=== PATIENT | male | born 1975 | race Caucasian/White ===

== ENCOUNTER 2017-08-21 19:06 | Emergency (ER) | payer MEDICARE, OTHER ==
[~2017-08-21] VITALS: Ht 160 cm; Wt 68.0 kg
[~2017-08-21 19:06] MED LIST: ALBU.083IS IH; ALBU3IS INH; ALBU90I INH; ALBU90OI INH; ALBU90OI6 INH; ALBU90OI61 INH; ALLERGY TAB OTC PO; ALLO100 PO; AMLO5 PO; AMOCLA500 PO; AMOCLA875 PO; ANTIBIOTIC OINT28 GM BOTHEYES; AZIT250 PO; Adalat Cc30 MG PO; BECL80OI INH; BENZ100A PO; BLOOD PRESSURE MED; BLOOD PRESSURE MED PO; CALCA500CH PO; CALCIUM WITH V1 EACH PO; CEFD300 PO; CEPH500 PO; CODGUAEL PO; COLCHICINE0.6 MG PO; CRUTCH3 USE; CRUTCH4 USE; Cleocin HCl150 MG PO; DELTASONE20 MG PO; DIPH50 PO; DOXY100 PO; Duoneb 2.5-0.5 M3 ML INH; EPIN.3I IM; FLUSAL2505 IH; FLUSAL2505 INH; FLUSAL5005 IH; FLUSAL5005 INH; FLUT.05NI; FLUT1DIS8 INH; FLUT44OIA IH; GUAI600T33 PO; HYDACE5 PO; HYDR1TAB94 PO; IBUP600 PO; IBUP800 PO; INDO50 PO; LEVFLO500 PO; LEVO750 PO; LISI5 PO; LORA1 PO; LORA10 PO; METPRE4DP PO; MONT10T PO; Mucinex600 MG PO; NAPR500 PO; NAPR500EC PO; NEBI5 PO; NIFEDIPINE PO; Naprosyn500 MG PO; Norco 5-325 Ta1 EACH PO; PARO10 PO; PARO20 PO; PRED10 PO; PRED20 PO; PRED5 PO; Percocet 5-3251 EACH PO; Prednisone20 MG PO; Prednisone5 MG PO; Prednisone50 MG PO; QVAR7.3 G1 INH; RANI150 PO; ROBAFEN COUGH; ROBITUSSIN DM PO; ROPI.25 PO; Refresh Eye Dr1 EACH BOTHEYES; TAMS.4ER PO; TIOT18; TIOT18 INH; TRAZ50 PO; Ultram50 MG PO; Ventolin/Prove6.7 GM INH; Zestril30 MG PO; Zithromax250 MG PO
[2017-08-21 20:26] LABS: PCO2 Arterial 33.7 mmHg (35-45); PO2 Arterial 57.4 mmHg (80-100); pH Blood Arterial 7.46 (7.35-7.45)
[2017-08-21 20:33] LABS: BASOPHILS ABSOLUTE AUTO 0.06 K/mm3 (0.00-0.23); BASOPHILS PERCENT AUTO 1 % (0-2); EOSINOPHILS ABSOLUTE AUTO 0.37 K/mm3 (0.00-0.68); EOSINOPHILS PERCENT AUTO 4 % (0-6); Hematocrit 40.5 % (37.0-53.0); Hemoglobin 14.1 g/dL (13.5-17.5); IMMATURE GRAN ABSOLUTE AUTO 0.02 K/mm3 (0.00-0.10); IMMATURE GRAN PERCENT AUTO 0 % (0-1); LYMPHOCYTES ABSOLUTE AUTO 2.64 K/mm3 (0.84-5.20); LYMPHOCYTES PERCENT AUTO 30 % (21-46); MONOCYTES PERCENT AUTO 7 % (4-13); Mean Corpuscular HGB Conc 34.8 g/dL (31.5-36.5); Mean Corpuscular Volume 89 fL (80-100); Mean Platelet Volume 8.6 fL (9.1-12.4); NEUTROPHILS ABSOLUTE AUTO 4.98 K/mm3 (1.96-9.15); NEUTROPHILS PERCENT AUTO 58 % (41-73); Platelet Count 253 K/mm3 (150-400); RDW Coefficient Variation 12.2 % (11.7-14.2); Red Blood Cell Count 4.55 M/mm3 (4.30-5.90); White Blood Cell Count 8.67 K/mm3 (4.00-11.30)
[2017-08-21 20:42] LABS: Alanine Aminotransfer (ALT/SGP 17 U/L (12-78); Albumin, Blood 3.9 g/dL (3.4-5.0); Albumin/Globulin Ratio 1.1 (0.8-1.8); Alk Phos 58 U/L (50-136); Anion Gap 8 mmol/L (6-16); Aspartate Aminotrans (AST/SGOT 13 U/L (12-37); Bilirubin, Total 0.4 mg/dL (0.1-1.0); Blood Urea Nitrogen 22 mg/dL (8-24); CO2, Blood 27 mmol/L (21-32); Calcium, Blood 8.7 mg/dL (8.5-10.1); Chloride, Blood 107 mmol/L (98-108); Creatinine, Blood 0.92 mg/dL (0.60-1.20); Globulin, Blood 3.7 g/dL (2.2-4.0); Glomerular Filtration Rate >60 (60-); Glucose, Blood 74 mg/dL (70-99); Potassium, Blood 3.6 mmol/L (3.5-5.5); Sodium, Blood 142 mmol/L (136-145); Total Protein, Blood 7.6 g/dL (6.4-8.2)
[2017-08-21] MEDS ORDERED: Prednisone20 MG PO (23:07)
[2017-12-04] MEDS ORDERED: NAPR550 (15:12)
[2017-12-04] MEDS ORDERED: Phenergan25 M1 PO (16:45)
== END 2017-08-21 23:11 | disposition home or self-care (01) ==
LOC: ER 19:06
PROVIDERS: Physician Assistant
DX: J45.901 Unspecified asthma with (acute) exacerbation (principal); Z88.8 Allergy status to other drugs, medicaments and biological substances; Z79.899 Other long term (current) drug therapy; Z79.52 Long term (current) use of systemic steroids; I10 Essential (primary) hypertension; F41.9 Anxiety disorder, unspecified; F32.9 Major depressive disorder, single episode, unspecified; Z87.891 Personal history of nicotine dependence
CPT/HCPCS: 36415; 36600; 71046; 80053; 82803; 85025; 93005; 93010; 94640; 94644; 96374; 99283; J2930

== ENCOUNTER 2018-03-03 09:19 | Inpatient (IN) | payer MEDICARE, OTHER ==
[~2018-03-03] VITALS: Ht 160 cm; Wt 65.4 kg
[~2018-03-03 09:19] MED LIST changes: +NAPR550; +Phenergan25 M1 PO
[2018-03-03 10:13] LABS: PCO2 Arterial 45.5 mmHg (35-45); PO2 Arterial 67.6 mmHg (80-100); pH Blood Arterial 7.39 (7.35-7.45)
[2018-03-03 10:22] LABS: BASOPHILS ABSOLUTE AUTO 0.11 K/mm3 (0.00-0.23); BASOPHILS PERCENT AUTO 1 % (0-2); EOSINOPHILS ABSOLUTE AUTO 0.57 K/mm3 (0.00-0.68); EOSINOPHILS PERCENT AUTO 5 % (0-6); Hematocrit 46.4 % (37.0-53.0); Hemoglobin 15.9 g/dL (13.5-17.5); IMMATURE GRAN ABSOLUTE AUTO 0.04 K/mm3 (0.00-0.10); IMMATURE GRAN PERCENT AUTO 0 % (0-1); LYMPHOCYTES ABSOLUTE AUTO 2.13 K/mm3 (0.84-5.20); LYMPHOCYTES PERCENT AUTO 17 % (21-46); MONOCYTES ABSOLUTE AUTO 1.09 K/mm3 (0.16-1.47); MONOCYTES PERCENT AUTO 9 % (4-13); Mean Corpuscular HGB Conc 34.3 g/dL (31.5-36.5); Mean Corpuscular Volume 93 fL (80-100); Mean Platelet Volume 8.3 fL (9.1-12.4); NEUTROPHILS ABSOLUTE AUTO 8.84 K/mm3 (1.96-9.15); NEUTROPHILS PERCENT AUTO 69 % (41-73); Platelet Count 323 K/mm3 (150-400); RDW Coefficient Variation 13.2 % (11.7-14.2); Red Blood Cell Count 4.97 M/mm3 (4.30-5.90); White Blood Cell Count 12.78 K/mm3 (4.00-11.30)
[2018-03-03] MEDS ORDERED: ALBU90OI61 INH (10:25)
[2018-03-03] MEDS ORDERED: BUDE6HFA INH (10:26)
[2018-03-03] MEDS ORDERED: ALLO100 PO (10:26)
[2018-03-03] MEDS ORDERED: MONT10T PO (10:26)
[2018-03-03] MEDS ORDERED: LISI20 PO (10:26)
[2018-03-03] MEDS ORDERED: AMLO5 PO (10:27)
[2018-03-03] MEDS ORDERED: COLCHICINE0.6 MG PO (10:27)
[2018-03-03] MEDS ORDERED: ALBU3IS INH (10:28)
[2018-03-03] MEDS ORDERED: BREO ELLIPTA 21 EACH (10:29)
[2018-03-03] MEDS ORDERED: Advair Hfa 230-12 GM (10:29)
[2018-03-03 10:38] LABS: Alanine Aminotransfer (ALT/SGP 23 U/L (12-78); Albumin/Globulin Ratio 0.9 (0.8-1.8); Alk Phos 102 U/L (50-136); Anion Gap 9 mmol/L (6-16); Aspartate Aminotrans (AST/SGOT 23 U/L (12-37); Bilirubin, Total 0.4 mg/dL (0.1-1.0); Blood Urea Nitrogen 19 mg/dL (8-24); Bun/Creatinine Ratio 21.1 (12.0-20.0); CO2, Blood 27 mmol/L (21-32); Calcium, Blood 8.7 mg/dL (8.5-10.1); Chloride, Blood 102 mmol/L (98-108); Globulin, Blood 4.4 g/dL (2.2-4.0); Glomerular Filtration Rate >60 (60-); Glucose, Blood 96 mg/dL (70-99); Potassium, Blood 4.1 mmol/L (3.5-5.5); Sodium, Blood 138 mmol/L (136-145); Total Protein, Blood 8.4 g/dL (6.4-8.2)
[2018-03-04 04:52] LABS: BASOPHILS ABSOLUTE AUTO 0.01 K/mm3 (0.00-0.23); BASOPHILS PERCENT AUTO 0 % (0-2); EOSINOPHILS PERCENT AUTO 0 % (0-6); Hemoglobin 15.1 g/dL (13.5-17.5); IMMATURE GRAN ABSOLUTE AUTO 0.07 K/mm3 (0.00-0.10); IMMATURE GRAN PERCENT AUTO 1 % (0-1); LYMPHOCYTES ABSOLUTE AUTO 0.64 K/mm3 (0.84-5.20); LYMPHOCYTES PERCENT AUTO 5 % (21-46); MONOCYTES ABSOLUTE AUTO 0.23 K/mm3 (0.16-1.47); MONOCYTES PERCENT AUTO 2 % (4-13); Mean Corpuscular HGB 31.8 pg (26.0-34.0); Mean Corpuscular HGB Conc 34.3 g/dL (31.5-36.5); Mean Corpuscular Volume 93 fL (80-100); Mean Platelet Volume 8.4 fL (9.1-12.4); NEUTROPHILS ABSOLUTE AUTO 12.03 K/mm3 (1.96-9.15); NEUTROPHILS PERCENT AUTO 93 % (41-73); Platelet Count 323 K/mm3 (150-400); RDW Coefficient Variation 12.9 % (11.7-14.2); RDW Standard Deviation 43.8 fL (35.1-46.3); Red Blood Cell Count 4.75 M/mm3 (4.30-5.90); White Blood Cell Count 12.98 K/mm3 (4.00-11.30)
[2018-03-04 05:12] LABS: Anion Gap 6 mmol/L (6-16); Blood Urea Nitrogen 19 mg/dL (8-24); Bun/Creatinine Ratio 22.9 (12.0-20.0); CO2, Blood 29 mmol/L (21-32); Calcium, Blood 8.9 mg/dL (8.5-10.1); Chloride, Blood 102 mmol/L (98-108); Creatinine, Blood 0.83 mg/dL (0.60-1.20); Glomerular Filtration Rate >60 (60-); Glucose, Blood 181 mg/dL (70-99); Potassium, Blood 4.8 mmol/L (3.5-5.5); Sodium, Blood 137 mmol/L (136-145)
[2018-03-05 05:09] LABS: BASOPHILS ABSOLUTE AUTO 0.02 K/mm3 (0.00-0.23); BASOPHILS PERCENT AUTO 0 % (0-2); EOSINOPHILS PERCENT AUTO 0 % (0-6); Hematocrit 39.7 % (37.0-53.0); Hemoglobin 13.3 g/dL (13.5-17.5); IMMATURE GRAN ABSOLUTE AUTO 0.19 K/mm3 (0.00-0.10); IMMATURE GRAN PERCENT AUTO 1 % (0-1); LYMPHOCYTES ABSOLUTE AUTO 0.79 K/mm3 (0.84-5.20); LYMPHOCYTES PERCENT AUTO 4 % (21-46); MONOCYTES ABSOLUTE AUTO 0.54 K/mm3 (0.16-1.47); MONOCYTES PERCENT AUTO 3 % (4-13); Mean Corpuscular HGB 31.7 pg (26.0-34.0); Mean Corpuscular HGB Conc 33.5 g/dL (31.5-36.5); Mean Corpuscular Volume 95 fL (80-100); Mean Platelet Volume 8.7 fL (9.1-12.4); NEUTROPHILS ABSOLUTE AUTO 16.32 K/mm3 (1.96-9.15); NEUTROPHILS PERCENT AUTO 91 % (41-73); Platelet Count 357 K/mm3 (150-400); RDW Coefficient Variation 13.2 % (11.7-14.2); RDW Standard Deviation 46.2 fL (35.1-46.3); Red Blood Cell Count 4.19 M/mm3 (4.30-5.90); White Blood Cell Count 17.86 K/mm3 (4.00-11.30)
[2018-03-05 05:47] LABS: Anion Gap 7 mmol/L (6-16); Blood Urea Nitrogen 22 mg/dL (8-24); Bun/Creatinine Ratio 25.9 (12.0-20.0); CO2, Blood 27 mmol/L (21-32); Calcium, Blood 8.4 mg/dL (8.5-10.1); Chloride, Blood 104 mmol/L (98-108); Creatinine, Blood 0.85 mg/dL (0.60-1.20); Glomerular Filtration Rate >60 (60-); Glucose, Blood 188 mg/dL (70-99); Potassium, Blood 4.3 mmol/L (3.5-5.5); Sodium, Blood 138 mmol/L (136-145)
[2018-03-06 08:11] LABS: BASOPHILS ABSOLUTE AUTO 0.01 K/mm3 (0.00-0.23); BASOPHILS PERCENT AUTO 0 % (0-2); EOSINOPHILS PERCENT AUTO 0 % (0-6); Hematocrit 41.3 % (37.0-53.0); Hemoglobin 13.6 g/dL (13.5-17.5); IMMATURE GRAN ABSOLUTE AUTO 0.18 K/mm3 (0.00-0.10); IMMATURE GRAN PERCENT AUTO 1 % (0-1); LYMPHOCYTES ABSOLUTE AUTO 0.61 K/mm3 (0.84-5.20); LYMPHOCYTES PERCENT AUTO 4 % (21-46); MONOCYTES PERCENT AUTO 3 % (4-13); Mean Corpuscular HGB 31.6 pg (26.0-34.0); Mean Corpuscular HGB Conc 32.9 g/dL (31.5-36.5); Mean Corpuscular Volume 96 fL (80-100); Mean Platelet Volume 8.5 fL (9.1-12.4); NEUTROPHILS ABSOLUTE AUTO 14.87 K/mm3 (1.96-9.15); NEUTROPHILS PERCENT AUTO 92 % (41-73); Platelet Count 351 K/mm3 (150-400); Red Blood Cell Count 4.31 M/mm3 (4.30-5.90); White Blood Cell Count 16.17 K/mm3 (4.00-11.30)
[2018-03-12] MEDS ORDERED: AMOX875 PO (10:30)
[2018-03-12] MEDS ORDERED: BENMENLOZ (10:32)
[2018-03-12] MEDS ORDERED: PRED10 PO (10:38)
== END 2018-03-12 12:14 | disposition home or self-care (01) | DRG 189 ==
LOC: ER 09:19 → MEDS 11:36 → ENPENDDIS 03-12 10:02 → MEDS 03-12 12:14
PROVIDERS: Internal Medicine
DX: J96.01 Acute respiratory failure with hypoxia (principal); J45.901 Unspecified asthma with (acute) exacerbation; G47.33 Obstructive sleep apnea (adult) (pediatric); J44.9 Chronic obstructive pulmonary disease, unspecified; I10 Essential (primary) hypertension; M10.9 Gout, unspecified; F41.9 Anxiety disorder, unspecified; K21.9 Gastro-esophageal reflux disease without esophagitis; R73.9 Hyperglycemia, unspecified; T38.0X5A Adverse effect of glucocorticoids and synthetic analogues, initial encounter; E66.9 Obesity, unspecified; B95.1 Streptococcus, group B, as the cause of diseases classified elsewhere; Z22.321 Carrier or suspected carrier of Methicillin susceptible Staphylococcus aureus; Z72.0 Tobacco use; Z79.899 Other long term (current) drug therapy; Z68.26 Body mass index [BMI] 26.0-26.9, adult
CPT/HCPCS: 36415; 36416; 36600; 71045; 71046; 80048; 80053; 82803; 82947; 85025; 87070; 87077; 87106; 87147; 87186; 87205; 94640; 94644; 94667; 94760; 96374; 99285-25; J1650; J2930

== ENCOUNTER 2018-03-18 00:12 | Observation (INO) | payer MEDICARE, OTHER ==
[~2018-03-18] VITALS: Ht 157.5 cm; Wt 65.8 kg
[~2018-03-18 00:12] MED LIST changes: +AMOX875 PO; +Advair Hfa 230-12 GM; +BENMENLOZ; +BREO ELLIPTA 21 EACH; +BUDE6HFA INH; +LISI20 PO
[2018-03-18 01:22] LABS: BASOPHILS ABSOLUTE AUTO 0.03 K/mm3 (0.00-0.23); BASOPHILS PERCENT AUTO 0 % (0-2); EOSINOPHILS ABSOLUTE AUTO 0.02 K/mm3 (0.00-0.68); EOSINOPHILS PERCENT AUTO 0 % (0-6); Hematocrit 38.7 % (37.0-53.0); IMMATURE GRAN ABSOLUTE AUTO 0.14 K/mm3 (0.00-0.10); IMMATURE GRAN PERCENT AUTO 1 % (0-1); LYMPHOCYTES ABSOLUTE AUTO 2.31 K/mm3 (0.84-5.20); LYMPHOCYTES PERCENT AUTO 11 % (21-46); MONOCYTES ABSOLUTE AUTO 1.73 K/mm3 (0.16-1.47); MONOCYTES PERCENT AUTO 8 % (4-13); Mean Corpuscular HGB 31.3 pg (26.0-34.0); Mean Corpuscular HGB Conc 33.6 g/dL (31.5-36.5); Mean Corpuscular Volume 93 fL (80-100); Mean Platelet Volume 9.1 fL (9.1-12.4); NEUTROPHILS ABSOLUTE AUTO 17.43 K/mm3 (1.96-9.15); NEUTROPHILS PERCENT AUTO 81 % (41-73); Platelet Count 240 K/mm3 (150-400); RDW Coefficient Variation 13.1 % (11.7-14.2); RDW Standard Deviation 44.8 fL (35.1-46.3); Red Blood Cell Count 4.15 M/mm3 (4.30-5.90); White Blood Cell Count 21.66 K/mm3 (4.00-11.30)
[2018-03-18 01:38] LABS: Alanine Aminotransfer (ALT/SGP 47 U/L (12-78); Albumin/Globulin Ratio 0.8 (0.8-1.8); Alk Phos 60 U/L (50-136); Anion Gap 6 mmol/L (6-16); Aspartate Aminotrans (AST/SGOT 27 U/L (12-37); Bilirubin, Total 0.4 mg/dL (0.1-1.0); Blood Urea Nitrogen 28 mg/dL (8-24); Bun/Creatinine Ratio 21.9 (12.0-20.0); CO2, Blood 27 mmol/L (21-32); Calcium, Blood 7.8 mg/dL (8.5-10.1); Chloride, Blood 104 mmol/L (98-108); Creatinine, Blood 1.28 mg/dL (0.60-1.20); Ethanol (Alcohol), Blood, Med <3 mg/dL; Globulin, Blood 3.6 g/dL (2.2-4.0); Glomerular Filtration Rate >60 (60-); Glucose, Blood 89 mg/dL (70-99); Potassium, Blood 4.6 mmol/L (3.5-5.5); Salicylate <1.7 mg/dL (2.8-20.0); Sodium, Blood 137 mmol/L (136-145); Total Protein, Blood 6.6 g/dL (6.4-8.2)
[2018-03-18 01:47] LABS: Acetaminophen, Random <2.0 ug/mL (10.0-30.0)
[2018-03-18 04:24] LABS: Source, Urine Clean Catch
[2018-03-18 04:31] LABS: Bilirubin, Urine Neg (Neg); Blood, Urine Neg (Neg); Glucose Qualitative, Urine Neg (Neg); Ketones, Urine Neg (Neg); Leukocyte Esterase, Urine Neg (Neg); Nitrite, Urine Neg (Neg); Protein, Urine Neg (Neg); Urobilinogen, Urine NORM (Normal)
[2018-03-18 04:32] LABS: Appearance, Urine Clear (Clear); Color, Urine Yellow (P-Yellow)
[2018-03-18 04:52] LABS: U Amphetamine Screen DETECTED; U Barbituate Screen Not Detected; U Benzodiazapine Screen Not Detected; U Buprenorphine Screen Not Detected; U Cannabinoids Screen DETECTED; U Cocaine Screen Not Detected; U Methadone Screen Not Detected; U Methamphetamine Screen DETECTED; U Opiates Screen Not Detected; U Oxycodone Screen Not Detected; U Phencyclidine Screen Not Detected; U Propoxyphene Screen Not Detected
== END 2018-03-18 05:24 | disposition home or self-care (01) ==
LOC: ER 00:12 → EOR 00:13
PROVIDERS: Emergency Medicine
DX: F19.929 Other psychoactive substance use, unspecified with intoxication, unspecified (principal); R45.1 Restlessness and agitation; R44.3 Hallucinations, unspecified; J44.9 Chronic obstructive pulmonary disease, unspecified; I10 Essential (primary) hypertension; M19.90 Unspecified osteoarthritis, unspecified site; G47.30 Sleep apnea, unspecified; M10.9 Gout, unspecified; Z87.891 Personal history of nicotine dependence; Z91.018 Allergy to other foods; Z79.899 Other long term (current) drug therapy
CPT/HCPCS: 36415; 80053; 81003; 84443; 85025; 99285; G0378; G0480

== ENCOUNTER 2018-12-10 16:01 | Inpatient (IN) | payer MEDICARE ==
[~2018-12-10] VITALS: Ht 160 cm; Wt 71.3 kg
[~2018-12-10 16:01] MED LIST changes: -BREO ELLIPTA 21 EACH; -LISI20 PO
[2018-12-10 16:32] LABS: BASOPHILS ABSOLUTE AUTO 0.06 K/mm3 (0.00-0.23); BASOPHILS PERCENT AUTO 1 % (0-2); EOSINOPHILS ABSOLUTE AUTO 0.58 K/mm3 (0.00-0.68); EOSINOPHILS PERCENT AUTO 6 % (0-6); Hematocrit 46.9 % (37.0-53.0); Hemoglobin 15.2 g/dL (13.5-17.5); IMMATURE GRAN ABSOLUTE AUTO 0.02 K/mm3 (0.00-0.10); IMMATURE GRAN PERCENT AUTO 0 % (0-1); LYMPHOCYTES ABSOLUTE AUTO 2.61 K/mm3 (0.84-5.20); LYMPHOCYTES PERCENT AUTO 27 % (21-46); MONOCYTES ABSOLUTE AUTO 0.66 K/mm3 (0.16-1.47); MONOCYTES PERCENT AUTO 7 % (4-13); Mean Corpuscular HGB Conc 32.4 g/dL (31.5-36.5); Mean Corpuscular Volume 96 fL (80-100); Mean Platelet Volume 8.1 fL (9.1-12.4); NEUTROPHILS ABSOLUTE AUTO 5.89 K/mm3 (1.96-9.15); NEUTROPHILS PERCENT AUTO 60 % (41-73); Platelet Count 524 K/mm3 (150-400); RDW Coefficient Variation 12.7 % (11.7-14.2); RDW Standard Deviation 45.1 fL (35.1-46.3); Red Blood Cell Count 4.91 M/mm3 (4.30-5.90); White Blood Cell Count 9.82 K/mm3 (4.00-11.30)
[2018-12-10 16:46] LABS: Alanine Aminotransfer (ALT/SGP 29 U/L (12-78); Albumin, Blood 3.3 g/dL (3.4-5.0); Albumin/Globulin Ratio 0.7 (0.8-1.8); Alk Phos 76 U/L (50-136); Anion Gap 8 mmol/L (6-16); Aspartate Aminotrans (AST/SGOT 22 U/L (12-37); Bilirubin, Total <0.1 mg/dL (0.1-1.0); Blood Urea Nitrogen 16 mg/dL (8-24); Bun/Creatinine Ratio 18.5 (12.0-20.0); CO2, Blood 24 mmol/L (21-32); Calcium, Blood 8.6 mg/dL (8.5-10.1); Chloride, Blood 109 mmol/L (98-108); Creatinine, Blood 0.86 mg/dL (0.60-1.20); Globulin, Blood 4.7 g/dL (2.2-4.0); Glomerular Filtration Rate >60 (60-); Glucose, Blood 102 mg/dL (70-99); Potassium, Blood 4.4 mmol/L (3.5-5.5); Sodium, Blood 141 mmol/L (136-145)
--- NOTE | 2018-12-10 18:50 | NUR ---
PATIENT ARRIVED IN ICU 10 FROM ED AFTER RECEIVING REPORT FROM JACOB WALLER, PATIENT CAME VIA STRETCHER, MOVED TO BED VIA SLIDER, PATIENT IS ON BIPAP, SETTINGS /6, FiO2 30 %, PATIENT STATED HE "FEELS A LITTLE BETTER", CURRENTLY MAG SULFATE AND AZITHROMYCIN INFUSING VIA 20 G ON R HAND, PATIENT WAS PLACED ON MONITOR, QUICK ADMIT DONE, MOTHER IN ROOM, HAS HEALTH CARE PROXY, CALL LIGHT EXPLAINED AND IN REACH, WILL CONTINUE TO MONITOR AND GIVE REPORT TO ONCOMING TECHNICAL PLANNER.
--- NOTE | 2018-12-10 19:30 | NUR ---
ASSUMED CARE/ADMIT PT ARRIVED TO ICU 10 JUST PRIOR TO SHIFT CHANGE. REPORT RECIEVED FROM OFFGOING RN. PT IS LAYING IN BED RESTING QUIETLY AT THIS TIME. PT AWAKENS TO VERBAL STIMULI AND IS ALERT, ORIENTED, AND VERY ANXIOUS WITH BIPAP MASK ON. BIPAP 12/6, FIO2 30%. VITAL SIGNS STABLE. IV ABX INFUSING AT THIS TIME. FAMILY AT BEDSIDE. WILL CONTINUE TO MONITOR.
[2018-12-11 01:53] LABS: U Amphetamine Screen Not Detected; U Barbituate Screen Not Detected; U Benzodiazapine Screen DETECTED; U Buprenorphine Screen Not Detected; U Cannabinoids Screen Not Detected; U Cocaine Screen Not Detected; U Methadone Screen Not Detected; U Methamphetamine Screen DETECTED; U Opiates Screen Not Detected; U Oxycodone Screen Not Detected; U Phencyclidine Screen Not Detected; U Propoxyphene Screen Not Detected
[2018-12-11 03:36] LABS: Hematocrit 44.1 % (37.0-53.0); Hemoglobin 14.1 g/dL (13.5-17.5); Mean Corpuscular HGB 30.7 pg (26.0-34.0); Mean Corpuscular Volume 96 fL (80-100); Mean Platelet Volume 8.3 fL (9.1-12.4); Platelet Count 453 K/mm3 (150-400); RDW Coefficient Variation 12.8 % (11.7-14.2); RDW Standard Deviation 45.2 fL (35.1-46.3); White Blood Cell Count 7.84 K/mm3 (4.00-11.30)
[2018-12-11 03:52] LABS: Anion Gap 6 mmol/L (6-16); Blood Urea Nitrogen 16 mg/dL (8-24); Bun/Creatinine Ratio 18.3 (12.0-20.0); CO2, Blood 29 mmol/L (21-32); Calcium, Blood 8.6 mg/dL (8.5-10.1); Chloride, Blood 105 mmol/L (98-108); Creatinine, Blood 0.87 mg/dL (0.60-1.20); Glomerular Filtration Rate >60 (60-); Glucose, Blood 200 mg/dL (70-99); Sodium, Blood 140 mmol/L (136-145)
--- NOTE | 2018-12-11 05:57 | NUR ---
SHIFT SUMMARY NO ACUTE CHANGES THIS SHIFT. PT HAS SLEPT OFF AND ON THROUGHOUT SHIFT. PT STARTLES AWAKE EASILY. PT IS ALERT AND ORIENTED WHEN AWAKE AND VERY FIDGETY/ANXIOUS. PT HAS USED BIPAP OFF AND ON THROUHGOUT THE NIGHT. WHEN OFF BIPAP PT ON 3L O2 NC. VITAL SIGNS HAVE REMAINED STABLE. IV'S SALINE LOCKED. PT TAKING PO FOOD AND FLUID INTAKE WELL. PT USING URINAL TO VOID WELL. WILL CONTINUE TO MONITOR AND REPORT OFF TO ONCOMING RN.
--- NOTE | 2018-12-11 07:22 | NUR ---
ASSUMED CARE: RECEIVED REPORT FROM NOC RN. PT APPEARS TO BE ASLEEP UPON ENTERING THE ROOM, BUT STARTLES AWAKE. PT STATES YES TO PAIN WHEN ASKED WHERE PT STATES "IN MY BRAIN". WILL PROVIDE MEDICATIONS ORDERED FOR PAIN. PRIOR TO LEAVING THE ROOM PT ASKES WHY HE IS HERE IN THE HOSPITAL WHEN TOLD D/T BREATHING ISSUES PT STATES, "BECAUSE IM HAVING DIFFICULTY WITH MY MEMORY" PT EDUCATED ONCE MORE ABOUT HIS HYPOXIA UPON ADMIT AND PT STATES "HMMM THAT'S IT". WILL CONTINUE TO MONITOR AND ASSESS FURTHER.
--- NOTE | 2018-12-11 07:52 | NUR ---
DR AT BEDSIDE: DR JARVIS CHANGED TO PCU STATUS AT THIS TIME.
--- NOTE | 2018-12-11 14:38 | NUR ---
TRANSFER TO PCU 4: REPORT GIVEN TO CASS Leiva RN. PT BEING TRANSPORTED BY WHEEL CHAIR AT THIS TIME.
--- NOTE | 2018-12-11 15:33 | NUR ---
RECEIVED REPORT FROM JACOB JHA AND ASSUMED CARE OF PATIENT. PT ARRIVES TO ROOM, HE HAS A HACKY, DRY COUGH. CALLED DR. JARVIS TO ASK FOR COUGH SYRUP AND THROAT LOZENGER, ADMINISTERED MEDS PER EMAR. WILL CONTIUNUE TO MONITOR AND FOLLOW ORDERS FOR THIS PATIENT. CALL LIGHT WITHIN EASY REACH, BED LOCKED AND LOW.
--- NOTE | 2018-12-11 18:50 | NUR ---
PT HAS DONE WELL SINCE HIS TRANFER TO PCU. PT INDEPENDENT IN THE ROOM AND HIS AFFECT IS PLEASANT, HE IS ABLE TO EXPRESS HIS NEEDS APPROPRIATELY. PT EXPRESSED GREAT RELIEF FROM COUGHING WITH THE MEDS ADMINISTERED BY THIS RN. PT CONTINUES ON 3 LPM NC. WILL CONTINUE TO MONITOR AND GIVE REPORT TO NOC RN. BED LOCKED AND LOW, HOB ELEVATED, CALL LIGHT WITHIN EASY REACH OF PATIENT.
--- NOTE | 2018-12-12 06:51 | NUR ---
PCU NOC SHIFT SUMMARY PATIENT ALERT AND ORIENTED X4. PATIENT ANXIOUS AND REPORTS 5/10 PAIN DUE TO HEADACHE AND RIB PAIN FROM COUGH. PATIENT MEDICATED PER EMAR FOR PAIN. L/S HAVE WHEEZES T/O - PATIENT TITRATED OFF OF OXYGEN NASAL CANNULA BUT DOES REQUIRE O2 2-3 L PM WHEN SLEEPING DUE TO SLEEP APNEA. PATIENT HAS FLUTTER VALVE AT BEDSIDE ENCOURAGED. PATIENT INDEPENDANT IN ROOM. VSS - NO ACUTE CHANGES T/O SHIFT; HEART RATE REMAINS SINUS TO SINUS TACH 90-115. WILL CONTINUE TO MONITOR AND REPORT TO DAYSHIFT RN.
--- NOTE | 2018-12-12 07:20 | NUR ---
RECEIVED REPORT FROM JACOB GOODE, AND ASSUMED CARE OF PT.
--- NOTE | 2018-12-12 17:01 | NUR ---
REPORT RECEIVED FROM TRISTAN JAMES.
--- NOTE | 2018-12-12 18:15 | NUR ---
SHIFT SUMMARY PT ALERT AND ORIENTED. VS STABLE. 02 SATS REMAIN ABOVE 90% ON 3L NC. PT DENIES ANY PAIN. LS EXP WHEEZES THROUGHOUT. PT SITTING UP EATING DINNER AT THIS TIME. WILL CONTINUE TO MONITOR AND REPORT TO ONCOMING RN. CALL LIGHT IN REACH.
--- NOTE | 2018-12-13 04:45 | NUR ---
END OF SHIFT SUMMARY ASSUMED CARE OF PT @1900. PT AXO,. TALKING WITH STAFF APPROPRIATELY. PT STATES OCCASIONAL LIGHT HEADEDNESS WITH AMBULATION BUT THIS HAS RESIDED. NO ACUTE CHANGES EXPERIENCED THIS SHIFT AT THIS TIME. PT HAS APPEARED TO SLEEP FOR MAJORITY OF SHIFT. PT STATES THAT THE PHENERGAN/CODEINE AND CEPACOL LOZENGES GIVEN AT THE BEGINNIG OF SHIFT HAVE BEEN THE MOST IMPACTFUL MEASURES TAKEN TO RELIEVWE HIS CHEST/ABDOMEN PAIN. STATES THAT THE MORPHINE GIVEN EARLIER DURING DAY SHIFT DID NOTHING FOR HIS PAIN AND JUST "KNOCKED HIM OUT". THIS WILL BE PASSED ON TO ONCOMING NURSE FOR PAIN MANAGEMENT. CALL LIGHT HAS BEE WITHIN REACH. BED IN LOWEST POSITION. WILL CONTINUE TO MONITOR PT UNTIL SHIFT CHANGE.
--- NOTE | 2018-12-13 17:54 | NUR ---
SHIFT SUMMARY' PT ALERT AND ORIENTED. VS STABLE. PT HAS BEEN ANXIOUS AT TIMES. PT ABLE TO AMBULATE IN ROOM INDEPENDENTLY. PT COMPLAINED OF PAIN WITH COUGHING THIS SHIFT THAT WAS RELEIVED WITH COUGH SYRUP SEE EMAR. O2 SATS HAVE REMAINED ABOVE 90% ON RA. PT USES O2 NEEDED FOR SHORTNESS OF BREATH. LS WHEEZES THROUGHOUT AND RECEIVING BREATHING TREATMENTS PER RT. WILL CONTINUE TO MONITOR AND REPORT TO ONCOMING RN. CALL LIGHT IN REACH.
--- NOTE | 2018-12-14 06:15 | NUR ---
END OF SHIFT SUMMARY ASSUMED CARE OF PT @1900. VSS T/O SHIFT EXCEPT BRIEF EPISODE OF HTN, MEDICATED WITH IV HYDRALZINE, SBP 130'S. PT HAS REQUIRED VERY LITTLE FROM THIS RN TONIGHT. INDEPENDENT TO BATHROOM. APPROPRIATELY USES CALL LIGHT. PT ANSTSY TO LEAVE HOSPITAL BUT KNOWS IT'S IMPORTANT TO "HEAL UP". NO ACUTE CHANGES THIS SHIFT. WILL CONTINUE TO MONITOR PT UNTIL SHIFT CHANGE.
[2018-12-14] MEDS ORDERED: LISI20 PO (12:42)
[2018-12-14] MEDS ORDERED: MONT10T PO (12:42)
[2018-12-14] MEDS ORDERED: ALLO100 PO (12:42)
[2018-12-14] MEDS ORDERED: ALBU90OI61 INH (12:42)
[2018-12-14] MEDS ORDERED: COLCHICINE0.6 MG PO (12:42)
[2018-12-14] MEDS ORDERED: ALBU3IS INH (12:42)
[2018-12-14] MEDS ORDERED: AMLO5 PO (12:42)
[2018-12-14] MEDS ORDERED: BREO ELLIPTA 21 EACH INH (12:43)
[2018-12-14] MEDS ORDERED: LEVOFLOXACIN750 MG PO (13:53)
[2018-12-14] MEDS ORDERED: PHENERGAN PO (14:00)
[2018-12-14] MEDS ORDERED: CODEINE PO (14:00)
[2018-12-14] MEDS ORDERED: PANT40 PO (14:01)
[2018-12-14] MEDS ORDERED: PRED20 PO (14:15)
--- NOTE | 2018-12-14 14:38 | NUR ---
DISCHARGE: PT REPORTS UNDERSTANDING OF DISCHARGE INSTRUCTIONS. PT REQ TO AMBULATE OUT BY SELF. PT SENT WITH BELONGINGS. FAMILY GIVING PT RIDE HOME.
== END 2018-12-14 14:44 | disposition home or self-care (01) | DRG 193 ==
LOC: ER 16:01 → ICUW 17:31 → PCU 12-11 14:41
PROVIDERS: Internal Medicine; Nurse Practitioner Acute Care; ADMIT Internal Medicine
PROC: 5A09357 Assistance with Respiratory Ventilation, Less than 24 Consecutive Hours, Continuous Positive Airway Pressure (ICD-10-PCS; principal; 2018-12-10)
DX: J18.1 Lobar pneumonia, unspecified organism (principal); J96.01 Acute respiratory failure with hypoxia; J45.901 Unspecified asthma with (acute) exacerbation; I10 Essential (primary) hypertension; M10.9 Gout, unspecified; M19.90 Unspecified osteoarthritis, unspecified site; Z87.891 Personal history of nicotine dependence; G47.33 Obstructive sleep apnea (adult) (pediatric); D69.6 Thrombocytopenia, unspecified; G25.81 Restless legs syndrome; J44.9 Chronic obstructive pulmonary disease, unspecified
CPT/HCPCS: 36415; 71045; 80048; 80053; 83605; 85025; 85027; 87040; 93005; 93010; 94640; 94644; 94645; 94660; 94760; 94762; 96361; 96365; 96367; 96375; 99285-25; C9113; J0360; J0456; J0696; J1650; J1956; J2060; J2270; J2405; J2930; J3475; J7050; J7120

== ENCOUNTER 2019-01-25 16:07 | Inpatient (IN) | payer MEDICARE ==
[~2019-01-25] VITALS: Ht 162.6 cm; Wt 63.6 kg
[~2019-01-25 16:07] MED LIST changes: +BREO ELLIPTA 21 EACH INH; +CODEINE PO; +LEVOFLOXACIN750 MG PO; +LISI20 PO; +PANT40 PO; +PHENERGAN PO
[2019-01-25] MEDS ORDERED: TRAZ50 PO (16:17)
[2019-01-25 17:20] LABS: BASOPHILS ABSOLUTE AUTO 0.05 K/mm3 (0.00-0.23); BASOPHILS PERCENT AUTO 0 % (0-2); EOSINOPHILS ABSOLUTE AUTO 0.39 K/mm3 (0.00-0.68); EOSINOPHILS PERCENT AUTO 3 % (0-6); Hematocrit 45.2 % (37.0-53.0); IMMATURE GRAN ABSOLUTE AUTO 0.05 K/mm3 (0.00-0.10); IMMATURE GRAN PERCENT AUTO 0 % (0-1); LYMPHOCYTES ABSOLUTE AUTO 2.25 K/mm3 (0.84-5.20); LYMPHOCYTES PERCENT AUTO 17 % (21-46); MONOCYTES ABSOLUTE AUTO 0.68 K/mm3 (0.16-1.47); MONOCYTES PERCENT AUTO 5 % (4-13); Mean Corpuscular HGB 30.9 pg (26.0-34.0); Mean Corpuscular HGB Conc 33.2 g/dL (31.5-36.5); Mean Corpuscular Volume 93 fL (80-100); Mean Platelet Volume 8.5 fL (9.1-12.4); NEUTROPHILS ABSOLUTE AUTO 9.89 K/mm3 (1.96-9.15); NEUTROPHILS PERCENT AUTO 74 % (41-73); Platelet Count 320 K/mm3 (150-400); RDW Coefficient Variation 13.1 % (11.7-14.2); RDW Standard Deviation 44.5 fL (35.1-46.3); Red Blood Cell Count 4.86 M/mm3 (4.30-5.90); White Blood Cell Count 13.31 K/mm3 (4.00-11.30)
[2019-01-25 17:26] LABS: PCO2 Arterial 41.9 mmHg (35-45); PO2 Arterial 57.7 mmHg (80-100)
[2019-01-25 17:30] LABS: Alanine Aminotransfer (ALT/SGP 36 U/L (12-78); Albumin, Blood 3.3 g/dL (3.4-5.0); Albumin/Globulin Ratio 0.8 (0.8-1.8); Alk Phos 84 U/L (50-136); Anion Gap 4 mmol/L (6-16); Aspartate Aminotrans (AST/SGOT 20 U/L (12-37); Bilirubin, Total 0.3 mg/dL (0.1-1.0); Blood Urea Nitrogen 20 mg/dL (8-24); Bun/Creatinine Ratio 25.7 (12.0-20.0); CO2, Blood 27 mmol/L (21-32); Calcium, Blood 8.4 mg/dL (8.5-10.1); Chloride, Blood 109 mmol/L (98-108); Creatinine, Blood 0.78 mg/dL (0.60-1.20); Globulin, Blood 4.2 g/dL (2.2-4.0); Glomerular Filtration Rate >60 (60-); Glucose, Blood 130 mg/dL (70-99); Potassium, Blood 3.9 mmol/L (3.5-5.5); Sodium, Blood 140 mmol/L (136-145); Total Protein, Blood 7.5 g/dL (6.4-8.2)
[2019-01-26 04:36] LABS: BASOPHILS ABSOLUTE AUTO 0.01 K/mm3 (0.00-0.23); BASOPHILS PERCENT AUTO 0 % (0-2); EOSINOPHILS PERCENT AUTO 0 % (0-6); Hematocrit 42.9 % (37.0-53.0); IMMATURE GRAN ABSOLUTE AUTO 0.06 K/mm3 (0.00-0.10); IMMATURE GRAN PERCENT AUTO 1 % (0-1); LYMPHOCYTES ABSOLUTE AUTO 0.66 K/mm3 (0.84-5.20); LYMPHOCYTES PERCENT AUTO 6 % (21-46); MONOCYTES ABSOLUTE AUTO 0.09 K/mm3 (0.16-1.47); MONOCYTES PERCENT AUTO 1 % (4-13); Mean Corpuscular HGB 30.2 pg (26.0-34.0); Mean Corpuscular HGB Conc 32.6 g/dL (31.5-36.5); Mean Corpuscular Volume 93 fL (80-100); Mean Platelet Volume 8.5 fL (9.1-12.4); NEUTROPHILS ABSOLUTE AUTO 10.56 K/mm3 (1.96-9.15); NEUTROPHILS PERCENT AUTO 93 % (41-73); Platelet Count 320 K/mm3 (150-400); RDW Coefficient Variation 13.2 % (11.7-14.2); RDW Standard Deviation 44.5 fL (35.1-46.3); Red Blood Cell Count 4.64 M/mm3 (4.30-5.90); White Blood Cell Count 11.38 K/mm3 (4.00-11.30)
[2019-01-26 04:52] LABS: Anion Gap 4 mmol/L (6-16); Blood Urea Nitrogen 19 mg/dL (8-24); Bun/Creatinine Ratio 27.1 (12.0-20.0); CO2, Blood 27 mmol/L (21-32); Calcium, Blood 8.7 mg/dL (8.5-10.1); Chloride, Blood 108 mmol/L (98-108); Glomerular Filtration Rate >60 (60-); Glucose, Blood 175 mg/dL (70-99); Potassium, Blood 4.3 mmol/L (3.5-5.5); Sodium, Blood 139 mmol/L (136-145)
--- NOTE | 2019-01-26 05:18 | NUR ---
SHIFT SUMMARY PT ADMITTED FOR COPD EXACERBATION. PT ALERT AND ORIENTED, ON ROOM AIR. PT SLEPT WELL AFTER SIGNIFICANT OTHER LEFT WITH CHILD. PT UP INDEPENDENTLY IN ROOM. OFFERS NO C/O'S OTHER THAN A COUGH. WILL CONTINUE TO MONITOR.
--- NOTE | 2019-01-26 17:38 | NUR ---
HE HAS WHEEZES BILATERALLY AND IS SOB A LOT OF THE TIME. HE HAS RECEIVED NEBS AND IV STEROID. NO SPUTUM SEEN THOUGH FIRST THIN THIS MORNING HE SAID HE COUGH UP MUCOUS. HE IS FULLY AMBULATORY. HE HAS SUCCESSFULLY NAPPED 2 OR 3 TIMES TODAY. TEDS ON BILAT. HE IS TACHY AND BP SOMETIMES HIGH. SEE VS DOCUMENTATION.
--- NOTE | 2019-01-27 05:05 | NUR ---
SHIFT SUMMARY PT ALERT, ORIENTED, AND INDEPENDENT IN ROOM. OFFERS NO C/O'S DURING THE NIGHT. NO ACUTE EVENTS OR CHANGES NOTED, WILL CONTINUE TO MONITOR.
--- NOTE | 2019-01-27 16:42 | NUR ---
PATIENT REFUSED RESPIRATORY PANEL NASOPHARENGEAL SWAB.
--- NOTE | 2019-01-27 19:22 | NUR ---
PATIENT IS ALERT AND ORIENTED AND COOPERATIVE WITH CARE. NO COMPLAINTS. INDEPENDENT IN ROOM. NO ACUTE CHANGES THIS SHIFT.
--- NOTE | 2019-01-28 04:07 | NUR ---
SHIFT SUMMARY A/O, ABLE TO MAKE NEEDS KNOWN. COOPERATIVE WITH CARE. CALLS AND ANSWERS QUESTIONS APPROPRIATELY. HAD SEVERAL CONCERNS ABOUT HIS TREATMENTS; IN WHICH, THIS RN DIRECTED HIM TO CONSULT WITH HIS ATTENDING PHYSICIAN. NEW IV PLACED. INDEPENDENT IN ROOM. NO C/O PAIN/DISCOMFORT. NO ACUTE CHANGES OVERNIGHT. BED IN LOWEST POSITION. CALL LIGHT AND BELONGINGS WITHIN REACH. WCTM. REPORT TO ONCOMING RN.
[2019-01-28] MEDS ORDERED: Prednisone10 MG (12:01)
--- NOTE | 2019-01-28 16:00 | NUR ---
DISCHARGE NOTE- PT WAS DISCHARGED HOME. MEDS FAXED TO -[facility] PER PT REQUEST. IV DC'D PRIOR TO DISCHARGE. PT WAS GIVEN VERBAL AND WRITTEN DISCHARGE INSTRUCTIONS AND ACKNOWLEDGED UNDERSTANDING OF THEM. NO FURTHER QUESTIONS AT THE TIME OF DISCHARGE. PT REFUSED ESCORT AND W/C AT THE TIME OF DISCHARGE.
[2019-04-05] MEDS ORDERED: BENZ100A PO (10:04)
== END 2019-01-28 13:00 | disposition home or self-care (01) | DRG 192 ==
LOC: ER 16:07 → ERHOLD 19:26 → MEDS 21:22 → ENPENDDIS 01-28 11:27 → MEDS 01-28 13:00
PROVIDERS: Emergency Medicine; ADMIT Hospitalist
DX: J44.1 Chronic obstructive pulmonary disease with (acute) exacerbation (principal); G47.30 Sleep apnea, unspecified; I10 Essential (primary) hypertension; M10.9 Gout, unspecified; G25.81 Restless legs syndrome; Z87.891 Personal history of nicotine dependence
CPT/HCPCS: 36415; 36600; 71045; 80048; 80053; 82803; 85025; 94640; 94644; 94760; 96365; 96366; 96375; 99285-25; J1650; J2920; J2930; J3475

== ENCOUNTER 2019-02-23 23:31 | Observation (INO) | payer MEDICARE ==
[~2019-02-23] VITALS: Ht 165.1 cm; Wt 68.0 kg
[~2019-02-23 23:31] MED LIST changes: +Prednisone10 MG
[2019-02-24 00:12] LABS: BASOPHILS ABSOLUTE AUTO 0.06 K/mm3 (0.00-0.23); BASOPHILS PERCENT AUTO 1 % (0-2); EOSINOPHILS PERCENT AUTO 2 % (0-6); Hematocrit 44.2 % (37.0-53.0); Hemoglobin 14.4 g/dL (13.5-17.5); IMMATURE GRAN ABSOLUTE AUTO 0.14 K/mm3 (0.00-0.10); IMMATURE GRAN PERCENT AUTO 2 % (0-1); LYMPHOCYTES ABSOLUTE AUTO 3.43 K/mm3 (0.84-5.20); LYMPHOCYTES PERCENT AUTO 40 % (21-46); MONOCYTES ABSOLUTE AUTO 0.54 K/mm3 (0.16-1.47); MONOCYTES PERCENT AUTO 6 % (4-13); Mean Corpuscular HGB 30.5 pg (26.0-34.0); Mean Corpuscular HGB Conc 32.6 g/dL (31.5-36.5); Mean Corpuscular Volume 94 fL (80-100); Mean Platelet Volume 7.9 fL (9.1-12.4); NEUTROPHILS ABSOLUTE AUTO 4.15 K/mm3 (1.96-9.15); NEUTROPHILS PERCENT AUTO 49 % (41-73); NRBC ABSOLUTE 0.03 K/mm3 (0.00-0.02); NRBC Auto 0.4 /100 WBC (0.0-0.2); Platelet Count 560 K/mm3 (150-400); RDW Coefficient Variation 13.5 % (11.7-14.2); RDW Standard Deviation 45.7 fL (35.1-46.3); Red Blood Cell Count 4.72 M/mm3 (4.30-5.90); White Blood Cell Count 8.52 K/mm3 (4.00-11.30)
[2019-02-24 00:32] LABS: Salicylate 2.2 mg/dL (2.8-20.0)
[2019-02-24 00:36] LABS: Acetaminophen, Random <2.0 ug/mL (10.0-30.0); Alanine Aminotransfer (ALT/SGP 37 U/L (12-78); Albumin/Globulin Ratio 0.6 (0.8-1.8); Alk Phos 99 U/L (50-136); Anion Gap 8 mmol/L (6-16); Aspartate Aminotrans (AST/SGOT 21 U/L (12-37); Bilirubin, Total <0.1 mg/dL (0.1-1.0); Blood Urea Nitrogen 8 mg/dL (8-24); Bun/Creatinine Ratio 9.9 (12.0-20.0); CO2, Blood 28 mmol/L (21-32); Calcium, Blood 8.1 mg/dL (8.5-10.1); Chloride, Blood 113 mmol/L (98-108); Creatinine, Blood 0.81 mg/dL (0.60-1.20); Ethanol (Alcohol), Blood, Med 382 mg/dL; Globulin, Blood 4.9 g/dL (2.2-4.0); Glomerular Filtration Rate >60 (60-); Glucose, Blood 106 mg/dL (70-99); Sodium, Blood 149 mmol/L (136-145); Total Protein, Blood 7.9 g/dL (6.4-8.2)
[2019-02-24 03:06] LABS: Source, Urine Clean Catch
[2019-02-24 03:08] LABS: Bilirubin, Urine Neg (Neg); Blood, Urine Neg (Neg); Glucose Qualitative, Urine Neg (Neg); Ketones, Urine Neg (Neg); Leukocyte Esterase, Urine Neg (Neg); Nitrite, Urine Neg (Neg); Protein, Urine Neg (Neg); Specific Gravity, Urine 1.015 (1.003-1.022); Urobilinogen, Urine NORM (Normal)
[2019-02-24 03:10] LABS: Appearance, Urine Clear (Clear); Color, Urine Yellow (P-Yellow)
[2019-02-24 03:22] LABS: U Amphetamine Screen Not Detected; U Barbituate Screen Not Detected; U Benzodiazapine Screen Not Detected; U Buprenorphine Screen Not Detected; U Cannabinoids Screen DETECTED; U Cocaine Screen Not Detected; U Methadone Screen Not Detected; U Methamphetamine Screen Not Detected; U Opiates Screen Not Detected; U Oxycodone Screen Not Detected; U Phencyclidine Screen Not Detected; U Propoxyphene Screen Not Detected
[2019-04-05] MEDS ORDERED: BENZ100A PO (10:04)
== END 2019-02-24 03:38 | disposition home or self-care (01) ==
LOC: ER 23:31 → EOR 23:32
PROVIDERS: ADMIT Emergency Medicine
DX: F10.129 Alcohol abuse with intoxication, unspecified (principal); J44.9 Chronic obstructive pulmonary disease, unspecified; I10 Essential (primary) hypertension; M19.90 Unspecified osteoarthritis, unspecified site; M10.9 Gout, unspecified; G47.30 Sleep apnea, unspecified; Z87.891 Personal history of nicotine dependence; Z79.899 Other long term (current) drug therapy; Y90.8 Blood alcohol level of 240 mg/100 ml or more
CPT/HCPCS: 36415; 80053; 81003; 84443; 85025; 99284; 99285; G0378; G0480

== ENCOUNTER 2019-03-19 21:35 | Emergency (ER) | payer MEDICARE ==
[~2019-03-19] VITALS: Ht 160 cm; Wt 70.3 kg
[2019-03-19 22:09] LABS: BASOPHILS ABSOLUTE AUTO 0.07 K/mm3 (0.00-0.23); BASOPHILS PERCENT AUTO 1 % (0-2); EOSINOPHILS ABSOLUTE AUTO 0.39 K/mm3 (0.00-0.68); EOSINOPHILS PERCENT AUTO 5 % (0-6); Hematocrit 38.2 % (37.0-53.0); Hemoglobin 12.1 g/dL (13.5-17.5); IMMATURE GRAN ABSOLUTE AUTO 0.04 K/mm3 (0.00-0.10); IMMATURE GRAN PERCENT AUTO 1 % (0-1); LYMPHOCYTES ABSOLUTE AUTO 2.99 K/mm3 (0.84-5.20); LYMPHOCYTES PERCENT AUTO 36 % (21-46); MONOCYTES ABSOLUTE AUTO 0.43 K/mm3 (0.16-1.47); MONOCYTES PERCENT AUTO 5 % (4-13); Mean Corpuscular HGB 30.7 pg (26.0-34.0); Mean Corpuscular HGB Conc 31.7 g/dL (31.5-36.5); Mean Corpuscular Volume 97 fL (80-100); Mean Platelet Volume 8.3 fL (9.1-12.4); NEUTROPHILS ABSOLUTE AUTO 4.48 K/mm3 (1.96-9.15); NEUTROPHILS PERCENT AUTO 53 % (41-73); Platelet Count 399 K/mm3 (150-400); RDW Standard Deviation 49.9 fL (35.1-46.3); Red Blood Cell Count 3.94 M/mm3 (4.30-5.90)
[2019-03-19] MEDS ORDERED: Prednisone10 MG PO (22:09)
[2019-03-19] MEDS ORDERED: LISI20 PO (22:09)
[2019-03-19] MEDS ORDERED: AMLO10 PO (22:09)
[2019-03-19] MEDS ORDERED: PANT20 PO (22:09)
[2019-03-19] MEDS ORDERED: Ropinirole HCl1 MG (22:11)
[2019-03-19 22:23] LABS: Alanine Aminotransfer (ALT/SGP 34 U/L (12-78); Albumin/Globulin Ratio 0.6 (0.8-1.8); Alk Phos 82 U/L (50-136); Anion Gap 7 mmol/L (6-16); Aspartate Aminotrans (AST/SGOT 30 U/L (12-37); Bilirubin, Total 0.1 mg/dL (0.1-1.0); Blood Urea Nitrogen 9 mg/dL (8-24); Bun/Creatinine Ratio 13.7 (12.0-20.0); CO2, Blood 26 mmol/L (21-32); Calcium, Blood 8.3 mg/dL (8.5-10.1); Chloride, Blood 115 mmol/L (98-108); Creatinine, Blood 0.66 mg/dL (0.60-1.20); Globulin, Blood 4.7 g/dL (2.2-4.0); Glomerular Filtration Rate >60 (60-); Glucose, Blood 94 mg/dL (70-99); Potassium, Blood 4.5 mmol/L (3.5-5.5); Sodium, Blood 148 mmol/L (136-145); Total Protein, Blood 7.7 g/dL (6.4-8.2); Troponin I <0.015 ng/mL (0.000-0.040)
[2019-03-19] MEDS ORDERED: PRED20 PO (23:39)
[2019-04-05] MEDS ORDERED: BENZ100A PO (10:04)
== END 2019-03-20 00:39 | disposition home or self-care (01) ==
LOC: ER 21:35
PROVIDERS: Emergency Medicine
DX: J45.901 Unspecified asthma with (acute) exacerbation (principal); M10.9 Gout, unspecified; I10 Essential (primary) hypertension; G47.30 Sleep apnea, unspecified; Z91.018 Allergy to other foods; Z79.82 Long term (current) use of aspirin; Z79.899 Other long term (current) drug therapy; Z87.891 Personal history of nicotine dependence
CPT/HCPCS: 36415; 71046; 80053; 84484; 85025; 93005; 93010; 94640; 96361; 96374; 96375; 99285-25; J1885; J2930; J7030

== ENCOUNTER 2019-04-07 22:29 | Inpatient (IN) | payer MEDICARE ==
[~2019-04-07] VITALS: Ht 162.6 cm; Wt 70.3 kg
[~2019-04-07 22:29] MED LIST changes: +AMLO10 PO; +PANT20 PO; +Prednisone10 MG PO; +Ropinirole HCl1 MG
[2019-04-08 00:24] LABS: BASOPHILS ABSOLUTE AUTO 0.07 K/mm3 (0.00-0.23); BASOPHILS PERCENT AUTO 1 % (0-2); EOSINOPHILS ABSOLUTE AUTO 0.24 K/mm3 (0.00-0.68); EOSINOPHILS PERCENT AUTO 3 % (0-6); Hematocrit 43.2 % (37.0-53.0); Hemoglobin 14.1 g/dL (13.5-17.5); IMMATURE GRAN ABSOLUTE AUTO 0.04 K/mm3 (0.00-0.10); IMMATURE GRAN PERCENT AUTO 0 % (0-1); LYMPHOCYTES ABSOLUTE AUTO 3.12 K/mm3 (0.84-5.20); LYMPHOCYTES PERCENT AUTO 34 % (21-46); MONOCYTES ABSOLUTE AUTO 0.64 K/mm3 (0.16-1.47); MONOCYTES PERCENT AUTO 7 % (4-13); Mean Corpuscular HGB 30.5 pg (26.0-34.0); Mean Corpuscular HGB Conc 32.6 g/dL (31.5-36.5); Mean Corpuscular Volume 93 fL (80-100); Mean Platelet Volume 8.3 fL (9.1-12.4); NEUTROPHILS ABSOLUTE AUTO 5.05 K/mm3 (1.96-9.15); NEUTROPHILS PERCENT AUTO 55 % (41-73); Platelet Count 370 K/mm3 (150-400); RDW Coefficient Variation 13.2 % (11.7-14.2); RDW Standard Deviation 45.6 fL (35.1-46.3); Red Blood Cell Count 4.63 M/mm3 (4.30-5.90); White Blood Cell Count 9.16 K/mm3 (4.00-11.30)
[2019-04-08 00:45] LABS: Alanine Aminotransfer (ALT/SGP 34 U/L (12-78); Albumin, Blood 3.4 g/dL (3.4-5.0); Albumin/Globulin Ratio 0.8 (0.8-1.8); Alk Phos 76 U/L (50-136); Anion Gap 6 mmol/L (6-16); Aspartate Aminotrans (AST/SGOT 21 U/L (12-37); Bilirubin, Total 0.1 mg/dL (0.1-1.0); Blood Urea Nitrogen 31 mg/dL (8-24); Bun/Creatinine Ratio 36.6 (12.0-20.0); CO2, Blood 27 mmol/L (21-32); Calcium, Blood 8.9 mg/dL (8.5-10.1); Chloride, Blood 108 mmol/L (98-108); Creatinine, Blood 0.85 mg/dL (0.60-1.20); Globulin, Blood 4.4 g/dL (2.2-4.0); Glomerular Filtration Rate >60 (60-); Glucose, Blood 96 mg/dL (70-99); Potassium, Blood 4.5 mmol/L (3.5-5.5); Sodium, Blood 141 mmol/L (136-145); Total Protein, Blood 7.8 g/dL (6.4-8.2); Troponin I <0.015 ng/mL (0.000-0.040)
[2019-04-08 05:46] LABS: Hematocrit 40.1 % (37.0-53.0); Hemoglobin 13.2 g/dL (13.5-17.5); Mean Corpuscular HGB 30.1 pg (26.0-34.0); Mean Corpuscular HGB Conc 32.9 g/dL (31.5-36.5); Mean Corpuscular Volume 92 fL (80-100); Mean Platelet Volume 8.3 fL (9.1-12.4); Platelet Count 296 K/mm3 (150-400); RDW Coefficient Variation 13.3 % (11.7-14.2); RDW Standard Deviation 45.1 fL (35.1-46.3); Red Blood Cell Count 4.38 M/mm3 (4.30-5.90); White Blood Cell Count 9.13 K/mm3 (4.00-11.30)
[2019-04-08 06:12] LABS: Alanine Aminotransfer (ALT/SGP 30 U/L (12-78); Albumin, Blood 3.2 g/dL (3.4-5.0); Albumin/Globulin Ratio 0.8 (0.8-1.8); Alk Phos 69 U/L (50-136); Anion Gap 6 mmol/L (6-16); Aspartate Aminotrans (AST/SGOT 16 U/L (12-37); Bilirubin, Total 0.1 mg/dL (0.1-1.0); Blood Urea Nitrogen 29 mg/dL (8-24); Bun/Creatinine Ratio 39.8 (12.0-20.0); CO2, Blood 24 mmol/L (21-32); Calcium, Blood 8.4 mg/dL (8.5-10.1); Chloride, Blood 110 mmol/L (98-108); Creatinine, Blood 0.73 mg/dL (0.60-1.20); Glomerular Filtration Rate >60 (60-); Glucose, Blood 113 mg/dL (70-99); Potassium, Blood 4.1 mmol/L (3.5-5.5); Sodium, Blood 140 mmol/L (136-145); Total Protein, Blood 7.2 g/dL (6.4-8.2)
--- NOTE | 2019-04-08 06:13 | NUR ---
SHIFT SUMMARY PT ARRIVED TO FLOOR IN NO DISTRESS. PT ONLY ISSUE IS BEING HUNGRY. PT CURRENTLY NPO. PT IS SLEEPING AND BREATHING EASY CALL LIGHT IN REACH.
[2019-04-08 16:51] LABS: Adenovirus Not Detected (NOT DETECT); Bordetella pertussis Not Detected (NOT DETECT); Chlamydophila pneumoniae Not Detected (NOT DETECT); Coronavirus 229E Not Detected (NOT DETECT); Coronavirus HKU1 Not Detected (NOT DETECT); Coronavirus NL63 Not Detected (NOT DETECT); Coronavirus OC43 Not Detected (NOT DETECT); Human Metapneumovirus Not Detected (NOT DETECT); Human Rhinovirus/Enterovirus Not Detected (NOT DETECT); Influenza A Not Detected (NOT DETECT); Influenza A/2009-H1 Not Detected (NOT DETECT); Influenza A/H1 Not Detected (NOT DETECT); Influenza A/H3 Not Detected (NOT DETECT); Influenza B Not Detected (NOT DETECT); Mycoplasma pneumoniae Not Detected (NOT DETECT); Parainfluenza Virus 1 Not Detected (NOT DETECT); Parainfluenza Virus 2 Not Detected (NOT DETECT); Parainfluenza Virus 3 Not Detected (NOT DETECT); Parainfluenza Virus 4 Not Detected (NOT DETECT); Respiratory Syncytial Virus Not Detected (NOT DETECT)
--- NOTE | 2019-04-08 18:30 | NUR ---
SHIFT SUMMARY PATIENT IS ALERT AND ORIENTED. EAGER TO D/C HOME BUT FEELS HE NEEDS TO GET HIS CHRONIC ASTHMA UNDER CONTROL. INDEPENDENT IN THE ROOM. NO ACUTE CHANGES NOTED.
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
--- NOTE | 2019-04-09 18:24 | NUR ---
SHIFT SUMMARY PT SLEEPING IN BED WITH GIRL FRIEND DURING SHIFT REPORT. WOKE BREIFLY DURING REPORT, BUT LATER REPORTED THAT HE "WAS OUT OF IT". ADMITTED FOR ASTHMA EXAC AGAIN WITH FREQUENT ADMISSIONS D/T NONCOMPLIANCE WITH MEDICATIONS. LUNGS T/O WITH INSP/EXP WHEEZES THRU OUT. PT UP INDEPENDENTLY IN RM AND TO THE SHOWER W/O DIFFICULTY. PT LAUGHING AND JUMPING AROUND IN RM WITH S/O THIS EVENING. PT AND S/O APPEARING TO BE UNDER THE INFLUENCE OF SOMETHING BROUGHT IN BY S/O. S/O WENT HOME THIS AM AND PT APPEARED NORMAL ALL DAY. S/O RETURNED THIS EVENING AND BOTH ARE LAUGHING AND JUMPING AROUND. PT DOES NOT APPEAR TO BE IN ANY DISTRESS. NO C/O. CALL LT IN REACH.
--- NOTE | 2019-04-10 04:45 | NUR ---
SHIFT SUMMARY PT ONLY ISSUE WAS A COUGH. PT COUGH TX PER EMAR WITH GOOD RESULT. PT GIRLFRIEND STAYED NIGHT WITH PT. PT WAS UP LATE WATCHING TV. PT LEFT BRIEFLY TO GO OUTSIDE. PT CURRENTLY SLEEPING IN NO DISTRESS. CALL LIGHT IN REACH.
[2019-04-10] MEDS ORDERED: BENZ100A PO (09:16)
[2019-04-10] MEDS ORDERED: Prednisone10 MG (09:24)
[2019-04-10] MEDS ORDERED: BREO ELLIPTA 21 EACH (09:28)
[2019-04-10] MEDS ORDERED: ACET325 PO (09:29)
[2019-04-10] MEDS ORDERED: Q-Tussin100 MG/5 M (09:33)
[2019-04-10] MEDS ORDERED: Aspercreme 1035.4 GM (09:34)
--- NOTE | 2019-04-10 18:40 | NUR ---
04/10/19 1200 sent home with a prescription voucher for his meds pt was very thank full
== END 2019-04-10 13:24 | disposition home or self-care (01) | DRG 203 ==
LOC: ER 22:29 → MEDS 04-08 04:13 → ENPENDDIS 04-10 09:27 → MEDS 04-10 13:24
PROVIDERS: Emergency Medicine; ADMIT Internal Medicine
DX: J45.901 Unspecified asthma with (acute) exacerbation (principal); J44.9 Chronic obstructive pulmonary disease, unspecified; M10.9 Gout, unspecified; I10 Essential (primary) hypertension; M19.90 Unspecified osteoarthritis, unspecified site; Z87.891 Personal history of nicotine dependence; M62.838 Other muscle spasm; G47.30 Sleep apnea, unspecified; R00.0 Tachycardia, unspecified; M54.6 Pain in thoracic spine
CPT/HCPCS: 0099U; 36415; 71045; 71046; 80048; 80053; 83880; 84484; 85025; 85027; 87070; 87205; 93005; 93010; 94640; 94644; 94760; 96361; 96365; 96374; 96375; 99285-25; A9270; J1650; J1885; J2930; J3475; J7030

== ENCOUNTER 2019-05-06 16:30 | Emergency (ER) | payer MEDICARE ==
[~2019-05-06] VITALS: Ht 160 cm; Wt 74.8 kg
[~2019-05-06 16:30] MED LIST changes: +ACET325 PO; +Aspercreme 1035.4 GM; +BREO ELLIPTA 21 EACH; +Q-Tussin100 MG/5 M
[2019-05-06 18:35] LABS: BASOPHILS ABSOLUTE AUTO 0.05 K/mm3 (0.00-0.23); BASOPHILS PERCENT AUTO 1 % (0-2); EOSINOPHILS PERCENT AUTO 2 % (0-6); Hematocrit 38.3 % (37.0-53.0); Hemoglobin 12.4 g/dL (13.5-17.5); IMMATURE GRAN ABSOLUTE AUTO 0.02 K/mm3 (0.00-0.10); IMMATURE GRAN PERCENT AUTO 0 % (0-1); LYMPHOCYTES ABSOLUTE AUTO 2.36 K/mm3 (0.84-5.20); LYMPHOCYTES PERCENT AUTO 26 % (21-46); MONOCYTES ABSOLUTE AUTO 0.67 K/mm3 (0.16-1.47); MONOCYTES PERCENT AUTO 7 % (4-13); Mean Corpuscular HGB 30.5 pg (26.0-34.0); Mean Corpuscular HGB Conc 32.4 g/dL (31.5-36.5); Mean Corpuscular Volume 94 fL (80-100); Mean Platelet Volume 8.6 fL (9.1-12.4); NEUTROPHILS ABSOLUTE AUTO 5.87 K/mm3 (1.96-9.15); NEUTROPHILS PERCENT AUTO 64 % (41-73); Platelet Count 259 K/mm3 (150-400); RDW Standard Deviation 48.8 fL (35.1-46.3); Red Blood Cell Count 4.07 M/mm3 (4.30-5.90); White Blood Cell Count 9.17 K/mm3 (4.00-11.30)
[2019-05-06 18:53] LABS: Alanine Aminotransfer (ALT/SGP 23 U/L (12-78); Albumin, Blood 3.4 g/dL (3.4-5.0); Albumin/Globulin Ratio 0.9 (0.8-1.8); Alk Phos 69 U/L (50-136); Anion Gap 5 mmol/L (6-16); Aspartate Aminotrans (AST/SGOT 12 U/L (12-37); Bilirubin, Total 0.1 mg/dL (0.1-1.0); Blood Urea Nitrogen 23 mg/dL (8-24); Bun/Creatinine Ratio 26.2 (12.0-20.0); CO2, Blood 26 mmol/L (21-32); Calcium, Blood 8.5 mg/dL (8.5-10.1); Chloride, Blood 109 mmol/L (98-108); Creatinine, Blood 0.88 mg/dL (0.60-1.20); Globulin, Blood 3.6 g/dL (2.2-4.0); Glomerular Filtration Rate >60 (60-); Glucose, Blood 94 mg/dL (70-99); Potassium, Blood 3.9 mmol/L (3.5-5.5); Sodium, Blood 140 mmol/L (136-145)
[2019-05-06] MEDS ORDERED: Prednisone20 MG PO (19:50)
[2019-05-06] MEDS ORDERED: OXYM.05NI (19:50)
== END 2019-05-06 20:18 | disposition home or self-care (01) ==
LOC: ER 16:30
PROVIDERS: Physician Assistant
DX: J45.901 Unspecified asthma with (acute) exacerbation (principal); J06.9 Acute upper respiratory infection, unspecified; I10 Essential (primary) hypertension; Z87.891 Personal history of nicotine dependence; Z91.018 Allergy to other foods; Z79.899 Other long term (current) drug therapy
CPT/HCPCS: 71046; 80053; 85025; 94640; 99283-25; J7512

== ENCOUNTER 2019-07-08 11:46 | Inpatient (IN) | payer MEDICARE ==
[~2019-07-08] VITALS: Ht 162.6 cm; Wt 70.4 kg
[~2019-07-08 11:46] MED LIST changes: -BREO ELLIPTA 21 EACH; +OXYM.05NI; -Q-Tussin100 MG/5 M
[2019-07-08 12:06] LABS: BASOPHILS ABSOLUTE AUTO 0.08 K/mm3 (0.00-0.23); BASOPHILS PERCENT AUTO 1 % (0-2); EOSINOPHILS ABSOLUTE AUTO 0.26 K/mm3 (0.00-0.68); EOSINOPHILS PERCENT AUTO 2 % (0-6); Hematocrit 42.9 % (37.0-53.0); IMMATURE GRAN ABSOLUTE AUTO 0.02 K/mm3 (0.00-0.10); IMMATURE GRAN PERCENT AUTO 0 % (0-1); LYMPHOCYTES ABSOLUTE AUTO 2.32 K/mm3 (0.84-5.20); LYMPHOCYTES PERCENT AUTO 19 % (21-46); MONOCYTES ABSOLUTE AUTO 0.77 K/mm3 (0.16-1.47); MONOCYTES PERCENT AUTO 6 % (4-13); Mean Corpuscular HGB 29.7 pg (26.0-34.0); Mean Corpuscular HGB Conc 32.6 g/dL (31.5-36.5); Mean Corpuscular Volume 91 fL (80-100); Mean Platelet Volume 8.4 fL (9.1-12.4); NEUTROPHILS ABSOLUTE AUTO 8.51 K/mm3 (1.96-9.15); NEUTROPHILS PERCENT AUTO 71 % (41-73); Platelet Count 370 K/mm3 (150-400); RDW Coefficient Variation 14.2 % (11.7-14.2); RDW Standard Deviation 48.1 fL (35.1-46.3); Red Blood Cell Count 4.72 M/mm3 (4.30-5.90); White Blood Cell Count 11.96 K/mm3 (4.00-11.30)
[2019-07-08 12:20] LABS: Alanine Aminotransfer (ALT/SGP 20 U/L (12-78); Albumin, Blood 3.8 g/dL (3.4-5.0); Alk Phos 67 U/L (50-136); Anion Gap 6 mmol/L (6-16); Aspartate Aminotrans (AST/SGOT 16 U/L (12-37); Bilirubin, Total 0.4 mg/dL (0.1-1.0); Blood Urea Nitrogen 18 mg/dL (8-24); CO2, Blood 25 mmol/L (21-32); Calcium, Blood 8.5 mg/dL (8.5-10.1); Chloride, Blood 109 mmol/L (98-108); Creatinine, Blood 0.86 mg/dL (0.60-1.20); Globulin, Blood 3.9 g/dL (2.2-4.0); Glomerular Filtration Rate >60 (60-); Glucose, Blood 100 mg/dL (70-99); Potassium, Blood 4.4 mmol/L (3.5-5.5); Sodium, Blood 140 mmol/L (136-145); Total Protein, Blood 7.7 g/dL (6.4-8.2); Troponin I <0.015 ng/mL (0.000-0.040)
[2019-07-08] MEDS ORDERED: LISI20 PO (14:43)
[2019-07-08] MEDS ORDERED: TRAZ50 PO (14:44)
[2019-07-08] MEDS ORDERED: Q-Tussin100 MG/5 M PO (14:44)
[2019-07-08] MEDS ORDERED: NAPR550 PO (14:45)
[2019-07-08 16:45] LABS: U Amphetamine Screen Not Detected; U Barbituate Screen Not Detected; U Benzodiazapine Screen DETECTED; U Buprenorphine Screen Not Detected; U Cannabinoids Screen DETECTED; U Cocaine Screen Not Detected; U Methadone Screen Not Detected; U Methamphetamine Screen Not Detected; U Opiates Screen Not Detected; U Oxycodone Screen Not Detected; U Phencyclidine Screen Not Detected; U Propoxyphene Screen Not Detected
--- NOTE | 2019-07-08 17:50 | NUR ---
ER ADMIT- PT ARRIVED TO ROOM 312 FROM ED. PT INDEP UP IN ROOM. PT A/OX4. PT REPORTS PAIN ONLY WITH COUGH AND DEEP BREATH BUT DENIES ANY TYLENOL AT THIS TIME. LS WITH EXP WHEEZES, ON RA, DRY NPC, TESSALON ROSA M GIVEN. PT UP AMBULATING IN ROOM AND REQUESTING SHOWER UPON ARRIVAL TO ROOM, NO DISTRESS NOTED. PT ORIENTED TO ROOM AND CALL SYSTEM, CALL LIGHT IN REACH.
[2019-07-08 18:19] LABS: Adenovirus Not Detected (NOT DETECT); Bordetella pertussis Not Detected (NOT DETECT); Chlamydophila pneumoniae Not Detected (NOT DETECT); Coronavirus 229E Not Detected (NOT DETECT); Coronavirus HKU1 Not Detected (NOT DETECT); Coronavirus NL63 Not Detected (NOT DETECT); Coronavirus OC43 Not Detected (NOT DETECT); Human Metapneumovirus Not Detected (NOT DETECT); Human Rhinovirus/Enterovirus Not Detected (NOT DETECT); Influenza A Not Detected (NOT DETECT); Influenza A/2009-H1 Not Detected (NOT DETECT); Influenza A/H1 Not Detected (NOT DETECT); Influenza A/H3 Not Detected (NOT DETECT); Influenza B Not Detected (NOT DETECT); Mycoplasma pneumoniae Not Detected (NOT DETECT); Parainfluenza Virus 1 Not Detected (NOT DETECT); Parainfluenza Virus 2 Not Detected (NOT DETECT); Parainfluenza Virus 3 Not Detected (NOT DETECT); Parainfluenza Virus 4 Not Detected (NOT DETECT); Respiratory Syncytial Virus Not Detected (NOT DETECT)
--- NOTE | 2019-07-09 04:37 | NUR ---
SHIFT SUMMARY ADMIT FOR ASTHMA EXACERBATION. FULL CODE. WHEEZES AUSCULTATED IN LUNGS. RESPIRATORY TREATMENTS ORDERED. INDEPENDENT IN ROOM. SOME TACHYCARDIA NOTED, HOWEVER PT WAS AGITATED BY A PHONE CONVERSATION AT THE TIME VITALS WERE TAKEN. PLAN IS FOR POSSIBLE DC TODAY. RA. REGULAR DIET. HX: POLYSUBSTANCE ABUSE, LUCY - NONCOMPLIANT W/CPAP.
[2019-07-09 05:02] LABS: BASOPHILS ABSOLUTE AUTO 0.01 K/mm3 (0.00-0.23); BASOPHILS PERCENT AUTO 0 % (0-2); EOSINOPHILS PERCENT AUTO 0 % (0-6); Hematocrit 43.4 % (37.0-53.0); Hemoglobin 14.3 g/dL (13.5-17.5); IMMATURE GRAN ABSOLUTE AUTO 0.04 K/mm3 (0.00-0.10); IMMATURE GRAN PERCENT AUTO 0 % (0-1); LYMPHOCYTES ABSOLUTE AUTO 1.25 K/mm3 (0.84-5.20); LYMPHOCYTES PERCENT AUTO 10 % (21-46); MONOCYTES ABSOLUTE AUTO 0.63 K/mm3 (0.16-1.47); MONOCYTES PERCENT AUTO 5 % (4-13); Mean Corpuscular HGB 29.5 pg (26.0-34.0); Mean Corpuscular HGB Conc 32.9 g/dL (31.5-36.5); Mean Corpuscular Volume 90 fL (80-100); Mean Platelet Volume 8.4 fL (9.1-12.4); NEUTROPHILS ABSOLUTE AUTO 11.26 K/mm3 (1.96-9.15); NEUTROPHILS PERCENT AUTO 85 % (41-73); Platelet Count 334 K/mm3 (150-400); RDW Coefficient Variation 14.1 % (11.7-14.2); RDW Standard Deviation 46.4 fL (35.1-46.3); Red Blood Cell Count 4.85 M/mm3 (4.30-5.90); White Blood Cell Count 13.19 K/mm3 (4.00-11.30)
[2019-07-09 05:38] LABS: Anion Gap 6 mmol/L (6-16); Blood Urea Nitrogen 24 mg/dL (8-24); Bun/Creatinine Ratio 28.3 (12.0-20.0); CO2, Blood 23 mmol/L (21-32); Chloride, Blood 109 mmol/L (98-108); Creatinine, Blood 0.85 mg/dL (0.60-1.20); Glomerular Filtration Rate >60 (60-); Glucose, Blood 141 mg/dL (70-99); Potassium, Blood 4.6 mmol/L (3.5-5.5); Sodium, Blood 138 mmol/L (136-145)
--- NOTE | 2019-07-09 12:14 | NUR ---
PT CONCERNED ABOUT OXYGEN SATS DROPPING WITH AMBULATION. AMBULATED IN HALLS WITH 02 SATS 95-96% ON RA.
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
--- NOTE | 2019-07-09 15:36 | NUR ---
PT TRANSFFERED TO ROOM [address] YUAN NOTIFIED OF INCIDENT.
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
--- NOTE | 2019-07-09 19:52 | NUR ---
MAUDE IS SITTING IN THE ROOM VERY ANXIOUS AND EMOTIONAL. STARTED TALKING ABOUT HIS LOVE LIFE AND HOW IT IS GOING WRONG. THEN ABOUT HIS OVERALL TROUBLES IN LIFE, JUST NEEDING TO VENT. ALLOWED VENTING WHILE ASSESSMENT WAS COMPLETED. TRIED TALKING HIM DOWN FROM HIS ANXIOUSNESS, AND ENCOURAGED HIM TO THINK OF OTHER THINGS. DISCUSSED BREATHING TECHNIQUES TO HELP. REQUESTED TO HAVE SOME ATIVAN TO HELP CALM HIM DOWN. WILL ADMINISTER PER EMAR. CALL LIGHT IN REACH.
--- NOTE | 2019-07-09 21:50 | NUR ---
MAUDE IS FEELING BETTER, HAS CALMED DOWN SOME AFTER GIVEN ATIVAN. HE STATES HIS DAY HAS BEEN ROUGH, CAUSING HIM SOME HIGH ANXIETY THAT HAS LASTED THROUGHOUT THE DAY. BP NOTED TO BE HIGH EARLIER HE WAS ON THE PHONE TALKING TO SOMEONE ABOUT THE EVENTS THAT OCCURED. HE IS NOW SITTING IN BED, CALM AND WATCHING TV. CALL LIGHT IN REACH.
--- NOTE | 2019-07-09 22:57 | NUR ---
GAVE PATIENT SUPPLIES FOR TAKING A SHOWER, PATIENT INDEPENDANT IN THE ROOM. IV COVERED AND TAPED. INSTRUCTED TO CALL IF HE NEEDS HELP.
--- NOTE | 2019-07-10 02:54 | NUR ---
PATIENT SLEEPING COMFORTABLY WITH NO SIGN OF DISTRESS. CALL LIGHT IN REACH.
[2019-07-10 05:40] LABS: Hematocrit 41.1 % (37.0-53.0); Hemoglobin 13.3 g/dL (13.5-17.5); Mean Corpuscular HGB 29.7 pg (26.0-34.0); Mean Corpuscular HGB Conc 32.4 g/dL (31.5-36.5); Mean Corpuscular Volume 92 fL (80-100); Mean Platelet Volume 8.6 fL (9.1-12.4); Platelet Count 327 K/mm3 (150-400); RDW Coefficient Variation 14.4 % (11.7-14.2); RDW Standard Deviation 48.4 fL (35.1-46.3); Red Blood Cell Count 4.48 M/mm3 (4.30-5.90); White Blood Cell Count 11.43 K/mm3 (4.00-11.30)
--- NOTE | 2019-07-10 06:06 | NUR ---
SHIFT SUMMARY: MAUDE VS HAVE REMAINED STABLE. LUNG SOUNDS HAVE DIMINISHED WITH OCCATIONAL WHEEZES. COUGH IS OFF AND ON, NO PRODUCTION TONIGHT. SATS HAVE REMAINED STABLE IN THE HIGH 90'S ON ROOM AIR. INDEPENDANT IN THE ROOM. TOOK 2 SHOWERS LAST NIGHT. HE DID HAVE ANXIETY OFF AND ON DUE TO PERSONAL ISSUES. ATIVAN 1MG WAS GIVEN ONCE WHICH HELPED TO CALM HIM DOWN AND BRING HIS BLOOD PRESSURE BACK TO NORMAL. NO FURTHER CHANGES TO REPORT. CALL LIGHT REMAINED IN REACH AND USED APPROPRIATELY.
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
--- NOTE | 2019-07-10 21:25 | NUR ---
RESTING COMFORTABLY IN BED; PT OUTSIDE TO ONCE ALREADY WITH THIS NURSE ASKING PATIENT TO LEAVE NOTE ON BOARD IN ROOM WHEN DEPARTING AND RETURNING WITH ACKNOWLEDGEMENT NOTED.
--- NOTE | 2019-07-11 04:43 | NUR ---
SHIFT SUMMARY: 44 Y/O MALE RESTED COMFORTABLY ALL SHIFT, DENIES PAIN OR NAUSEA; UP OUTSIDE X 1 THIS SHIFT; HAPPY AND COOPERATIVE; LUNG SOUNDS DIMINISHED THROUGHOUT; BED LOW POSITION WITH CALL LIGHT AT SIDE.
[2019-07-11 07:57] LABS: Albumin, Blood 3.8 g/dL (3.4-5.0); Anion Gap 7 mmol/L (6-16); Blood Urea Nitrogen 23 mg/dL (8-24); Bun/Creatinine Ratio 26.7 (12.0-20.0); CO2, Blood 24 mmol/L (21-32); Calcium, Blood 8.8 mg/dL (8.5-10.1); Chloride, Blood 109 mmol/L (98-108); Creatinine, Blood 0.86 mg/dL (0.60-1.20); Glomerular Filtration Rate >60 (60-); Glucose, Blood 84 mg/dL (70-99); Phosphorus, Blood 3.7 mg/dL (2.5-4.9); Potassium, Blood 3.7 mmol/L (3.5-5.5); Sodium, Blood 140 mmol/L (136-145)
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
--- NOTE | 2019-07-11 21:49 | NUR ---
1930 RESTING COMFORTABLY; DENIES SOB; COUGHING UP SMALL AMOUNTS WHITE PHELGM AT TIMES; UP OUTSIDE X 1 ALREADY.
--- NOTE | 2019-07-12 03:45 | NUR ---
SHIFT SUMMARY: 44 Y/O MALE RESTED COMFORTABLY ALL SHIFT, DENIES SOB, OCCASIONAL PRODUCTIVE COUGH WHITE PHELGM; EAGER TO RETURN HOME TODAY; UP AD ARSH IN ROOM; CALL LIGHT AT SIDE.
[2019-07-12] MEDS ORDERED: ROBITUSSIN100 MG/5 M PO (11:21)
[2019-07-12] MEDS ORDERED: Zithromax500 MG PO (11:24)
[2019-07-12] MEDS ORDERED: BENZ100A PO (11:25)
[2019-07-12] MEDS ORDERED: DILT180 PO (11:26)
[2019-07-12] MEDS ORDERED: B-1100 M1 PO (11:29)
[2019-07-12] MEDS ORDERED: Prednisone10 MG PO (11:29)
[2019-07-12] MEDS ORDERED: THERA1 EACH PO (11:30)
[2019-07-12] MEDS ORDERED: NAPR550 PO (11:39)
--- NOTE | 2019-07-12 12:08 | NUR ---
pt discharged THE PT VEBALIZED UNDERSTANDING OF THE DC INSTRUCTIONS, THE PTS PRESCROIPTIONS WERE FAXED TO [facility] REQUESTED, A FOLLOW UP APPOINTMENT WAS MADE FOR THE PT PRIOR TO DISCHARGE, THE PT DECLINED WHEELCHAIR, AMBULATED OUT STEADY ON HIS FEET APPEARED TO BE BREATHING EASILY ON RA AT THE TIME OF DC
== END 2019-07-12 12:03 | disposition home or self-care (01) | DRG 192 ==
LOC: ER 11:46 → MEDS 11:47 → ENPENDDIS 07-12 11:14 → MEDS 07-12 12:03
PROVIDERS: Emergency Medicine; Nurse Practitioner Acute Care; ADMIT Internal Medicine
DX: J44.1 Chronic obstructive pulmonary disease with (acute) exacerbation (principal); I10 Essential (primary) hypertension; G47.33 Obstructive sleep apnea (adult) (pediatric); M10.9 Gout, unspecified; Z79.51 Long term (current) use of inhaled steroids; Z79.899 Other long term (current) drug therapy; Z87.891 Personal history of nicotine dependence; Z23 Encounter for immunization
CPT/HCPCS: 0099U; 36415; 71046; 80048; 80053; 80069; 84145; 84484; 85025; 85027; 90686; 93005; 93010; 94640; 94644; 94667; 94760; 96361; 96365; 96372; 96375; 96376; 99285-25; G0008; G0378; G0480; J1100; J1650; J2060; J3475; J7030; J7512

== ENCOUNTER 2019-08-22 02:59 | Inpatient (IN) | payer MEDICARE ==
[~2019-08-22] VITALS: Ht 162.6 cm; Wt 70.7 kg
[~2019-08-22 02:59] MED LIST changes: +B-1100 M1 PO; +DILT180 PO; +NAPR550 PO; +Q-Tussin100 MG/5 M PO; +ROBITUSSIN100 MG/5 M PO; +THERA1 EACH PO; +Zithromax500 MG PO
[2019-08-22 03:15] LABS: BASOPHILS ABSOLUTE AUTO 0.09 K/mm3 (0.00-0.23); BASOPHILS PERCENT AUTO 1 % (0-2); EOSINOPHILS PERCENT AUTO 3 % (0-6); Hematocrit 44.8 % (37.0-53.0); Hemoglobin 15.1 g/dL (13.5-17.5); Mean Corpuscular HGB 30.4 pg (26.0-34.0); Mean Corpuscular HGB Conc 33.7 g/dL (31.5-36.5); Mean Corpuscular Volume 90 fL (80-100); Mean Platelet Volume 8.5 fL (9.1-12.4); Platelet Count 295 K/mm3 (150-400); RDW Coefficient Variation 13.4 % (11.7-14.2); RDW Standard Deviation 43.5 fL (35.1-46.3); Red Blood Cell Count 4.96 M/mm3 (4.30-5.90); White Blood Cell Count 12.26 K/mm3 (4.00-11.30)
[2019-08-22 03:16] LABS: IMMATURE GRAN ABSOLUTE AUTO 0.03 K/mm3 (0.00-0.10); IMMATURE GRAN PERCENT AUTO 0 % (0-1); LYMPHOCYTES ABSOLUTE AUTO 4.61 K/mm3 (0.84-5.20); LYMPHOCYTES PERCENT AUTO 38 % (21-46); MONOCYTES ABSOLUTE AUTO 0.73 K/mm3 (0.16-1.47); MONOCYTES PERCENT AUTO 6 % (4-13); NEUTROPHILS PERCENT AUTO 52 % (41-73)
[2019-08-22 03:34] LABS: Alanine Aminotransfer (ALT/SGP 26 U/L (12-78); Albumin, Blood 3.7 g/dL (3.4-5.0); Albumin/Globulin Ratio 0.9 (0.8-1.8); Alk Phos 80 U/L (50-136); Anion Gap 6 mmol/L (6-16); Aspartate Aminotrans (AST/SGOT 20 U/L (12-37); Bilirubin, Total 0.3 mg/dL (0.1-1.0); Blood Urea Nitrogen 21 mg/dL (8-24); Bun/Creatinine Ratio 21.6 (12.0-20.0); CO2, Blood 27 mmol/L (21-32); Calcium, Blood 8.6 mg/dL (8.5-10.1); Chloride, Blood 108 mmol/L (98-108); Creatinine, Blood 0.97 mg/dL (0.60-1.20); Globulin, Blood 3.9 g/dL (2.2-4.0); Glomerular Filtration Rate >60 (60-); Glucose, Blood 97 mg/dL (70-99); Potassium, Blood 4.5 mmol/L (3.5-5.5); Sodium, Blood 141 mmol/L (136-145); Total Protein, Blood 7.6 g/dL (6.4-8.2)
[2019-08-22 03:38] LABS: Influenza A Negative (NEGATIVE); Influenza B Negative (NEGATIVE)
[2019-08-22 07:13] LABS: Adenovirus Not Detected (NOT DETECT); Bordetella pertussis Not Detected (NOT DETECT); Chlamydophila pneumoniae Not Detected (NOT DETECT); Coronavirus 229E Not Detected (NOT DETECT); Coronavirus HKU1 Not Detected (NOT DETECT); Coronavirus NL63 Not Detected (NOT DETECT); Coronavirus OC43 Not Detected (NOT DETECT); Human Metapneumovirus Not Detected (NOT DETECT); Human Rhinovirus/Enterovirus Not Detected (NOT DETECT); Influenza A Not Detected (NOT DETECT); Influenza A/2009-H1 Not Detected (NOT DETECT); Influenza A/H1 Not Detected (NOT DETECT); Influenza A/H3 Not Detected (NOT DETECT); Influenza B Not Detected (NOT DETECT); Mycoplasma pneumoniae Not Detected (NOT DETECT); Parainfluenza Virus 1 Not Detected (NOT DETECT); Parainfluenza Virus 2 Not Detected (NOT DETECT); Parainfluenza Virus 3 Not Detected (NOT DETECT); Parainfluenza Virus 4 Not Detected (NOT DETECT); Respiratory Syncytial Virus Not Detected (NOT DETECT)
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
--- NOTE | 2019-08-22 22:03 | NUR ---
PHYSICIAN COMMUNICATION NOTIFIED PHYSICIAN OF CIWA >10 ASKED FOR LIBRIUM PRN, DR TIAN ORDERED PRN.
[2019-08-23 03:55] LABS: Hematocrit 41.2 % (37.0-53.0); Hemoglobin 13.6 g/dL (13.5-17.5); Mean Corpuscular HGB 30.4 pg (26.0-34.0); Mean Corpuscular Volume 92 fL (80-100); Mean Platelet Volume 8.9 fL (9.1-12.4); Platelet Count 259 K/mm3 (150-400); RDW Coefficient Variation 13.7 % (11.7-14.2); Red Blood Cell Count 4.47 M/mm3 (4.30-5.90); White Blood Cell Count 20.36 K/mm3 (4.00-11.30)
[2019-08-23 04:15] LABS: Alanine Aminotransfer (ALT/SGP 23 U/L (12-78); Albumin, Blood 3.4 g/dL (3.4-5.0); Albumin/Globulin Ratio 0.9 (0.8-1.8); Alk Phos 69 U/L (50-136); Anion Gap 7 mmol/L (6-16); Aspartate Aminotrans (AST/SGOT 13 U/L (12-37); Bilirubin, Total 0.2 mg/dL (0.1-1.0); Blood Urea Nitrogen 29 mg/dL (8-24); Bun/Creatinine Ratio 33.8 (12.0-20.0); CO2, Blood 27 mmol/L (21-32); Calcium, Blood 9.1 mg/dL (8.5-10.1); Chloride, Blood 109 mmol/L (98-108); Creatinine, Blood 0.86 mg/dL (0.60-1.20); Globulin, Blood 3.7 g/dL (2.2-4.0); Glomerular Filtration Rate >60 (60-); Glucose, Blood 172 mg/dL (70-99); Potassium, Blood 4.7 mmol/L (3.5-5.5); Sodium, Blood 143 mmol/L (136-145); Total Protein, Blood 7.1 g/dL (6.4-8.2)
--- NOTE | 2019-08-23 06:30 | NUR ---
SHIFT SUMMARY AOX4. VSS. DENIES PAIN. REPORTS NAUSEA, MEDICATED 1X W/ZOFRAN, STATES RELIEF. CIWA SCORE 8-18. PT VERY ANXIOUS, AGITATED, PACING ROOM, REARRANGING FURNITURE, REPORTED SEEING PEOPLE, VERY ITCHY, STATES HE FEELS SWEATY, TREMORS IN BUE. TOOK SHOWER THIS AM, WALKED AROUND UNIT FLOOR. GAVE LIBRIUM FOR CIWA OF 18 & 1HR LATER PT WAS UP PACING & MOVING FURNITURE & STATED HE COULD TELL HE WAS GOING THROUGH WITHDRAWLS, GAVE 2MG PO ATIVAN & WHEN REASSESSED CIWA @8. DENIES DYSPNEA @REST, E/U RESPIRATIONS, SPO2 >90% ON RA, BREATH SOUNDS DIMINISHED & WHEEZY T/O, BREATHING TX GIVEN PER ORDERS. HAS OCCASIONAL HARSH NONPRODUCTIVE MOIST COUGH, GAVE EUNICE ROCA & COBY, PT STATES RELIEF. CALL LIGHT IN REACH.
--- NOTE | 2019-08-23 09:30 | NUR ---
PT IS A&OX4 C/O HEADACHE, TREMORS, VISUAL HALLUCINATIONS "I SEE WEIRD SHADOWS", AND INTERMITTANT NAUSEA. PT ON CIWA FOR ETOH WITHDRAWALS AND PT REPORTS MOTIVATION TO BECOME SOBER AGAIN. PT DECLINES SOB, LUNGS HAVE EXP/INS WHEEZES THROUGHOUT AND IS ON ROOM AIR. STUDENT NURSE ASSIGNED TO PT TODAY, WILL REVIEW STUDENTS CHARTING AND ASSESSMENTS.
--- NOTE | 2019-08-23 11:36 | NUR ---
PATIENT GAVE PERMISSION FOR CARE AND TO ACCESS CHART. PATIENT IS AMUBULATORY AD-ARSH. PATIENT IS ON ROOM AIR WITH NO COMPLAINTS OF SHORTHNESS OF BREATH. LUNG SOUNDS WITH WHEZING AND CRACKLES, BILATERAL, WITH INSPIRATION. CIWA SCORE IS DONE AND PATIENT TREATED PER PROTOCOL.
--- NOTE | 2019-08-23 15:10 | NUR ---
REVIEWED STUDENT NURSE CHARTING, AGREE WITH ASSESSMENTS EXCEPT FOR AFTERNOON CIWA SCORE. SEE NEW CIWA SCORE CHARTED AND TREATMENT ON EMAR. PT REPORTED WORSENING HEADACHE AND INCREASE IN NAUSEA/VOMINITING. PRN ZOFRAN AND NAPROXEN GIVEN WITH GOOD RESPONSE.
--- NOTE | 2019-08-23 18:17 | NUR ---
SHIFT SUMMARY PT IS A&OX4, FOLLOWS COMMANDS. PT HAS REMAINED ON ROOM AIR, LUNG AUSCULATION HAS INS/EXP WHEEZES THROUGH OUT. PT REPORTED WORSENING WITHDRAWAL SYMPTOMS. CIWA SCORES HAVE BEEN 11-20 TODAY. HOSPITALIST CHANGED LIBRIUM TO SCHEDULED AND ADJUSTED PRN ATIVAN, TO ASSIST IN BETTER CONTROL. PT REPORTS MOTIVATION TO BECOME SOBER AGAIN. PT WENT TO [facility] MEETING TONIGHT DOWNSTAIRS, ESCORTED BY FAMILY. VITALS HAVE REMAINED STABLE.
--- NOTE | 2019-08-24 03:39 | NUR ---
PT WITHDRAWING FROM HEAVY ETOH USE ETOH WITHDRawl score 11 to 17 despite scheduled librium. PT was sleeping after last dose of 50 mg of librium when lab woke him and he became agitated saying he was feeling like people are snooping and he was going to get an ip technology transactions attorney. Currently declined breathing tx and rx for ciwa score of 17. he may be leaving floor after being told not to go off floor.
[2019-08-24 03:49] LABS: BASOPHILS ABSOLUTE AUTO 0.02 K/mm3 (0.00-0.23); BASOPHILS PERCENT AUTO 0 % (0-2); EOSINOPHILS ABSOLUTE AUTO 0.01 K/mm3 (0.00-0.68); EOSINOPHILS PERCENT AUTO 0 % (0-6); Hematocrit 38.9 % (37.0-53.0); Hemoglobin 12.5 g/dL (13.5-17.5); IMMATURE GRAN PERCENT AUTO 1 % (0-1); LYMPHOCYTES ABSOLUTE AUTO 0.73 K/mm3 (0.84-5.20); LYMPHOCYTES PERCENT AUTO 4 % (21-46); MONOCYTES ABSOLUTE AUTO 0.25 K/mm3 (0.16-1.47); MONOCYTES PERCENT AUTO 1 % (4-13); Mean Corpuscular HGB 30.3 pg (26.0-34.0); Mean Corpuscular HGB Conc 32.1 g/dL (31.5-36.5); Mean Corpuscular Volume 94 fL (80-100); NEUTROPHILS ABSOLUTE AUTO 17.11 K/mm3 (1.96-9.15); NEUTROPHILS PERCENT AUTO 93 % (41-73); Platelet Count 238 K/mm3 (150-400); RDW Coefficient Variation 14.4 % (11.7-14.2); RDW Standard Deviation 49.2 fL (35.1-46.3); Red Blood Cell Count 4.13 M/mm3 (4.30-5.90); White Blood Cell Count 18.32 K/mm3 (4.00-11.30)
[2019-08-24 04:06] LABS: Anion Gap 5 mmol/L (6-16); Blood Urea Nitrogen 31 mg/dL (8-24); Bun/Creatinine Ratio 32.8 (12.0-20.0); CO2, Blood 28 mmol/L (21-32); Calcium, Blood 8.5 mg/dL (8.5-10.1); Chloride, Blood 107 mmol/L (98-108); Creatinine, Blood 0.95 mg/dL (0.60-1.20); Glomerular Filtration Rate >60 (60-); Glucose, Blood 195 mg/dL (70-99); Potassium, Blood 4.4 mmol/L (3.5-5.5); Sodium, Blood 140 mmol/L (136-145)
--- NOTE | 2019-08-24 04:20 | NUR ---
pt denies cigarette use says he smokes cigars occasionally. medicated with 2 mg oral ativan for CIWA score 17 and resting quietly currently.
--- NOTE | 2019-08-24 13:27 | NUR ---
TRANSFER NOTE PATIENT TRANSFERED VIA WHEEL CHAIR TO ROOM 338 - REPORTED OFF TO ROOM 338 MEDICAL RN. PATIENT LEFT UNIT IN NO ACUTE DISTRESS - BELONGS, MEDICATIONS AND CHART SENT WITH PATIENT. PATIENT MEDICAL STATUS NO TELE. RESP E/U AT REST. LUNG SOUNDS TIGHT TO WHEEZE T/O. MD YEN UPDATED THIS RN AND PATIENT THAT HE WOULD CONTINUE ANOTHER NIGHT IN THE HOSPITAL UNTIL IS ASTHMA BECOME LESS TIGHT WITH HIS RESPIRATIONS.
--- NOTE | 2019-08-24 13:41 | NUR ---
PT ARIVED TO ROOM FROM PCU. ORIENTED TO ROOM, NURSING STAFF AND CALL LIGHT. PT IS A/O X 4 AND HAS NO S/S OF DISTRESS. HE IS RESTING IN BED AND HAS HIS CALL LIGHT IN REACH.
--- NOTE | 2019-08-24 14:16 | NUR ---
permission for care. lita sevilla [facility] student success coach, received permission to provide care on 08-24-2019
--- NOTE | 2019-08-24 16:28 | NUR ---
SHIFT SUMMARY PT IS A/O X 4 AND HAS NO C/O PAIN. PT DENIES ANY SOB. RT CONTINUES WITH BREATHING TX ORDERED. IV FLUIDS INFUSED ORDERED WITH NO ISSUE. PT MOM IS AT BEDSIDE. PT IS IND IN HIS ROOM AND AMBULATES TO THE TOILET. PT IS ABLE TO MAKE HIS NEEDS KNOWN AND CALLS FOR HELP WHEN NEEDED. CALL LIGHT IS IN REACH.
--- NOTE | 2019-08-25 05:51 | NUR ---
CIWAS MONITIRED THROUGH SHIFT, BP ELEVATED EARLIER, RECEIVED IV ATIVAN - SEE MAR FOR DETAILS OF MEDICATIONS. BP DECREASED AFTER IV ATIVAN ADMINISTERED. CURRENTLY RESTING WITH CALL LIGHT IN REACH.
--- NOTE | 2019-08-25 19:25 | NUR ---
SHIFT SUMMARY: NO ACUTE CHANGES TO REPORT THIS SHIFT. PT A&O; UP AD ARSH. ETOH WITHDRAWAL; CIWA ASSESSED 8 THOUGHOUT SHIFT; MEDICATED WITH ATIVAN & LIBRIUM PER EMAR. LUNGS CONTINUE COARSE; RT FOLLOWING; STEROIDS CONTINUING. REPORT GIVEN TO ONCOMING RN.
--- NOTE | 2019-08-25 22:49 | NUR ---
2229 PT'S ENTIRE BODY FOUND TO BE TREMBLING AND NOTICIBLE TO THE EYE. PT'S STATES HE FEELS THINGS CRAWLING ON HIS SKIN AND HAS SEVERE ITCHINESS ON ENTIRE BODY. CIWA SCORE OF 29. SEE EMAR FOR MEDICATIONS GIVEN. HOSPITALIST DR. BROUSSARD NOTIFIED. PT ALSO SEEING SHADOWS AND HEARING PEOPLE TALK FROM OUTSIDE THE WINDOW. SHE STATED SHE WILL TAKE A LOOK AT HIS CHART AND UPDATE HIS MEDS. 2255 PT RE ASSESSED. CIWA SCORE OF 22. REFER TO EMAR TO SEE MEDS GIVEN. PT'S TREMOR IS LESS VISIBLE. PT'S HEADACHE IS IMPROVING AND RATE IT MILD. STILL HAVING AUDITORY, VISUAL AND TACTILE HALLUCINATIONS. 2299 HOSPITALIST- BOBO CAME TO SEE PT AT THIS TIME. PLAN IS TO TRANSFER PT TO ICU. ATIVAN IV 2MG GIVEN 2316 CIWA SCORE OF 18. TREMORS VISIBLE WHEN PT EXTENDS ARM. TACTILE, AUDITORY AND VISUAL DISTURBANCES PRESENT. SLIGHTLY NAUSEOUS. DRY CRACKERS PROVIDED. WILL CONTINUE TO MONITOR.
[2019-08-26 05:03] LABS: BASOPHILS ABSOLUTE AUTO 0.02 K/mm3 (0.00-0.23); BASOPHILS PERCENT AUTO 0 % (0-2); EOSINOPHILS PERCENT AUTO 0 % (0-6); Hematocrit 40.8 % (37.0-53.0); Hemoglobin 13.3 g/dL (13.5-17.5); IMMATURE GRAN ABSOLUTE AUTO 0.28 K/mm3 (0.00-0.10); IMMATURE GRAN PERCENT AUTO 2 % (0-1); LYMPHOCYTES ABSOLUTE AUTO 1.61 K/mm3 (0.84-5.20); LYMPHOCYTES PERCENT AUTO 11 % (21-46); MONOCYTES PERCENT AUTO 7 % (4-13); Mean Corpuscular HGB 30.6 pg (26.0-34.0); Mean Corpuscular HGB Conc 32.6 g/dL (31.5-36.5); Mean Corpuscular Volume 94 fL (80-100); Mean Platelet Volume 8.9 fL (9.1-12.4); NEUTROPHILS ABSOLUTE AUTO 11.75 K/mm3 (1.96-9.15); NEUTROPHILS PERCENT AUTO 80 % (41-73); NRBC ABSOLUTE 0.02 K/mm3 (0.00-0.02); NRBC Auto 0.1 /100 WBC (0.0-0.2); Platelet Count 243 K/mm3 (150-400); RDW Coefficient Variation 14.4 % (11.7-14.2); RDW Standard Deviation 49.5 fL (35.1-46.3); Red Blood Cell Count 4.35 M/mm3 (4.30-5.90); White Blood Cell Count 14.66 K/mm3 (4.00-11.30)
--- NOTE | 2019-08-26 05:27 | NUR ---
CEMENT FINISHER APPRENTICE SUMMARY PT A/O X4 WITH OCCASIONAL CONFUSION. I NOTICED PT HAD A PURPLISH BRUISE UNDER HIS R EYE WHEN I CAME ON TO SHIFT. THROUGHOUT THE NIGHT HIS RIGHT UNDER EYE AND RIGHT SIDE OF FOREHEAD HAS SWELLED UP. I ASKED PT WHAT HAPPENED AND HE STATED HE BUMPED HIS HEAD IN THE BATHROOM AGAINST METAL PART OF TOILET WHILE HE WAS GOING TO THE BATHROOM. PT HAD BEEN INDEPENDENT PRIOR TO HIS WITHDRAWL EPISODE STARTING AROUND 2230 LAST NIGHT. PT'S BED ALARM ACTIVATED AT THAT TIME LAST NIGHT AND WE HAVE ASSISTED HIM TO THE BATHROOM FROM THAT POINT ON. PT STATED HE DOES NOT REMEMBER WHEN HE BUMPED HIS HEAD. I ONLY SAW HIM GETTING UP TO THE ONCE PRIOR TO HIS WITHDRAWL EPISODE TO WHICH I WAS IN THE ROOM ALSO AND HE DID NOT FALL THAT TIME. CIWA SCORE OF 8 THIS MORNING. ATIVAN IV 2 MG AND LIBRIUM 50 MG GIVEN. PT IS ON HIS PHONE AND STATES HE FEELS "OKAY".
[2019-08-26] MEDS ORDERED: PRED10 PO (09:49)
--- NOTE | 2019-08-26 10:17 | NUR ---
1010 PT TO DISCHARGE TO HOME. NURSE WENT OVER MEDS WITH PT AND NEW MEDS CALLED INTO PHARMACY OF CHOICE. PT HAD IV REMOVED, NO SS OF INFECTION NOTED.PT UPSET STATING HIS CLOTHES ARE MISSING AND THAT STAFF STOLE THEM. THIS NURSE LOOKED THROUGHOUT THE ROOM AND COULDNT FIND THEM. PCU ALSO CALLED AND THEY DID NOT HAVE THEM. PT WAS GIVEN BACK ALL HIS PAPERS HE CAME IN WITH AND TRIED TO TELL THE NURSE THAT THE CHART (THE HOSPITAL CHART) WAS ALSO HIS TO TAKE HOME. THIS NURSE EXPLAINED THAT THE CHART, ALTHOUGH IT HAD HIS INFORMATION IN IT, WAS ACTUALLY THE PROPERTY OF THE HOSPITAL. PT IS ON PHONE ATTMEPTING TO REPORT HIS CLOTHES STOLEN TO POLICE. PT IN WC AWAITING A RIDE .
== END 2019-08-26 10:42 | disposition home or self-care (01) | DRG 191 ==
LOC: ER 02:59 → PCU 03:00 → ER 05:47 → PCU 05:47 → MEDS 08-24 13:13 → ENPENDDIS 08-26 10:00 → MEDS 08-26 10:42
PROVIDERS: Emergency Medicine; Family Medicine; Internal Medicine; ADMIT Internal Medicine
DX: J44.1 Chronic obstructive pulmonary disease with (acute) exacerbation (principal); J45.901 Unspecified asthma with (acute) exacerbation; F10.239 Alcohol dependence with withdrawal, unspecified; I10 Essential (primary) hypertension; M10.9 Gout, unspecified; G47.33 Obstructive sleep apnea (adult) (pediatric); K21.9 Gastro-esophageal reflux disease without esophagitis
CPT/HCPCS: 0099U; 36415; 71046; 80048; 80053; 82947; 85025; 85027; 87804; 94640; 94644; 94667; 94760; 94762; 96372; 96374; 96375; 96376; 99285-25; A9270; A9270-GY; G0378; J1650; J2060; J2405; J2930; J3411; J3475; J7042; J7512

== ENCOUNTER 2019-09-16 04:31 | Emergency (ER) | payer MEDICARE ==
[~2019-09-16] VITALS: Ht 162.6 cm; Wt 79.4 kg
== END 2019-09-16 05:49 | disposition home or self-care (01) ==
LOC: ER 04:31
DX: Z77.118 Contact with and (suspected) exposure to other environmental pollution (principal); J44.9 Chronic obstructive pulmonary disease, unspecified; I10 Essential (primary) hypertension; F17.210 Nicotine dependence, cigarettes, uncomplicated
CPT/HCPCS: 99283

== ENCOUNTER 2019-09-24 16:06 | Emergency (ER) | payer MEDICARE ==
[~2019-09-24] VITALS: Ht 162.6 cm; Wt 79.4 kg
[2019-09-24] MEDS ORDERED: Norco 10-325 T1 EACH PO (16:37)
[2019-09-24] MEDS ORDERED: Augmentin 875-1 EACH PO (16:37)
== END 2019-09-24 16:46 | disposition home or self-care (01) ==
LOC: ER 16:06
DX: S61.251A Open bite of left index finger without damage to nail, initial encounter (principal); S61.211A Laceration without foreign body of left index finger without damage to nail, initial encounter; J44.9 Chronic obstructive pulmonary disease, unspecified; I10 Essential (primary) hypertension; F17.290 Nicotine dependence, other tobacco product, uncomplicated; Z79.899 Other long term (current) drug therapy; W50.3XXA Accidental bite by another person, initial encounter
CPT/HCPCS: 90471; 90714; 99283

== ENCOUNTER 2020-07-08 07:11 | Emergency (ER) | payer MEDICARE ==
[~2020-07-08] VITALS: Ht 162.6 cm; Wt 74.8 kg
[~2020-07-08 07:11] MED LIST changes: +ALBU2.5V5 NEB; +Augmentin 875-1 EACH PO; +BENMENLOZ PO; +BREO ELLIPTA 21 EAC1 INH; +Banatrol1 EACH PO; +FLUTICASONE-SA1 EAC1 INH; +HYDCHL25 PO; +IPRAT-ALBUT 0.5-3 ML INH; +METF500 PO; +NICO21TP TOP; +Nicoderm Cq1 EAC1 TOP; +Norco 10-325 T1 EACH PO; +TUSSIN MUC100 MG/5 M PO
== END 2020-07-08 07:59 | disposition home or self-care (01) ==
LOC: ER 07:11
DX: J45.901 Unspecified asthma with (acute) exacerbation (principal); J44.9 Chronic obstructive pulmonary disease, unspecified; I10 Essential (primary) hypertension; F17.200 Nicotine dependence, unspecified, uncomplicated; Z79.899 Other long term (current) drug therapy; Z79.84 Long term (current) use of oral hypoglycemic drugs; Z79.52 Long term (current) use of systemic steroids; Z91.018 Allergy to other foods
CPT/HCPCS: 94640; 94664; 99284

== ENCOUNTER 2021-01-26 05:56 | Inpatient (IN) | payer MEDICARE ==
[~2021-01-26] VITALS: Ht 162.6 cm; Wt 77.1 kg
[~2021-01-26 05:56] MED LIST changes: -HYDCHL25 PO; -METF500 PO
[2021-01-26 06:14] LABS: BASOPHILS PERCENT AUTO 1 % (0-2); EOSINOPHILS ABSOLUTE AUTO 0.54 K/mm3 (0.00-0.68); EOSINOPHILS PERCENT AUTO 5 % (0-6); Hematocrit 47.2 % (37.0-53.0); Hemoglobin 15.5 g/dL (13.5-17.5); IMMATURE GRAN ABSOLUTE AUTO 0.03 K/mm3 (0.00-0.10); IMMATURE GRAN PERCENT AUTO 0 % (0-1); LYMPHOCYTES ABSOLUTE AUTO 2.45 K/mm3 (0.84-5.20); LYMPHOCYTES PERCENT AUTO 20 % (21-46); MONOCYTES ABSOLUTE AUTO 0.73 K/mm3 (0.16-1.47); MONOCYTES PERCENT AUTO 6 % (4-13); Mean Corpuscular HGB 31.3 pg (26.0-34.0); Mean Corpuscular HGB Conc 32.8 g/dL (31.5-36.5); Mean Corpuscular Volume 95 fL (80-100); Mean Platelet Volume 8.3 fL (9.1-12.4); NEUTROPHILS ABSOLUTE AUTO 8.19 K/mm3 (1.96-9.15); NEUTROPHILS PERCENT AUTO 68 % (41-73); Platelet Count 417 K/mm3 (150-400); RDW Coefficient Variation 13.4 % (11.7-14.2); RDW Standard Deviation 46.5 fL (35.1-46.3); Red Blood Cell Count 4.96 M/mm3 (4.30-5.90); White Blood Cell Count 12.04 K/mm3 (4.00-11.30)
[2021-01-26 06:32] LABS: Alanine Aminotransfer (ALT/SGP 43 U/L (12-78); Albumin, Blood 3.6 g/dL (3.4-5.0); Albumin/Globulin Ratio 0.8 (0.8-1.8); Alk Phos 103 U/L (50-136); Anion Gap 5 mmol/L (6-16); Aspartate Aminotrans (AST/SGOT 42 U/L (12-37); Bilirubin, Total 0.3 mg/dL (0.1-1.0); Blood Urea Nitrogen 12 mg/dL (8-24); Bun/Creatinine Ratio 12.8 (12.0-20.0); CO2, Blood 29 mmol/L (21-32); Calcium, Blood 8.6 mg/dL (8.5-10.1); Chloride, Blood 105 mmol/L (98-108); Creatinine, Blood 0.94 mg/dL (0.60-1.20); Globulin, Blood 4.3 g/dL (2.2-4.0); Glomerular Filtration Rate >60 (60-); Glucose, Blood 114 mg/dL (70-99); Potassium, Blood 4.5 mmol/L (3.5-5.5); Sodium, Blood 139 mmol/L (136-145); Total Protein, Blood 7.9 g/dL (6.4-8.2)
[2021-01-26 07:38] LABS: PCO2 Arterial 49.7 mmHg (35-45); PO2 Arterial 72.1 mmHg (80-100); pH Blood Arterial 7.36 (7.35-7.45)
[2021-01-26 08:32] LABS: SARS-Cov-2 (COVID-19) PCR, MMC NEGATIVE (NEGATIVE)
--- NOTE | 2021-01-26 09:05 | NUR ---
PATIENT ARRIVED FROM ER TO PCU TODAY 01/26/21 AT 0845. HE IS ALERT AND ORIENTED X4. PATIENT HAS HIGH BP, RESPIRATIONS, AND HR. HE IS ON BIPAP RIGHT NOW. PATIENT WAS GIVEN RT THERAPY PRIOR TO ARRIVAL ONTO UNIT. BIOX IS ON WITH >90% OXYGEN SATS. HE HAS WHEEZING HEARD THROUGHOUT HIS LUNGS WITH INHALING AND EXHALING. SKIN IS INTACT. PATIENT IS RESTING COMFORTABLY IN BED. CALL LIGHT WITHIN REACH. AWAITING URINE SAMPLE. TOLERATING PO INTAKE. DENIES PAIN AT THIS TIME.
[2021-01-26 10:51] LABS: U Amphetamine Screen DETECTED; U Barbituate Screen Not Detected; U Benzodiazapine Screen Not Detected; U Buprenorphine Screen Not Detected; U Cannabinoids Screen Not Detected; U Cocaine Screen Not Detected; U Methadone Screen Not Detected; U Methamphetamine Screen DETECTED; U Opiates Screen Not Detected; U Oxycodone Screen Not Detected; U Phencyclidine Screen Not Detected; U Propoxyphene Screen Not Detected
--- NOTE | 2021-01-26 14:01 | NUR ---
SHIFT SUMMARY: RESP. FAILURE WITH HYPOXIA PATIENT IS ALERT AND ORIENTED X4. HIS BP HAS DECREASED SINCE ARRIVING ONTO UNIT. HE IS ON RA NOW AND HAS HIS SATS >90%. PATIENT DENIES PAIN AT THIS TIME. HE HAS INSPIRATORY WHEEZING WITH MOVEMENT AND STILL HAS A HIGHER RESPIRATORY RATE. PATIENT IS RECIEVING RESPIRATORY TREATMENTS AND HAS BEEN GIVEN STEROIDS. PATIENT STATES "I'M ALREADY STARTING TO FEEL BETTER". HE IS VOIDING AND TOLERATING PO INTAKE. PATIENT IS A SBA WHEN NEEDING TO USE THE BATHROOM. CALLS APPROPRIATELY. CALL LIGHT IS WITHIN REACH. THE PLAN IS TO CONTINUE RESPIRATORY TREATMENT AND IMPROVE BREATHING.
--- NOTE | 2021-01-27 01:48 | NUR ---
PT AWAKE VOIDING PER URINAL.PULLING AT BIPAP. PLACED ON 02 VIA N/C @4.5 L SATS 92%.PT ATE SNACK PER HIS REQUEST.FREQUENT MOIST NPC.C/O SORE THROAT. I CALLED DR JARVIS AND ADVISED OF ABOVE.RECEIVED ORDER FOR COUGH MED.
--- NOTE | 2021-01-27 07:41 | NUR ---
SUMMARY PT REQUIRED BIPAP MOST OF SHIFT AFTER ATIVAN IV AND LIBRIUM FOR WITHDRAWALS. THIS AM AMBULATORY IN ROOM.TOLERATING PO.PT TOOK SELF BED BATH AND SHAMPOO CAP THIS AM.ON O2 VIA N/C REPORTS FEELING BETTER.
[2021-01-27 07:56] LABS: BASOPHILS ABSOLUTE AUTO 0.01 K/mm3 (0.00-0.23); BASOPHILS PERCENT AUTO 0 % (0-2); EOSINOPHILS PERCENT AUTO 0 % (0-6); Hematocrit 38.4 % (37.0-53.0); Hemoglobin 12.9 g/dL (13.5-17.5); IMMATURE GRAN ABSOLUTE AUTO 0.05 K/mm3 (0.00-0.10); IMMATURE GRAN PERCENT AUTO 0 % (0-1); LYMPHOCYTES ABSOLUTE AUTO 0.81 K/mm3 (0.84-5.20); LYMPHOCYTES PERCENT AUTO 6 % (21-46); MONOCYTES ABSOLUTE AUTO 0.41 K/mm3 (0.16-1.47); MONOCYTES PERCENT AUTO 3 % (4-13); Mean Corpuscular HGB 31.6 pg (26.0-34.0); Mean Corpuscular HGB Conc 33.6 g/dL (31.5-36.5); Mean Corpuscular Volume 94 fL (80-100); Mean Platelet Volume 8.6 fL (9.1-12.4); NEUTROPHILS ABSOLUTE AUTO 12.34 K/mm3 (1.96-9.15); NEUTROPHILS PERCENT AUTO 91 % (41-73); Platelet Count 366 K/mm3 (150-400); RDW Coefficient Variation 13.5 % (11.7-14.2); RDW Standard Deviation 45.4 fL (35.1-46.3); Red Blood Cell Count 4.08 M/mm3 (4.30-5.90); White Blood Cell Count 13.62 K/mm3 (4.00-11.30)
[2021-01-27 08:12] LABS: Anion Gap 3 mmol/L (6-16); Blood Urea Nitrogen 25 mg/dL (8-24); Bun/Creatinine Ratio 29.4 (12.0-20.0); CO2, Blood 29 mmol/L (21-32); Calcium, Blood 8.6 mg/dL (8.5-10.1); Chloride, Blood 102 mmol/L (98-108); Creatinine, Blood 0.85 mg/dL (0.60-1.20); Glomerular Filtration Rate >60 (60-); Glucose, Blood 152 mg/dL (70-99); Potassium, Blood 5.3 mmol/L (3.5-5.5); Sodium, Blood 134 mmol/L (136-145)
--- NOTE | 2021-01-27 09:54 | NUR ---
TRANSFER TO [facility]. REPORT GIVEN TO [facility] FLOOR RN. PT TRANSFERRED IN WHEELCHAIR. PT HAS BEEN A/O, IND OR SBA IN ROOM. USNIG 4L O2 NC PRN. PT TRANSFERRED AT 0950.
--- NOTE | 2021-01-27 10:39 | NUR ---
PT TRANSFER FROM PCU 4; PT CAME IN FOR ACUTE RESPIRATORY FAILURE WITH HYPOXEMIA. PT IS AOX4; 45YO MALE, AND STANDBY ASSIST. PT NO 02; NO TELE. DENIES PAIN. PT HAD A HX OF ASTHMA, ETOH, METH USE. PT CIWA IS 2 PER [employer]. PT CALLS APPROPRIATELY. APPARENTLY PT RUN OUT OF INHALER AND CAME IN YESTERDAY FOR SOB AND WHEEZES. PT ORIENTED IN THE ROOM, BED IS IN THE LOWEST POSITION AND CALL LIGHT WITHIN REACGH
[2021-01-27 11:58] LABS: Base Excess Venous 5.5 mmol/L; PO2 Venous 172 mmHg (38-42); pH Blood Venous 7.47 (7.34-7.37)
--- NOTE | 2021-01-27 18:02 | NUR ---
SHIFT SUMMARY PT AOX4; INDEPENDENT IN THE ROOM. PT WANTED TO GO HOME THIS AFTERNOON; AT BEDSIDE AND EXPLAINED THE PT SITUATION FOR HIM TO STAY ONE MORE NIGHT HERE AT THE HOSPITAL; GIRLFRIEND WAS AT BEDSIDE WELL. PT CIWA 0-2. PT RECEIVING BANANA BAG. DENIES PAIN OR SOB. WHEEZES THROUGHOUT LUNGS AND RECEIVING BREATHING TX PER RT. BED IS IN THE LOWEST POSITION AND CALL LIGHT WITHIN REACH
--- NOTE | 2021-01-27 23:20 | NUR ---
2138 PT SITTING UP IN BED, REPORTS A SORE THROAT, GAVE COUGH MEDICINE. PT'S HEART RATE IS 129 AND HE IS A LITTLE JITTERY FROM THE RESPIRATORY MEDS AND THE SOLUMEDROL, GAVE ATIVAN. WILL EVAL FOR EFFECT. NO OTHER APPARENT SIGNS OF DISTRESS. CALL LIGHT IS IN REACH.
--- NOTE | 2021-01-28 03:28 | NUR ---
0000 PT LYING IN BED, AWAKE, WATCHING TV. NO APPARENT SIGNS OF DISTRESS. DENIES NEED FOR ANYTHING AT THIS TIME. CALL LIGHT IS IN REACH.
--- NOTE | 2021-01-28 03:29 | NUR ---
PT IS IN THE BATHROOM, DENIES NEED FOR ANYTHING AT THIS TIME. DOES NOT APPEAR TO BE IN ANY DISTRESS. CALL CORD IS IN REACH.
--- NOTE | 2021-01-28 03:33 | NUR ---
0200 PT SITTING UP IN BED, AWAKE, WATCHING TV .NO APPARENT SIGNS OF DISTRESS. CALL LIGHT IS IN REACH.
--- NOTE | 2021-01-28 05:25 | NUR ---
PT IS AAO X 4, ON RA. REPORTS SORE THROAT AND HAS DRY NONPRODUCTIVE COUGH, GAVE ROBITUSSIN AT HS. PT ALSO WAS A LITTLE JITTERY FROM THE RT TREATMENTS AND THE SOLUMEDROL, GOT ATIVAN PO AT HS. CIWA HAS BEEN 0.
--- NOTE | 2021-01-28 06:16 | NUR ---
PT LYING IN BED, EYES CLOSED, APPEARS TO BE RESTING. BREATHING IS EVEN, UNLABORED. NO APPARENT SIGNS OF DISTRESS. CALL LIGHT IS IN REACH. NO OTHER CHANGES THIS SHIFT.
--- NOTE | 2021-01-28 08:58 | NUR ---
CALLED THE DR FOR HIGH BLOOD PRESSURE OF SBP 180'S; OKAY TO GIVE SOLUMEDROL PER
[2021-01-28] MEDS ORDERED: Prednisone10 MG PO (10:33)
--- NOTE | 2021-01-28 10:55 | NUR ---
PT DISCHARGE TO HOME. PT GIVEN PACKET AND EDUCATION RHIANNA WITH [facility] IN [facility]. PT ALSO GIVEN PACKET FOR [employer]. PT MEDS WAS FAXED TO [facility]. [facility]. PT EDUCATED ABOUT THE NEW MEDS. PT ALSO PROVIDED INSTRUCTION TO BUILDING [employer]ERGY CONSULTANT NEBUL[facility]ER IN [facility] TOMORROW. ORDER WAS FAXED TO [facility] TODAY AND CALLED IN. PT EDUCATED ABOUT ESTABLISHING A NEW PCP. BP WAS ELEVATED THIS AM DUE TO ANXIOUS ABOUT GOING HOME; DR LORENZO AND OKAY TO GIVE SOLUMEDROL LAST DOSE THIS AM THE SWITCH TO PREDNISON PO
== END 2021-01-28 10:54 | disposition home or self-care (01) | DRG 189 ==
LOC: ER 05:56 → PCU 07:32 → MEDS 01-27 10:21
PROVIDERS: Emergency Medicine; Student in an Organized Health Care Education/Training Program; ADMIT Internal Medicine
PROC: HZ2ZZZZ Detoxification Services for Substance Abuse Treatment (ICD-10-PCS; principal; 2021-01-26)
DX: J96.01 Acute respiratory failure with hypoxia (principal); J45.901 Unspecified asthma with (acute) exacerbation; J44.1 Chronic obstructive pulmonary disease with (acute) exacerbation; F10.239 Alcohol dependence with withdrawal, unspecified; Z20.822 Contact with and (suspected) exposure to COVID-19; I10 Essential (primary) hypertension; M10.9 Gout, unspecified; G47.33 Obstructive sleep apnea (adult) (pediatric); E11.9 Type 2 diabetes mellitus without complications; F17.210 Nicotine dependence, cigarettes, uncomplicated; F15.10 Other stimulant abuse, uncomplicated; Z91.19 Patient's noncompliance with other medical treatment and regimen; Z79.52 Long term (current) use of systemic steroids; Z91.018 Allergy to other foods; Z59.0 Homelessness
CPT/HCPCS: 36415; 36600; 71045; 80048; 80053; 82803; 85025; 93005; 93010; 94640; 94644; 94660; 94664; 94667; 94760; 94762; 96374; 96375; 99285-25; A9270; J2060; J2405; J2930; J3411; J3475; J7042; J7512; U0004

== ENCOUNTER 2021-02-20 04:17 | Emergency (ER) | payer MEDICARE ==
[~2021-02-20] VITALS: Ht 162.6 cm; Wt 74.8 kg
[2021-02-20 04:42] LABS: BASOPHILS ABSOLUTE AUTO 0.09 K/mm3 (0.00-0.23); BASOPHILS PERCENT AUTO 1 % (0-2); EOSINOPHILS ABSOLUTE AUTO 0.49 K/mm3 (0.00-0.68); EOSINOPHILS PERCENT AUTO 4 % (0-6); Hematocrit 42.3 % (37.0-53.0); Hemoglobin 13.8 g/dL (13.5-17.5); IMMATURE GRAN ABSOLUTE AUTO 0.04 K/mm3 (0.00-0.10); IMMATURE GRAN PERCENT AUTO 0 % (0-1); LYMPHOCYTES ABSOLUTE AUTO 2.97 K/mm3 (0.84-5.20); LYMPHOCYTES PERCENT AUTO 26 % (21-46); MONOCYTES ABSOLUTE AUTO 0.77 K/mm3 (0.16-1.47); MONOCYTES PERCENT AUTO 7 % (4-13); Mean Corpuscular HGB 31.4 pg (26.0-34.0); Mean Corpuscular HGB Conc 32.6 g/dL (31.5-36.5); Mean Corpuscular Volume 96 fL (80-100); Mean Platelet Volume 8.3 fL (9.1-12.4); NEUTROPHILS ABSOLUTE AUTO 6.89 K/mm3 (1.96-9.15); NEUTROPHILS PERCENT AUTO 61 % (41-73); Platelet Count 369 K/mm3 (150-400); RDW Coefficient Variation 13.9 % (11.7-14.2); RDW Standard Deviation 49.4 fL (35.1-46.3); White Blood Cell Count 11.25 K/mm3 (4.00-11.30)
[2021-02-20 05:00] LABS: Alanine Aminotransfer (ALT/SGP 30 U/L (12-78); Albumin, Blood 3.4 g/dL (3.4-5.0); Albumin/Globulin Ratio 0.9 (0.8-1.8); Alk Phos 84 U/L (50-136); Anion Gap 4 mmol/L (6-16); Aspartate Aminotrans (AST/SGOT 28 U/L (12-37); Bilirubin, Total 0.3 mg/dL (0.1-1.0); Blood Urea Nitrogen 16 mg/dL (8-24); Bun/Creatinine Ratio 19.3 (12.0-20.0); CO2, Blood 27 mmol/L (21-32); Chloride, Blood 112 mmol/L (98-108); Creatinine, Blood 0.83 mg/dL (0.60-1.20); Globulin, Blood 3.7 g/dL (2.2-4.0); Glomerular Filtration Rate >60 (60-); Glucose, Blood 97 mg/dL (70-99); Potassium, Blood 3.8 mmol/L (3.5-5.5); Sodium, Blood 143 mmol/L (136-145); Total Protein, Blood 7.1 g/dL (6.4-8.2); Troponin I <0.015 ng/mL (0.000-0.040)
[2021-02-20] MEDS ORDERED: Prednisone20 MG PO (05:40)
== END 2021-02-20 05:46 | disposition home or self-care (01) ==
LOC: ER 04:17
PROVIDERS: Emergency Medicine
DX: J45.901 Unspecified asthma with (acute) exacerbation (principal); R09.02 Hypoxemia; F15.10 Other stimulant abuse, uncomplicated; J44.9 Chronic obstructive pulmonary disease, unspecified; I10 Essential (primary) hypertension; Z79.899 Other long term (current) drug therapy; Z79.84 Long term (current) use of oral hypoglycemic drugs; Z87.891 Personal history of nicotine dependence
CPT/HCPCS: 36415; 71045; 80053; 83880; 84484; 85025; 93005; 93010; 94644; 99285-25; A9270

== ENCOUNTER 2021-02-25 21:43 | Inpatient (IN) | payer MEDICARE, OTHER ==
[~2021-02-25] VITALS: Ht 170.2 cm; Wt 67.1 kg
[2021-02-25 22:04] LABS: BASOPHILS ABSOLUTE AUTO 0.06 K/mm3 (0.00-0.23); BASOPHILS PERCENT AUTO 1 % (0-2); EOSINOPHILS ABSOLUTE AUTO 0.55 K/mm3 (0.00-0.68); EOSINOPHILS PERCENT AUTO 4 % (0-6); Hematocrit 44.7 % (37.0-53.0); Hemoglobin 14.9 g/dL (13.5-17.5); IMMATURE GRAN ABSOLUTE AUTO 0.03 K/mm3 (0.00-0.10); IMMATURE GRAN PERCENT AUTO 0 % (0-1); LYMPHOCYTES ABSOLUTE AUTO 3.15 K/mm3 (0.84-5.20); LYMPHOCYTES PERCENT AUTO 25 % (21-46); MONOCYTES ABSOLUTE AUTO 1.12 K/mm3 (0.16-1.47); MONOCYTES PERCENT AUTO 9 % (4-13); Mean Corpuscular HGB 31.2 pg (26.0-34.0); Mean Corpuscular HGB Conc 33.3 g/dL (31.5-36.5); Mean Corpuscular Volume 94 fL (80-100); Mean Platelet Volume 8.3 fL (9.1-12.4); NEUTROPHILS ABSOLUTE AUTO 7.87 K/mm3 (1.96-9.15); NEUTROPHILS PERCENT AUTO 62 % (41-73); Platelet Count 354 K/mm3 (150-400); RDW Coefficient Variation 13.1 % (11.7-14.2); RDW Standard Deviation 45.2 fL (35.1-46.3); Red Blood Cell Count 4.77 M/mm3 (4.30-5.90); White Blood Cell Count 12.78 K/mm3 (4.00-11.30)
[2021-02-25 22:22] LABS: Alanine Aminotransfer (ALT/SGP 46 U/L (12-78); Albumin, Blood 3.7 g/dL (3.4-5.0); Albumin/Globulin Ratio 0.8 (0.8-1.8); Alk Phos 106 U/L (50-136); Anion Gap 6 mmol/L (6-16); Aspartate Aminotrans (AST/SGOT 37 U/L (12-37); Bilirubin, Total 0.2 mg/dL (0.1-1.0); Blood Urea Nitrogen 11 mg/dL (8-24); CO2, Blood 33 mmol/L (21-32); Calcium, Blood 9.6 mg/dL (8.5-10.1); Chloride, Blood 107 mmol/L (98-108); Creatinine, Blood 0.91 mg/dL (0.60-1.20); Globulin, Blood 4.6 g/dL (2.2-4.0); Glomerular Filtration Rate >60 (60-); Glucose, Blood 125 mg/dL (70-99); Sodium, Blood 146 mmol/L (136-145); Total Protein, Blood 8.3 g/dL (6.4-8.2)
[2021-02-26] MEDS ORDERED: MONT10T PO (00:49)
[2021-02-26] MEDS ORDERED: ALBU90OI INH (00:49)
[2021-02-26] MEDS ORDERED: BREO ELLIPTA 21 EAC1 INH (00:50)
[2021-02-26] MEDS ORDERED: HYDCHL25 PO (00:50)
[2021-02-26] MEDS ORDERED: METF500 PO (00:51)
--- NOTE | 2021-02-26 06:26 | NUR ---
SHIFT SUMMARY ASSUMED CARE OF PT AT 0020. PT IS A/OX4. HEART SOUNDS TACHY, MONITOR SHOWS PT HR REMAINED BETWEEN 120-130. PT WAS MEDICATED FOR ELEVATED SYSTOLIC BP OF 186 WITH SUCCESS UNTIL THIS AM WHEN HE STARTED TO HAVE A COUGHING FIT AGAIN AND BP JUMPED TO SYSTOLIC OF 180'S AGAIN. LUNG SOUNDS ARE VERY TIGHT WITH INSPIRATORY AND EXPIRATORY WHEEZES. PT WAS ON BIPAP WHEN ARRIVING ON THE FLOOR BUT THEN SWITCHED TO NC BECAUSE "IT FEELS LIKE SOMEONE IS PULLING ON MY FACE". PT SLEPT FOR A WHILE BUT THEN WOKE UP AGAIN AND SAID THAT HE NEEDED TO POOP AND RAN TO THE BATHROOM WITHOUT HIS O2. PT RETURNED TO THE BED AND SAID HE FELT LIKE HE COULD NOT BREATH AGAIN LIKE WHEN HE CAME IN. RT GAVE A BREATHING TREATMENT AND PT WENT BACK ON THE BIPAP AROUND 0300 BUT SWITCHED BACK TO NC AT 0530 WITH THE SAME COMPLAINTS BEFORE. PT IS COUGHING UP THICK TENACIOUS MUCUS. PT REPORTED TO THIS NURSE THAT HE DRINKS A PINT TO A FIFTH OF WHISKEY EVERYDAY. HE ALSO TAKES METH ABOUT ONCE A WEEK. PT SAID THE LAST TIME HE HAD METH WAS A WEEK FROM TODAY AND HE DRANK YESTERDAY 02/25/21 AT A BBQ. PT STATES HE WAS SOBER FOR 9YEARS BUT IS GOING THROUGH SOME HARD TIMES AND USES THEM AN EXCUSE TO START HIS BAD HABITS AGAIN. HOSPITALIST WAS NOTIFIED OF THIS AND CIWAH'S WERE ORDERED. PT WAS MEDICATED ONCE WITH ATIVAN WITH A CIWAH OF 15. SOME SYMTOMS MIGHT ALSO BE REALSTED TO THE STRAIN OF COUGHING AND DEEP BREATHING. CALL LIGHT IN REACH, BED IN LOWEST POSTION, BED ALARM ON.
[2021-02-26 08:48] LABS: Anion Gap 7 mmol/L (6-16); Blood Urea Nitrogen 18 mg/dL (8-24); Bun/Creatinine Ratio 21.4 (12.0-20.0); CO2, Blood 27 mmol/L (21-32); Calcium, Blood 9.1 mg/dL (8.5-10.1); Chloride, Blood 106 mmol/L (98-108); Creatinine, Blood 0.84 mg/dL (0.60-1.20); Glomerular Filtration Rate >60 (60-); Glucose, Blood 179 mg/dL (70-99); Potassium, Blood 4.5 mmol/L (3.5-5.5); Sodium, Blood 140 mmol/L (136-145)
[2021-02-26 13:13] LABS: SARS-Cov-2 (COVID-19) PCR, MMC NEGATIVE (NEGATIVE)
--- NOTE | 2021-02-26 18:28 | NUR ---
PT SUMMARY: PT ALERT AND ORIENTED X3, EPISODES OF CONFUSION. UPON WAKING UP FROM NAP PT SUDDENLY FORGOT WHERE HE'S AT, WAS REORIENTED. CIWA SCORE 9-15 LIBRIUM GIVEN X2. HRR SINUS TACH 100-130'S, BP SYSTOLIC WAS ELEVATED HYDRALAZINE WAS GIVEN X1 PROVIDER IS AWARE COULD BE DUE TO EXACERBATION, ALTERNATING 2-4L OF O2 AND BIPAP WHEN ASLEEP, PT IS COMPLAINT SATS ABOVE 90%. AFEBRILE. PT HAD EPISODE OF ACUTE EXACERBATION DURING SHIFT CHANGE BREATHING TX WAS GIVEN PER RT MG 2000MG WAS ALSO GIVEN, ATIVAN THAT WAS GIVEN FROM NOC RN THEN TOOK EFFECT PT FINALLY RESTED ON BIPAP. COUGH MEDICINE WAS ORDERED ADMINISTERED TWICE AND WAS EFFECTIVE. PT STARTED ON ZITHROMAX, REMAINS ON SOLUMEDROL 60MG Q6. PT WITH GOOD APPETITE. PT NOW RESTING IN BED, CALL LIGHTS IN REACH, WILL REPORT TO ONCOMING SHIFT
--- NOTE | 2021-02-27 05:49 | NUR ---
SHIFT SUMMARY ASSUMED CARE OF PT AT 1900. PT IS A/OX4. HEART SOUNDS REGULAR, TELE SHOWS SINUS TACH. LUNG SOUNDS HAVE WHEEZES T/O. PT HAS A PRODUCTIVE COUGH, MEDICATED PER EMAR. PT WAS ON 5L NC T/O THE NIGHT. PT USED THE BIPAP ON AND OFF FOR A COUPLE OF HOURS. PT USED THE URINAL T/O THE NIGHT. PT CIWAH SCORES WERE 6-8. CALL LIGHT IN REACH, BED IN LOWEST POSTION.
--- NOTE | 2021-02-27 18:48 | NUR ---
SHIFT SUMMARY PT A&Ox4; ANXIOUS AND AGGITATED THIS AFTERNOON, MEDICATED PER EMAR FOR CIWA. DR YUAN IN THIS [place], NEW ORDER FOR A BEER WITH MEALS, CLARIFIED ORDERS TO CONTINUE ATIVAN AND LIBRIUM, ORDERS TO CONTINUES CIWA PROTOCOL. PT DENIES PAIN, CHEST PAIN, NAUSEA AND DIZZINESS. PT SOB WITH EXERTION, STARTED ON 4L O2 VIA NC, TITRATED TO 2L O2 VIA NC. PT RECEIVING IV STEROIDS. ELEVATED HR 110'S FOR MAJORITY OF SHIFT, DR YUAN NOTIIFED, NO NEW ORDERS. OTHER VSS. NO OTHER ACUTE CHANGES NOTED DURING SHIFT. WILL CONTINUE TO MONITOR UNITL REPORT GIVEN TO ONCOMING RN.
[2021-02-28 03:59] LABS: Hematocrit 40.1 % (37.0-53.0); Hemoglobin 13.4 g/dL (13.5-17.5); Mean Corpuscular HGB 31.1 pg (26.0-34.0); Mean Corpuscular HGB Conc 33.4 g/dL (31.5-36.5); Mean Corpuscular Volume 93 fL (80-100); Mean Platelet Volume 8.7 fL (9.1-12.4); Platelet Count 334 K/mm3 (150-400); RDW Coefficient Variation 12.6 % (11.7-14.2); Red Blood Cell Count 4.31 M/mm3 (4.30-5.90); White Blood Cell Count 15.79 K/mm3 (4.00-11.30)
[2021-02-28 04:21] LABS: Albumin, Blood 2.9 g/dL (3.4-5.0); Anion Gap 5 mmol/L (6-16); Blood Urea Nitrogen 28 mg/dL (8-24); Bun/Creatinine Ratio 33.6 (12.0-20.0); CO2, Blood 31 mmol/L (21-32); Calcium, Blood 8.5 mg/dL (8.5-10.1); Chloride, Blood 102 mmol/L (98-108); Creatinine, Blood 0.83 mg/dL (0.60-1.20); Glomerular Filtration Rate >60 (60-); Glucose, Blood 156 mg/dL (70-99); Phosphorus, Blood 3.1 mg/dL (2.5-4.9); Potassium, Blood 4.2 mmol/L (3.5-5.5); Sodium, Blood 138 mmol/L (136-145)
--- NOTE | 2021-02-28 04:26 | NUR ---
SHIFT SUMMARY ASSUMED CARE OF PT AT 1900. PT IS A/OX4. HEART SOUNDS REGULAR, TELE SHOWS SINUS TACH @ 117. LUNG SOUNDS ARE TIGHT WITH INSPIRATORY AND EXPIRATORY WHEEZES, PT WAS ON RA T/O THE SHIFT. SATURATIONS BETWEEN 89% AND 93%. PT CIWAH'S HAVE BEEN BETWEEN 2-6. PT REPORTED TO THIS NURSE THAT HE IS NOT EXCITED TO LEAVE BECAUSE HE FEELS SAFE HERE AND CAN SLEEP SOUNDLY. PT RECEIVED TRANSFER ORDER, REPORT GIVEN TO AMANDA BOWMAN @ 1888.
--- NOTE | 2021-02-28 04:42 | NUR ---
transfer report from Pb JAMES in PCU on 46 year old MAle with polysubstance abuse nicotine addiction & COPD, LUCY, Asthma, HTN alcohol abuse, Diabetes, gout, homelessness. Reportedly on room air, ciwa scores less than 8. Await transfer.
[2021-02-28 05:23] LABS: PCO2 Arterial 45.3 mmHg (35-45); PO2 Arterial 55.7 mmHg (80-100); pH Blood Arterial 7.46 (7.35-7.45)
--- NOTE | 2021-02-28 05:27 | NUR ---
PT transferred from PCU, dry hacking cough tight wheeze all lobes. Room air, medicated with steroid & cough meds. Denies current nicotine addiction.
[2021-02-28] MEDS ORDERED: Tessalon200 MG PO (11:26)
[2021-02-28] MEDS ORDERED: AZIT500 PO (11:26)
[2021-02-28] MEDS ORDERED: GUAI600T33 PO (11:27)
[2021-02-28] MEDS ORDERED: Prednisone10 MG PO (11:34)
--- NOTE | 2021-02-28 17:08 | NUR ---
PT DISCHARGED AOX4 AND COOPERATIVE OF CARE. PT DID REQUEST ONE BREATHING TREATMENT TODAY. BP WAS HIGH 163/[address] YUAN ORDERED MEDICATON TO EMAR AND PT WAS TREATED LAST BP WAS 157/100 AND PT INSTRUCTED TO TAKE HYDRALAZINE TONIGHT PRESCRIBED BY DR YUAN. ALL PAPERWORK WAS REVIEWED AND EDUCATIONAL MATERIAL SENT. PT RECIEVED CELL PHONE AND EXTRA SUPPLIES PRIOR TO DISCHARGE. [facility] CALLED FOR [facility] TO TRANSPORT PT. ALL PERSONAL BELONINGS COLLECTED AND PT ESCORTED TO [facility] BY STUDENT NURSE JHOAN.
== END 2021-02-28 17:16 | disposition home or self-care (01) | DRG 189 ==
LOC: ER 21:43 → PCU 02-26 00:36 → MEDS 02-28 04:51
PROVIDERS: Emergency Medicine; Hospitalist; Internal Medicine; ADMIT Internal Medicine
PROC: 5A09457 Assistance with Respiratory Ventilation, 24-96 Consecutive Hours, Continuous Positive Airway Pressure (ICD-10-PCS; principal; 2021-02-26)
DX: J96.01 Acute respiratory failure with hypoxia (principal); J44.1 Chronic obstructive pulmonary disease with (acute) exacerbation; J45.901 Unspecified asthma with (acute) exacerbation; E87.0 Hyperosmolality and hypernatremia; Z20.822 Contact with and (suspected) exposure to COVID-19; I10 Essential (primary) hypertension; E88.81 Metabolic syndrome and other insulin resistance; M10.9 Gout, unspecified; F10.20 Alcohol dependence, uncomplicated; E66.9 Obesity, unspecified; E87.6 Hypokalemia; D72.829 Elevated white blood cell count, unspecified; M19.90 Unspecified osteoarthritis, unspecified site; T38.0X5A Adverse effect of glucocorticoids and synthetic analogues, initial encounter; G47.33 Obstructive sleep apnea (adult) (pediatric); Z91.018 Allergy to other foods; Z87.891 Personal history of nicotine dependence; Z79.52 Long term (current) use of systemic steroids; Z59.0 Homelessness
CPT/HCPCS: 36415; 36600; 71045; 80048; 80053; 80069; 82803; 83036; 85025; 85027; 93005; 93010; 94640; 94644; 94660; 94760; 94761; 94762; 96365; 99285-25; A9270; J0360; J1650; J2060; J2930; J3475; J3480; U0004

== ENCOUNTER 2021-04-07 04:54 | Inpatient (IN) | payer MEDICARE, OTHER ==
[~2021-04-07] VITALS: Ht 160 cm; Wt 68.2 kg
[~2021-04-07 04:54] MED LIST changes: +AZIT500 PO; +HYDCHL25 PO; +METF500 PO; +Tessalon200 MG PO
[2021-04-07 06:14] LABS: BASOPHILS ABSOLUTE AUTO 0.09 K/mm3 (0.00-0.23); BASOPHILS PERCENT AUTO 1 % (0-2); EOSINOPHILS PERCENT AUTO 4 % (0-6); Hematocrit 40.4 % (37.0-53.0); Hemoglobin 13.5 g/dL (13.5-17.5); IMMATURE GRAN ABSOLUTE AUTO 0.02 K/mm3 (0.00-0.10); IMMATURE GRAN PERCENT AUTO 0 % (0-1); LYMPHOCYTES ABSOLUTE AUTO 1.96 K/mm3 (0.84-5.20); LYMPHOCYTES PERCENT AUTO 18 % (21-46); MONOCYTES ABSOLUTE AUTO 0.72 K/mm3 (0.16-1.47); MONOCYTES PERCENT AUTO 7 % (4-13); Mean Corpuscular HGB 31.4 pg (26.0-34.0); Mean Corpuscular HGB Conc 33.4 g/dL (31.5-36.5); Mean Corpuscular Volume 94 fL (80-100); Mean Platelet Volume 8.7 fL (9.1-12.4); NEUTROPHILS ABSOLUTE AUTO 7.44 K/mm3 (1.96-9.15); NEUTROPHILS PERCENT AUTO 70 % (41-73); Platelet Count 252 K/mm3 (150-400); RDW Coefficient Variation 12.7 % (11.7-14.2); RDW Standard Deviation 43.8 fL (35.1-46.3); White Blood Cell Count 10.63 K/mm3 (4.00-11.30)
[2021-04-07 06:34] LABS: Alanine Aminotransfer (ALT/SGP 35 U/L (12-78); Albumin, Blood 3.2 g/dL (3.4-5.0); Albumin/Globulin Ratio 0.9 (0.8-1.8); Alk Phos 86 U/L (50-136); Anion Gap 5 mmol/L (6-16); Aspartate Aminotrans (AST/SGOT 33 U/L (12-37); Bilirubin, Total 0.2 mg/dL (0.1-1.0); Blood Urea Nitrogen 19 mg/dL (8-24); Bun/Creatinine Ratio 23.5 (12.0-20.0); CO2, Blood 26 mmol/L (21-32); Calcium, Blood 8.2 mg/dL (8.5-10.1); Chloride, Blood 113 mmol/L (98-108); Creatinine, Blood 0.81 mg/dL (0.60-1.20); Globulin, Blood 3.7 g/dL (2.2-4.0); Glomerular Filtration Rate >60 (60-); Glucose, Blood 119 mg/dL (70-99); Potassium, Blood 3.8 mmol/L (3.5-5.5); Sodium, Blood 144 mmol/L (136-145); Total Protein, Blood 6.9 g/dL (6.4-8.2)
[2021-04-07 08:05] LABS: SARS-Cov-2 (COVID-19) PCR, MMC NEGATIVE (NEGATIVE)
[2021-04-07 08:56] LABS: PCO2 Arterial 50.1 mmHg (35-45); PO2 Arterial 105 mmHg (80-100); pH Blood Arterial 7.31 (7.35-7.45)
--- NOTE | 2021-04-07 12:45 | NUR ---
ADMIT NOTE: PATIENT ANSWERS ORIENTATION QUESITONS APPROPRIATELY. HE FALLS ASLEEP EASILY. DIFFICULT TO COMPLETE ADMISSION HISTORY HE FALLS ASLEEP EASILY. CIWA 2. ON BIPAP, SETTINGS 14/8 FIO2 30%. SINUS RHYTHM - SINUS TACH ON TELE. DOES NOT KNOW WHEN HIS LAST BOWEL MOVEMENT WAS. STATES HE DOES NOT FEEL LIKE HE NEEDS TO VOID AT THIS TIME. STATES THAT HE IS HOMELESS. CALL LIGHT IN REACH. BED ALARM ON. REPORT GIVEN TO PRIMARY RN.
--- NOTE | 2021-04-07 13:30 | NUR ---
CALLED SECURITY REGARDING PATIENT'S BELONGINGS. THEY SAID THAT THEY WOULD NOT STORE THE PATIENT'S LIGHTERS, FLINT, OR CANNABIS BUT THAT THEY WOULD STORE THE WALLET. THEY TOOK THE PATIENT'S BLACK WALLET WITH A CHAIN WITH A VISA CARD, VERIZON CARD, AND AN [place] TRAIL CARD. DOCUMENTED THIS WITH THEM AND PLACED TICKET ON CHART. PLACED PATIENT'S 3 LIGHTERS IN HIS ROOM LOCK DRAWER - THERE IS A WHITE FOLDER INSPECTOR, BLACK FOLDER INSPECTOR, AND BLACK TORCH FOLDER INSPECTOR. PLACED THE PATIENT'S HOME INHALER IN THE LOCK DRAWER. CANNABIS WAS IN A GLASSES CASE. GOT ANOTHER NURSE ANNETTE GRIJALVA TO WITNESS WITH ME, DUMPED CANNABIS INTO A CLEAR ZIPLOCK BAG AND SEALED WITH PATIENT STICKER. ANNETTE AND I BOTH INITIALED THE STICKER SO THAT IT WOULD BE SEEN IF THE SEAL WAS BROKEN. THERE IS APPROXIMATELY 3.5 CM X 3.5 CM X 1.5 CM GREEN FLAKEY SUBSTANCE THAT SMELLS LIKE CANNABIS, THIS WAS PLACED IN THE PATIENT'S LOCKED DRAWER.
[2021-04-07 15:03] LABS: U Amphetamine Screen DETECTED; U Benzodiazapine Screen DETECTED
[2021-04-07 15:04] LABS: U Barbituate Screen Not Detected; U Buprenorphine Screen Not Detected; U Cannabinoids Screen DETECTED; U Cocaine Screen Not Detected; U Methadone Screen Not Detected; U Methamphetamine Screen Not Detected; U Opiates Screen Not Detected; U Oxycodone Screen Not Detected; U Phencyclidine Screen Not Detected; U Propoxyphene Screen Not Detected
--- NOTE | 2021-04-07 17:53 | NUR ---
PT HAS BEEN SLEEPING MOST OF THE DAY SINCE ADMISSION. PT VSS. HYPERTENSIVE AT TIMES. TACHY IN LOW 100'S. PT REMAINS ON BIPAP, KATIE WELL. PT ABLE TO HAVE BREAKS TO EAT IF DESIRED. PT USED URINAL INDEP. URINE SENT FOR TOX AND ETOH. PT POSITIVE FOR METH AND MARIJUANA. CIWA 2-3. IV SL. PAS TO BLE. LS DECREASED T/O. PT WALLET TO SECURITY. BED ALARM ON FOR SAFETY.
--- NOTE | 2021-04-07 19:54 | NUR ---
ASSUMED CARE PT ALERT AND ORIENTED. PT TOOK ALL WIRES OFF AND TOOK A BATH WITHOUT CALLING FOR ASSISTANCE. TOLERATED BATH WELL AND IS NOW IN BED. THIS NURSE REMINDED HIM THAT HE IS ON PCU TO BE MONITORED AND THEREFORE NEEDS TO KEEP ALL WIRES ON AND CALL FOR ASSISTANCE FOR HIS SAFETY. VITALS ARE STABLE AND IS ON 5L NC WITH SATS ABOVE 92%. CALL LIGHT IS WITHIN REACH AND WILL CONTINUE TO MONITOR.
[2021-04-08 04:15] LABS: BASOPHILS ABSOLUTE AUTO 0.02 K/mm3 (0.00-0.23); BASOPHILS PERCENT AUTO 0 % (0-2); EOSINOPHILS PERCENT AUTO 0 % (0-6); Hematocrit 40.9 % (37.0-53.0); Hemoglobin 13.3 g/dL (13.5-17.5); IMMATURE GRAN ABSOLUTE AUTO 0.07 K/mm3 (0.00-0.10); IMMATURE GRAN PERCENT AUTO 0 % (0-1); LYMPHOCYTES PERCENT AUTO 6 % (21-46); MONOCYTES ABSOLUTE AUTO 0.31 K/mm3 (0.16-1.47); MONOCYTES PERCENT AUTO 2 % (4-13); Mean Corpuscular HGB 30.6 pg (26.0-34.0); Mean Corpuscular HGB Conc 32.5 g/dL (31.5-36.5); Mean Corpuscular Volume 94 fL (80-100); Mean Platelet Volume 8.7 fL (9.1-12.4); NEUTROPHILS ABSOLUTE AUTO 15.21 K/mm3 (1.96-9.15); NEUTROPHILS PERCENT AUTO 92 % (41-73); Platelet Count 280 K/mm3 (150-400); RDW Coefficient Variation 12.2 % (11.7-14.2); RDW Standard Deviation 42.6 fL (35.1-46.3); Red Blood Cell Count 4.35 M/mm3 (4.30-5.90); White Blood Cell Count 16.51 K/mm3 (4.00-11.30)
[2021-04-08 04:35] LABS: Alanine Aminotransfer (ALT/SGP 33 U/L (12-78); Albumin/Globulin Ratio 0.8 (0.8-1.8); Alk Phos 84 U/L (50-136); Anion Gap 2 mmol/L (6-16); Aspartate Aminotrans (AST/SGOT 11 U/L (12-37); Bilirubin, Total 0.2 mg/dL (0.1-1.0); Blood Urea Nitrogen 20 mg/dL (8-24); Bun/Creatinine Ratio 24.4 (12.0-20.0); CO2, Blood 29 mmol/L (21-32); Calcium, Blood 8.4 mg/dL (8.5-10.1); Chloride, Blood 107 mmol/L (98-108); Creatinine, Blood 0.82 mg/dL (0.60-1.20); Globulin, Blood 3.7 g/dL (2.2-4.0); Glomerular Filtration Rate >60 (60-); Glucose, Blood 144 mg/dL (70-99); Potassium, Blood 4.9 mmol/L (3.5-5.5); Sodium, Blood 138 mmol/L (136-145); Total Protein, Blood 6.7 g/dL (6.4-8.2)
--- NOTE | 2021-04-08 06:26 | NUR ---
SHIFT SUMMARY PT IS ALERT AND ORIENTED WITH SOME ANXIETY. PT'S CIWAS HAVE BEEN AT 6. DENIES CARDIAC CHEST PAIN REPORTS CHEST PAIN FROM COUGH. BP HAS BEEN ELEVATED. PT HAS REFUSED WEARING BIPAP T/O SHIFT AND HAS BEEN ON 5L NC. PT HAS BEEN EXTREMELY HUNGY T/O SHIFT AND HAS HAD SEVERAL AMOUNTS OF SNACKS. PT IS ABLE TO USE BSC WITH SBA BUT USING URINAL. CALL LIGHT IS WITHIN REACH.
--- NOTE | 2021-04-08 09:51 | NUR ---
LINE DRAW DONE AT INSERTION.
--- NOTE | 2021-04-08 16:18 | NUR ---
SHIFT SUMMARY PT A&OX4, VSS/2LNC/TELE ST @ 110 BPM, CIWAS <=5, DENIES SOB/CP/PRESSURE, KATIE PO- VERY HUNGRY AND REQUESTING MANY SNACKS, VOIDING USING URINAL AND BSC INDEPENDENTLY; BM TODAY. PLAN TO TRANSFER TO MEDICAL FLOOR WITHOUT TELE. WILL REPORT TO NEXT RN.
--- NOTE | 2021-04-08 16:52 | NUR ---
REPORT PROVIDED TO SHAYLA JAMES. PT TRANSFERRED TO ROOM 364.
--- NOTE | 2021-04-08 17:27 | NUR ---
PT ARRIVED TO UNIT ALERT AND ORIENTED.HACKING COUGH SATS90% 2L APPLIED. PT REQUESTING COUGH DROPS AND RT CONTACTED FOR BREATHING TREATMENT. ABLE TO MAKE NEEDS KNOWN.
[2021-04-09 05:00] LABS: BASOPHILS ABSOLUTE AUTO 0.02 K/mm3 (0.00-0.23); BASOPHILS PERCENT AUTO 0 % (0-2); EOSINOPHILS PERCENT AUTO 0 % (0-6); Hematocrit 41.4 % (37.0-53.0); Hemoglobin 13.6 g/dL (13.5-17.5); IMMATURE GRAN ABSOLUTE AUTO 0.03 K/mm3 (0.00-0.10); IMMATURE GRAN PERCENT AUTO 0 % (0-1); LYMPHOCYTES ABSOLUTE AUTO 0.87 K/mm3 (0.84-5.20); LYMPHOCYTES PERCENT AUTO 9 % (21-46); MONOCYTES ABSOLUTE AUTO 0.14 K/mm3 (0.16-1.47); MONOCYTES PERCENT AUTO 2 % (4-13); Mean Corpuscular HGB 31.1 pg (26.0-34.0); Mean Corpuscular HGB Conc 32.9 g/dL (31.5-36.5); Mean Corpuscular Volume 95 fL (80-100); Mean Platelet Volume 9.2 fL (9.1-12.4); NEUTROPHILS ABSOLUTE AUTO 8.29 K/mm3 (1.96-9.15); NEUTROPHILS PERCENT AUTO 89 % (41-73); Platelet Count 272 K/mm3 (150-400); RDW Coefficient Variation 12.2 % (11.7-14.2); RDW Standard Deviation 42.8 fL (35.1-46.3); Red Blood Cell Count 4.37 M/mm3 (4.30-5.90); White Blood Cell Count 9.35 K/mm3 (4.00-11.30)
[2021-04-09 05:21] LABS: Anion Gap 5 mmol/L (6-16); Blood Urea Nitrogen 20 mg/dL (8-24); Bun/Creatinine Ratio 23.5 (12.0-20.0); C-REACTIVE PROTEIN, EXT RANGE <0.290 mg/dL (0.000-0.300); CO2, Blood 29 mmol/L (21-32); Chloride, Blood 104 mmol/L (98-108); Creatinine, Blood 0.85 mg/dL (0.60-1.20); Glomerular Filtration Rate >60 (60-); Glucose, Blood 215 mg/dL (70-99); Magnesium, Blood 2.5 mg/dL (1.6-2.4); Potassium, Blood 4.4 mmol/L (3.5-5.5); Sodium, Blood 138 mmol/L (136-145)
--- NOTE | 2021-04-09 06:14 | NUR ---
END OF SHIFT SUMMARY: Pt CIWA at 4-6 overnight. Pt resting well overnight. Satting >90% on RA. Pt is independent to the bathroom. A&Ox4. Call light within reach.
[2021-04-09] MEDS ORDERED: AZIT500 PO (11:20)
[2021-04-09] MEDS ORDERED: [UNRECOGNIZED DRUG - OTHER] MT (11:21)
[2021-04-09] MEDS ORDERED: DIABETIC T100 MG/5 M PO (11:21)
[2021-04-09] MEDS ORDERED: VISBIOME 112.51 EACH PO (11:22)
[2021-04-09] MEDS ORDERED: PRED20 PO (11:22)
--- NOTE | 2021-04-09 11:38 | NUR ---
HOME 02 EVAL- OXYGEN SATS 98% ON ROOM AIR AT REST. SATS 96% ON ROOM AIR WITH EXERTION.
== END 2021-04-09 11:55 | disposition home or self-care (01) | DRG 189 ==
LOC: ER 04:54 → PCU 08:41 → SURS 11:01 → MEDS 04-08 16:58
PROVIDERS: Emergency Medicine; Family Medicine; Student in an Organized Health Care Education/Training Program; ADMIT Hospitalist
PROC: 5A09357 Assistance with Respiratory Ventilation, Less than 24 Consecutive Hours, Continuous Positive Airway Pressure (ICD-10-PCS; principal; 2021-04-07)
DX: J96.21 Acute and chronic respiratory failure with hypoxia (principal); J44.1 Chronic obstructive pulmonary disease with (acute) exacerbation; F15.20 Other stimulant dependence, uncomplicated; I10 Essential (primary) hypertension; Z20.822 Contact with and (suspected) exposure to COVID-19; Z79.899 Other long term (current) drug therapy; M10.9 Gout, unspecified; Z91.14 Patient's other noncompliance with medication regimen; M19.90 Unspecified osteoarthritis, unspecified site; G47.33 Obstructive sleep apnea (adult) (pediatric); J44.9 Chronic obstructive pulmonary disease, unspecified; F12.10 Cannabis abuse, uncomplicated; Z87.891 Personal history of nicotine dependence; Z91.018 Allergy to other foods
CPT/HCPCS: 36415; 36600; 71045; 80048; 80053; 82803; 82947; 83735; 84145; 85025; 86140; 93005; 93010; 94640; 94644; 94660; 94664; 94762; 96365; 96366; 96375; 99285-25; A9270; G0480; J1650; J2060; J2920; J2930; J3475; U0004

== ENCOUNTER 2021-06-24 00:08 | Inpatient (IN) | payer MEDICARE, OTHER ==
[~2021-06-24] VITALS: Ht 162.6 cm; Wt 77.1 kg
[~2021-06-24 00:08] MED LIST changes: +DIABETIC T100 MG/5 M PO; +VISBIOME 112.51 EACH PO; +[UNRECOGNIZED DRUG - OTHER] MT
[2021-06-24 03:52] LABS: BASOPHILS ABSOLUTE AUTO 0.12 K/mm3 (0.00-0.23); BASOPHILS PERCENT AUTO 1 % (0-2); EOSINOPHILS ABSOLUTE AUTO 0.32 K/mm3 (0.00-0.68); EOSINOPHILS PERCENT AUTO 3 % (0-6); Hematocrit 48.8 % (37.0-53.0); Hemoglobin 16.2 g/dL (13.5-17.5); IMMATURE GRAN ABSOLUTE AUTO 0.03 K/mm3 (0.00-0.10); IMMATURE GRAN PERCENT AUTO 0 % (0-1); LYMPHOCYTES ABSOLUTE AUTO 3.02 K/mm3 (0.84-5.20); LYMPHOCYTES PERCENT AUTO 26 % (21-46); MONOCYTES ABSOLUTE AUTO 0.81 K/mm3 (0.16-1.47); MONOCYTES PERCENT AUTO 7 % (4-13); Mean Corpuscular HGB 30.9 pg (26.0-34.0); Mean Corpuscular HGB Conc 33.2 g/dL (31.5-36.5); Mean Corpuscular Volume 93 fL (80-100); NEUTROPHILS ABSOLUTE AUTO 7.21 K/mm3 (1.96-9.15); NEUTROPHILS PERCENT AUTO 63 % (41-73); Platelet Count 314 K/mm3 (150-400); RDW Coefficient Variation 12.9 % (11.7-14.2); RDW Standard Deviation 43.9 fL (35.1-46.3); Red Blood Cell Count 5.25 M/mm3 (4.30-5.90); White Blood Cell Count 11.51 K/mm3 (4.00-11.30)
[2021-06-24 04:04] LABS: Influenza A, PCR NEGATIVE (NEGATIVE); Influenza B, PCR NEGATIVE (NEGATIVE); Resp Syncytial Virus, PCR NEGATIVE (NEGATIVE); SARS-Cov-2 (COVID-19) PCR, MMC NEGATIVE (NEGATIVE)
[2021-06-24 04:06] LABS: Alanine Aminotransfer (ALT/SGP 39 U/L (12-78); Albumin, Blood 3.8 g/dL (3.4-5.0); Albumin/Globulin Ratio 0.9 (0.8-1.8); Alk Phos 119 U/L (50-136); Anion Gap 5 mmol/L (6-16); Aspartate Aminotrans (AST/SGOT 30 U/L (12-37); Bilirubin, Total 0.3 mg/dL (0.1-1.0); Blood Urea Nitrogen 22 mg/dL (8-24); Bun/Creatinine Ratio 24.2 (12.0-20.0); CO2, Blood 31 mmol/L (21-32); Calcium, Blood 8.6 mg/dL (8.5-10.1); Chloride, Blood 104 mmol/L (98-108); Creatinine, Blood 0.91 mg/dL (0.60-1.20); Globulin, Blood 4.1 g/dL (2.2-4.0); Glomerular Filtration Rate >60 (60-); Glucose, Blood 109 mg/dL (70-99); Potassium, Blood 4.7 mmol/L (3.5-5.5); Sodium, Blood 140 mmol/L (136-145); Total Protein, Blood 7.9 g/dL (6.4-8.2)
[2021-06-24 15:42] LABS: U Amphetamine Screen DETECTED; U Barbituate Screen Not Detected; U Benzodiazapine Screen Not Detected; U Buprenorphine Screen Not Detected; U Cannabinoids Screen Not Detected; U Cocaine Screen Not Detected; U Methadone Screen Not Detected; U Methamphetamine Screen DETECTED; U Opiates Screen Not Detected; U Oxycodone Screen Not Detected; U Phencyclidine Screen Not Detected; U Propoxyphene Screen Not Detected
--- NOTE | 2021-06-24 17:17 | NUR ---
PT ADMITTED TO MEDICAL FLOOR THROUGH THE ED- UPON ARRIVAL PT ON NC AT 3L. BIPAP AT THE BEDSIDE. PT WAS CONVERSATIONAL AND A LITTLE SHAKEY (POSSIBLY RELATED TO IV STEROIDS). PT SITTING UP IN BED TALKING WITH STAFF. WITHIN 5-10 MINUTES OF ARRIVAL THHE PT WENT INTO DISTRESS AND WAS PLACED BACK ON BIPAP. RT CALLED FOR A TREATEMENT. VITALS CHECKED, PT DRENCHED IN SWEAT. RESPIRATION RATE ACCELERATED TO 30BPM UNTIL THE PT WAS SUCCESSFULLY PLACED BACK ON BIPAP. RT IN THE ROOM AT THIS TIME SETTING UP CONTINUIOUS OXEMETRY, PT RESP RATE HAS REDUCED TO 19 BPM. PT ALSO STATED HE DRINKS ALCOHOL EVERY DAY AT LEAST A FIFTH OF WHISKEY EVERY DAY, HE STATED HE HAD HIS LAST DRINK LAST NIGHT. HE ALSO STATED HE HAD HIS LAST DOSE OF METH TWO DAYS AGO. PT CHEWS TOBACCO BUT DOES NOT SMOKE PER HIS REPORT. TELE PLACED ON PT SINUS TACH 124 AT THIS TIME.
--- NOTE | 2021-06-24 18:27 | NUR ---
SHIFT SUMMARY- PT ALERT AND ORIENTED CALLS APPROPRIATELY. PT IN BED, CALL LIGHT IN REACH, ON 3L VIA NC AT THIS TIME AND TOLLERATING WELL SATS 95%. NO S&S OF DISTRESS AT THIS TIME WILL CTM. CALLED DR SAINZ RECIEVED ORDERS FOR REGULAR DIET FOR THE PT HE IS DRINKING GEORGETTE MIST NOW. PT ON TELE SINUS TACH AT 124. DR LORENZO OK TO GIVE SOLUMEROL IV DOSE SCHEDULED. PT HAS A BIPAP AT THE BEDSIDE FOR ONCE HE IS DONE EATING.
--- NOTE | 2021-06-24 21:51 | NUR ---
CIWA: 11 AND IV ATIVAN 2 MG GIVEN AND LIBRIUM 25 MG PER EMAR. RT IN TO SETUP BIPAP. STATION USHER REPORTS ST 113. CALL LIGHT IN REACH.
--- NOTE | 2021-06-25 03:08 | NUR ---
SHIFT SUMMARY PATIENT CIWA SCORE: 9-11. IV ATIVAN 2MG GIVEN PER EMAR AND LIBRIUM 25 MG FOR WITHDRAWALS. AXOX 4 AND BEDREST. SOB WITH EXERTION. ON 3L O2 NC AND SAME BLEED IN WITH BIPAP SETUP BY RT. STATS IN THE 90'S ON 3L AND DOWN 85-88 WHEN PULLS OXYGEN OFF. PIV REMAINS INTACT. IV SOLU-MEDROL GIVEN PER EMAR. BUSINESS PROCESS COORDINATOR REPORTED ST 126 AT START OF SHIFT AND NOW 101-112. DENIES PAIN AND N/V. CALL LIGHT IN REACH. BED IN LOWEST POSITION. WILL CONTINUE TO MONITOR UNTIL DAY SHIFT NURSE ASSUMES CARE.
[2021-06-25 05:43] LABS: BASOPHILS ABSOLUTE AUTO 0.03 K/mm3 (0.00-0.23); BASOPHILS PERCENT AUTO 0 % (0-2); EOSINOPHILS PERCENT AUTO 0 % (0-6); Hematocrit 44.9 % (37.0-53.0); Hemoglobin 15.4 g/dL (13.5-17.5); IMMATURE GRAN ABSOLUTE AUTO 0.14 K/mm3 (0.00-0.10); IMMATURE GRAN PERCENT AUTO 1 % (0-1); LYMPHOCYTES ABSOLUTE AUTO 0.86 K/mm3 (0.84-5.20); LYMPHOCYTES PERCENT AUTO 5 % (21-46); MONOCYTES ABSOLUTE AUTO 0.31 K/mm3 (0.16-1.47); MONOCYTES PERCENT AUTO 2 % (4-13); Mean Corpuscular HGB Conc 34.3 g/dL (31.5-36.5); Mean Corpuscular Volume 90 fL (80-100); Mean Platelet Volume 9.2 fL (9.1-12.4); NEUTROPHILS PERCENT AUTO 93 % (41-73); Platelet Count 226 K/mm3 (150-400); RDW Standard Deviation 43.1 fL (35.1-46.3); Red Blood Cell Count 4.97 M/mm3 (4.30-5.90); White Blood Cell Count 17.94 K/mm3 (4.00-11.30)
[2021-06-25 05:49] LABS: Magnesium, Blood 2.5 mg/dL (1.6-2.4)
[2021-06-25 05:50] LABS: Anion Gap 8 mmol/L (6-16); Blood Urea Nitrogen 31 mg/dL (8-24); Bun/Creatinine Ratio 35.3 (12.0-20.0); CO2, Blood 25 mmol/L (21-32); Calcium, Blood 8.8 mg/dL (8.5-10.1); Chloride, Blood 103 mmol/L (98-108); Creatinine, Blood 0.88 mg/dL (0.60-1.20); Glomerular Filtration Rate >60 (60-); Glucose, Blood 175 mg/dL (70-99); Phosphorus, Blood 3.5 mg/dL (2.5-4.9); Potassium, Blood 5.1 mmol/L (3.5-5.5); Sodium, Blood 136 mmol/L (136-145)
--- NOTE | 2021-06-25 17:41 | NUR ---
SHIFT SUMMARY CIWA 8-9 MOST THE SHIFT. TREATED PER EMAR NEEDED. BEER ADDED TO MEAL TRAYS PER DR. CHAPMAN ORDER. PT DID TRY TO LEAVE AMA ONCE EARLIER THIS SHIFT, STATING HE NEEDS TO FIND WHO TOOK THIS BELONGINGS, PT IS HOMELESS. PT WAS TALKED INTO STAYING BY THIS RN DUE TO HIS NEED OF O2 AND THAT THE SUPERVISOR PRODUCTION DEPARTMENT IS TRYING TO GET HIM NEW BELONGINGS. PT AGREEABLE TO STAYING. PT SLEEPING MOST THE SHIFT WITH SMALL PERIODS OF WAKING UP TO VOID AND EAT. TELE STATES PT HAS BEEN SINUS RHYTHM PRIMARILY IN THE 90-110S T/O THE DAY. PT DOES TOUCH UP INTO THE 130-160S WITH ACTIVITY AND OCCATIONALLY DIPS TO THE 50-60S FOR SHORT PERIODS OF TIME. DR. CHAPMAN AWARE OF THIS. PT REQUIRING 3L O2 VIA NC AND WILL DESAT ON RA. HYPERTENSIVE ALL DAY DISPITE ORDERED MEDS. DR. CHAPMAN AWARE OF HTN WELL. OTHERWISE, NO OTHER ACUTE CHANGES IN ASSESSMENT AT THIS TIME. VS REVIEWED. PT RESTING IN BED, SLEEPING. CALL LIGHT IN REACH.
--- NOTE | 2021-06-26 04:39 | NUR ---
CIWA WAS 8 AT 8PM. ATIVAN WAS ADMINISTERED. CIWA REMAINED BELOW 8 FOR THE REST OF THE NIGHT. MAUDE DID NOT WANT TO KEEP HIS NC ON BUT HIS SPOD REMAINED IN THE LOW 90'S. HIS HR FLUCTUATED BETWEEN 90-110
[2021-06-26] MEDS ORDERED: ALBU90OI INH (12:19)
[2021-06-26] MEDS ORDERED: LEVOFLOXACIN750 MG PO (12:21)
[2021-06-26] MEDS ORDERED: FLUTICASONE-SA1 EAC1 INH (12:21)
[2021-06-26] MEDS ORDERED: PRED20 PO (12:21)
--- NOTE | 2021-06-26 13:58 | NUR ---
DISCHARGE PT DISCHARGED AT 1358. PT SATING IN THE THE 90S WITH ACITIVTY ON RA PRIOR TO DISCHARGE. MEDS FAXED TO [facility] PER PT REQUEST. NEW SLEEPING BAG & TENT PROVIDED PRIOR TO PT DC. IV REMOVED & INTACT. PT ENCOURAGED TO FIND A PCP GINNY. PT DENIED NEED FOR FURTHER DC INSTRUCTION. [facility] CALLED FOR PT AND PT SENT TO WAIT IN ER WAITING ROOM FOR THE [facility]. PT REPORTED A PREPAID CREDIT CARD MISSING. TAMIR BALDERRAMA, PT ADVOCATE NOTIFIED, AND HER NUMBER WAS GIVEN TO THE PT TO FOLLOW UP. PT ESCORTED TO [facility].
== END 2021-06-26 13:58 | disposition home or self-care (01) | DRG 193 ==
LOC: ER 00:08 → ERHOLD 00:09 → MEDS 17:03
PROVIDERS: Emergency Medicine; Internal Medicine; ADMIT Internal Medicine
PROC: HZ2ZZZZ Detoxification Services for Substance Abuse Treatment (ICD-10-PCS; principal; 2021-06-25)
PROC: 3E0234Z Introduction of Serum, Toxoid and Vaccine into Muscle, Percutaneous Approach (ICD-10-PCS; 2021-06-25)
DX: J18.9 Pneumonia, unspecified organism (principal); J96.01 Acute respiratory failure with hypoxia; J44.1 Chronic obstructive pulmonary disease with (acute) exacerbation; J45.901 Unspecified asthma with (acute) exacerbation; F10.239 Alcohol dependence with withdrawal, unspecified; J44.0 Chronic obstructive pulmonary disease with (acute) lower respiratory infection; Z20.822 Contact with and (suspected) exposure to COVID-19; Z23 Encounter for immunization; I10 Essential (primary) hypertension; Z59.00 Homelessness unspecified; F15.10 Other stimulant abuse, uncomplicated; R73.9 Hyperglycemia, unspecified; M10.9 Gout, unspecified; G47.30 Sleep apnea, unspecified; Z87.891 Personal history of nicotine dependence; Z91.018 Allergy to other foods
CPT/HCPCS: 0241U; 36415; 71045; 80053; 80069; 82947; 83735; 84145; 85025; 90686; 94640; 94644; 94645; 94660; 94762; 96365; 96366; 96367; 96372; 96375; 96376; 99285-25; A9270; G0008; G0378; J0360; J0696; J1100; J1650; J1815; J2060; J2930; J3475

== ENCOUNTER 2022-02-01 21:34 | Inpatient (IN) | payer MEDICARE, OTHER ==
[~2022-02-01] VITALS: Ht 167.6 cm; Wt 67.0 kg
[2022-02-01 22:08] LABS: Base Excess Venous -2.7 mmol/L; Bicarbonate Venous 20.8 mmol/L (24.0-30.0); PCO2 Venous 67.8 mmHg (38-42)
[2022-02-01 22:09] LABS: pH Blood Venous 7.18 (7.34-7.37)
[2022-02-01 22:15] LABS: Bun/Creatinine Ratio 19.7 (12.0-20.0); Calcium, Blood 9.1 mg/dL (8.5-10.1); Creatinine, Blood 1.27 mg/dL (0.60-1.20); Potassium, Blood 4.1 mmol/L (3.5-5.5)
[2022-02-01 22:19] LABS: BASOPHILS ABSOLUTE AUTO 0.03 K/mm3 (0.00-0.23); BASOPHILS PERCENT AUTO 0 % (0-2); EOSINOPHILS ABSOLUTE AUTO 0.12 K/mm3 (0.00-0.68); EOSINOPHILS PERCENT AUTO 2 % (0-6); Hematocrit 42.6 % (37.0-53.0); Hemoglobin 13.5 g/dL (13.5-17.5); IMMATURE GRAN ABSOLUTE AUTO 0.02 K/mm3 (0.00-0.10); IMMATURE GRAN PERCENT AUTO 0 % (0-1); LYMPHOCYTES ABSOLUTE AUTO 2.68 K/mm3 (0.84-5.20); LYMPHOCYTES PERCENT AUTO 40 % (21-46); MONOCYTES ABSOLUTE AUTO 0.44 K/mm3 (0.16-1.47); MONOCYTES PERCENT AUTO 7 % (4-13); Mean Corpuscular HGB 30.9 pg (26.0-34.0); Mean Corpuscular HGB Conc 31.7 g/dL (31.5-36.5); Mean Corpuscular Volume 98 fL (80-100); Mean Platelet Volume 8.5 fL (9.1-12.4); NEUTROPHILS ABSOLUTE AUTO 3.44 K/mm3 (1.96-9.15); NEUTROPHILS PERCENT AUTO 51 % (41-73); Platelet Count 343 K/mm3 (150-400); RDW Coefficient Variation 14.6 % (11.7-14.2); RDW Standard Deviation 52.5 fL (35.1-46.3); Red Blood Cell Count 4.37 M/mm3 (4.30-5.90); White Blood Cell Count 6.73 K/mm3 (4.00-11.30)
[2022-02-01 23:29] LABS: Influenza A, PCR NEGATIVE (NEGATIVE); Influenza B, PCR NEGATIVE (NEGATIVE); Resp Syncytial Virus, PCR NEGATIVE (NEGATIVE); SARS-Cov-2 (COVID-19) PCR, MMC NEGATIVE (NEGATIVE)
[2022-02-02 02:05] LABS: Base Excess Venous 1.6 mmol/L; pH Blood Venous 7.35 (7.34-7.37)
[2022-02-02 02:09] LABS: BASOPHILS ABSOLUTE AUTO 0.01 K/mm3 (0.00-0.23); BASOPHILS PERCENT AUTO 0 % (0-2); EOSINOPHILS ABSOLUTE AUTO 0.01 K/mm3 (0.00-0.68); EOSINOPHILS PERCENT AUTO 0 % (0-6); Hematocrit 40.6 % (37.0-53.0); Hemoglobin 13.2 g/dL (13.5-17.5); IMMATURE GRAN ABSOLUTE AUTO 0.02 K/mm3 (0.00-0.10); IMMATURE GRAN PERCENT AUTO 0 % (0-1); LYMPHOCYTES ABSOLUTE AUTO 0.44 K/mm3 (0.84-5.20); LYMPHOCYTES PERCENT AUTO 4 % (21-46); MONOCYTES ABSOLUTE AUTO 0.11 K/mm3 (0.16-1.47); MONOCYTES PERCENT AUTO 1 % (4-13); Mean Corpuscular HGB 31.2 pg (26.0-34.0); Mean Corpuscular HGB Conc 32.5 g/dL (31.5-36.5); Mean Corpuscular Volume 96 fL (80-100); Mean Platelet Volume 8.2 fL (9.1-12.4); NEUTROPHILS ABSOLUTE AUTO 9.59 K/mm3 (1.96-9.15); NEUTROPHILS PERCENT AUTO 94 % (41-73); Platelet Count 306 K/mm3 (150-400); RDW Coefficient Variation 14.8 % (11.7-14.2); RDW Standard Deviation 50.6 fL (35.1-46.3); Red Blood Cell Count 4.23 M/mm3 (4.30-5.90); White Blood Cell Count 10.18 K/mm3 (4.00-11.30)
[2022-02-02 02:25] LABS: Bun/Creatinine Ratio 30.1 (12.0-20.0); Calcium, Blood 8.1 mg/dL (8.5-10.1); Creatinine, Blood 0.83 mg/dL (0.60-1.20); Potassium, Blood 3.9 mmol/L (3.5-5.5)
--- NOTE | 2022-02-02 05:42 | NUR ---
SHIFT SUMMARY ASSUMED CARE OF PT AT 0020. PT IS A/OX4 BUT VERY DROWSY. PT WAS VERY AGITATED ABOUT TAKING OFF HIS SHORTS, LATER STATING THAT HE HAS A HERNIA THAT HE DOESNT WANT ANYONE TO KNOW ABOUT. PT REFUSED TO BE CLEANED UP UNDER HIS SHORTS AND CHANGE CLOTHS. PT WAS VERY DIRTY UPON ARRIVAL TO UNIT, BED BATH GIVEN. LUNG SOUNDS HAVE EXPIRATORY WHEEZE PT WAS PUT ON BIPAP UPON ARRIVAL TO UNIT. 26/02 AT 4L. PT WAS TITRATED TO 6L DUE TO APNEA. PT REQUESTED OFF BIPAP AROUND 0300 TO TALK TO FRIEND JEROMY. AND HAS BEEN ON 4LNC WHILE SLEEPING. SATURATIONS REMAINING ABOVE 92%. HEART SOUNDS REGULAR, TELE SHOWS SINUS. PT WILL AWAKE TO ANSWER QUESTIONS BUT FALL BACK ASLEEP ALMOST IMMEDIATELY.
[2022-02-02 11:07] LABS: U Amphetamine Screen DETECTED; U Barbituate Screen Not Detected; U Benzodiazapine Screen Not Detected; U Buprenorphine Screen Not Detected; U Cannabinoids Screen DETECTED; U Cocaine Screen Not Detected; U Methadone Screen Not Detected; U Methamphetamine Screen DETECTED; U Opiates Screen Not Detected; U Oxycodone Screen Not Detected; U Phencyclidine Screen Not Detected; U Propoxyphene Screen Not Detected
--- NOTE | 2022-02-02 17:11 | NUR ---
SHIFT SUMMARY PT HAS BEEN ASLEEP FOR A MAJORITY OF THE DAY. PT IS EASILY ROUSABLE BY VOICE OR GENTLE TOUCH AND IS STARTLED EVERY TIME THEY ARE AWOKEN. PT WILL FALL BACK TO SLEEP DURING CONVERSATION OR ASSESSMENT. PT WILL HAVE APNEIC EPISODES DURING DEEP SLEEP, LASTING 2-3 SECONDS THAT ARE FOLLOWED BY DESATURATION TO 88% WHILE ON ROOM AIR. PT HAS BEEN LEFT ON 4L/MIN OF OXYGEN BY NASAL CANNULA TO COMPENSATE. PT HAS NOT USED CALL LIGHT. PT IS COOPERATIVE WITH CARES. SBP HAS FALLEN SLIGHTLY FROM 116 THIS AM TO 95 THIS PM. THIS RN HAS ATTEMPTED TO GET PT UP TO BEDSIDE MULTIPLE TIMES, EACH TIME PT C/O DIZZINESS AND WILL IMMEDIATELY LAY BACK DOWN.
[2022-02-03 04:50] LABS: Bun/Creatinine Ratio 29.3 (12.0-20.0); Calcium, Blood 8.2 mg/dL (8.5-10.1); Creatinine, Blood 0.82 mg/dL (0.60-1.20); Potassium, Blood 4.4 mmol/L (3.5-5.5)
--- NOTE | 2022-02-03 06:02 | NUR ---
SHIFT SUMMARY ASSUMED CARE OF PT AT 1900. PT IS A/OX4. HEART SOUNDS REGULAR. LUNG SOUNDS COARSE AT BASES. PT WAS RA T/O THE NIGHT. PT C/O STUFFY NOSE AND COUGH. MEDICATED PER EMAR. PT USED URINAL T/O THE NIGHT. PT WONDERING WHE HE WILL BE ABLE TO LEAVE.
[2022-02-03] MEDS ORDERED: FLONASE SENSIM5.9 M1 (14:19)
[2022-02-03] MEDS ORDERED: Q-Tussin100 MG/5 M PO (14:21)
--- NOTE | 2022-02-03 14:45 | NUR ---
DISCHARGE SUMMARY PT WALKED OUT OF BUILDING, ALL PERSONAL BELONGINGS AND DISCHARGE INSTRUCTIONS WERE IN THE PT'S POSSESSION AT TIME OF DISCHARGE. PT HAD NO QUESTIONS OR CONCERNS AT TIME OF DISCHARGE EDUCATION.
== END 2022-02-03 14:30 | disposition home or self-care (01) | DRG 917 ==
LOC: ER 21:34 → PCU 02-02
PROVIDERS: Student in an Organized Health Care Education/Training Program; ADMIT Family Medicine
PROC: 5A09357 Assistance with Respiratory Ventilation, Less than 24 Consecutive Hours, Continuous Positive Airway Pressure (ICD-10-PCS; principal; 2022-02-02)
DX: T40.411A Poisoning by fentanyl or fentanyl analogs, accidental (unintentional), initial encounter (principal); G92.8 Other toxic encephalopathy; J96.02 Acute respiratory failure with hypercapnia; J44.1 Chronic obstructive pulmonary disease with (acute) exacerbation; N17.9 Acute kidney failure, unspecified; E87.2 Acidosis; I10 Essential (primary) hypertension; Z20.822 Contact with and (suspected) exposure to COVID-19; M10.9 Gout, unspecified; F15.10 Other stimulant abuse, uncomplicated; G47.30 Sleep apnea, unspecified; R94.31 Abnormal electrocardiogram [ECG] [EKG]; Z71.51 Drug abuse counseling and surveillance of drug abuser; Z59.00 Homelessness unspecified; F12.10 Cannabis abuse, uncomplicated; Z87.891 Personal history of nicotine dependence; X58.XXXA Exposure to other specified factors, initial encounter
CPT/HCPCS: 0241U; 36415; 70450; 71045; 80048; 82803; 82947; 83735; 85025; 93005; 93010; 94640; 94644; 94660; 94664; 94762; 96365; 96375; 99285-25; A9270; J2405; J2930; J3475; J7030

== ENCOUNTER 2022-04-16 23:20 | Inpatient (IN) | payer MEDICARE, OTHER ==
[~2022-04-16] VITALS: Ht 160 cm; Wt 65.5 kg
[~2022-04-16 23:20] MED LIST changes: +FLONASE SENSIM5.9 M1
[2022-04-16 23:48] LABS: BASOPHILS ABSOLUTE AUTO 0.05 K/mm3 (0.00-0.23); BASOPHILS PERCENT AUTO 1 % (0-2); EOSINOPHILS ABSOLUTE AUTO 0.35 K/mm3 (0.00-0.68); EOSINOPHILS PERCENT AUTO 5 % (0-6); Hemoglobin 13.5 g/dL (13.5-17.5); IMMATURE GRAN ABSOLUTE AUTO 0.01 K/mm3 (0.00-0.10); IMMATURE GRAN PERCENT AUTO 0 % (0-1); LYMPHOCYTES ABSOLUTE AUTO 1.59 K/mm3 (0.84-5.20); LYMPHOCYTES PERCENT AUTO 24 % (21-46); MONOCYTES ABSOLUTE AUTO 0.59 K/mm3 (0.16-1.47); MONOCYTES PERCENT AUTO 9 % (4-13); Mean Corpuscular HGB 31.9 pg (26.0-34.0); Mean Corpuscular HGB Conc 33.8 g/dL (31.5-36.5); Mean Corpuscular Volume 95 fL (80-100); Mean Platelet Volume 8.4 fL (9.1-12.4); NEUTROPHILS ABSOLUTE AUTO 4.03 K/mm3 (1.96-9.15); NEUTROPHILS PERCENT AUTO 61 % (41-73); Platelet Count 295 K/mm3 (150-400); RDW Coefficient Variation 13.3 % (11.7-14.2); Red Blood Cell Count 4.23 M/mm3 (4.30-5.90); White Blood Cell Count 6.62 K/mm3 (4.00-11.30)
[2022-04-17] LABS: Albumin, Blood 3.3 g/dL (3.4-5.0); Albumin/Globulin Ratio 0.8 (0.8-1.8); Bilirubin, Total 0.2 mg/dL (0.1-1.0); Calcium, Blood 8.5 mg/dL (8.5-10.1); Creatinine, Blood 0.92 mg/dL (0.60-1.20); Potassium, Blood 3.9 mmol/L (3.5-5.5); Total Protein, Blood 7.3 g/dL (6.4-8.2)
[2022-04-17 00:06] LABS: PCO2 Arterial 65.3 mmHg (35-45); PO2 Arterial 152 mmHg (80-100)
[2022-04-17 00:08] LABS: pH Blood Arterial 7.28 (7.35-7.45)
[2022-04-17 01:06] LABS: Influenza A, PCR NEGATIVE (NEGATIVE); Influenza B, PCR NEGATIVE (NEGATIVE); Resp Syncytial Virus, PCR NEGATIVE (NEGATIVE); SARS-Cov-2 (COVID-19) PCR, MMC NEGATIVE (NEGATIVE)
[2022-04-17 03:57] LABS: BASOPHILS ABSOLUTE AUTO 0.03 K/mm3 (0.00-0.23); BASOPHILS PERCENT AUTO 0 % (0-2); EOSINOPHILS PERCENT AUTO 2 % (0-6); Hematocrit 41.4 % (37.0-53.0); Hemoglobin 13.8 g/dL (13.5-17.5); IMMATURE GRAN ABSOLUTE AUTO 0.03 K/mm3 (0.00-0.10); IMMATURE GRAN PERCENT AUTO 0 % (0-1); LYMPHOCYTES ABSOLUTE AUTO 0.49 K/mm3 (0.84-5.20); LYMPHOCYTES PERCENT AUTO 7 % (21-46); MONOCYTES PERCENT AUTO 2 % (4-13); Mean Corpuscular HGB 31.7 pg (26.0-34.0); Mean Corpuscular HGB Conc 33.3 g/dL (31.5-36.5); Mean Corpuscular Volume 95 fL (80-100); Mean Platelet Volume 8.4 fL (9.1-12.4); NEUTROPHILS PERCENT AUTO 89 % (41-73); Platelet Count 285 K/mm3 (150-400); RDW Coefficient Variation 13.2 % (11.7-14.2); RDW Standard Deviation 45.2 fL (35.1-46.3); Red Blood Cell Count 4.36 M/mm3 (4.30-5.90); White Blood Cell Count 6.75 K/mm3 (4.00-11.30)
[2022-04-17 04:21] LABS: Albumin, Blood 3.3 g/dL (3.4-5.0); Albumin/Globulin Ratio 0.8 (0.8-1.8); Bilirubin, Total 0.3 mg/dL (0.1-1.0); Calcium, Blood 8.2 mg/dL (8.5-10.1); Creatinine, Blood 0.81 mg/dL (0.60-1.20); Potassium, Blood 4.1 mmol/L (3.5-5.5); Total Protein, Blood 7.3 g/dL (6.4-8.2)
[2022-04-17 04:23] LABS: PO2 Arterial 65.9 mmHg (80-100); pH Blood Arterial 7.34 (7.35-7.45)
--- NOTE | 2022-04-17 06:31 | NUR ---
SHIFT SUMMARY PATIENT TO ROOM FROM ER AT 0255. PATIENT UNRESPONSIVE, STERNAL RUB DONE AND PATIENT SLIGHTLY REACTED. NARCAN WAS ADMINISTERED WITH NO CHANGES, PATIENT REMAINS LETHARGIC. 02 SATS 93% ON BIPAP 4/6, FI02 25%, LS WHEEZES THROUGHOUT. PATIENT ABLE TO MAINTAIN AIRWAY ON BIPAP. HR SR-ST 90-110, BP STABLE. ATTEMPTED GROSS, UNSUCCESSFUL, APPEARS TO HAVE POSSIBLE INGUINAL HERNIA. CONDOM CATH IN PLACE, UNABLE TO COLLECT UA AT THIS TIME. ABG IMPROVING.
--- NOTE | 2022-04-17 10:32 | NUR ---
0730 PT ON BIPAP, 25/12, FIO2 25%. O2 SATS 96%. PT RESPONDING TO QUESTIONS AND MOVING AROUND IN BED. PT OPENING EYES OCCASSIONALLY TO VERBAL STIMULI. PT A&0 TO SELF BUT UNABLE TO RECALL WHERE HE IS OR WHY HE IS IN THE HOSPITAL. VS; BP 125/86 AND SR WITH HR OF 95. PT AFEBRILE.
--- NOTE | 2022-04-17 10:37 | NUR ---
PT A&O X 2-3. DIFFICULT TO FULLY ASSESS BECAUSE PT IS NOT CONSISTENLY ANSWERING ALL QUESTIONS, ANSWERS ARE VERY SHORT, AND PT IS VERY SOFT SPOKEN. PT ORIENTED TO SELF AND PLACE. PT SITTING UP IN BED, APPEARS TIRED, PT ALSO STATES SHE IS FEELING TIRED. PT ALSO APPEARS WITHDRAWN; NOT MAKING MUCH EYE CONTACT OR INTERACTING BEYOND ANSWERING SOME QUESTIONS. PT STRUGGLED WITH TAKING MEDICATIONS IN APPLESAUCE. STATES "I JUST CANT AND IT TASTES BAD". PT WAS ABLE TO FINSIH TAKING ALL MEDS. VSS. PICC LINE INFUSING, SITE WNL AND DRESSING C/D/I. PG FLUSHES AND DRAWS WELL. DRESSING C/D/I.
--- NOTE | 2022-04-17 11:26 | NUR ---
PT WAKING UP AND INTERACTING. PT ABLE TO RESPOND TO QUESTIONS. SPEECH IS JUMBLED AND HARD TO UNDERSTAND, BUT MOST RESPONSES ARE APPROPRIATE. BIPAP REMOVED, PT TOLERATING WELL. O2 SATS >94% ON RA. PT COUGHING QUITE A BIT AND LUNG SOUNDS ARE TIGHT AND WHEEZY. RT NOTIFIED AND IN TO GIVE BREATING TX. PT REPORTS DURG AND ALCOHOL USE. CIWA OF 7. ORDERS PER CIWA PROTOCOL PUT IN BY PROVIDER. PT MILDLY ANXIOUS AND RESTLESS, REPORTS NAUSEA AND "FEELING SICK". PT WAS ABLE TO VOID WITH URINAL, 360 CC. PT CURRENTLY SITTING UP IN BED AND CLEANING SELF UP HE STATES "HE IS DIRTY AND WANTS TO CLEAN SELF UP". PT IS ABLE TO IDENTIFY HE IS AT THE HOSPITAL AND WHERE HE IS CURRENTLY STAYING. PT REPORTS LIVING IN A TREE NEAR [facility]. PT DOES NOT KNOW WHY HE IS AT HOSPITAL AND UNABLE TO RECALL EVENTS LEADING UP TO COMING TO HOSPITAL. PT REORIENTED AND EVENT EXPLAINED
[2022-04-17 11:28] LABS: Source, Urine Foley catheter
--- NOTE | 2022-04-17 12:03 | NUR ---
Pt was awake and talking, slurring his words somewhat, states that he is having some trouble talking. Oriented and able to communicate needs, make appropriate conversation. Assisted with complete bed bath. Readily able to sit up, do some of the washing himself, and cooperative and cheerful with care. Able to void using the urinal. Stated that he wanted to brush his teeth. Able to stand and sit in the chair at bedside, but he immediately said that he felt like he was going to pass out, and then was sitting in chair, closing his eyes, looked like he was falling asleep. Was able to awaken easily, and he said he felt like he was going to have a seizure. He was assisted back to bed and was sleepy. STates that he sometimes is able to "fight through it" when he feels like he is going to have a seizure. Vital signs are stable. Seizure pads in place on side rails. Side rails up x 3, bed alarm on. Noted spo2 dropped to 89% while sleeping; oxygen applied at 1 l/min via n.c. delivery.
[2022-04-17 12:22] LABS: U Amphetamine Screen DETECTED; U Methamphetamine Screen DETECTED
[2022-04-17 12:23] LABS: U Barbituate Screen Not Detected; U Benzodiazapine Screen DETECTED; U Buprenorphine Screen Not Detected; U Cannabinoids Screen Not Detected; U Cocaine Screen Not Detected; U Methadone Screen Not Detected; U Opiates Screen Not Detected; U Oxycodone Screen Not Detected; U Phencyclidine Screen Not Detected; U Propoxyphene Screen Not Detected
[2022-04-17 12:37] LABS: Appearance, Urine Hazy (Clear); Bilirubin, Urine Neg (Neg); Blood, Urine 5+ (Neg); Color, Urine Yellow (P-Yellow); Glucose Qualitative, Urine Neg (Neg); Ketones, Urine Neg (Neg); Leukocyte Esterase, Urine 2+ (Neg); Nitrite, Urine Neg (Neg); Protein, Urine 1+ (Neg); Urobilinogen, Urine NORM (Normal)
[2022-04-17 12:46] LABS: Bacteria Few /hpf; Squamous Epithelial Cells Few /hpf (Few); White Blood Cells, Urine 25-50 /hpf (0-5)
--- NOTE | 2022-04-17 16:49 | NUR ---
PT CURRENTLY RESTING IN BED. VSS, BP 114/99, HR 95, O2 96% ON 1 L. PT DESATS TO 87-88 DURING SLEEP, HX OF OSB. PT AROUSABLE WITH VERBAL STIMULI. UPON WAKENING, AT TIMES, PT IS CONFUSED ABOUT WHERE HE IS AND NEEDS REORIENTING. PT ABLE TO ANSWER QUESTIONS APPROPRIATELY.
--- NOTE | 2022-04-17 18:34 | NUR ---
PT UP IN BED. PT COUGHING OFTEN, THICK BROWN SPUTUM. PT ALERT AND ORIENTED, INTERACTING WITH STAFF. NO OTHER CHANGES AT THIS TIME
[2022-04-18 04:01] LABS: Hematocrit 40.3 % (37.0-53.0); Hemoglobin 13.3 g/dL (13.5-17.5); Mean Corpuscular HGB 31.4 pg (26.0-34.0); Mean Corpuscular Volume 95 fL (80-100); Mean Platelet Volume 8.4 fL (9.1-12.4); Platelet Count 298 K/mm3 (150-400); RDW Coefficient Variation 13.2 % (11.7-14.2); RDW Standard Deviation 45.1 fL (35.1-46.3); Red Blood Cell Count 4.23 M/mm3 (4.30-5.90); White Blood Cell Count 12.48 K/mm3 (4.00-11.30)
[2022-04-18 04:20] LABS: Albumin, Blood 2.9 g/dL (3.4-5.0); Albumin/Globulin Ratio 0.7 (0.8-1.8); Bilirubin, Total 0.3 mg/dL (0.1-1.0); Bun/Creatinine Ratio 28.2 (12.0-20.0); Calcium, Blood 8.3 mg/dL (8.5-10.1); Creatinine, Blood 0.92 mg/dL (0.60-1.20); Magnesium, Blood 2.5 mg/dL (1.6-2.4); Potassium, Blood 4.9 mmol/L (3.5-5.5); Total Protein, Blood 6.9 g/dL (6.4-8.2)
--- NOTE | 2022-04-18 05:32 | NUR ---
SHIFT SUMMARY ASSUMED CARE OF PT AT 1900. PT IS ALERT BUT LETHARGIC UNTIL ABOUT 0400 WHEN HE WOKE UP AND ASKED FOR A SNACK. PT CIWAH WAS 5 UNTIL 0400 WHEN IT WAS 12, MEDICATED PER EMAR. HEART SOUNDS REGULAR. LUNG SOUNDS COURSE, PT WAS ON 2LNC T/O THE NIGHT DUE TO HX OF LUCY. PT C/O COUGH, HOSPITALIST NOTIFIED AND ORDERED LAZENGES. PT HAS HERNIA, WHICH HE STATES HE DUE TO COUGHING FITS OUTSIDE OF HOSPITAL. WHEN ASKING PT ABOUT BLOOD CONSENT, PT STATES THE HE DOES NOT WANT ANY LIFE SAVING MEASUERS. PT STATES THE HE HAS NO FAMILY, NO HOME, AND NO GIRLFRIENDS AND DOESNT WANT TO BE REVIVED. WHEN ASKED IF THIS IS WHY PT DOES THE DRUGS PT STATES "YES".
--- NOTE | 2022-04-18 07:46 | NUR ---
Pt is sleeping. Arousable, but falls back to sleep right away. Per RN report, he was given 50 mg Librium at 0400 for CIWA score of 12. Noted WBC count elevated this morning. He had a productive cough yesterday, and noc RN reported a hacking cough last night as well. Pt had also c/o pain and hernia which was more uncomfortable with coughing. Significant hernia noted in groin area, left side.
--- NOTE | 2022-04-18 09:36 | NUR ---
PT APPEARS SLEEPY BUT IS AROUSABLE WITH VERBAL STIMULI. VSS, CURRENTLY ON 1 L O2 VIA NC, 02 SATS 93%. DENIES SOB, CHEST PAIN OR CHEST PRESSURE. PT DOES REPORT FEELING CONGESTED, PT COUGHING FREQUENT. STATES HX OF COPD AND ASTHMA. LUNG SOUNDS WHEEZING AND A LITTLE TIGHT. RT NOTIFIED FOR PRN BREATHING TX. PT REPORTS MILD HEADACHE AND NAUSEA. MILD TREMORS SEEN. MEDICATED PER EMAR. PT INTERACTING AND RESPONDING APPROPRIATELY. PT UP IN BED FOR BREAKFAST.
--- NOTE | 2022-04-18 11:32 | NUR ---
Eating and drinking with good appetite. States muscles sore from coughing. Couging up thick phlegm, he states.
--- NOTE | 2022-04-18 12:36 | NUR ---
PT SLEEPING ON AND OFF THROUGHOUT SHIFT. PT TIRED BUT EASILY AROUSABLE. PT REPORTS MILD NAUSEA AND MILD HEADACHE. PT SAYS HE "FEELS LIKE CRAP". MEDICATED PER EMAR AND CIWA PROTOCOL. CALL LIGHT IN REACH
--- NOTE | 2022-04-18 15:43 | NUR ---
Rolando c/o achy muscles "all over" at the time of toradol administration. He has had stable alcohol withdrawls, managed well with 25 mg of Librium every 3-4 hours. Very good appetite, and drinking clear liquids as well. Continues to cough productively; sputum collection cup at the bedside and pt asked to spit a sample inside when he is able. States that his sputum has been yellow. since receiving the toradol he has been sleeping, wearing oxygen at 2 l /min to maintain his spo2 greater than 90%. Sinus tachycardia, rate 90-106 while sleeping, up to 110s when awake. Clear light yellow urine output, using urinal while lying in bed.
[2022-04-19 03:49] LABS: Hematocrit 42.7 % (37.0-53.0); Hemoglobin 14.1 g/dL (13.5-17.5); Mean Corpuscular HGB 31.4 pg (26.0-34.0); Mean Corpuscular Volume 95 fL (80-100); Mean Platelet Volume 8.4 fL (9.1-12.4); Platelet Count 303 K/mm3 (150-400); RDW Coefficient Variation 13.4 % (11.7-14.2); RDW Standard Deviation 44.8 fL (35.1-46.3); Red Blood Cell Count 4.49 M/mm3 (4.30-5.90); White Blood Cell Count 10.52 K/mm3 (4.00-11.30)
[2022-04-19 04:09] LABS: Albumin, Blood 2.9 g/dL (3.4-5.0); Albumin/Globulin Ratio 0.8 (0.8-1.8); Bilirubin, Total 0.2 mg/dL (0.1-1.0); Bun/Creatinine Ratio 32.6 (12.0-20.0); Calcium, Blood 8.8 mg/dL (8.5-10.1); Creatinine, Blood 0.86 mg/dL (0.60-1.20); Globulin, Blood 3.8 g/dL (2.2-4.0); Potassium, Blood 4.9 mmol/L (3.5-5.5); Total Protein, Blood 6.7 g/dL (6.4-8.2)
--- NOTE | 2022-04-19 05:24 | NUR ---
SHIFT SUMMARY PT IS A&0X4, SBA TO THE BATHROOM, IND WHEN MOVING AROUND IN BED, AND HIS CIWA'S HAVE BEEN 0-4 T/O THE NIGHT. THE PT'S VS HAVE BEEN STABLE T/O THE SHIFT, NO REPORTS OF ANGINA, HAS BEEN SATURATING >90% ON 2L NC W/O C/O SOB. HE HAS A C/O A MILD HEADACHE AND NAUSEA, WHICH HE WAS MEDICATED FOR PER EMAR. PT HAS BEEN IN BED ALL NIGHT AND HAS BEEN USING THE URINAL. A SPUTUM SAMPLE WAS SENT TO THE LAB AND RESULTS ARE PENDING TO RULE OUT BRONCHITIS. WILL CONTINUE TO MONITOR UNTIL REPORT IS GIVEN TO THE ONCOMING SHIFT RN, SEE NOTES FOR ANY UPDATES.
[2022-04-19 11:27] LABS: Hematocrit 45.2 % (37.0-53.0); Hemoglobin 14.8 g/dL (13.5-17.5); Mean Corpuscular HGB 31.5 pg (26.0-34.0); Mean Corpuscular HGB Conc 32.7 g/dL (31.5-36.5); Mean Corpuscular Volume 96 fL (80-100); Mean Platelet Volume 8.4 fL (9.1-12.4); Platelet Count 314 K/mm3 (150-400); RDW Coefficient Variation 13.4 % (11.7-14.2); RDW Standard Deviation 45.4 fL (35.1-46.3); White Blood Cell Count 9.31 K/mm3 (4.00-11.30)
--- NOTE | 2022-04-19 13:00 | NUR ---
AMA DISCHARGE AT ROUGHLY 1230, STAFF MEMBER INFORMED THIS RN THAT PT WAS RIPPING OFF TELEMTRY AND SAYING THAT HE WAS GOING HOME. UPON ENTERING PT ROOM, PT HAD ALL THE TELEMTRY STICKERS REMOVED AND WAS SAYING "GIVE ME MY CLOTHES, I AM GETTING OUT OF HERE." WHEN ASKED WHY PT WAS WANTING TO LEAVE, PT RESPONDED "WHATEVER YOU PEOPLE ARE GIVING ME IS MAKING ME FUCKING SICK. I HAVE NEVER BEEN SICK LIKE THIS. IT IS WHATEVER MEDS YOU HAVE BEEN GIVING ME." AT THIS POINT THE ALLOPATHIC DOCTOR ENTERED THE ROOM AND ATTEMPTED TO TALK THE PT DOWN. PT BEGAN REPEATING "GIVE ME MY FUCKING CLOTHES." PT STARTED PULLING AT THE COBAN AROUND HIS IV'S STATING "I WILL PULL THIS SHIT PUT." PT INFORMED NOT TO PULL IV'S OUT AND THAT THE IV'S ARE THERE FOR HIS IV MEDICATIONS. PT RESPONDED "I DON'T CARE. I DON'T NEED THEM. I HAVE AN UPPER RESPIRATORY THING AND ALL I NEED IS A STEROID. I HAVE DONE THIS SO MANY TIMES." PT AGAIN DEMANDED HIS CLOTHES, THIS RN RETRIEVED HIS CLOTHES FOR HIM. PT WAS GETTING DRESSED ALLOPATHIC DOCTOR CONTACTED ABOUT PT WANTING TO LEAVE AMA. INFORMED ALLOPATHIC DOCTOR THAT PT SHOULD STAY AND THAT IF HE LEAVES IT WOULD BE AGAINST MEDICAL ADVICE. DR ENTERED PT ROOM ATTEMPTING TO DISCUSS WHY HE SHOULD STAY, PT BEGAN EXPLAINING THAT "LAB PEOPLE HAVE DRAWN MY BLOOD LIKE EVERY 2 HOURS, I TIMED IT. THE RESPIRATORY PERSON TRIED GIVING A BREATHING TREATMENT, SHE JUST GAVE ME ONE! SHE JUST HOOKED IT UP AND SHVED IT IN MY FACE. THAT IS FUCKED UP MAN." EXITED ROOM AFTER NOT BEING ABLE TO TALK WITH PT AFTER MANY ATTEMPTS. ALLOPATHIC DOCTOR INFORMED PT THAT IF HE WANTED TO LEAVE IT WOULD BE AGAINST MEDICAL ADVICE AND THAT HE WOULD NEED TO SIGN THE AMA PAPER, PT AGREED AND SIGNED AFTER BEING INFORMED THE RISKS AND BENIFITS. THIS RN SIGNED WITNESS ALONG WITH ALLOPATHIC DOCTOR 2ND WITNESS. PT IV'S REMOVED BY THIS RN, SEE CHARTS FOR TIME. PT LEFT ON HIS OWN WITH HIS BELONGINGS AT 1245.
== END 2022-04-19 12:54 | disposition left against medical advice (07) | DRG 917 ==
LOC: ER 23:20 → PCU 04-17 02:37
PROVIDERS: Family Medicine; Internal Medicine; Student in an Organized Health Care Education/Training Program; ADMIT Family Medicine
PROC: 5A09357 Assistance with Respiratory Ventilation, Less than 24 Consecutive Hours, Continuous Positive Airway Pressure (ICD-10-PCS; principal; 2022-04-17)
DX: T43.621A Poisoning by amphetamines, accidental (unintentional), initial encounter (principal); G92.8 Other toxic encephalopathy; J96.21 Acute and chronic respiratory failure with hypoxia; J45.901 Unspecified asthma with (acute) exacerbation; J44.0 Chronic obstructive pulmonary disease with (acute) lower respiratory infection; J20.9 Acute bronchitis, unspecified; Z59.00 Homelessness unspecified; Z91.018 Allergy to other foods; M19.90 Unspecified osteoarthritis, unspecified site; Z87.891 Personal history of nicotine dependence; J45.909 Unspecified asthma, uncomplicated; G47.30 Sleep apnea, unspecified; Z20.822 Contact with and (suspected) exposure to COVID-19
CPT/HCPCS: 0241U; 36415; 36600; 70450; 71045; 80053; 81001; 82803; 83735; 85025; 85027; 87070; 87106; 87205; 93005; 93010; 94640; 94644; 94660; 94664; 94760; 94762; 96365; 96366; 96375; 99285-25; A9270; J0171; J0696; J1650; J1885; J2310; J2405; J2920; J2930; J3475; J7030

== ENCOUNTER 2022-05-23 19:25 | Emergency (ER) | payer MEDICARE, OTHER ==
[~2022-05-23] VITALS: Ht 160 cm; Wt 65.8 kg
== END 2022-05-23 20:13 | disposition home or self-care (01) ==
LOC: ER 19:25
DX: S01.532A Puncture wound without foreign body of oral cavity, initial encounter (principal); J44.9 Chronic obstructive pulmonary disease, unspecified; I10 Essential (primary) hypertension; Z87.891 Personal history of nicotine dependence; W22.8XXA Striking against or struck by other objects, initial encounter; Z91.018 Allergy to other foods; Z79.51 Long term (current) use of inhaled steroids
CPT/HCPCS: 99282

== ENCOUNTER 2022-05-25 04:30 | Inpatient (IN) | payer MEDICARE, OTHER ==
[~2022-05-25] VITALS: Ht 162.6 cm; Wt 70.3 kg
[2022-05-25 06:21] LABS: Influenza A, PCR NEGATIVE (NEGATIVE); Influenza B, PCR NEGATIVE (NEGATIVE); Resp Syncytial Virus, PCR NEGATIVE (NEGATIVE); SARS-Cov-2 (COVID-19) PCR, MMC NEGATIVE (NEGATIVE)
[2022-05-25 06:48] LABS: BASOPHILS ABSOLUTE AUTO 0.05 K/mm3 (0.00-0.23); BASOPHILS PERCENT AUTO 1 % (0-2); EOSINOPHILS PERCENT AUTO 5 % (0-6); Hematocrit 42.1 % (37.0-53.0); Hemoglobin 13.7 g/dL (13.5-17.5); IMMATURE GRAN ABSOLUTE AUTO 0.03 K/mm3 (0.00-0.10); IMMATURE GRAN PERCENT AUTO 0 % (0-1); LYMPHOCYTES PERCENT AUTO 15 % (21-46); MONOCYTES ABSOLUTE AUTO 0.59 K/mm3 (0.16-1.47); MONOCYTES PERCENT AUTO 7 % (4-13); Mean Corpuscular HGB 31.2 pg (26.0-34.0); Mean Corpuscular HGB Conc 32.5 g/dL (31.5-36.5); Mean Corpuscular Volume 96 fL (80-100); NEUTROPHILS ABSOLUTE AUTO 6.17 K/mm3 (1.96-9.15); NEUTROPHILS PERCENT AUTO 72 % (41-73); RDW Coefficient Variation 14.3 % (11.7-14.2); RDW Standard Deviation 49.9 fL (35.1-46.3); Red Blood Cell Count 4.39 M/mm3 (4.30-5.90); White Blood Cell Count 8.54 K/mm3 (4.00-11.30)
[2022-05-25 06:56] LABS: Mean Platelet Volume 9.7 fL (9.1-12.4); Platelet Count 213 K/mm3 (150-400)
[2022-05-25 07:49] LABS: PCO2 Arterial 52.4 mmHg (35-45); PO2 Arterial 72.7 mmHg (80-100); pH Blood Arterial 7.33 (7.35-7.45)
[2022-05-25 08:21] LABS: Bun/Creatinine Ratio 26.5 (12.0-20.0); Calcium, Blood 8.1 mg/dL (8.5-10.1); Creatinine, Blood 0.72 mg/dL (0.60-1.20); Potassium, Blood 4.2 mmol/L (3.5-5.5)
--- NOTE | 2022-05-25 18:03 | NUR ---
PT ARRIVED THIS AFTERNOON FROM ER WITH ASTHMA EXACERBATION, HE ARRIVED TO UNIT ON 3L OF O2 VIA NASAL CANNULA, WITH SPO2 OF LOW 90s. PT HAS BEEN SLEEPY T/O THE DAY, HE STARTLES EASILY. PT REPORTS SMOKING METH X2 DAYS AGO. HTN NOTED, OTHERWISE VSS. O2 IS TITRATED DOWN TO 2L VIA NASAL CANNULA. ORDERS PLACED FOR COUGH SRYUP. PT SLEEPING AT THIS TIME
[2022-05-26 04:38] LABS: PCO2 Arterial 51.7 mmHg (35-45); PO2 Arterial 64.1 mmHg (80-100); pH Blood Arterial 7.37 (7.35-7.45)
[2022-05-26 05:00] LABS: Bun/Creatinine Ratio 25.7 (12.0-20.0); Creatinine, Blood 0.7 mg/dL (0.60-1.20); Potassium, Blood 4.4 mmol/L (3.5-5.5)
--- NOTE | 2022-05-26 05:30 | NUR ---
SHIFT SUMMARY PT IS A/Ox4 AND IS COOPERATIVE WITH CARE PROVIDED BY STAFF. PT HAS BEEN PRETTY SLEEPY T/O THE SHIFT, FOR HE ONLY STAYS AWAKE FOR AN HOUR AT A TIME BEFORE FALLING BACK ASLEEP. PT IS EASILY AROUSABLE HOWEVER. HAS MAINTAINED SPO2 >94% ON 2L VIA NC WITH MINIMAL EPISODES OF SOB REPORTED. RESPONDED WELL TO BREATHING TREATMENTS AND PT STATED HE "FELT A LOT BETTER" AFTER EACH SESSION. HR/RHYTHM CONTINUES TO BE ST/100'S WITH NO CP OR PRESSURE REPORTED AT THIS TIME. VSS, NADN T/O THE SHIFT
--- NOTE | 2022-05-26 18:31 | NUR ---
Shift Summary Pt alert, oriented; anxious at times. Pt coughing t/o shift, nonproductive, medicated per emar. Pt sob with exertion, spo2 >90% on 2l o2 via nc this am, titrated to ra this am. Pt denies pain, chest pain/pressure, nausea, dizziness and numb/tingling. Tele this am sinus, sinus tach with activity, bp stable this am, trending up notified Dr Babb, new orders for prn medication. Abd soft, tender to RLQ, bm this shift. Other vss. No other acute changes noted. Will continue to monitor.
--- NOTE | 2022-05-27 05:38 | NUR ---
SHIFT SUMMARY PT IS A/Ox4 AND IS COOPERATIVE WITH CARE PROVIDED BY STAFF. PT STILL PRESENTS WITH EXPIRATORY WHEEZES IN ALL LUNG MARIE, BUT MAINTAINS SPO2 >93% ON RA. OCCASIONAL EPISODES OF SOB THAT HAS BEEN TREATED WITH ROUTINE BREATHING TREATMENTS. HR REMAINS IN ST WITH ELEVATED BP'S. PRN HYDRALAZINE HAS BEEN ORDERED, BUT ONLY FOR SBP >180. NO CP OR PRESSURE REPORTED T/O THE SHIFT. PT IS A SBA IN THE ROOM, USES URINAL WITHOUT ASSISTANCE. VSS, NADN T/O THE SHIFT
--- NOTE | 2022-05-27 10:12 | NUR ---
CARE ASSUMPTION/TRANSFER OF CARE: PATIENT A&O X4, SYSTOLIC BP ELEVATED 160S, AFEBRILE. ENDORSES MILD SORE THROAT, NO OTHER DISCOMFORTS. MD WANTS TO MONITOR A COUPLE MORE DAYS. WALKED FROM BED TO W/C TO TRANSFER TO SURGICAL UNIT. REPORT GIVEN TO [employer]. PATIENT TRANSFERRED AT THIS TIME.
--- NOTE | 2022-05-27 10:15 | NUR ---
PATIENT ARRIVED TO UNIT VIA W/C. SBA TO TRANSFER FROM W/C TO BED. LUNGS COARSE/WHEEZY ON EXPIRATION. PATIENT DENIES SOB/DIFFICULTY BREATHING. DENIES PAIN. ORIENTED TO ROOM & CALL LIGHT, IN REACH.
--- NOTE | 2022-05-27 17:51 | NUR ---
SHIFT SUMMARY NO ACUTE CHANGES THIS SHIFT. PATIENT USES URINAL INDEPENDENTLY IN ROOM. EATING, DRINKING, & VOIDING WELL. DENIES PAIN. DENIES SOB/DIFFICULTY BREATHING, DENIES CP/PRESSURE. BLOOD PRESSURE REMAINS ELEVATED, MEDICATED PER EMAR WITH HYDRALAZINE X1 THIS SHIFT. CALL LIGHT IN REACH, WILL REPORT TO ONCOMING RN AT 1900.
--- NOTE | 2022-05-28 04:39 | NUR ---
BLOOD PRESSURE CALL PLACED TO DR VIRK ABOUT THE PATIENTS BP OF 156/127 AND A PULSE OF 107, OBTAINED AN ORDER FOR 5MG NORVASC NOW. THE PATIENT HAS REMAINED ASYMPTOMATIC. PLAN TO RECHECK BP AND CALL WITH ANY FURTHER CONCERNS
--- NOTE | 2022-05-28 04:42 | NUR ---
VSS. SEE PREVIOUS NOTE FOR BLOOD PRESSURE MANAGEMENT. PT REMAINS ASYMPTOMATIC OF CP, TIGHTNESS, OR SOB. THE PT SLEPT WELL T/O THE NIGHT. MEDICATED FOR PAIN ONCE WITH TYLENOL. PT HAS C/O ABD PAIN, DESCRIBING "GAS PAIN" T/O THE SHIFT, STATES HE FEELS IF HE WILL BE HAVING A BM SOON. DECAFF COFFEE GIVEN PER REQUEST. MEDICATED PER EMAR FOR ASTHMA MANAGEMENT. LUNG SOUNDS REMAIN CORSE AND AN EXPIRATORY WHEEZE IS NOTED. PT HAS REMAINED ON RA T/O THE NIGHT, MAINTAINING SATS >94%. PT TOLLERATING AMBULATING WITHIN HIS ROOM INDEPENDENTLY. PLAN FOR PT TO REMAIN INHOUSE FOR TAPERING OF STEROIDS AND CONTINUATION OF NEBULIZER TX. THE PATIENT IS CURRENTLY RESTING IN BED, IN NO DISTRESS, CALL LIGHT IN REACH
--- NOTE | 2022-05-29 04:27 | NUR ---
VSS. HTN AND TACHYCARDIA NOTED, HOSPITALIST AWARE. PT IS ASYMPTOMATIC. PRN'S AND SCHEDULED MEDICATIONS ARE ORDERED FOR THIS. LUNG SOUNDS HAVE IMPROVED SIGNIFIGANTLY SINCE LAST NIGHT. COARSE IN RIGHT MIDDLE AND BILAT LOWER LOBES. PT HAS NOT C/O SOB, CP, OR TIGHTNESS, ON RA T/O THE NIGHT. VOIDING W/O DIFFICULTY, PASSING FLATTUS AND STOOL, TOLLERATING PO INTAKE. THE PATIENT SLEPT WELL T/O THE NIGHT, NO ACUTE EVENTS NOTED. PLAN FOR PT TO FINISH COURSE OF STEROIDS, BE TAPERED OFF, AND THEN D/C. THE PATIENT IS CURRENTLY SLEEPING, IN NO DISTRESS. CALL LIGHT IN REACH.
--- NOTE | 2022-05-29 12:46 | NUR ---
CARE TURNED OVER TO JAIMEE Marie RN. PT AMBULATING IN HALLS INDEPENDENTLY.
[2022-05-29] MEDS ORDERED: Prinivil10 MG PO (13:22)
[2022-05-29] MEDS ORDERED: AIRDUO RESPICL1 EAC4 INH (13:22)
[2022-05-29] MEDS ORDERED: PRED20 PO (13:24)
--- NOTE | 2022-05-29 13:37 | NUR ---
DISCHARGE TOOK OVER CARE AT 1245; DISCHARGE INSTRUCTIONS RECEIVED & DISCUSSED w/ PT. TALKING IN FULL SENTENCES, AMBULATING IN HALLWAYS, AMBULATES OUT HIMSELF TO WAIT FOR RIDE OUTSIDE.
== END 2022-05-29 13:35 | disposition home or self-care (01) | DRG 189 ==
LOC: ER 04:30 → SURS 08:51 → PCU 08:51 → SURS 05-27 10:38
PROVIDERS: Student in an Organized Health Care Education/Training Program; ADMIT Internal Medicine
DX: J96.01 Acute respiratory failure with hypoxia (principal); G92.8 Other toxic encephalopathy; J44.1 Chronic obstructive pulmonary disease with (acute) exacerbation; J45.901 Unspecified asthma with (acute) exacerbation; J96.02 Acute respiratory failure with hypercapnia; I10 Essential (primary) hypertension; G47.33 Obstructive sleep apnea (adult) (pediatric); M10.9 Gout, unspecified; M19.90 Unspecified osteoarthritis, unspecified site; F15.10 Other stimulant abuse, uncomplicated; F12.10 Cannabis abuse, uncomplicated; Z20.822 Contact with and (suspected) exposure to COVID-19; Z59.00 Homelessness unspecified; Z91.018 Allergy to other foods; Z79.899 Other long term (current) drug therapy; Z87.01 Personal history of pneumonia (recurrent); Z87.891 Personal history of nicotine dependence; Z79.52 Long term (current) use of systemic steroids; Z79.51 Long term (current) use of inhaled steroids
CPT/HCPCS: 0241U; 36415; 36600; 71046; 80048; 82803; 82947; 85025; 86003; 93005; 93010; 94640; 94644; 94645; 94664; 94760; 94762; 96374; 98960; 99285-25; 99406; A9270; J0360; J1650; J2930; J7030; J7512

== ENCOUNTER 2022-09-06 11:11 | Inpatient (IN) | payer MEDICARE, OTHER ==
[~2022-09-06] VITALS: Ht 162.6 cm; Wt 65.8 kg
[~2022-09-06 11:11] MED LIST changes: +AIRDUO RESPICL1 EAC4 INH; +Prinivil10 MG PO
[2022-09-06 11:38] LABS: BASOPHILS ABSOLUTE AUTO 0.07 K/mm3 (0.00-0.23); BASOPHILS PERCENT AUTO 1 % (0-2); EOSINOPHILS ABSOLUTE AUTO 0.63 K/mm3 (0.00-0.68); EOSINOPHILS PERCENT AUTO 7 % (0-6); Hematocrit 50.6 % (37.0-53.0); Hemoglobin 16.3 g/dL (13.5-17.5); IMMATURE GRAN ABSOLUTE AUTO 0.02 K/mm3 (0.00-0.10); IMMATURE GRAN PERCENT AUTO 0 % (0-1); LYMPHOCYTES ABSOLUTE AUTO 1.94 K/mm3 (0.84-5.20); LYMPHOCYTES PERCENT AUTO 21 % (21-46); MONOCYTES ABSOLUTE AUTO 0.58 K/mm3 (0.16-1.47); MONOCYTES PERCENT AUTO 6 % (4-13); Mean Corpuscular HGB 31.8 pg (26.0-34.0); Mean Corpuscular HGB Conc 32.2 g/dL (31.5-36.5); Mean Corpuscular Volume 99 fL (80-100); Mean Platelet Volume 8.8 fL (9.1-12.4); NEUTROPHILS ABSOLUTE AUTO 5.83 K/mm3 (1.96-9.15); NEUTROPHILS PERCENT AUTO 64 % (41-73); Platelet Count 253 K/mm3 (150-400); RDW Coefficient Variation 14.1 % (11.7-14.2); RDW Standard Deviation 51.3 fL (35.1-46.3); Red Blood Cell Count 5.12 M/mm3 (4.30-5.90); White Blood Cell Count 9.07 K/mm3 (4.00-11.30)
[2022-09-06 12:05] LABS: Base Excess Venous 5.5 mmol/L; Bicarbonate Venous 26.8 mmol/L (24.0-30.0); PCO2 Venous 67.8 mmHg (38-42)
[2022-09-06 12:07] LABS: pH Blood Venous 7.28 (7.34-7.37)
[2022-09-06 13:09] LABS: Influenza A, PCR NEGATIVE (NEGATIVE); Influenza B, PCR NEGATIVE (NEGATIVE); Resp Syncytial Virus, PCR NEGATIVE (NEGATIVE); SARS-Cov-2 (COVID-19) PCR, MMC NEGATIVE (NEGATIVE)
[2022-09-06 14:39] LABS: Albumin, Blood 3.4 g/dL (3.4-5.0); Albumin/Globulin Ratio 0.8 (0.8-1.8); Bilirubin, Total 0.5 mg/dL (0.1-1.0); Bun/Creatinine Ratio 17.9 (12.0-20.0); Calcium, Blood 8.8 mg/dL (8.5-10.1); Creatinine, Blood 0.78 mg/dL (0.60-1.20); Potassium, Blood 5.1 mmol/L (3.5-5.5); Total Protein, Blood 7.4 g/dL (6.4-8.2)
[2022-09-06 16:24] LABS: U Amphetamine Screen Not Detected; U Barbituate Screen Not Detected; U Benzodiazapine Screen Not Detected; U Buprenorphine Screen Not Detected; U Cannabinoids Screen Not Detected; U Cocaine Screen Not Detected; U Methadone Screen Not Detected; U Methamphetamine Screen DETECTED; U Opiates Screen Not Detected; U Oxycodone Screen Not Detected; U Phencyclidine Screen Not Detected; U Propoxyphene Screen Not Detected
[2022-09-06 17:07] LABS: Base Excess Venous 4.7 mmol/L; Bicarbonate Venous 27.4 mmol/L (24.0-30.0); PCO2 Venous 50.8 mmHg (38-42); pH Blood Venous 7.38 (7.34-7.37)
--- NOTE | 2022-09-06 18:45 | NUR ---
SHIFT SUMMARY THIS NURSE ASSUMED CARE AT APPROX. 1705. PT IS ALERT AND ORIENTED X 4, UPON ARRIVAL TO PCU, PT WAS SOMNOLENT, HE WOKE EASILY TO VERBAL STIMULI BUT WOULD SLEEP IN BETWEEN PT CARE. NOW PT IS MORE WAKEFUL/ALERT, HE IS ABLE TO MAKE HIS NEEDS KNOWN. SPO2 MAINTAINED VIA 4L NC AND IS 93-96%, HE REPORTED FEELING SOB AT TIMES. PER TELE MONITORING, HR IS SINUS TACHYCARDIA 110-120, HE DENIES FEELINGS OF CHEST PAIN/PRESSURE BUT REPORTS NUMBNESS AND TINGLING IN LEFT FOOT, BP STABLE. NO COUGH NOTED, HE REPORTED FEELING NAUSEOUS BUT NOW HAS AN APPETITE AND IS EATING DINNER. HE HAS BEEN ORIENTED TO ROOM/UNIT. IV'S IN BILAT HANDS ARE SALINE LOCKED. WILL CONTINUE TO MONITOR UNTIL REPORT GIVEN.
--- NOTE | 2022-09-06 20:13 | NUR ---
CONTACTED DR HYLTON REGARDING PT CIWA OF 15 TO REQUEST MEDICATION FOR CIWA PROTOCOL. PT ANXIOUS AND AGITATED. ADMITS THAT HE NORMALLY DRINKS 18 CANS OF BEER AND A BOTTLE OF WHISKEY AT HOME DAILY.
[2022-09-07 04:26] LABS: BASOPHILS ABSOLUTE AUTO 0.01 K/mm3 (0.00-0.23); BASOPHILS PERCENT AUTO 0 % (0-2); EOSINOPHILS PERCENT AUTO 0 % (0-6); Hematocrit 49.3 % (37.0-53.0); Hemoglobin 16.4 g/dL (13.5-17.5); IMMATURE GRAN ABSOLUTE AUTO 0.04 K/mm3 (0.00-0.10); IMMATURE GRAN PERCENT AUTO 0 % (0-1); LYMPHOCYTES ABSOLUTE AUTO 0.64 K/mm3 (0.84-5.20); LYMPHOCYTES PERCENT AUTO 5 % (21-46); MONOCYTES ABSOLUTE AUTO 0.11 K/mm3 (0.16-1.47); MONOCYTES PERCENT AUTO 1 % (4-13); Mean Corpuscular HGB 31.5 pg (26.0-34.0); Mean Corpuscular HGB Conc 33.3 g/dL (31.5-36.5); Mean Corpuscular Volume 95 fL (80-100); Mean Platelet Volume 8.9 fL (9.1-12.4); NEUTROPHILS ABSOLUTE AUTO 11.02 K/mm3 (1.96-9.15); NEUTROPHILS PERCENT AUTO 93 % (41-73); Platelet Count 271 K/mm3 (150-400); RDW Coefficient Variation 13.4 % (11.7-14.2); RDW Standard Deviation 47.6 fL (35.1-46.3); Red Blood Cell Count 5.21 M/mm3 (4.30-5.90); White Blood Cell Count 11.82 K/mm3 (4.00-11.30)
[2022-09-07 04:40] LABS: Bun/Creatinine Ratio 26.1 (12.0-20.0); Creatinine, Blood 1.11 mg/dL (0.60-1.20); Potassium, Blood 4.9 mmol/L (3.5-5.5)
--- NOTE | 2022-09-07 06:04 | NUR ---
DRY CANS OPERATOR SUMMARY ASSUMED CARE OF THE PT AT 1900. HE IS ALERT AND ORIENTED X4 THOUGH APPEARED AGITATED AND ANXIOUS AT TIME OF ASSESSMENT. CIWA WAS PERFORMED AND WAS A 15 SO PT WAS MEDICATED WITH 50 OF PO LIBRIUM AND 2 MG OF IV ATIVAN. HYPERTENSION IMPROVED. PT FELL ASLEEP SHORTLY AFTER MEDICATION AND SHOWED IMPROVEMENT IN TACHYCARDIA WELL. OXYGEN SATURATION DECREASED SO PT NC INCREASED TO 6 AND 7 L TO MAINTAIN SATURATION >90%. HE WOKE UP CONFUSED AND DISORIENTED ABOUT WHERE HE WAS BUT WAS EASILY REORIENTED. PT CIWA AGAIN 12 THIS MORNING SO MEDICATED WITH 50 OF PO LIBRIUM. HE HAS BEEN SINUS TACH ON TELE. CURRENTLY SATTING 95% ON 4L BY NC. PT REPORTED FREQUENT HACKING COUGH CAUSING SOME CHEST WALL PAIN BUT THE COUGH IMPROVED WITH CIWA MEDICATIONS. HE IS A SBA WITH THE URINAL DUE TO INCREASING SOB WITH EXERTION. PT RECEIVING PRN BREATHING TREATMENTS WITH IMPROVEMENT IN WOB.
[2022-09-07] MEDS ORDERED: ALLO100 PO (12:17)
[2022-09-07] MEDS ORDERED: COLCHICINE0.6 MG PO (12:18)
[2022-09-07] MEDS ORDERED: LISI20 PO (12:18)
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
--- NOTE | 2022-09-07 16:45 | NUR ---
RN NOTE MR JACKSON TRANSFERED FROM PCU TO MEDICAL FLOOR AT 1600HRS. CALM ON ARRIVAL TYPING INTO MOBILE PHONE. HAND TREMORS NOTED. HE SAID HE FEELS MILDLY NAUSEAUS, TAKING PO FLUIDS. CIWA 5 AT THAT TIME. NO C/O PAIN. ORIENTATED X4. BED LOW, BED ALARM ON, SZ PADS IN PLACE. CALL LIGHT IN REACH.
--- NOTE | 2022-09-07 23:03 | NUR ---
NURS NOTE--HS CBG 282 HS CBG TAKEN AND DID NOT TRANSFER @2015; CBG 282. NO COVERAGE OREDERED.
--- NOTE | 2022-09-07 23:04 | NUR ---
PT PERSISTANT COUGHING. LUNG SOUND WITH INSP/EXP WHEEZE. PT REQ COUGH MEDS. CALL TO COMMUNITY LIFE DIRECTOR/DR MARTINEZ. NEW ORDER FOR ROBITUSSIN AND TESSLAN; ADMIN AT 2100 WITH GOOD EFFICACY.
--- NOTE | 2022-09-07 23:06 | NUR ---
XFER CARE TO ANOTHER NURSE--GAVE REPORT 2029 CIWA 11; MED P/EMAR. PT COUGHING; NEW ORDER FOR COUGH MEDS; SEE NOTE. PT ON 4L NC--FOUND PT TO BE OFF O2 NC UNAWARE MULTIPLE TIMES. PT W/SOME EPISODES OF AGITATIONS. RESPONDED WELL T/ATIVAN AND LIBRIUM. PT BED ALARM ON AND SEIZURE PADS IN PLACE. ABLE TO MAKE NEEDS KNOWN AND XFER W/SBA.
--- NOTE | 2022-09-08 06:04 | NUR ---
PATIENT AOX4 WHEN AWAKE VERY DROWSY OTHERWISE. CIWA ELEVATED AT START OF SHIFT BUT IMPROVED AFTER PRN MEDS GIVEN. PRN COUGH MEDS GIVEN. ASSUMED CARE OF PATIENT AROUND 2300. PATIENT RESTING COMFORTABLY IN BED. IV STEROIDS GIVEN. PATIENT ON 4L NC. BED ALARM ON SINCE PATIENT IS DROWSY. CALL LIGHT IN REACH.
--- NOTE | 2022-09-08 17:52 | NUR ---
SHIFT SUMMARY PT A&OX3 AND COOPERATIVE OF CARE. NO ACUTE CHANGES. PT ON 4L OF O2 AND SATING >90%. DENIES DIZZINESS WHEN STANDING OR AMBULATING. NO C/O PAIN. PT VERBALIZED FEELING ANXIOUS AND FEELING THE WITHDRAWL SYMPTOMS. COMPLETED CIWA WITH A SCORE OF 13. MEDICATED PER EMAR. VSS HOWEVER HR IS TACHY. CALLS APPROPRIATELY. BED IN LOWEST POSITION AND CALL LIGHT IN REACH.
--- NOTE | 2022-09-08 20:13 | NUR ---
NURSE NOTE--CIWA ASSESSMENT VISIBLE SWEAT ON LATTER DAY AND HANDS. TREMORS FELT/SLIGHTLY VISIBLE. PT PERKINS/AGITATED AND C/O HEADACHE W/MILD NAUSEA. PT HAS LIGHTS OFF AND REPORTS BEING SENSITIVE TO LIGHT. NOTED PT WAS ITCHING LEGS AND ARMS. MED P/EMAR CIWA PROTOCOL.
--- NOTE | 2022-09-09 05:23 | NUR ---
HSE MANAGER SUMMARY CIWA ASSESSMENTS BETWEEN 10-12; SEE NOTE. PERCEPTIBLE MOISTURE ON SKIN, AGITATION, ANXIETY, HEADACHE, MILD TREMORS, MILD TACTILE/VISUAL SENSITIVITY. ELEVATED BP AND HR. PT STATED, "I FEEL LIKE I AM GOING TO " BUT UNABLE TO BE SPECIFIC ABOUT STATEMENT. MED P/EMAR. PT A/OX4. ON 4L O2 NC; UNPRODUCTIVE COUGH W/TIGHT EXP WHEEZES. SEIZURE PADS IN PLACE. PT WILL PULL OFF NC O2 AND FREQUENTLY FORGET TO PUT BACK ON. USES CALL LIGHT APPROPRIATELY. CALL LIGHT ACCESSIBLE.
[2022-09-09 09:14] LABS: Base Excess Venous 7.4 mmol/L; Bicarbonate Venous 29.2 mmol/L (24.0-30.0); PCO2 Venous 61.5 mmHg (38-42); pH Blood Venous 7.34 (7.34-7.37)
--- NOTE | 2022-09-09 16:08 | NUR ---
SHIFT SUMMARY PATIENT IS ALERT AND ORIENTED 2-3. PATIENT IS ADMITTED FOR ETOH WITHDRAWAL AND ACUTE RESP FAILURE. PATIENT HAS BEEN ON 4.5L NC ALL SHIFT. PATIENT HAS HAD TWO CIWAS DONE, BOTH AT 8 PLUS. MEDICATED TWICE WITH LIBRIUM FOR CIWAS. PATIENT HAS HAD NO OTHER ACUTE EVENTS THIS SHIFT. PATIENT HAS NOT COMPLAINED OF PAIN, NAUSEA, SOB OR VOMITTING. PATIENT IMPULSIVELY GOT UP ON OWN TO TAKE A SHOWER WITHOUT OXYGEN AND WAS FOUND IN LOW 80S ON ROOM AIR. WAS EDUCATED EXTENSIVELY TO NOT TAKE OFF OXYGEN AND TO ALERT STAFF TO NEEDS. BED IN LOCKED AND LOWEST POSITION. CALL LIGHT IN PLACE. WILL MONITOR UNTIL SHIFT CHANGE.
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
--- NOTE | 2022-09-10 19:15 | NUR ---
SHIFT SUMMARY PT A&OX4 AND PLEASANT. PT ON 4L OXYGEN AND SATING >90%. PT'S LUNGS WEEZY AND PT STATED NOT FEELING WELL IN AM. PT INDEPENDENT IN ROOM. PT VERBALIZED WISHING HE HADN'T STARTED DRINKING ETOH. IN AFTERNOON PT ATTEMPTED TO LEAVE AMA. PT BROUGHT BACK TO ROOM AND DR JARVIS SPOKE WITH PT. PT AGREED TO STAY AND CONTINUE TREATMENT LONG HE CAN HAVE BEER WITH MEALS. PT COOPERATIVE OF CARE FOR REMANDER OF SHIFT. BED IN LOWEST POSITION AND CALL LIGHT IN REACH.
--- NOTE | 2022-09-11 04:13 | NUR ---
CDL DRIVER SUMMARY NO ACUTE EVENTS THROUGHOUT THE NIGHT. A&OX4. PATIENT EFFECTIVELY COMMUNICATES NEEDS. VSS. RR EVEN AND UNLABORED ON 3L O2. PATIENT DID HAVE EPISODE OF ANXIETY WITH SIGNS OF DIAPHORESIS; MEDICATIONS ADMINISTERED PER EMAR. NO ATTEMPTS TO LEAVE THIS SHIFT, HOWEVER, PATIENT DOES EXPRESS DESIRE FOR DISCHARGE. BED LOW AND LOCKED. CALL LIGHT WITHIN REACH. THIS RN WILL CONTINUE TO MONITOR.
--- NOTE | 2022-09-11 14:24 | NUR ---
PT CHOSE TO LEAVE FLOOR AT 1420. TALKED TO PT THIS MORNING ABOUT THE NEED TO STAY IN HOSPITAL. WAS TOLD IN REPORT THAT NURSE MORGAN HAD TO BRING HIM UP FROM FIRST FLOOR ON PREVIOUS DAY SHIFT. NICHOLAS, TECHNOLOGY OFFICER ALSO TALKED TO PT. STATED IF HE WAS GONE MORE THAN AN HR WE WOULD DISCHARGE HIM AMA. PT STATED HE AGREED AND THAT HE WOULD BE BACK. ALSO STATED HE ONLY WANTS TO GO TO [place].
--- NOTE | 2022-09-11 14:31 | NUR ---
PT RETURNED TO ROOM
--- NOTE | 2022-09-11 18:02 | NUR ---
SHIFT SUMMARY: PT A&O X4. NO ACUTE CHANGES WITH PT THIS SHIFT. PT WALKED TO [place] AND AGREED THAT IF HE WAS NOT BACK WITHIN AN HR HE WOULD BE D/C AMA. PT CAME BACK WITHIN TEN MINUTES. PT LATER WANTED TO GO FOR A WALK AND WAS GIVEN THE SAME DEAL. PT STATED HE WOULD NOT LEAVE BUILDING. THIS TIME PT CAME BACK IN FORTY FIVE MINUTES. JACOB BURTON STATED SHE SAW HIM OUTSIDE ON BENCH AND ASKED HIM TO COME INSIDE. VITALS AND BLOOD SUGAR TAKEN AND ALL WNL. PT TOLERATING SOLU-MEDROL WELL. PG PATENT. PT CURRENTLY ON 3L 02 WITH SATS >95%. CALL LIGHT IN REACH. WILL CONTINUE TO MONITOR.
--- NOTE | 2022-09-12 05:53 | NUR ---
SHIFT SUMMARY PT A&OX4- PT SITTING UP IN BED - CALL TO DR. KSENIA TORRES PT CIWA INCREASED TO 13- ORDER HAD BEEN CANCELED PRIOR DAY- PT SHOWED S/S WITHDRAWLS- NOTIFIED DR. TORRES: PT LEFT FACILITY DURING DAY SHIFT AND UNKNOWN IF PT PARTAKED IN ANY DRUG OR ALCOHOL ACTIVITIES- GAVE ATIVAN 2MG PER ORDER- PT TOLERATED WELL- PT UP MOST OF NIGHT- PT CIWA DECREASED FOR THE REST OF THE SHIFT- BED LOW POSITION, CALL LIGHT WITHIN REACH
--- NOTE | 2022-09-12 15:44 | NUR ---
AMA DISCHARGE SUMMARY PATIENT IS LEAVING AMA. PATIENT LEFT THE FLOOR AND HOSPITAL FOR OVER 75 MIN. PATIENT WAS WARNED ABOUT LEAVING THE FLOOR AGAIN. PATIENT DECIDED HE WANTED TO LEAVE. IS AWARE OF PATIENT LEAVING AMA. PATIENT HAS HAD NO ACUTE EVENTS THIS SHIFT. VITAL SIGNS REVIEWED.
== END 2022-09-12 16:15 | disposition left against medical advice (07) | DRG 189 ==
LOC: ER 11:11 → PCU 14:37 → MEDS 14:37 → PCU 09-07 09:11 → MEDS 09-07 16:00
PROVIDERS: Internal Medicine; Student in an Organized Health Care Education/Training Program; ADMIT Family Medicine
PROC: HZ2ZZZZ Detoxification Services for Substance Abuse Treatment (ICD-10-PCS; principal; 2022-09-06)
DX: J96.01 Acute respiratory failure with hypoxia (principal); J44.1 Chronic obstructive pulmonary disease with (acute) exacerbation; F10.239 Alcohol dependence with withdrawal, unspecified; Z20.822 Contact with and (suspected) exposure to COVID-19; J96.02 Acute respiratory failure with hypercapnia; M10.9 Gout, unspecified; M19.90 Unspecified osteoarthritis, unspecified site; G47.33 Obstructive sleep apnea (adult) (pediatric); E11.9 Type 2 diabetes mellitus without complications; I11.0 Hypertensive heart disease with heart failure; I50.9 Heart failure, unspecified; F17.210 Nicotine dependence, cigarettes, uncomplicated; F15.10 Other stimulant abuse, uncomplicated; F12.90 Cannabis use, unspecified, uncomplicated; Z87.01 Personal history of pneumonia (recurrent); Z71.6 Tobacco abuse counseling; Z28.21 Immunization not carried out because of patient refusal; Z79.51 Long term (current) use of inhaled steroids; Z79.52 Long term (current) use of systemic steroids; Z79.899 Other long term (current) drug therapy
CPT/HCPCS: 0241U; 36415; 71045; 80048; 80053; 82330; 82435; 82803; 82947; 83880; 84132; 84295; 84484; 85025; 93005; 93010; 93306; 94640; 94644; 94645; 94660; 94664; 94760; 94762; 96365; 96367; 96368; 96375; 99285-25; A9270; C1751; C9113; G0480; J0610; J1650; J1940; J2060; J2930; J3411; J7050; J7512

== ENCOUNTER 2023-07-08 19:50 | Emergency (ER) | payer MEDICARE, OTHER ==
[~2023-07-08] VITALS: Ht 162.6 cm; Wt 70.3 kg
[~2023-07-08 19:50] MED LIST changes: +BREO ELLIPTA 11 EAC1 IH; +BUSP5 PO; +DILT120 PO
[2023-07-08 19:58] VITALS: BP 154/101
== END 2023-07-08 22:22 | disposition left against medical advice (07) ==
LOC: ER 19:50
DX: K40.90 Unilateral inguinal hernia, without obstruction or gangrene, not specified as recurrent (principal); Z53.29 Procedure and treatment not carried out because of patient's decision for other reasons
CPT/HCPCS: 76870; 99282-25

== ENCOUNTER 2023-08-05 13:33 | Inpatient (IN) | payer MEDICARE, OTHER ==
[~2023-08-05] VITALS: Ht 177.8 cm; Wt 63.5 kg
[2023-08-05 13:54] LABS: BASOPHILS PERCENT AUTO 1 % (0-2); EOSINOPHILS ABSOLUTE AUTO 0.36 K/mm3 (0.00-0.68); EOSINOPHILS PERCENT AUTO 4 % (0-6); Hematocrit 46.2 % (37.0-53.0); Hemoglobin 15.6 g/dL (13.5-17.5); IMMATURE GRAN ABSOLUTE AUTO 0.02 K/mm3 (0.00-0.10); IMMATURE GRAN PERCENT AUTO 0 % (0-1); LYMPHOCYTES PERCENT AUTO 34 % (21-46); MONOCYTES ABSOLUTE AUTO 0.57 K/mm3 (0.16-1.47); MONOCYTES PERCENT AUTO 7 % (4-13); Mean Corpuscular HGB 31.6 pg (26.0-34.0); Mean Corpuscular HGB Conc 33.8 g/dL (31.5-36.5); Mean Corpuscular Volume 94 fL (80-100); Mean Platelet Volume 9.3 fL (9.1-12.4); NEUTROPHILS ABSOLUTE AUTO 4.59 K/mm3 (1.96-9.15); NEUTROPHILS PERCENT AUTO 54 % (41-73); Platelet Count 276 K/mm3 (150-400); RDW Coefficient Variation 13.4 % (11.7-14.2); RDW Standard Deviation 46.3 fL (35.1-46.3); Red Blood Cell Count 4.94 M/mm3 (4.30-5.90); White Blood Cell Count 8.54 K/mm3 (4.00-11.30)
[2023-08-05 13:55] LABS: PCO2 Venous 61.6 mmHg (38-42)
[2023-08-05 13:56] LABS: Base Excess Venous 4.2 mmol/L; Bicarbonate Venous 25.8 mmol/L (24.0-30.0)
[2023-08-05 14:27] LABS: Albumin, Blood 3.6 g/dL (3.4-5.0); Albumin/Globulin Ratio 0.8 (0.8-1.8); Bilirubin, Total 0.5 mg/dL (0.1-1.0); Bun/Creatinine Ratio 15.8 (12.0-20.0); Calcium, Blood 8.5 mg/dL (8.5-10.1); Creatinine, Blood 0.95 mg/dL (0.60-1.20); Globulin, Blood 4.4 g/dL (2.2-4.0); Potassium, Blood 5.1 mmol/L (3.5-5.5)
[2023-08-05 15:17] LABS: Influenza A, PCR NEGATIVE (NEGATIVE); Influenza B, PCR NEGATIVE (NEGATIVE); Resp Syncytial Virus, PCR NEGATIVE (NEGATIVE); SARS-Cov-2 (COVID-19) PCR, MMC NEGATIVE (NEGATIVE)
[2023-08-05 17:28] VITALS: BP 154/103
--- NOTE | 2023-08-05 19:20 | NUR ---
PT ARRIVED TO PCU 05 FROM ER VIA GURNEY AT APROX 1720. PT ON BIPAP 26/04 FI02 30%, RT AT BEDSIDE TO ADJUST SETTINGS. PT IS LETHARGIC AND DOES NOT STAY ALERT FOR LONG BEFORE BECOMING LETHARGIC AGAIN. SEE DOCUMENTED VS AND ASSESSMENT. APROX 1800 PT IS AWAKE AND ALERT, REQUESTING BIPAP BE REMOVED AND FOR FOOD AND WATER. BIPAP REMOVED, PT IS ON RA 95%. WATER AND FOOD PROVIDED. PT IS ABLE TO ANSWER QUESTIONS APPROPRIATELY. PT STATES HE DRINKS UP TO A GALLON OF WHISKEY PER DAY, STATES "IT'S WHAT KEEPS ME OFF THE DRUGS." PT REPORTS HE IS HOMELESS, BUT DOES HAVE ACCESS TO HIS MEDICATIONS. PT STATES HIS LAST DRINK WAS THIS AM. CIWA SCORE AT THIS TIME IS 9, PT MEDICATED PER ORDERS WITH PO LIBRIUM AND WAS EDUCATED BY THIS RN ON ETOH WITHDRAWL MEDICATIONS. PT HAS NO FURTHER REQUESTS. PT ORIENTED TO ROOM/CALL LIGHT/UNIT ROUTINES. URINAL AND PERSONAL BELONGINGS WITHIN REACH. PT VERBALIZES UNDERSTANDING TO CALL STAFF BEFORE GETTING OOB. PT VERBALIZES UNDERSTANDING. REPORT GIVEN TO NOC SHIFT RN.
[2023-08-05 19:37] VITALS: BP 134/107
[2023-08-06] VITALS (7 sets, daily range): BP systolic 124–162; BP diastolic 90–123
--- NOTE | 2023-08-06 00:43 | NUR ---
ASSUMPTION OF CARE: THIS RN ASSUMED CARE OF PT AT APPROX 1900. PT ALERT, ORIENTED X4. PT VISIBLY RESTLESS, FIDGETING W/ HANDS & CONTINUALLY MOVING IN BED. PLEASANT & COOPERATIVE W/ CARE. CIWA'S ASSESSED, 5-12; MEDICATED W/ LIBRIUM PER EMAR, PT REPORTS SIGNIFICANT IMPROVEMENT IN SYMPTOMS. STATES HE NORMALLY DRINKS "ABOUT A FIFTH OF WHISKEY EVERY DAY." STATES HE LAST USED METHAMPHETAMINE "ABOUT 3 DAYS AGO." AGREEABLE TO ETOH MEDICATIONS. ON ROOM AIR W/ SPO2 >90% AT START OF SHIFT. PLACED BACK ON BIPAP FOR SUPPORT WHILE SLEEPING. ABLE TO VOID INDEPENDENTLY IN URINAL. SHOWER PROVIDED THIS EVENING. NO OTHER NEEDS, CALL LIGHT IN REACH.
[2023-08-06 03:58] LABS: Hematocrit 46.2 % (37.0-53.0); Hemoglobin 15.8 g/dL (13.5-17.5); Mean Corpuscular HGB 31.7 pg (26.0-34.0); Mean Corpuscular HGB Conc 34.2 g/dL (31.5-36.5); Mean Corpuscular Volume 93 fL (80-100); Mean Platelet Volume 8.7 fL (9.1-12.4); Platelet Count 225 K/mm3 (150-400); RDW Standard Deviation 43.9 fL (35.1-46.3); Red Blood Cell Count 4.99 M/mm3 (4.30-5.90); White Blood Cell Count 6.35 K/mm3 (4.00-11.30)
[2023-08-06 04:19] LABS: Bun/Creatinine Ratio 29.9 (12.0-20.0); Calcium, Blood 8.3 mg/dL (8.5-10.1); Creatinine, Blood 0.8 mg/dL (0.60-1.20); Potassium, Blood 4.6 mmol/L (3.5-5.5)
--- NOTE | 2023-08-06 04:54 | NUR ---
END OF SHIFT NOTE: NO ACUTE EVENTS OVERNIGHT. PT REMAINS ALERT, ORIENTED X4. CALLS APPROPRIATELY, ABLE TO COMMUNICATE NEEDS W/ STAFF. HR 60-80'S WHILE SLEEPING, UP TO 110'S WHILE AWAKE; SINUS RHYTHM ON TELE. SBP 130-160'S, PT DENIES CHEST PAIN/PRESSURE. SPO2 >93% ON RA, BIPAP FOR SEVERAL HOURS OVERNIGHT. AFEBRILE. CIWA 4-12, MEDICATED W/ PO LIBRIUM PER EMAR. PT ABLE TO SLEEP FOR THE MAJORITY OF THE NOC. ADEQUATE PO INTAKE, ABLE TO VOID CLEAR YELLOW URINE INDEPENDENTLY USING URINAL. NO BM'S. REPOSITIONING SELF INDEPENDENTLY IN BED. NO OTHER NEEDS AT THIS TIME. CALL LIGHT IN REACH, BED IN LOWEST POSITION. WILL REPORT TO ONCOMING RN.
[2023-08-06 05:01] LABS: PCO2 Arterial 44.9 mmHg (35-45); PO2 Arterial 56.4 mmHg (80-100)
--- NOTE | 2023-08-06 09:16 | NUR ---
ASSUMED CARE REPORT FROM ANNIE JAMES AT 0700. PT RESTING IN BED. WAKES c VERBAL STIMULI. A&O X 3. FOLLOWS COMMANDS. ANSWERS QUESTIONS APPROPRIATELY. STATES HE IS FEELING BETTER. LUNGS CLEAR OTHER THAN COARSE IN LLL. OCCASIONAL NON PRODUCTIVE COUGH. ON RA, O2 SATS >95%. SPEAKING IN FULL SENTENCES. ST ON MONITOR, RATE 100'S. BP STABLE. INDEPENDENT IN ROOM. ABLE TO MAKE NEEDS KNOWN. CALL LIGHT IN REACH. WILL CONTINUE PLAN OF CARE.
--- NOTE | 2023-08-06 15:30 | NUR ---
ASSUMPTION OF CARE: Report recieved from Gunjan JAMES. Patient is resting with eyes closed, resp E/U. Call light in reach. Patient is medicated with librium 25 mg PO for CIWA. VSS. He is 91% on RA prior to breathing tx and 96% after. He C/O some mild chest pain with deep inspriation, medicated with Tylenol for pain. He denies other needs at this time. Call light in reach.
--- NOTE | 2023-08-06 18:18 | NUR ---
Summary: Patient has been alert and oriented T/O the shift. HRR, she was SR this morning in the 70s, DC'd telemetry in the AM. Blood pressure has been 115-120s systolic. LS DIM in the bases, biox has been stable T/O the shift. She was titrated down from 11L-5L her saturations are mid to high 90s while at rest and dip into the high 80s with activity. She has a PC with thick brown sputum, she states she was having brown sputum before she came to the hospital. BT hypoactive, we tried bowel care this shift and she was not able to have a bowel movement. She has been using the BSC IND. She was able to ambulate to the bathroom and shower this shift. She has been downgraded to medical status. She will likely discharge to SNF tomorrow after she has a bowel movement. No acute changes this shift. Will report to oncoming RN.
--- NOTE | 2023-08-06 18:27 | NUR ---
Summary: Patient has been alert and oriented X4. He C/O pleuritic chest pain, he was medicated with Tylenol this shift, this provided good relief. HRR, he has been SR in the 90s. SBP 120s-130s. LS DIM with INSP/EXP wheezing T/O. His saturations have been 91% on RA. BT+, he has been snacking all day. He is using the urinal independently. He was medicated 3 times with Librium for ETOH. He denies other needs at this time. Call light in reach, will report to oncoming RN.
[2023-08-07 03:56] VITALS: BP 139/82
--- NOTE | 2023-08-07 04:47 | NUR ---
SHIFT SUMMARY PT A&O X4. ABLE TO MAKE NEEDS KNOWN. CIWA OF 8-11. MEDICATED PER EMAR. PT ENDORSED SEEING "SHADOWS" X1 DURING THIS SHIFT, AFTER IV ATIVAN PT REPORTED THAT HALLUCINATIONS HAD SUBSIDED. OTHERWISE PT REPORTING HEADACHE, TREMORS, NAUSEA, AND ANXIETY. PT USING URINAL INDEPENDENTLY. PT RECEIVED SHOWER EARLIER TONIGHT. SR/ST ON MONITOR WITH HR 90-100'S. BP STABLE. ON RA WITH SPO2 >92%. AFEBRILE. BED IN LOWEST POSITION AND CALL LIGHT WITHIN REACH. THIS RN WILL REPORT TO ONCOMING DAYSHIFT RN.
[2023-08-07 07:17] VITALS: BP 136/82
--- NOTE | 2023-08-07 08:53 | NUR ---
MORNING NOTE AFTER RECEIVING REPORT FROM EREN JAMES, THIS RN ASSUMED CARE AT APPROX 0715. PATIENT ALERT, REQUESTING BREATHING TREATMENT FROM RT FOR INCREASED SHORTNESS OF BREATH, FREQUENT HACKING COUGH. RT AWARE, PATIENT RECEIVED TREATMENT THIS MORNING. IS ALERT AND ORIENTED X4. CIWA OBTAINED, MEASURING AT 8. VISIBLE MILD TREMORS NOTED IN HANDS, MILD ANXIETY NOTED. NO REPORT OF VISUAL, AUDITORY HALLUCINATIONS, NONE NOTED. MEDICATED PER EMAR WITH LIBRIUM. AT TIMES, PATIENT REPORTS FEELING UNSURE IF HE WANTS TO STAY. REPORTING "I HAVE A LOT OF STUFF TO TAKE CARE OF OUTSIDE OF HERE." MD PRADO MADE AWARE OF THIS WHILE ROUNDING THIS MORNING. THIS RN NOTIFIED BY MD THAT IF THE PATIENT CHOOSES TO LEAVE IT WILL BE AMA. MD TO DISCUSS THIS WITH PATIENT TODAY. TELEMETRY SHOWING SINUS TACH 100's. RATE INCREASE TO 110's WITH MOBILITY. BP STABLE. REPORTS PLEURITIC CHEST PAIN THAT INCREASES WITH INSPIRATION. IS ON ROOM AIR, SATS >90%. CONTINUED FREQUENT HACKING COUGH NOTED. TACHYPNEA AT REST NOTED. PATIENT IS A STAND BY ASSIST IN ROOM, ABLE TO PERFORM ADL's INDEPENDENTLY. CALL LIGHT IN REACH.
[2023-08-07 11:33] VITALS: BP 129/82
[2023-08-07] MEDS ORDERED: B-1100 M1 PO (12:39)
[2023-08-07] MEDS ORDERED: GUAI600T33 PO (12:39)
[2023-08-07] MEDS ORDERED: AZIT250 PO (12:40)
[2023-08-07] MEDS ORDERED: FOLI1 PO (12:40)
[2023-08-07] MEDS ORDERED: PRED20 PO (12:41)
[2023-08-07 15:44] VITALS: BP 128/86
--- NOTE | 2023-08-07 17:26 | NUR ---
DISCHARGE NOTE MD PRADO AT BEDSIDE THIS MORNING FOR ROUNDING, DISCUSSED CURRENT STATUS AND ALCOHOL WITHDRAWAL. WHEN ASKED IF PATIENT WOULD LIKE TO CONTINUE WITH DETOX, PATIENT STATES "I'M PROBABLY GOING TO KEEP DRINKING." AFTER DISCUSSING RISKS ASSOCIATED WITH WITHDRAWAL AT HOME, MD ORDERED DISCHARGE HOME TODAY RESPIRATORY STATUS IMPROVED. PATIENT STATES UNDERSTANDING OF EDUCATION. CARE MANAGEMENT PROVIDED ADDITIONAL RESOURCES AND ARRANGED FOR TRANSPORT TO CHOSEN PHARMACY TO AUTOMATION DRIVER DISCHARGE MEDICATIONS, TRANSPORT TO ARRIVE AT APPROX 1730. CIWA LESS THAN OR EQUAL TO 8 THROUGHOUT, MEDICATED PER EMAR WITH PO LIBRIUM. REPORTED TREMORS, A HEADACHE, AND INCREASED ANXIETY/RESTLESSNESS. NO REPORT OF VISUAL OR AUDITORY HALLUCINATIONS, NONE NOTED BY ASSESSMENT. PRIOR TO REMOVAL, TELEMETRY SHOWING SINUS TACH 100's. BP STABLE, SBP 120's. REMAINS ON ROOM AIR, SATS >90%. FREQUENT HACKING COUGH NOTED. INDEPENDENT IN ROOM AND WITH ADL's, SHOWER PERFORMED TODAY. VOIDING. NO REPORTED BM. THIS RN PROVIDED DISCHARGE EDUCATION REGARDING MEDICATIONS, FOLLOW-UP WITH PRIMARY CARE PROVIDER, AND ALCOHOL WITHDRAWAL. PATIENT STATES UNDERSTANDING. IV REMOVED. TELEMETRY REMOVED. ARRANGED TRANSPORT ARRIVED AT APPROX 0515. PATIENT TRANSFERRED OFF UNIT VIA WHEELCHAIR AT 0530. PERSONAL BELONGINGS WITH PATIENT.
== END 2023-08-07 17:40 | disposition home or self-care (01) | DRG 189 ==
LOC: ER 13:33 → PCU 16:43
PROVIDERS: Student in an Organized Health Care Education/Training Program; ADMIT Internal Medicine
PROC: 5A09357 Assistance with Respiratory Ventilation, Less than 24 Consecutive Hours, Continuous Positive Airway Pressure (ICD-10-PCS; principal; 2023-08-05)
DX: J96.21 Acute and chronic respiratory failure with hypoxia (principal); J44.1 Chronic obstructive pulmonary disease with (acute) exacerbation; I50.22 Chronic systolic (congestive) heart failure; I42.7 Cardiomyopathy due to drug and external agent; F10.239 Alcohol dependence with withdrawal, unspecified; Z59.00 Homelessness unspecified; E87.29 Other acidosis; J96.22 Acute and chronic respiratory failure with hypercapnia; J96.02 Acute respiratory failure with hypercapnia; F41.9 Anxiety disorder, unspecified; F32.A Depression, unspecified; M10.9 Gout, unspecified; M19.90 Unspecified osteoarthritis, unspecified site; G47.30 Sleep apnea, unspecified; E11.9 Type 2 diabetes mellitus without complications; I48.91 Unspecified atrial fibrillation; F15.10 Other stimulant abuse, uncomplicated; F12.10 Cannabis abuse, uncomplicated; I11.0 Hypertensive heart disease with heart failure; T43.655A Adverse effect of methamphetamines, initial encounter; Z91.018 Allergy to other foods; F17.210 Nicotine dependence, cigarettes, uncomplicated; Z79.899 Other long term (current) drug therapy; Z79.51 Long term (current) use of inhaled steroids
CPT/HCPCS: 0241U; 36415; 36600; 71045; 80048; 80053; 82803; 82947; 83880; 85025; 85027; 93005; 93010; 94640; 94644; 94645; 94660; 94664; 94762; 99285-25; A9270; J0456; J1650; J2060; J2930; J7050

== ENCOUNTER 2024-02-29 13:06 | Inpatient (IN) | payer MEDICARE, OTHER ==
[~2024-02-29] VITALS: Ht 160 cm; Wt 64.9 kg
[~2024-02-29 13:06] MED LIST changes: +CARV6.25 PO; +FLUT1DIS2 INH; +FOLI1 PO
[2024-02-29 13:38] LABS: BASOPHILS ABSOLUTE AUTO 0.04 K/mm3 (0.00-0.23); BASOPHILS PERCENT AUTO 0 % (0-2); EOSINOPHILS PERCENT AUTO 3 % (0-6); Hematocrit 41.4 % (37.0-53.0); Hemoglobin 13.3 g/dL (13.5-17.5); IMMATURE GRAN ABSOLUTE AUTO 0.03 K/mm3 (0.00-0.10); IMMATURE GRAN PERCENT AUTO 0 % (0-1); LYMPHOCYTES PERCENT AUTO 14 % (21-46); MONOCYTES ABSOLUTE AUTO 0.74 K/mm3 (0.16-1.47); MONOCYTES PERCENT AUTO 8 % (4-13); Mean Corpuscular HGB 31.2 pg (26.0-34.0); Mean Corpuscular HGB Conc 32.1 g/dL (31.5-36.5); Mean Corpuscular Volume 97 fL (80-100); Mean Platelet Volume 8.5 fL (9.1-12.4); NEUTROPHILS ABSOLUTE AUTO 7.23 K/mm3 (1.96-9.15); NEUTROPHILS PERCENT AUTO 75 % (41-73); Platelet Count 325 K/mm3 (150-400); RDW Coefficient Variation 14.7 % (11.7-14.2); RDW Standard Deviation 52.7 fL (35.1-46.3); Red Blood Cell Count 4.26 M/mm3 (4.30-5.90); White Blood Cell Count 9.64 K/mm3 (4.00-11.30)
[2024-02-29 13:51] LABS: Bun/Creatinine Ratio 15.2 (12.0-20.0); Calcium, Blood 8.4 mg/dL (8.5-10.1); Creatinine, Blood 0.59 mg/dL (0.60-1.20); Magnesium, Blood 2.1 mg/dL (1.6-2.4); Potassium, Blood 4.2 mmol/L (3.5-5.5)
[2024-02-29] MEDS ORDERED: Ipratropium/Albuterol SulF 2.5-0.5MG/3 ML Amp INH ONE (13:55)
[2024-02-29] MEDS ORDERED: Benzonatate 100 MG Cap PO PRN (16:25)
[2024-02-29] MEDS ORDERED: Ipratropium/Albuterol SulF 2.5-0.5MG/3 ML Amp INH SCH (16:25)
[2024-02-29] MEDS ORDERED: Acetaminophen 325 MG TABLET PO PRN (16:25)
[2024-02-29] MEDS ORDERED: Albuterol 2.5 MG/3 ML VIAL INH PRN (16:25)
[2024-02-29] MEDS ORDERED: LORazepam 2 MG/ML 1ML Injection IV PRN (16:55)
[2024-02-29] MEDS ORDERED: ChlordiazePOXIDE 25 MG Cap PO PRN (16:55)
[2024-02-29] MEDS ORDERED: Azithromycin 500 MG in NS 250 ML IV SCH (17:00)
[2024-02-29] MEDS ORDERED: Folic Acid 1 MG in NS 50 ML IV SCH (17:00)
[2024-02-29] MEDS ORDERED: Thiamine HCl 100 MG in NS 50 ML IV SCH (17:00)
[2024-02-29] MEDS ORDERED: ChlordiazePOXIDE 25 MG Cap PO STA (17:14)
[2024-02-29] MEDS ORDERED: HydrALAZINE HCl 20 MG / ML 1ML Vial IV PRN (17:30)
[2024-02-29] MEDS ORDERED: MethylPREDNISolone Sod Succ 125 MG Vial IV SCH (18:00)
[2024-02-29] MEDS ORDERED: Insulin Human Lispro 100 Units/ML 3ML Syringe SC SCH (21:00)
[2024-02-29] MEDS ORDERED: GuaiFENesin 600 MG TabCR PO SCH (21:00)
[2024-02-29 21:14] VITALS: BP 119/101
[2024-02-29 23:40] VITALS: BP 118/82
[2024-03-01 02:11] VITALS: BP 138/109
[2024-03-01 02:50] LABS: PCO2 Arterial 57.9 mmHg (35-45); PO2 Arterial 70.4 mmHg (80-100); pH Blood Arterial 7.32 (7.35-7.45)
[2024-03-01] MEDS ORDERED: Ondansetron 4 MG SoluTab SL PRN (03:00)
[2024-03-01 03:40] LABS: U Amphetamine Screen Not Detected; U Barbituate Screen Not Detected; U Benzodiazapine Screen DETECTED; U Buprenorphine Screen Not Detected; U Cannabinoids Screen DETECTED; U Cocaine Screen Not Detected; U Methadone Screen Not Detected; U Methamphetamine Screen DETECTED; U Opiates Screen Not Detected; U Oxycodone Screen Not Detected; U Phencyclidine Screen Not Detected
[2024-03-01 03:54] LABS: SARS-Cov-2 (COVID-19) PCR, MMC NEGATIVE (NEGATIVE)
[2024-03-01 05:15] LABS: Hematocrit 42.2 % (37.0-53.0); Hemoglobin 13.9 g/dL (13.5-17.5); Mean Corpuscular HGB 31.4 pg (26.0-34.0); Mean Corpuscular HGB Conc 32.9 g/dL (31.5-36.5); Mean Corpuscular Volume 95 fL (80-100); Mean Platelet Volume 8.6 fL (9.1-12.4); Platelet Count 324 K/mm3 (150-400); RDW Coefficient Variation 14.3 % (11.7-14.2); RDW Standard Deviation 49.9 fL (35.1-46.3); Red Blood Cell Count 4.43 M/mm3 (4.30-5.90); White Blood Cell Count 8.05 K/mm3 (4.00-11.30)
[2024-03-01 05:48] LABS: Bun/Creatinine Ratio 28.4 (12.0-20.0); Calcium, Blood 8.4 mg/dL (8.5-10.1); Creatinine, Blood 0.6 mg/dL (0.60-1.20); Magnesium, Blood 2.5 mg/dL (1.6-2.4); Phosphorus, Blood 2.7 mg/dL (2.5-4.9); Potassium, Blood 4.8 mmol/L (3.5-5.5)
--- NOTE | 2024-03-01 06:49 | NUR ---
SHIFT SUMMARY: Pt is admitted for COPD exacerbation with hypoxic respiratory failure and is a full code. Is alert and able to make needs known. ADLs have been a mix of SBA to 2p depending on state of PT. has stated that he has had a headache with alert but has spent most of the shift very lethargic. Joselo was placed about half way during shift due to wide swings of heart rate from low 40s to 100s in short amount of time. Joselo reports that he has been sinus but not with a steady rate due to the wide swings.
[2024-03-01 07:27] VITALS: BP 131/104
[2024-03-01] MEDS ORDERED: Enoxaparin 40 MG/0.4 ML SYR SC SCH (09:00)
[2024-03-01 14:38] VITALS: BP 127/84
--- NOTE | 2024-03-01 18:21 | NUR ---
PT A&O X4. ABLE TO LET NEEDS BE KNOWN. WAS ON 1500ML FLUID RESTRICTION, 1300 FOR DAYSHIFT. HIGHEST CIWA WAS 11, MEDICATED WITH ATIVAN. ON 2 LITERS O2 NASAL CANNULA. O2 BASELINE LOW 90'S, HEART RATE RANGED FROM 50'S TO LOW 100'S WITH TELE MONITOR. USED URINAL APPROPRIATELY. DID NOT AMBULATE TODAY. CALL LIGHT WITHIN REACH.
--- NOTE | 2024-03-01 18:30 | NUR ---
SUMMARY- PT AAOX4 THIS SHIFT. SBA. PT SCORED A 6, 11, AND A 7 FOR CIWAS THIS SHIFT. PT MEDICATED X1 W/1MG OF ATIVAN IV FOR ENTIRE SHIFT. PT ON 2 L CONTINUOUS NC. NO ACUTE EVENTS THIS SHIFT.
[2024-03-01 20:42] VITALS: BP 136/88
[2024-03-02 03:34] VITALS: BP 155/103
--- NOTE | 2024-03-02 05:15 | NUR ---
SHIFT SUMMARY 49 YR M ADMITTED ON 03/01/24. FULL CODE. PT HAD A CIWA SCORE OF 9 THIS SHIFT AND WAS GIVEN ATIVAN TWICE. HE GOT UPSET WITH HIMSELF AFTER HAVING AN ACCIDENTAL BM IN HIS BED. HE STATED HE WAS EMBARASSED AND TOOK OFF HIS TELE AND PULSE OX AND GOT HIMSELF IN THE SHOWER. HE HAS BEEN VERY PLEASANT AND COOPERATIVE THIS SHIFT. O2 SATS HAVE DROPPED TO THE MID 80'S A FEW TIMES BUT CAME RIGHT BACK UP. PT HAS BEEN USING THE SPIROMETER THROUGHOUT SHIFT. NO ACUTE CHANGES. WILL CONTINUE TO MONITOR. BED IN LOW POSITION AND CALL LIGHT IN REACH.
[2024-03-02 05:58] LABS: Albumin, Blood 2.6 g/dL (3.4-5.0); Albumin/Globulin Ratio 0.7 (0.8-1.8); Bilirubin, Total 0.2 mg/dL (0.1-1.0); Bun/Creatinine Ratio 33.8 (12.0-20.0); Calcium, Blood 8.7 mg/dL (8.5-10.1); Creatinine, Blood 0.8 mg/dL (0.60-1.20); Globulin, Blood 3.9 g/dL (2.2-4.0); Potassium, Blood 4.7 mmol/L (3.5-5.5); Total Protein, Blood 6.5 g/dL (6.4-8.2)
[2024-03-02 07:22] VITALS: BP 150/104
[2024-03-02 07:23] VITALS: BP 168/94
[2024-03-02] MEDS ORDERED: ChlordiazePOXIDE 25 MG Cap PO SCH (09:30)
[2024-03-02] MEDS ORDERED: DEXTROMETHORPHAN/BENZOCAINE 1 EACH LOZENGE MT PRN (14:00)
[2024-03-02 14:48] VITALS: BP 128/74
--- NOTE | 2024-03-02 16:02 | NUR ---
TELEPHONE VERBAL 1600- THIS RN NOTIFIED TLAANG THAT PT WAS WANTING TO LEAVE THE HOSPITAL AND DRINK. PT'S CURRENT CIWA=14. SAID TO ORDER 1MG ATIVAN IV NOW. THIS RN ALSO ASKED IF IV ATIVAN SHOULD STILL BE ON THE EMAR WITH CIWA SCORING. IV ATIVAN WAS DC TODAY. STATED SHE WILL LOOK AT PT'S EMAR.
[2024-03-02] MEDS ORDERED: LORazepam 2 MG/ML 1ML Injection IV ONE (16:05)
[2024-03-02] MEDS ORDERED: MethylPREDNISolone Sod Succ 125 MG Vial IV SCH (17:00)
[2024-03-02] MEDS ORDERED: LORazepam 2 MG/ML 1ML Injection IV PRN (17:20)
--- NOTE | 2024-03-02 18:19 | NUR ---
SHIFT SUMMARY PATIENT A&O X4 TODAY, ABLE TO MAKE NEEDS KNOWN. WORKED W/ PT AND RT TODAY. HIGHEST CIWA WAS 14 FOR THE DAY, ADMINISTERED ATIVAN IV 1MG PER MD. PATIENT EXPRESSED LEAVING HOSPITAL AMA. DID NOT MENTION LEAVING AFTER RECIEVING ATIVAN. TREMORS IMPROVING TODAY, SEEMS MORE COHERENT THAN YESTERDAY. CALL LIGHT WITHIN REACH.
[2024-03-02 21:32] VITALS: BP 160/99
[2024-03-03 03:31] VITALS: BP 155/101
[2024-03-03 06:08] LABS: Albumin, Blood 2.7 g/dL (3.4-5.0); Anion Gap 8 mmol/L (3-11); Blood Urea Nitrogen 23 mg/dL (8-24); Bun/Creatinine Ratio 32.4 (12.0-20.0); CO2, Blood 31 mmol/L (21-32); Calcium, Blood 8.8 mg/dL (8.5-10.1); Chloride, Blood 107 mmol/L (98-108); Creatinine, Blood 0.71 mg/dL (0.60-1.20); Glomerular Filtration Rate 112 (60-); Glucose, Blood 106 mg/dL (70-99); Magnesium, Blood 2.4 mg/dL (1.6-2.4); Phosphorus, Blood 4.2 mg/dL (2.5-4.9); Potassium, Blood 4.3 mmol/L (3.5-5.5); Sodium, Blood 142 mmol/L (136-145)
--- NOTE | 2024-03-03 07:45 | NUR ---
SHIFT SUMMARY PT A/OX4. AT START OF SHIFT CIWA-2. ATIVAN GIVEN X1 CIWA-8. PT HAD A DRY/WHEEZY COUGH THIS AM. LOZENGE GIVEN AND RT CALLED TO ADMINISTER PRN NEB TREATMENT WITH REPORTED RELIEF. STAND-BY ASSIST BUT IMPULSIVE, BED ALARM ON. CALL LIGHT IN REACH. ABLE TO MAKE NEEDS KNOWN.
[2024-03-03 08:00] VITALS: BP 151/102
[2024-03-03 14:23] VITALS: BP 145/103
[2024-03-03] MEDS ORDERED: ChlordiazePOXIDE 25 MG Cap PO PRN (16:30)
[2024-03-03] MEDS ORDERED: NS 250 ML IV ONE (19:18)
[2024-03-03] MEDS ORDERED: Azithromycin 500 MG VIAL ONE (19:18)
[2024-03-03 19:41] VITALS: BP 162/105
--- NOTE | 2024-03-03 20:22 | NUR ---
SHIFT SUMMARY PATIENT ALERT AND INTERACTIVE. PATIENT HAVING EPISODES OF AGITATION, IRRITABLILITY, TREMORS AND ITCHING. PATIENT MEDICATED WITH LIBRIUM PER ORDERS. PATIENT REPEATEDLY ASKING WHY HE IS ON A FLUID RESTRICTION AND WHY HE IS GETTING INSULIN. ATTEMPTED TO EDUCATE PATIENT. PATIENT CONTINUED TO ASK SAME QUESTIONS THROUGHOUT THE SHIFT. PATIENT MAKING STATEMENTS OF "EITHER KNOCK ME OUT OR LET ME DRINK" PATIENT STATES THAT HE WILL PROBABLY GO BACK TO DRINKING WHEN HE GETS OUT OF THE HOSPITAL.
[2024-03-03] MEDS ORDERED: MethylPREDNISolone Sod Succ 40 MG VIAL IV SCH (21:00)
[2024-03-04 02:16] VITALS: BP 153/108
--- NOTE | 2024-03-04 06:35 | NUR ---
SHIFT SUMMARY PT NONCOMPLIANT WITH FLUID RESTRICTION AND ADA DIET. STEROIDS POSSIBLY INCREASING APPETITE. GIVING SUGAR FREE SNACKS T/O NIGHT. HR FLUCTUATES FROM SUNG IN THE MID 40'S TO 90'S WHILE ASLEEP. PT DESATTING TO MID 80'S. 2L NC, DECREASED TO 1L NC THIS AM. PRN LIBRIUM GIVEN X2 FOR ANXIETY AND HEADACHES. PT REPORTED TO ME THIS MORNING HAVING VISUAL HALLUCINATIONS. BUT OTHERWISE STABLE WITHDRAWL. 25 MG PRN LIBRIUM GIVEN EACH TIME IF HE WERE TO NEED 50 MG AT ONE TIME TWICE IN A SHIFT HE WOULD EXCEEPT THE 300 MG/DAY NOT TO EXCEED PARAMETER WITH HIS ALREADY SCHEDULED DOSES. IMPULSIVE. BED ALARM ON. STAND-BY ASSIST.
[2024-03-04 07:24] VITALS: BP 124/87
[2024-03-04] MEDS ORDERED: NS 250 ML IV PRN (07:40)
[2024-03-04] MEDS ORDERED: NS 250 ML IV ONE (10:45)
[2024-03-04] MEDS ORDERED: Azithromycin 500 MG VIAL ONE (10:45)
[2024-03-04] MEDS ORDERED: GUAI600T33 PO (11:46)
[2024-03-04] MEDS ORDERED: CEPACOL THROAT1 EAC1 MT (11:46)
[2024-03-04] MEDS ORDERED: ALBU90OI INH (11:47)
[2024-03-04] MEDS ORDERED: AZIT500 PO (11:47)
[2024-03-04] MEDS ORDERED: JARDIANCE10 MG PO (11:48)
[2024-03-04] MEDS ORDERED: CARV3.125 PO (11:48)
[2024-03-04] MEDS ORDERED: TRELEGY ELLIPT1 EACH INH (11:49)
[2024-03-04] MEDS ORDERED: LISI5 PO (11:49)
[2024-03-04] MEDS ORDERED: MULVITA PO (11:50)
--- NOTE | 2024-03-04 13:22 | NUR ---
SHIFT SUMMARY AND DISCHARGE PATIENT ALERT AND INTERACTIVE. EASILY IRRITABLE AT TIMES. PATIENT STATES THAT WHEN HE GETS OUT OF HERE HE WILL GO BACK TO DRINKING. PATIENT INDEPENDENT IN THE ROOM. PATIENT EAGER TO DISCHARGE AND IMPATIENT. PATIENT ASKING TO WAIT FOR RIDE AT ENTRANCE. DISCHARGE INSTRUCTIONS REVIEWED WITH PATIENT. [employer]. REVIEWED PLAN FOR PATIENT TO BE TRANSPORTED TO PHARMACY TO [facility], THEN TO TENT BY [facility] WHERE HE LIVES. PATIENT TRANSPORTED DOWN VIA WHEELCHAIR TO ER WAITING AREA.
== END 2024-03-04 13:28 | disposition home or self-care (01) | DRG 189 ==
LOC: ER 13:06 → MEDS 13:07 → ERHOLD 13:07 → MEDS 20:54
PROVIDERS: Emergency Medicine; Family Medicine; ADMIT Internal Medicine
PROC: 4A033R1 Measurement of Arterial Saturation, Peripheral, Percutaneous Approach (ICD-10-PCS; principal; 2024-03-01)
DX: J96.01 Acute respiratory failure with hypoxia (principal); I50.21 Acute systolic (congestive) heart failure; J44.1 Chronic obstructive pulmonary disease with (acute) exacerbation; F10.239 Alcohol dependence with withdrawal, unspecified; Z59.00 Homelessness unspecified; I11.0 Hypertensive heart disease with heart failure; F12.90 Cannabis use, unspecified, uncomplicated; M10.9 Gout, unspecified; M19.90 Unspecified osteoarthritis, unspecified site; G47.30 Sleep apnea, unspecified; Z87.891 Personal history of nicotine dependence; X02.1XXA Exposure to smoke in controlled fire in building or structure, initial encounter; F15.90 Other stimulant use, unspecified, uncomplicated
CPT/HCPCS: 36415; 36600; 71045; 80048; 80053; 80069; 82803; 82947; 83036; 83735; 83880; 84100; 84145; 85025; 85027; 85379; 93005; 93010; 94640; 94664; 94760; 94762; 96365; 96366; 96367; 96372; 96375; 96376; 97110; 97163; 97165; 97530; 99285-25; A9270; G0378; J0456; J1650; J2060; J2919; J3411; J7050; U0002

== ENCOUNTER 2024-04-27 11:18 | Inpatient (IN) | payer MEDICARE, OTHER ==
[~2024-04-27] VITALS: Ht 162.6 cm; Wt 62.8 kg
[~2024-04-27 11:18] MED LIST changes: +CARV3.125 PO; +CEPACOL THROAT1 EAC1 MT; +JARDIANCE10 MG PO; +MULVITA PO; +TRELEGY ELLIPT1 EACH INH
[2024-04-27 12:21] LABS: BASOPHILS ABSOLUTE AUTO 0.06 K/mm3 (0.00-0.23); BASOPHILS PERCENT AUTO 1 % (0-2); EOSINOPHILS ABSOLUTE AUTO 0.33 K/mm3 (0.00-0.68); EOSINOPHILS PERCENT AUTO 4 % (0-6); Hematocrit 43.3 % (37.0-53.0); Hemoglobin 14.4 g/dL (13.5-17.5); IMMATURE GRAN ABSOLUTE AUTO 0.01 K/mm3 (0.00-0.10); IMMATURE GRAN PERCENT AUTO 0 % (0-1); LYMPHOCYTES ABSOLUTE AUTO 1.64 K/mm3 (0.84-5.20); LYMPHOCYTES PERCENT AUTO 20 % (21-46); MONOCYTES ABSOLUTE AUTO 0.51 K/mm3 (0.16-1.47); MONOCYTES PERCENT AUTO 6 % (4-13); Mean Corpuscular HGB 31.1 pg (26.0-34.0); Mean Corpuscular HGB Conc 33.3 g/dL (31.5-36.5); Mean Corpuscular Volume 94 fL (80-100); Mean Platelet Volume 8.7 fL (9.1-12.4); NEUTROPHILS ABSOLUTE AUTO 5.64 K/mm3 (1.96-9.15); NEUTROPHILS PERCENT AUTO 69 % (41-73); Platelet Count 234 K/mm3 (150-400); RDW Coefficient Variation 14.6 % (11.7-14.2); RDW Standard Deviation 50.4 fL (35.1-46.3); Red Blood Cell Count 4.63 M/mm3 (4.30-5.90); White Blood Cell Count 8.19 K/mm3 (4.00-11.30)
[2024-04-27 13:01] LABS: Albumin, Blood 3.5 g/dL (3.4-5.0); Bilirubin, Total 0.5 mg/dL (0.1-1.0); Bun/Creatinine Ratio 14.7 (12.0-20.0); Calcium, Blood 9.2 mg/dL (8.5-10.1); Creatinine, Blood 0.68 mg/dL (0.60-1.20); Globulin, Blood 3.5 g/dL (2.2-4.0); Potassium, Blood 3.7 mmol/L (3.5-5.5)
[2024-04-27 13:26] LABS: Influenza A, PCR NEGATIVE (NEGATIVE); Influenza B, PCR NEGATIVE (NEGATIVE); Resp Syncytial Virus, PCR NEGATIVE (NEGATIVE); SARS-Cov-2 (COVID-19) PCR, MMC NEGATIVE (NEGATIVE)
[2024-04-27] MEDS ORDERED: Albuterol 2.5 MG/3 ML VIAL INH SCH ×2 (14:45→17:25)
[2024-04-27] MEDS ORDERED: Ipratropium Bromide INH 0.02% 0.5 mg/2.5ML Vial INH SCH (14:45)
[2024-04-27 16:00] LABS: Base Excess Venous 2.7 mmol/L; Bicarbonate Venous 25.4 mmol/L (24.0-30.0); PCO2 Venous 55.3 mmHg (38-42); pH Blood Venous 7.32 (7.34-7.37)
[2024-04-27] MEDS ORDERED: MethylPREDNISolone Sod Succ 125 MG Vial IV ONE (17:35)
[2024-04-27] MEDS ORDERED: Magnesium Sulf 2 GM/Water 50ML 50 ML IV ONE (18:05)
[2024-04-27] MEDS ORDERED: Ondansetron HCl 2 MG / ML 2ML Vial IV PRN (19:35)
[2024-04-27] MEDS ORDERED: LORazepam 2 MG/ML 1ML Injection IV PRN (19:35)
[2024-04-27] MEDS ORDERED: NS 1,000 ML IV SCH (19:35)
[2024-04-27] MEDS ORDERED: FLU VACC TS2024-25(6MOS UP)/PF 45 MCG/0.5 ML SYRINGE IM SCH (19:40)
[2024-04-27] MEDS ORDERED: Albuterol 2.5 MG/3 ML VIAL INH PRN (19:40)
[2024-04-27] MEDS ORDERED: Ipratropium/Albuterol SulF 2.5-0.5MG/3 ML Amp INH SCH (19:40)
[2024-04-27 20:18] LABS: U Amphetamine Screen DETECTED; U Barbituate Screen Not Detected; U Benzodiazapine Screen Not Detected; U Buprenorphine Screen Not Detected; U Cannabinoids Screen DETECTED; U Cocaine Screen Not Detected; U Methadone Screen Not Detected; U Methamphetamine Screen DETECTED; U Opiates Screen Not Detected; U Oxycodone Screen Not Detected; U Phencyclidine Screen Not Detected
--- NOTE | 2024-04-27 20:30 | NUR ---
TRANSFER TO PCU PT ARRIVED TO PCU AT APPROXIMATELY 2028 VIA ER MACK, PT SLID TO HOSPITAL BED. PT CAME UP ON 2L NC, SPO2 MAINTAINING ABOVE 93%. BIPAP AT BEDSIDE. LS WITH EXPIRATORY WHEEZES T/O, HE REPORTS MILD SOB, ESPECIALLY ON EXERTION. NS INFUSING PER EMAR. PT REPORTS THAT HE DRINKS APPROXIMATELY 1/5TH OF WHISKEY DAILY, LAST DRINK WAS LESS THAN 24 HOURS AGO. MD NOTIFIED, SEE ORDERS FOR CIWA PROTOCOL. PT IS QUITE SLEEPY AT THIS TIME, ALTHOUGH HE WAKES EASILY AND ANSWERS QUESTIONS APPROPRIATELY. PT IS RESTING IN BED, BREATHING IS EVEN AND UNLABORED, CALL LIGHT IN REACH.
[2024-04-27 20:32] VITALS: BP 148/114
[2024-04-27 21:50] LABS: Base Excess Venous 4.4 mmol/L; Bicarbonate Venous 26.9 mmol/L (24.0-30.0); PCO2 Venous 53.3 mmHg (38-42); pH Blood Venous 7.36 (7.34-7.37)
[2024-04-27] MEDS ORDERED: ChlordiazePOXIDE 25 MG Cap PO PRN ×2 (22:05)
[2024-04-27 23:42] VITALS: BP 145/97
[2024-04-28 03:09] VITALS: BP 146/100
[2024-04-28 03:53] LABS: Hematocrit 44.3 % (37.0-53.0); Hemoglobin 14.4 g/dL (13.5-17.5); Mean Corpuscular HGB 30.5 pg (26.0-34.0); Mean Corpuscular HGB Conc 32.5 g/dL (31.5-36.5); Mean Corpuscular Volume 94 fL (80-100); Mean Platelet Volume 8.5 fL (9.1-12.4); Platelet Count 225 K/mm3 (150-400); RDW Coefficient Variation 14.3 % (11.7-14.2); RDW Standard Deviation 49.1 fL (35.1-46.3); Red Blood Cell Count 4.72 M/mm3 (4.30-5.90); White Blood Cell Count 4.97 K/mm3 (4.00-11.30)
[2024-04-28 04:10] LABS: Bun/Creatinine Ratio 15.3 (12.0-20.0); Calcium, Blood 8.6 mg/dL (8.5-10.1); Creatinine, Blood 0.72 mg/dL (0.60-1.20); Magnesium, Blood 2.4 mg/dL (1.6-2.4); Potassium, Blood 4.3 mmol/L (3.5-5.5)
--- NOTE | 2024-04-28 05:04 | NUR ---
PHYSICIAN CONTACT SPOKE WITH RESIDENT REGARDING PT'S HISTORY OF DM TYPE 2 AND LACK OF ORDERS FOR CBG CHECKS AND INSULIN. RESIDENT WOULD LIKE [facility] CBG CHECKS AND IS DEFERRING INSULIN ORDERS TO THE DAY TEAM.
--- NOTE | 2024-04-28 05:45 | NUR ---
SHIFT SUMMARY NO ACUTE CHANGES SINCE ASSUMPTION OF CARE. PT A&O X4, ABLE TO MAKE NEEDS KNOWN. VSS, AFEBRILE, SPO2 >92% ON 2L NC OR BIPAP FIO2 35%. PT REPORTS KIM, LS WITH WHEEZES T/O. CIWA SCORE OF 2-3 THIS SHIFT. NS INFUSING PER EMAR. PT TOLERATES BIPAP WELL. HE IS RESTING QUIETLY IN BED, BREATHING IS EVEN AND UNLABORED, CALL LIGHT IN REACH.
[2024-04-28 07:51] VITALS: BP 143/117
--- NOTE | 2024-04-28 08:08 | NUR ---
AM NOTE this rn assumed care at 0700. vital signs stable. tele sinus tach at 105. patient is alert and oriented x4. ciwa is at 7. patient is able to make needs known and uses call light. reports pain in lungs from coughing and receivied breathing treatment this morning and meds per emar. denies chest pain/pressure or shortness of breath. patient lung sounds are tight with expriatory wheeze bilaterally and throughout. see shift assessment for further detials. plan of care is up to date at this time.
[2024-04-28] MEDS ORDERED: Enoxaparin 40 MG/0.4 ML SYR SC SCH (09:00)
[2024-04-28] MEDS ORDERED: Lisinopril 5 MG Tab PO SCH (09:00)
[2024-04-28] MEDS ORDERED: Insulin Human Lispro 100 Units/ML 3ML Syringe SC SCH (11:30)
[2024-04-28 12:01] VITALS: BP 141/116
[2024-04-28] MEDS ORDERED: Prednisone20 MG PO (14:06)
--- NOTE | 2024-04-28 14:34 | NUR ---
DISCHARGE this rn went over discharge education, follow up appointments and medications. patient verbalized understanding. patient left with all belongings and in no distress. patient is going to get a taxi from [employer] and is sitting by the [employer] entrance awaiting for ride.
[2024-04-28] MEDS ORDERED: MethylPREDNISolone Sod Succ 125 MG Vial IV SCH ×2 (19:00)
== END 2024-04-28 14:30 | disposition home or self-care (01) | DRG 189 ==
LOC: ER 11:18 → EDBEDREQ 18:17 → PCU 19:33 → EDBEDREQ 19:50 → EDBEDREQSVC 19:50 → EDBEDREQTM 19:50 → EDBEDREQ 19:52 → EDBEDREQTM 19:52 → PCU 20:21
PROVIDERS: Nurse Practitioner Acute Care; Physician Assistant; ADMIT Internal Medicine
PROC: 5A09357 Assistance with Respiratory Ventilation, Less than 24 Consecutive Hours, Continuous Positive Airway Pressure (ICD-10-PCS; principal; 2024-04-27)
DX: J96.01 Acute respiratory failure with hypoxia (principal); J44.1 Chronic obstructive pulmonary disease with (acute) exacerbation; I50.22 Chronic systolic (congestive) heart failure; E87.29 Other acidosis; Z59.00 Homelessness unspecified; J96.02 Acute respiratory failure with hypercapnia; M10.9 Gout, unspecified; G47.33 Obstructive sleep apnea (adult) (pediatric); M19.90 Unspecified osteoarthritis, unspecified site; F15.10 Other stimulant abuse, uncomplicated; I11.0 Hypertensive heart disease with heart failure; Z71.51 Drug abuse counseling and surveillance of drug abuser; Z87.891 Personal history of nicotine dependence; Z91.018 Allergy to other foods
CPT/HCPCS: 0241U; 36415; 71046; 80048; 80053; 82803; 82947; 83735; 85025; 85027; 93005; 93010; 94640; 94644; 94645; 94660; 94664; 94761; 94762; 96365; 96375; 99285-25; A9270; J1650; J2919; J3475; J7030

== ENCOUNTER 2024-05-18 04:08 | Inpatient (IN) | payer MEDICARE, OTHER ==
[~2024-05-18] VITALS: Ht 172.7 cm; Wt 66.2 kg
[2024-05-18] VITALS (35 sets, daily range): BP systolic 95–157; BP diastolic 72–114
[2024-05-18] MEDS ORDERED: LORazepam 2 MG/ML 1ML Injection IV ONE (04:10)
[2024-05-18] MEDS ORDERED: Albuterol 2.5 MG/3 ML VIAL INH SCH ×2 (04:10→05:15)
[2024-05-18 04:24] LABS: BASOPHILS ABSOLUTE AUTO 0.13 K/mm3 (0.00-0.23); BASOPHILS PERCENT AUTO 1 % (0-2); EOSINOPHILS PERCENT AUTO 6 % (0-6); Hematocrit 49.4 % (37.0-53.0); IMMATURE GRAN ABSOLUTE AUTO 0.03 K/mm3 (0.00-0.10); IMMATURE GRAN PERCENT AUTO 0 % (0-1); LYMPHOCYTES PERCENT AUTO 23 % (21-46); MONOCYTES ABSOLUTE AUTO 0.86 K/mm3 (0.16-1.47); MONOCYTES PERCENT AUTO 7 % (4-13); Mean Corpuscular HGB 31.8 pg (26.0-34.0); Mean Corpuscular HGB Conc 32.4 g/dL (31.5-36.5); Mean Corpuscular Volume 98 fL (80-100); Mean Platelet Volume 8.3 fL (9.1-12.4); NEUTROPHILS ABSOLUTE AUTO 7.75 K/mm3 (1.96-9.15); NEUTROPHILS PERCENT AUTO 63 % (41-73); Platelet Count 239 K/mm3 (150-400); RDW Coefficient Variation 14.1 % (11.7-14.2); RDW Standard Deviation 51.1 fL (35.1-46.3); Red Blood Cell Count 5.03 M/mm3 (4.30-5.90); White Blood Cell Count 12.27 K/mm3 (4.00-11.30)
[2024-05-18 04:27] LABS: Base Excess Venous 1.1 mmol/L; Bicarbonate Venous 23.5 mmol/L (24.0-30.0); PCO2 Venous 67.4 mmHg (38-42); pH Blood Venous 7.24 (7.34-7.37)
[2024-05-18] MEDS ORDERED: dexmedeTOMIDine 100 ML IV SCH ×2 (04:35→05:05)
[2024-05-18 04:42] LABS: Albumin, Blood 3.6 g/dL (3.4-5.0); Albumin/Globulin Ratio 0.9 (0.8-1.8); Bilirubin, Total 0.4 mg/dL (0.1-1.0); Bun/Creatinine Ratio 18.5 (12.0-20.0); Calcium, Blood 8.8 mg/dL (8.5-10.1); Creatinine, Blood 0.81 mg/dL (0.60-1.20); Globulin, Blood 3.9 g/dL (2.2-4.0); Total Protein, Blood 7.5 g/dL (6.4-8.2)
[2024-05-18] MEDS ORDERED: FLU VACC TS2024-25(6MOS UP)/PF 45 MCG/0.5 ML SYRINGE IM SCH (04:50)
[2024-05-18] MEDS ORDERED: Acetaminophen 325 MG TABLET PO PRN ×2 (04:50→06:00)
[2024-05-18] MEDS ORDERED: Ipratropium/Albuterol SulF 2.5-0.5MG/3 ML Amp INH SCH (04:50)
[2024-05-18] MEDS ORDERED: Azithromycin 500 MG in NS 250 ML IV SCH (04:59)
[2024-05-18] MEDS ORDERED: ChlordiazePOXIDE 25 MG Cap PO PRN (05:55)
[2024-05-18] MEDS ORDERED: LORazepam 2 MG/ML 1ML Injection IV PRN ×2 (06:00→06:05)
[2024-05-18] MEDS ORDERED: Labetalol HCL 5 MG/ML 20MLVIAL IV ONE (06:00)
[2024-05-18] MEDS ORDERED: MethylPREDNISolone Sod Succ 125 MG Vial IV SCH (06:00)
[2024-05-18] MEDS ORDERED: Labetalol HCL 5 MG/ML 20MLVIAL IV PRN (06:00)
[2024-05-18] MEDS ORDERED: Thiamine HCl 100 MG in NS 50 ML IV SCH (06:11)
[2024-05-18] MEDS ORDERED: Folic Acid 1 MG in NS 50 ML IV SCH (06:12)
[2024-05-18 06:14] LABS: BASOPHILS ABSOLUTE AUTO 0.12 K/mm3 (0.00-0.23); BASOPHILS PERCENT AUTO 1 % (0-2); EOSINOPHILS ABSOLUTE AUTO 0.33 K/mm3 (0.00-0.68); EOSINOPHILS PERCENT AUTO 2 % (0-6); Hematocrit 46.1 % (37.0-53.0); IMMATURE GRAN ABSOLUTE AUTO 0.04 K/mm3 (0.00-0.10); IMMATURE GRAN PERCENT AUTO 0 % (0-1); LYMPHOCYTES ABSOLUTE AUTO 0.45 K/mm3 (0.84-5.20); LYMPHOCYTES PERCENT AUTO 3 % (21-46); MONOCYTES ABSOLUTE AUTO 0.25 K/mm3 (0.16-1.47); MONOCYTES PERCENT AUTO 2 % (4-13); Mean Corpuscular HGB 31.6 pg (26.0-34.0); Mean Corpuscular HGB Conc 32.5 g/dL (31.5-36.5); Mean Corpuscular Volume 97 fL (80-100); Mean Platelet Volume 8.4 fL (9.1-12.4); NEUTROPHILS ABSOLUTE AUTO 12.43 K/mm3 (1.96-9.15); NEUTROPHILS PERCENT AUTO 91 % (41-73); Platelet Count 229 K/mm3 (150-400); RDW Coefficient Variation 13.7 % (11.7-14.2); RDW Standard Deviation 49.9 fL (35.1-46.3); Red Blood Cell Count 4.75 M/mm3 (4.30-5.90); White Blood Cell Count 13.62 K/mm3 (4.00-11.30)
--- NOTE | 2024-05-18 06:16 | NUR ---
ARRIVAL TO ICU: RECEIVED REPORT FROM FRANCISCO AT 0530. PT ARRIVED TO ICU BED 07 AT 0536 VIA GURNEY. SLID ACROSS TO ICU BED WITH ASSIST. PT VERY ANXIOUS, PULLING AT BIPAP MASK AND STATING HE WANTS TO LEAVE. PT THEN FALLS ASLEEP WHEN NOT STIMULATED. ATTEMPTED TO HELP PT GET INTO HOSPITAL GOWN, STARTING HITTING AT STAFF AND STATING HE COULD DO IT ON HIS OWN. PUPILS EQUAL AND REACTIVE, ALTHOUGH SLUGGISH. PULSES FAINT AND THREADY. PRECEDEX INITIATED AT 1.4 MCG/KG/HR. PT RESTING COMFORTABLY AT THIS TIME. NEWSPAPER CORRESPONDENT IN PLACE, ST WITH HR 130'S-150'S. DENIES CHEST PAIN. PT ABLE TO STATE HE IS IN THE ICU AND THE YEAR IS 2023. NO OTHER ORIENTATION QUESTIONS. SBP RANGING FROM 130-220. PT ON BIPAP, SETTINGS 18/10, RATE OF 14 AND FIO2 40%. SPO2 MID TO HIGH 90'S. PIV TO LAC/RAC BOTH INTACT. UNABLE TO VOID YET. NO BM YET. BED LOW AND LOCKED.
[2024-05-18 06:34] LABS: Ethanol (Alcohol), Blood, Med <3 mg/dL; Magnesium, Blood 2.1 mg/dL (1.6-2.4); Phosphorus, Blood 6.9 mg/dL (2.5-4.9)
[2024-05-18 06:39] LABS: Albumin, Blood 3.5 g/dL (3.4-5.0); Albumin/Globulin Ratio 0.9 (0.8-1.8); Bilirubin, Total 0.3 mg/dL (0.1-1.0); Bun/Creatinine Ratio 17.5 (12.0-20.0); Creatinine, Blood 0.97 mg/dL (0.60-1.20); Globulin, Blood 3.7 g/dL (2.2-4.0); Potassium, Blood 4.6 mmol/L (3.5-5.5); Total Protein, Blood 7.2 g/dL (6.4-8.2)
[2024-05-18] MEDS ORDERED: NS 250 ML IV PRN (06:55)
[2024-05-18 07:18] LABS: Base Excess Venous 1.3 mmol/L; Bicarbonate Venous 24.3 mmol/L (24.0-30.0); PCO2 Venous 59.1 mmHg (38-42)
[2024-05-18 07:19] LABS: pH Blood Venous 7.28 (7.34-7.37)
[2024-05-18 07:24] LABS: U Amphetamine Screen DETECTED; U Barbituate Screen Not Detected; U Methamphetamine Screen DETECTED
[2024-05-18 07:25] LABS: U Benzodiazapine Screen DETECTED; U Buprenorphine Screen Not Detected; U Cannabinoids Screen DETECTED; U Cocaine Screen Not Detected; U Methadone Screen Not Detected; U Opiates Screen Not Detected; U Oxycodone Screen Not Detected; U Phencyclidine Screen Not Detected
[2024-05-18] MEDS ORDERED: Furosemide 10 MG/ML 4ML Vial IV STA (07:25)
--- NOTE | 2024-05-18 07:30 | NUR ---
ASSUMED CARE BEDSIDE REPORT FROM ANNA JAMES AT 0700. PT RESTING IN BED. PRECEDEX GTT INFUSING, RASS -5, TITRATING PRECEDEX DOWN. PT NOT RESPONSIVE TO PAINFUL STIMULI. AIRWAY PATENT, BIPAP 18/10/35%, TV 600-650ML. LUNGS COARSE THROUGHOUT. ST, RATE 100-110'S. BP STABLE. LASIX GIVEN, 40 MG D/T SBP 103. ABD ROUND, SOFT, NON TENDER, BT X 4. PIV X 2. WILL CONTINUE PLAN OF CARE.
[2024-05-18] MEDS ORDERED: LORazepam 2 MG/ML 1ML Injection IV SCH (08:00)
[2024-05-18] MEDS ORDERED: Carvedilol 3.125 MG Tab PO SCH (08:00)
[2024-05-18] MEDS ORDERED: Albuterol 2.5 MG/3 ML VIAL INH PRN (08:05)
[2024-05-18] MEDS ORDERED: Lactobacil 2-S.Thermo-Bifido 1 1 Cap PO SCH (09:00)
[2024-05-18] MEDS ORDERED: GuaiFENesin 600 MG TabCR PO SCH (09:00)
[2024-05-18] MEDS ORDERED: CefTRIAXone Sodium 2,000 MG in NS 100 ML IV SCH (09:00)
[2024-05-18] MEDS ORDERED: Lisinopril 5 MG Tab PO SCH (09:00)
[2024-05-18 09:54] LABS: Base Excess Venous 4.2 mmol/L; Bicarbonate Venous 26.1 mmol/L (24.0-30.0); PCO2 Venous 62.8 mmHg (38-42)
[2024-05-18 10:27] LABS: Bun/Creatinine Ratio 18.5 (12.0-20.0); Calcium, Blood 8.1 mg/dL (8.5-10.1); Creatinine, Blood 0.97 mg/dL (0.60-1.20); Potassium, Blood 4.5 mmol/L (3.5-5.5)
--- NOTE | 2024-05-18 17:28 | NUR ---
SHIFT SUMMARY PT WORE BIAP FOR MOST OF SHIFT (UNTIL APPROX 1530). ON 3.5L VIA NC. LUNGS COARSE THROUGHOUT. PRECEDEX TITRATED OFF. PT CALM AND COOPERATIVE c CARE. A&OX 2-3. FOLLOWS SIMPLE COMMANDS. TOLERATED DINNER AND PO FLUIDS WELL. INFORMED PT OF NEED TO WEAR BIPAP AT NOC. SR, RATE 90-100'S. BP STABLE. ABD ROUND, SOFT, NON TENDER. DIURESED THIS SHIFT. NEEDS REMINDERS TO USE URINAL. 1375 ML CLEAR YELLOW URINE OUT. WILL CONTINUE PLAN OF CARE UNTIL REPORT TO ONCOMING NURSE.
--- NOTE | 2024-05-18 19:00 | NUR ---
ASSUMED CARE ASSUMED CARE OF PATIENT. RESTING QUIETLY WHEN UNDISTURBED. ROUSES EASILY TO VERBAL STIMULI. ORIENTED AND COOPERATIVE WITH CARE. REPOSITIONS SELF IN BED. REMAINS ON BIPAP /10, BUR 14, FIO2 35%. VSS- DBP 90s. SEE SHIFT ASSESSMENT FOR FULL ASSESSMENT.
[2024-05-19] VITALS (46 sets, daily range): BP systolic 99–150; BP diastolic 75–113
[2024-05-19 03:41] LABS: BASOPHILS ABSOLUTE AUTO 0.02 K/mm3 (0.00-0.23); BASOPHILS PERCENT AUTO 0 % (0-2); EOSINOPHILS ABSOLUTE AUTO 0.01 K/mm3 (0.00-0.68); EOSINOPHILS PERCENT AUTO 0 % (0-6); Hematocrit 45.1 % (37.0-53.0); Hemoglobin 15.1 g/dL (13.5-17.5); IMMATURE GRAN ABSOLUTE AUTO 0.05 K/mm3 (0.00-0.10); IMMATURE GRAN PERCENT AUTO 0 % (0-1); LYMPHOCYTES ABSOLUTE AUTO 0.47 K/mm3 (0.84-5.20); LYMPHOCYTES PERCENT AUTO 3 % (21-46); MONOCYTES ABSOLUTE AUTO 0.33 K/mm3 (0.16-1.47); MONOCYTES PERCENT AUTO 2 % (4-13); Mean Corpuscular HGB 31.5 pg (26.0-34.0); Mean Corpuscular HGB Conc 33.5 g/dL (31.5-36.5); Mean Corpuscular Volume 94 fL (80-100); Mean Platelet Volume 8.7 fL (9.1-12.4); NEUTROPHILS PERCENT AUTO 94 % (41-73); Platelet Count 224 K/mm3 (150-400); RDW Coefficient Variation 13.6 % (11.7-14.2); White Blood Cell Count 13.88 K/mm3 (4.00-11.30)
[2024-05-19 04:00] LABS: Albumin, Blood 3.1 g/dL (3.4-5.0); Albumin/Globulin Ratio 0.9 (0.8-1.8); Bilirubin, Total 0.3 mg/dL (0.1-1.0); Bun/Creatinine Ratio 31.2 (12.0-20.0); Calcium, Blood 8.5 mg/dL (8.5-10.1); Creatinine, Blood 0.87 mg/dL (0.60-1.20); Globulin, Blood 3.6 g/dL (2.2-4.0); Potassium, Blood 4.6 mmol/L (3.5-5.5); Total Protein, Blood 6.7 g/dL (6.4-8.2)
--- NOTE | 2024-05-19 04:54 | NUR ---
RHYTHM CHANGE/EKG RHYTHM NOTED TO HAVE CHANGE IN ST DEPRESSION. PT DENIES C/O CHEST PAIN. EKG DONE AT THIS TIME.
[2024-05-19 05:16] LABS: Magnesium, Blood 1.7 mg/dL (1.6-2.4)
--- NOTE | 2024-05-19 06:14 | NUR ---
SHIFT SUMMARY REMAINED ON BIPAP T/O NOC WITH INFREQUENT SHORT 3-5 MINUTES BREAKS ON 3LNC. DYSPNEA NOTED WITH EXERTION/AGITATION. PT IS INCREASINGLY AGITATED AND RESTLESS WHEN AWAKE. CIWA 8-21. MEDICATED WITH ATIVAN 2MG IV X 1 DOSE AND LIBRIUM 50MG PO X 1 DOSE. PRECEDEX RESTARTED AT 0.2MCG/KG/HR. PT IS CONFUSED AND DISORIENTED AT TIMES. OCCASIONALLY ABLE TO REORIENT. COOPERATIVE WITH CARE AT THIS TIME. DBP CONTINUES TO BE ELEVATED- 90s-110s. HR 90s-100s. AFEBRILE. DENIED C/O CHEST PAIN OR OTHER DISCOMFORT DURING SHIFT. VOIDS USING URINAL WITH ASSISTANCE. PLAN OF CARE ONGOING. WILL REPORT TO ONCOMING RN WHEN AVAILABLE.
--- NOTE | 2024-05-19 07:30 | NUR ---
ASSUMED CARE OF PATIENT AT APPROXIMATELY 0700. REPORT RECEIVED FROM JACOB HALL. PT ASLEEP IN BED, BRIEFLY AWAKENS TO VERBAL STIMULI. PRECEDEX INFUSING AT 0.2 MCG/KG/HR. BIPAP IN PLACE WITH SETTINGS OF 18/10 AND 35%. O2 SATURATION OF 97%. HYPERTENSIVE AT 121/101, MAP 108. NO ACUTE NEEDS IDENTIFED AT THIS TIME. SEE SHIFT ASSESSMENT FOR FULL DETAILS.
[2024-05-19] MEDS ORDERED: Mag Sulfate 1 GM/D5% 100ML 100 ML IV ONE (07:50)
[2024-05-19] MEDS ORDERED: Furosemide 10 MG / ML 2ML Vial IV SCH (09:00)
[2024-05-19] MEDS ORDERED: Enoxaparin 40 MG/0.4 ML SYR SC SCH (09:00)
--- NOTE | 2024-05-19 18:04 | NUR ---
SHIFT SUMMARY PT REMAINED ALERT, ORIENTED TO PLACE AND PERSON ONLY. PT WAS NO LONGER AWARE THAT HE WAS IN THE HOSPITAL OR WHAT BROUGHT HIM HERE, BUT WHEN PALLIATIVE CARE WAS DISUCSSING RESOURCES WITH HIM HE STATES HE THINKS HE WAS BEAT UP BEFORE HE WAS ADMITTED, BUT CAN'T FULLY REMEMBER. ABLE TO FOLLOW COMMANDS, MAKE PURPOSEFUL MOVEMENTS, AND MAKE NEEDS KNOWN. AFEBRILE AND DENIES PAIN. CIWA SCORES 15-18. MEDICATED PER EMAR WITH GOOD BENEFIT. CONTINOUS CARDIAC MONITORING SHOWS STACH WITH HR IN 90'S-100'S. BP STABLE WITH MAP > 65. ALTERNATED BIPAP WITH SETTINGS OF 16/8 AND 30% AND 3.5 LPM O2 VIA NC. UTILIZES BEDSIDE URINAL. 2 BM'S THIS SHIFT. ENDORSES NAUSEA, MEDICATED PER EMAR. SEVERE SCROTAL EDEMA NOTED. MAG REPLACED THIS SHIFT. WILL CONTINUE TO MONITOR AND REPORT TO ONCOMING RN.
[2024-05-20 04:19] VITALS: BP 117/82
[2024-05-20 04:27] LABS: BASOPHILS PERCENT AUTO 0 % (0-2); EOSINOPHILS ABSOLUTE AUTO 0.06 K/mm3 (0.00-0.68); EOSINOPHILS PERCENT AUTO 0 % (0-6); Hematocrit 40.7 % (37.0-53.0); Hemoglobin 13.8 g/dL (13.5-17.5); IMMATURE GRAN ABSOLUTE AUTO 0.08 K/mm3 (0.00-0.10); IMMATURE GRAN PERCENT AUTO 1 % (0-1); LYMPHOCYTES ABSOLUTE AUTO 0.49 K/mm3 (0.84-5.20); LYMPHOCYTES PERCENT AUTO 4 % (21-46); MONOCYTES ABSOLUTE AUTO 0.24 K/mm3 (0.16-1.47); MONOCYTES PERCENT AUTO 2 % (4-13); Mean Corpuscular HGB 31.8 pg (26.0-34.0); Mean Corpuscular HGB Conc 33.9 g/dL (31.5-36.5); Mean Corpuscular Volume 94 fL (80-100); Mean Platelet Volume 9.1 fL (9.1-12.4); NEUTROPHILS ABSOLUTE AUTO 12.91 K/mm3 (1.96-9.15); NEUTROPHILS PERCENT AUTO 94 % (41-73); Platelet Count 246 K/mm3 (150-400); RDW Coefficient Variation 13.7 % (11.7-14.2); RDW Standard Deviation 47.2 fL (35.1-46.3); Red Blood Cell Count 4.34 M/mm3 (4.30-5.90); White Blood Cell Count 13.78 K/mm3 (4.00-11.30)
[2024-05-20 06:07] LABS: Magnesium, Blood 2.4 mg/dL (1.6-2.4)
[2024-05-20 06:14] LABS: Albumin, Blood 2.7 g/dL (3.4-5.0); Albumin/Globulin Ratio 0.9 (0.8-1.8); Bilirubin, Total 0.3 mg/dL (0.1-1.0); Bun/Creatinine Ratio 45.6 (12.0-20.0); Calcium, Blood 8.3 mg/dL (8.5-10.1); Creatinine, Blood 1.03 mg/dL (0.60-1.20); Globulin, Blood 2.9 g/dL (2.2-4.0); Potassium, Blood 4.2 mmol/L (3.5-5.5); Total Protein, Blood 5.6 g/dL (6.4-8.2)
--- NOTE | 2024-05-20 06:53 | NUR ---
NOC SHIFT SUMMARY PT ARRIVED TO PCU 08 AROUND 2300 FROM ICU07. ON 4L VIA NC, TOLERATING WELL. ORIENTED X3-4, MILDY ANXIOUS BUT COOPEARTIVE. ON TELE SR/ST, DENIES PAIN OR DISCOMFORT. HEART SOUNDS WNL, LUNGS COARSE/DIM. ON BIPAP ON AND OFF OVERNIGHT TOLERATED TO ASSIST WITH WOB. CIWAS 11-18.
[2024-05-20 07:57] VITALS: BP 122/94
[2024-05-20] MEDS ORDERED: Ondansetron HCl 2 MG / ML 2ML Vial ONE (08:23)
[2024-05-20] MEDS ORDERED: Ondansetron HCl 2 MG / ML 2ML Vial IV PRN (08:25)
--- NOTE | 2024-05-20 08:25 | NUR ---
Pt is vomiting. He was lethargic earlier at time of IV dressing change and after using the urinal in bed. Call to Dr. Martin for zofran orders, which were received.
[2024-05-20] MEDS ORDERED: Prochlorperazine Edisylate 10 mg Vial IV PRN (08:30)
--- NOTE | 2024-05-20 09:51 | NUR ---
Pt awake, attempting to OOB independently and pulling IV from opposite side of bed. Needing to use the urinal. Assisted for safety and protection of pt and his lines/tubes. He is confused, sleepy and following directions, cooperative with care. Used the urinal and CIWA was assessed at a 9. Given ordered PRN medications for active ETOH withdrawl. Bed alarm is on, pt is lying in bed HOB elevated 40 degrees. Wearing oxygen at 4 l/min, spo2 93% continuous monitor and ST 102 bpm noted by telemetry.
--- NOTE | 2024-05-20 10:38 | NUR ---
Pt had pulled off his telemetry and spo2 monitors as well as his oxygen. Said that he was leaving to go home. He is drowsy from the medications for his withdrawl. Also coughing quite a bit and lung sounds were wheezy. RT called and pt is getting a breathing tx at this time. Telemetry, SpO2 and oxygen were re-placed. ST 103 bpm noted, spo2 93% on 4 l/min. He is nodding off to sleep while sitting slightly reclined in the bed. BEd alarm is on.
[2024-05-20 10:42] VITALS: BP 133/75
[2024-05-20] MEDS ORDERED: Insulin Human Lispro 100 Units/ML 3ML Syringe SC SCH (11:30)
--- NOTE | 2024-05-20 11:40 | NUR ---
Pt awoke, tore off all of his monitoring devices and O2; OOB independently setting off bed alarm, and stated that he was leaving the hospital. Discussed benefits/risks of leaving AMA. Pt said that he just wants to . Discussed medications which will help him to feel better. spo2 monitor replaced, 78% on rooma air. He was willing to get back in bed, and wear oxygen, but he is very drowsy now after medications. Now sleeping in bed, awakens occasionally to use the urinal.
--- NOTE | 2024-05-20 13:08 | NUR ---
Able to re-place the potline monitor as the pt is asleep. NSR 96 bpm. Spo2 86% on room air after spo2 monitor replaced. Oxygen 2 l/min applied, and spo2 is reading 93% while asleep, RR 20/min. Bed alarm is on.
[2024-05-20 15:16] VITALS: BP 122/74
--- NOTE | 2024-05-20 15:44 | NUR ---
pt is awake but cooperative at this time.
--- NOTE | 2024-05-20 17:34 | NUR ---
Pt is sleeping but arousable.
--- NOTE | 2024-05-20 18:18 | NUR ---
Pt is sleeping.
--- NOTE | 2024-05-20 18:45 | NUR ---
summary; Drowsy, arousable when sleeping, but confused. ORiented to person, place and following directions and general conversation. Mid day he began to say that he wanted to go home but he did not follow through on that after he was given medications for his withdrawl symtoms. Sinus tachycardia gradually improved to sinus rhythm this afternoon. Weaned from 4 l/min of O2 this morning to 2-3 l/min this afternoon. Lung sounds wheezy at second assessment this morning, barking dry cough also noted periodically throughout the day. Respiratory treatments, steroids, O2 supplement ongoing. Pt did not use the bipap today. CIWA score 8-9 today, treated once with 50 mg Librium at 0945 and twice with 1 mg ativan,0945 and 1145 am. He ate with good appetite, voided using the urinal at bedside and once walked into the bathroom with assistance to have a BM. Vital signs remained stable.
[2024-05-20 19:36] VITALS: BP 122/75
[2024-05-20 23:15] VITALS: BP 126/73
[2024-05-21] VITALS (7 sets, daily range): BP systolic 135–144; BP diastolic 84–99
[2024-05-21] MEDS ORDERED: Benzonatate 100 MG Cap PO PRN (01:05)
[2024-05-21] MEDS ORDERED: MethylPREDNISolone Sod Succ 125 MG Vial IV ONE (01:14)
[2024-05-21 04:24] LABS: BASOPHILS ABSOLUTE AUTO 0.01 K/mm3 (0.00-0.23); BASOPHILS PERCENT AUTO 0 % (0-2); EOSINOPHILS ABSOLUTE AUTO 0.02 K/mm3 (0.00-0.68); EOSINOPHILS PERCENT AUTO 0 % (0-6); Hematocrit 40.7 % (37.0-53.0); Hemoglobin 13.6 g/dL (13.5-17.5); IMMATURE GRAN ABSOLUTE AUTO 0.09 K/mm3 (0.00-0.10); IMMATURE GRAN PERCENT AUTO 1 % (0-1); LYMPHOCYTES ABSOLUTE AUTO 0.63 K/mm3 (0.84-5.20); LYMPHOCYTES PERCENT AUTO 5 % (21-46); MONOCYTES ABSOLUTE AUTO 0.37 K/mm3 (0.16-1.47); MONOCYTES PERCENT AUTO 3 % (4-13); Mean Corpuscular HGB 31.8 pg (26.0-34.0); Mean Corpuscular HGB Conc 33.4 g/dL (31.5-36.5); Mean Corpuscular Volume 95 fL (80-100); Mean Platelet Volume 8.8 fL (9.1-12.4); NEUTROPHILS ABSOLUTE AUTO 11.72 K/mm3 (1.96-9.15); NEUTROPHILS PERCENT AUTO 91 % (41-73); Platelet Count 249 K/mm3 (150-400); RDW Standard Deviation 48.7 fL (35.1-46.3); Red Blood Cell Count 4.28 M/mm3 (4.30-5.90); White Blood Cell Count 12.84 K/mm3 (4.00-11.30)
[2024-05-21 04:47] LABS: Albumin, Blood 2.7 g/dL (3.4-5.0); Albumin/Globulin Ratio 0.9 (0.8-1.8); Bilirubin, Total 0.2 mg/dL (0.1-1.0); Calcium, Blood 8.2 mg/dL (8.5-10.1); Creatinine, Blood 0.98 mg/dL (0.60-1.20); Globulin, Blood 3.1 g/dL (2.2-4.0); Total Protein, Blood 5.8 g/dL (6.4-8.2)
--- NOTE | 2024-05-21 06:43 | NUR ---
SHIFT SUMMARY NOTE PT HAD A DECENT NIGHT. MOANED AND GROANED INTERMITTENTLY THROUGH THE NIGHT BUT DENIES PAIN. FREQUENT REQUESTS FOR CANDY, SODA, AND ICE CREAM. PATIENTS BLOOD GLUCOSE LEVEL 280 THIS EVENING.
[2024-05-21] MEDS ORDERED: Furosemide 10 MG / ML 2ML Vial IV ONE (08:15)
[2024-05-21] MEDS ORDERED: Lisinopril 10 MG Tab PO SCH (09:00)
[2024-05-21] MEDS ORDERED: GuaiFENesin 600 MG TabCR PO SCH (09:00)
[2024-05-21] MEDS ORDERED: PredniSONE 20 MG Tab PO SCH (09:00)
--- NOTE | 2024-05-21 09:16 | NUR ---
CIWA score at 0730 was 7. He is oriented to person and following some directions. Agitated with the nasal congestion and O2 delivery by n.c. Unable to keep spo2 greater than 88 consistently on 6 l/min with n.c. Called RT and switched pt to AirVo for the humidity and hope that it would ease the congestion making it easier for pt to breathe. AT this time he is on AirVo, settings 60 L and 32% FiO2 and he is sleeping. Dr Martin here to see the patient.
--- NOTE | 2024-05-21 10:18 | NUR ---
PT OOB without assistance, set alarm off and pulled O2 off, spo2 dropped to 70s per Mary Ellen Chance RN who responded to the alarms. Pt needed to void. Urinal was in reach at side of bed, pt too confused to use it on his own.
[2024-05-21 11:08] LABS: Adenovirus Not Detected (NOT DETECT); Bordetella pertussis Not Detected (NOT DETECT); Chlamydophila pneumoniae Not Detected (NOT DETECT); Coronavirus 229E Not Detected (NOT DETECT); Coronavirus HKU1 Not Detected (NOT DETECT); Coronavirus NL63 Not Detected (NOT DETECT); Coronavirus OC43 Not Detected (NOT DETECT); Human Metapneumovirus Not Detected (NOT DETECT); Human Rhinovirus/Enterovirus Detected (NOT DETECT); Influenza A/2009-H1 Not Detected (NOT DETECT); Influenza A/H1 Not Detected (NOT DETECT); Influenza A/H3 Not Detected (NOT DETECT); Influenza B Not Detected (NOT DETECT); Mycoplasma pneumoniae Not Detected (NOT DETECT); Parainfluenza Virus 1 Not Detected (NOT DETECT); Parainfluenza Virus 2 Not Detected (NOT DETECT); Parainfluenza Virus 3 Not Detected (NOT DETECT); Parainfluenza Virus 4 Not Detected (NOT DETECT); Respiratory Syncytial Virus Not Detected (NOT DETECT); SARS-Cov-2 (COVID-19), BioFire Not Detected (NOT DETECT)
--- NOTE | 2024-05-21 14:09 | NUR ---
Pt pulling his AirVo cannula off frequently throughout the day. Sitting up, states sleepily that he feels awful. Asking for food; given a banana and cheese turkey sandwich and water. Tesslon andrewes given for his cough. He resists the AirVo cannula so the smaller regular nasal cannula put on at 4 l/min and that seems to be more tolerable for him. OOB independently setting off the bed alarm. Walked to bathroom with staff assist to void. He is wobbly, sleepy, and confused, but following directions.
--- NOTE | 2024-05-21 15:46 | NUR ---
Pt is oriented to person, and able to state the month and day of his , but not the year. He says he does not know where he is. Asked where he lives and it he says "[place] Asked what city and he repeats [place]". Asked which [place] in [place] He is asking for food, which was again provided for him. He is supervised while eating due to aspiration risk with his confusion and sleepiness at times. He is staying fully awake at this time while he is eating. His mentation has been consistent throughout this shift.
--- NOTE | 2024-05-21 15:51 | NUR ---
CIWA SCORE 5 at this time.
[2024-05-21] MEDS ORDERED: MethylPREDNISolone Sod Succ 125 MG Vial IV SCH (16:00)
--- NOTE | 2024-05-21 18:42 | NUR ---
Pt is agitated, saying he is going home. At this time, he is oriented to person, place but not to date. He is willing to keep his oxygen on. Says that he wants to use the phone, but is not able to demonstrate use of it. Says he does not need any help. He is asking for his clothes. Told him that if he has a ride he is free to go, but he so far has not been able to call anyone. The pt is still weak and wobbly on his feet. Requiring 3-4 l/min of O2 by n.c. to keep his spo2 greater than 84%. 89-91% on the oxygen, but without it spo2 is 84% or lower.
--- NOTE | 2024-05-21 20:07 | NUR ---
ASSUMPTION OF CARE PT VITALLY STABLE. SOME AGITATION NOTED. FREQUENTLY YELLING OUT CURSE WORDS, NOT NOT COMBATIVE OR THREATENING. PRN LIBRIUM GIVEN PER ORDERS.
[2024-05-22] VITALS (8 sets, daily range): BP systolic 137–167; BP diastolic 86–112
--- NOTE | 2024-05-22 06:03 | NUR ---
Shift Summary Pt agitated and needy t/o the night. Medicated with Librium per EMAR for ETOH withdrawal, CIWA score of 9 when he is up agitated between doses. Pt is AOx2-3, he has some difficulty finding words and forming sentinces. He slept off/on t/o the night. He c/o of sore throat this AM, medicated for pain w/ Tylenol as ordered. 1 assist to BR as pt is somewhat unsteady on his feet.
[2024-05-22] MEDS ORDERED: Furosemide 10 MG/ML 4ML Vial IV ONE (08:00)
[2024-05-22 08:05] LABS: Hematocrit 41.2 % (37.0-53.0); Hemoglobin 13.9 g/dL (13.5-17.5)
[2024-05-22 08:05] LABS: Bun/Creatinine Ratio 43.4 (12.0-20.0); Calcium, Blood 8.6 mg/dL (8.5-10.1); Creatinine, Blood 0.88 mg/dL (0.60-1.20); Magnesium, Blood 2.4 mg/dL (1.6-2.4)
[2024-05-22] MEDS ORDERED: Folic Acid 1 MG TAB PO SCH (09:00)
[2024-05-22] MEDS ORDERED: Thiamine HCl 100 MG Tab PO SCH (09:00)
[2024-05-22] MEDS ORDERED: GuaiFENesin 100 MG/5 ML 5ML UDC PO PRN (10:30)
--- NOTE | 2024-05-22 16:57 | NUR ---
SHIFT SUMMARY: PATIENT A/O TO SELF AND PLACED, CONFUSED, LABILE MOOD, BUT COOPERATIVE c CARE THIS SHIFT. PATIENT HAS CONTINUES PULSE OX AT BEDSIDE, ON 3L O2 AT BEGINNING OF SHIFT SATTING 96%, O2 TITRATED AND PLACED ON RA AT NOON SATTING 89-96%. PATIENT DENIES CP/PRESSURE SOB, BUT REPORTS NAUSEA AND SORE THROAT, MEDICATED X2 FOR SORE THROAT AND X1 FOR NAUSEA PER EMAR c GOOD EFFECT. PATIENT CIWA ASSESSMENT SCORE OF 8, MEDICATED PER EMAR FOR WITHDRAWAL SYMPTOMS. HYPERTENSIVE, RECEIVED SCHEDULED MEDS PER EMAR. PATIENT HAS HAD NO EVENTS ON TELE, SR HR IN THE 90'S BPM. PATIENT HAS GREAT APPETITE AND REQUESTING SNACKS MULTIPLE TIMES AND SNACKS WERE PROVIDED T/O SHIFT. PATIENT CONTINENT OF BOWEL/BLADDER, USES URINAL IN BED INDEPENDENTLY AND AMBULATES TO BATHROOM c SBA. BED ALARM ON FOR SAFETY. CALL LIGHT IN REACH.
--- NOTE | 2024-05-22 22:00 | NUR ---
PT REPORTS HE WANTS TO LEAVE - REMOVED IV, PT SIGNED AMA FORM. ENCOURAGED PT TO STAY HE IS HOMELESS, IT'S RAINING OUTSIDE. PT ALSO UNSTEADY ON HIS FEET. PT NOT EASILY REDIRECTABLE, PT THEN REPORTS HE "DOESN'T KNOW WHAT HE IS DOING." PT THEN REPORTED HE WAS HAVING DIFFICULTY BREATHING. PLACED OXYGEN BACK ON PT AND PLACED BACK ON CONTINUOUS BIOX - SATS 94%. CALLED GEOSPATIAL IMAGE ANALYST - PT IN NSR. NOTIFIED CN OF EVENTS ABOVE. RESPIRATORY CALLED - ABG DONE - SEE RESULTS. PT THEN BECAME AGREEABLE TO STAY, AND A NEW IV WAS PLACED. DURING THIS TIME ABOVE PT STARTED TO FADE IN/OUT - HOWEVER ONCE THE TAPE WAS REMOVED FROM THE PREVIOUS IV REMOVAL SITE - PT BECAME WIDE AWAKE AND WAS FOLLOWING INSTRUCTIONS. PT CONTINUED AGREEABLE TO STAY. PAT NURSING SUPV ALSO SPOKE TO THE PT ENCOURAGED TO STAY.
[2024-05-22 22:25] LABS: PCO2 Arterial 58.1 mmHg (35-45); PO2 Arterial 119 mmHg (80-100); pH Blood Arterial 7.41 (7.35-7.45)
[2024-05-23 04:26] VITALS: BP 156/116
--- NOTE | 2024-05-23 05:24 | NUR ---
GAVE PT 1MG OF ATIVAN; CIWA IN LAST HOUR 9. PT PRESENTING WITH SENSORY ISSUE, ITCHING, TREMORS, AND PERSPIRATION. LIBRIUM GIVNEN WITH LITTLE EFFECT. MED WIHT ATIVAN PER CIWA PROTOCOL.
--- NOTE | 2024-05-23 05:27 | NUR ---
SHIFT SUMMARY - SEE PREVIOUS NOTE TONIGHT. AFTER THIS EPISODE, PT HAS BEEN COMPLIANT WITH CARE - PT DOES YELL OUT FOR HIS NEEDS. PT CONTINUES ON CONTINUOUS BIOX - SATS WNL. PT ON 1L O2 VIA NC. FLUIDS AT BEDSIDE. CALL LIGHT WITHIN REACH. BED IN LOW POSITION. BED ALARM ON FOR SAFETY. WILL CONTINUE TO MONITOR UNTIL AM SHIFT CHANGE.
[2024-05-23 06:58] LABS: BASOPHILS ABSOLUTE AUTO 0.01 K/mm3 (0.00-0.23); BASOPHILS PERCENT AUTO 0 % (0-2); EOSINOPHILS ABSOLUTE AUTO 0.01 K/mm3 (0.00-0.68); EOSINOPHILS PERCENT AUTO 0 % (0-6); Hematocrit 42.3 % (37.0-53.0); Hemoglobin 14.1 g/dL (13.5-17.5); IMMATURE GRAN ABSOLUTE AUTO 0.07 K/mm3 (0.00-0.10); IMMATURE GRAN PERCENT AUTO 1 % (0-1); LYMPHOCYTES ABSOLUTE AUTO 0.44 K/mm3 (0.84-5.20); LYMPHOCYTES PERCENT AUTO 4 % (21-46); MONOCYTES ABSOLUTE AUTO 0.24 K/mm3 (0.16-1.47); MONOCYTES PERCENT AUTO 2 % (4-13); Mean Corpuscular HGB 31.8 pg (26.0-34.0); Mean Corpuscular HGB Conc 33.3 g/dL (31.5-36.5); Mean Corpuscular Volume 95 fL (80-100); Mean Platelet Volume 8.8 fL (9.1-12.4); NEUTROPHILS ABSOLUTE AUTO 11.06 K/mm3 (1.96-9.15); NEUTROPHILS PERCENT AUTO 94 % (41-73); Platelet Count 237 K/mm3 (150-400); RDW Coefficient Variation 13.8 % (11.7-14.2); RDW Standard Deviation 47.9 fL (35.1-46.3); Red Blood Cell Count 4.44 M/mm3 (4.30-5.90); White Blood Cell Count 11.83 K/mm3 (4.00-11.30)
[2024-05-23 07:23] LABS: Albumin, Blood 2.5 g/dL (3.4-5.0); Albumin/Globulin Ratio 0.9 (0.8-1.8); Bilirubin, Total 0.1 mg/dL (0.1-1.0); Bun/Creatinine Ratio 44.1 (12.0-20.0); Calcium, Blood 8.4 mg/dL (8.5-10.1); Creatinine, Blood 0.93 mg/dL (0.60-1.20); Globulin, Blood 2.9 g/dL (2.2-4.0); Magnesium, Blood 2.2 mg/dL (1.6-2.4); Potassium, Blood 4.2 mmol/L (3.5-5.5); Total Protein, Blood 5.4 g/dL (6.4-8.2)
[2024-05-23 07:36] VITALS: BP 145/95
[2024-05-23] MEDS ORDERED: Furosemide 10 MG / ML 2ML Vial IV ONE (08:00)
[2024-05-23] MEDS ORDERED: PredniSONE 20 MG Tab PO SCH (09:00)
[2024-05-23] MEDS ORDERED: Lisinopril 20 MG Tab PO SCH (09:00)
--- NOTE | 2024-05-23 11:17 | NUR ---
PT LEFT AGAINST MEDICAL ADVICE PT ABLE TO MAKE NEEDS KNOWN, AND KNOWS WHY HE IS ADMITTED. PT STATED HE WANT "THE FUCK OUT OF HERE". RN INFORMED PATIENT HE COULD LEAVE IF HE WANTS TO. PT CONFIRMED WANTING TO LEAVE. THIS RN WENT OVER RISKS AND BENEFITS OF LEAVING AGAINST MEDICAL ADVICE, PT SIGNED FORM WITH GARRETT JAMES WITNESS. LEFT FOREARM IV DC'D AND CHARTED. PT DRESSED HIMSELF WITHOUT WORRY, NOTIFIED OF AMA AT 1115. PT LEFT WITHOUT SHOES SAYING "I DIDNT HAVE ANY TO BEGIN WITH". PT WALKED OUT OF MEDICAL FLOOR WITHOUT ASSISTANCE.
== END 2024-05-23 11:15 | disposition left against medical advice (07) | DRG 189 ==
LOC: ER 04:08 → PCU 04:47 → ICUE 04:47 → PCU 05-19 23:15 → MEDS 05-21 22:54
PROVIDERS: Emergency Medicine; Hospitalist; Internal Medicine; ADMIT Student in an Organized Health Care Education/Training Program
PROC: 5A09357 Assistance with Respiratory Ventilation, Less than 24 Consecutive Hours, Continuous Positive Airway Pressure (ICD-10-PCS; principal; 2024-05-18)
PROC: 5A12012 Performance of Cardiac Output, Single, Manual (ICD-10-PCS; 2024-05-18)
DX: J96.21 Acute and chronic respiratory failure with hypoxia (principal); I50.23 Acute on chronic systolic (congestive) heart failure; J44.1 Chronic obstructive pulmonary disease with (acute) exacerbation; Z59.00 Homelessness unspecified; I42.7 Cardiomyopathy due to drug and external agent; L03.114 Cellulitis of left upper limb; L03.113 Cellulitis of right upper limb; I24.89 Other forms of acute ischemic heart disease; J96.22 Acute and chronic respiratory failure with hypercapnia; G47.33 Obstructive sleep apnea (adult) (pediatric); E11.9 Type 2 diabetes mellitus without complications; F15.10 Other stimulant abuse, uncomplicated; M10.9 Gout, unspecified; M19.90 Unspecified osteoarthritis, unspecified site; F10.90 Alcohol use, unspecified, uncomplicated; I11.0 Hypertensive heart disease with heart failure; T43.655A Adverse effect of methamphetamines, initial encounter; Z53.29 Procedure and treatment not carried out because of patient's decision for other reasons; Z87.891 Personal history of nicotine dependence; Z91.018 Allergy to other foods; Z79.899 Other long term (current) drug therapy; Z79.51 Long term (current) use of inhaled steroids; Z79.811 Long term (current) use of aromatase inhibitors
CPT/HCPCS: 0202U; 36415; 36600; 71045; 80048; 80053; 80320; 82803; 82947; 83735; 83880; 84100; 84484; 85014; 85018; 85025; 93005; 93010; 94640; 94644; 94645; 94660; 94664; 94762; 96374; 99285-25; A9270; J0456; J0696; J1650; J1940; J2060; J2405; J2919; J3411; J3475; J7050; J7512

== ENCOUNTER 2024-07-17 13:12 | Inpatient (IN) | payer MEDICARE ==
[~2024-07-17] VITALS: Ht 160 cm; Wt 65.0 kg
[2024-07-17] MEDS ORDERED: Albuterol 2.5 MG/3 ML VIAL INH SCH (13:45)
[2024-07-17] MEDS ORDERED: MethylPREDNISolone Sod Succ 125 MG Vial IV ONE (13:45)
[2024-07-17] MEDS ORDERED: PHENobarbital Sodium 65MG / ML 1ML Vial IV ONE (14:05)
[2024-07-17 14:09] LABS: BASOPHILS ABSOLUTE AUTO 0.02 K/mm3 (0.00-0.23); BASOPHILS PERCENT AUTO 0 % (0-2); EOSINOPHILS PERCENT AUTO 0 % (0-6); Hematocrit 39.1 % (37.0-53.0); Hemoglobin 13.4 g/dL (13.5-17.5); IMMATURE GRAN ABSOLUTE AUTO 0.02 K/mm3 (0.00-0.10); IMMATURE GRAN PERCENT AUTO 0 % (0-1); LYMPHOCYTES PERCENT AUTO 12 % (21-46); MONOCYTES ABSOLUTE AUTO 0.48 K/mm3 (0.16-1.47); MONOCYTES PERCENT AUTO 8 % (4-13); Mean Corpuscular HGB 31.6 pg (26.0-34.0); Mean Corpuscular HGB Conc 34.3 g/dL (31.5-36.5); Mean Corpuscular Volume 92 fL (80-100); Mean Platelet Volume 8.8 fL (9.1-12.4); NEUTROPHILS PERCENT AUTO 79 % (41-73); Platelet Count 220 K/mm3 (150-400); RDW Coefficient Variation 12.9 % (11.7-14.2); RDW Standard Deviation 43.8 fL (35.1-46.3); Red Blood Cell Count 4.24 M/mm3 (4.30-5.90); White Blood Cell Count 5.72 K/mm3 (4.00-11.30)
[2024-07-17 14:23] LABS: Albumin, Blood 2.8 g/dL (3.4-5.0); Albumin/Globulin Ratio 0.8 (0.8-1.8); Bilirubin, Total 0.2 mg/dL (0.1-1.0); Bun/Creatinine Ratio 27.4 (12.0-20.0); Calcium, Blood 7.8 mg/dL (8.5-10.1); Creatinine, Blood 1.06 mg/dL (0.60-1.20); Globulin, Blood 3.6 g/dL (2.2-4.0); Potassium, Blood 4.2 mmol/L (3.5-5.5); Total Protein, Blood 6.4 g/dL (6.4-8.2)
[2024-07-17] MEDS ORDERED: PHENOBARBITAL SODIUM IV ONE (14:25)
[2024-07-17] MEDS ORDERED: NS IV ONE (14:25)
[2024-07-17 14:46] LABS: Influenza B, PCR NEGATIVE (NEGATIVE); Resp Syncytial Virus, PCR NEGATIVE (NEGATIVE); SARS-Cov-2 (COVID-19) PCR, MMC NEGATIVE (NEGATIVE)
[2024-07-17 15:01] LABS: Influenza A, PCR POSITIVE (NEGATIVE)
[2024-07-17] MEDS ORDERED: Furosemide 10 MG / ML 2ML Vial IV ONE (15:15)
[2024-07-17] MEDS ORDERED: FLU VACC TS2024-25(6MOS UP)/PF 45 MCG/0.5 ML SYRINGE IM SCH (15:55)
[2024-07-17] MEDS ORDERED: LORazepam 2 MG/ML 1ML Injection IV PRN (15:55)
[2024-07-17] MEDS ORDERED: Aspirin 300 MG Supp PR SCH (16:00)
[2024-07-17] MEDS ORDERED: Ipratropium/Albuterol SulF 2.5-0.5MG/3 ML Amp INH SCH (16:35)
[2024-07-17] MEDS ORDERED: Albuterol 2.5 MG/3 ML VIAL INH PRN (16:35)
[2024-07-17 16:36] LABS: Bicarbonate Venous 27.1 mmol/L (24.0-30.0); PCO2 Venous 48.9 mmHg (38-42); pH Blood Venous 7.38 (7.34-7.37)
[2024-07-17] MEDS ORDERED: CefTRIAXone Sodium 1,000 MG in NS 100 ML IV SCH (17:00)
[2024-07-17 17:07] VITALS: BP 157/106
--- NOTE | 2024-07-17 17:40 | NUR ---
TRANSFER UPDATE REPORT RECIEVED FROM ED NURSE AT 1640. PT TRANSFERED TO PCU AT 1655 VIA GURNEY AND ON 4L NC. PT ROUSES BRIEFLY BUT GOES BACK TO SLEEP VERY QUICKLY. WHEN AWAKE, PT ABLE TO ANSWER NO WHEN ASKED IF HE HAD ANY PAIN. PT LS WHEEZY T/O. PT SWITCHED TO CPAP WITH 3L BLEED IN. PT JEANS REMOVED WITH ASSISTANCE OF SECOND RN AND GOWN APPLIED. PT STERNAL RUBBED TO AROUSE PT. PT QUICKLY BACK TO SLEEP WHILE BEING ORIENTED TO ROOM AND CALL LIGHT. CALL LIGHT IN REACH, BED IN LOWEST POSITION.
[2024-07-17] MEDS ORDERED: Thiamine HCl 100 MG in NS 50 ML IV SCH (18:00)
[2024-07-17] MEDS ORDERED: Folic Acid 1 MG in NS 50 ML IV SCH (18:00)
[2024-07-17 18:15] LABS: BASOPHILS ABSOLUTE AUTO 0.02 K/mm3 (0.00-0.23); BASOPHILS PERCENT AUTO 0 % (0-2); EOSINOPHILS PERCENT AUTO 0 % (0-6); Hematocrit 42.2 % (37.0-53.0); Hemoglobin 14.6 g/dL (13.5-17.5); IMMATURE GRAN ABSOLUTE AUTO 0.02 K/mm3 (0.00-0.10); IMMATURE GRAN PERCENT AUTO 0 % (0-1); LYMPHOCYTES ABSOLUTE AUTO 0.33 K/mm3 (0.84-5.20); LYMPHOCYTES PERCENT AUTO 7 % (21-46); MONOCYTES ABSOLUTE AUTO 0.09 K/mm3 (0.16-1.47); MONOCYTES PERCENT AUTO 2 % (4-13); Mean Corpuscular HGB 31.9 pg (26.0-34.0); Mean Corpuscular HGB Conc 34.6 g/dL (31.5-36.5); Mean Corpuscular Volume 92 fL (80-100); Mean Platelet Volume 8.9 fL (9.1-12.4); NEUTROPHILS ABSOLUTE AUTO 4.32 K/mm3 (1.96-9.15); NEUTROPHILS PERCENT AUTO 90 % (41-73); Platelet Count 199 K/mm3 (150-400); RDW Coefficient Variation 12.8 % (11.7-14.2); RDW Standard Deviation 43.4 fL (35.1-46.3); Red Blood Cell Count 4.57 M/mm3 (4.30-5.90); White Blood Cell Count 4.78 K/mm3 (4.00-11.30)
[2024-07-17] MEDS ORDERED: Dose Adjust by Pharmacy XX STA (18:33)
[2024-07-17] MEDS ORDERED: Heparin Sodium 5000 Units/ML 1ML MDV IV ONE (18:35)
[2024-07-17] MEDS ORDERED: Heparin Sodium,Porcine/0.5 NS 500 ML IV SCH (18:35)
[2024-07-17 18:41] LABS: Anti-Xa UFH, PHA Monitoring <0.10 IU/mL; International Normalized Ratio 1.05; Prothrombin Time Results 11.2 Sec (9.7-11.5)
[2024-07-17] MEDS ORDERED: Etomidate 2MG / ML 10ML Vial XX ONE (20:07)
[2024-07-17] MEDS ORDERED: Rocuronium Bromide 10 MG/ML 5ML Injection IV ONE (20:07)
[2024-07-17] MEDS ORDERED: Midazolam HCl 1MG / ML 2ML Vial XX ONE (20:07)
[2024-07-17 20:33] VITALS: BP 167/115
--- NOTE | 2024-07-17 21:18 | NUR ---
MD NOTIFICATION PT HYPERTENSIVE THIS EVENING. CURRENT BP 167/115. THIS RN PHONED DR. PRADO. NO NEW ORDERS AT THIS TIME. DR. PRADO STATES HE WILL ASSESS PATIENT'S CHART.
[2024-07-17 23:46] VITALS: BP 132/103
[2024-07-18] VITALS (7 sets, daily range): BP systolic 132–180; BP diastolic 12–128
[2024-07-18] MEDS ORDERED: MethylPREDNISolone Sod Succ 125 MG Vial IV SCH
[2024-07-18 02:21] LABS: Hematocrit 44.1 % (37.0-53.0); Hemoglobin 15.2 g/dL (13.5-17.5); Mean Corpuscular HGB 31.9 pg (26.0-34.0); Mean Corpuscular HGB Conc 34.5 g/dL (31.5-36.5); Mean Corpuscular Volume 93 fL (80-100); Platelet Count 218 K/mm3 (150-400); RDW Coefficient Variation 12.9 % (11.7-14.2); Red Blood Cell Count 4.77 M/mm3 (4.30-5.90); White Blood Cell Count 4.85 K/mm3 (4.00-11.30)
[2024-07-18 02:37] LABS: Bun/Creatinine Ratio 30.4 (12.0-20.0); Creatinine, Blood 0.96 mg/dL (0.60-1.20); Magnesium, Blood 2.2 mg/dL (1.6-2.4); Phosphorus, Blood 5.6 mg/dL (2.5-4.9)
[2024-07-18 02:41] LABS: BAND PERCENT MAN 11 % (0-8); BASOPHILS PERCENT MAN 0 % (0-2); EOSINOPHILS PERCENT MAN 0 % (0-6); LYMPHOCYTES ABSOLUTE MAN 0.48 K/mm3 (0.84-5.20); LYMPHOCYTES PERCENT MAN 10 % (21-46); MONOCYTES ABSOLUTE MAN 0.04 K/mm3 (0.16-1.47); MONOCYTES PERCENT MAN 1 % (4-13); NEUTROPHILS ABSOLUTE MAN 4.26 K/mm3 (1.96-9.15); PLASMA CELL ABSOLUTE MAN 0.04 K/mm3 (0.00-0.00); PLASMA CELLS PERCENT MAN 1 % (0-0); SEG NEUTROPHILS PERCENT MAN 77 % (41-73); TOTAL CELLS COUNTED 100
[2024-07-18] MEDS ORDERED: Dose Adjust by Pharmacy XX STA (03:17)
--- NOTE | 2024-07-18 06:55 | NUR ---
SHIFT SUMMARY ASSUMED CARE AT 2225. PT IS LETHARGIC, BUT ORIENTED TO HIMSELF AND PLACE. WHEN AWAKE HE IS IRRITABLE AND AGITATED. HTN 132/103, SR-ST 90'S-100'S, O2 SATS >90% ON CPAP WITH 8L BLEED-IN. DENIES PAIN. PT REMAINS NPO. PT USING URINAL IN BED, BRIEF IN PLACE. NO BM THIS SHIFT. BED IN LOWEST POSITION, CALL LIGHT WITHIN REACH.
[2024-07-18] MEDS ORDERED: Enoxaparin 40 MG/0.4 ML SYR SC SCH (09:00)
[2024-07-18] MEDS ORDERED: AmLODIPine Besylate 5 MG Tab PO SCH (09:00)
[2024-07-18] MEDS ORDERED: Multivitamins 1 Tab PO SCH (09:00)
[2024-07-18] MEDS ORDERED: Aspirin 81 MG Chew PO SCH (09:00)
[2024-07-18] MEDS ORDERED: Metoprolol Succinate 25 MG TABCR PO SCH (09:00)
[2024-07-18] MEDS ORDERED: Insulin Human Lispro 100 Units/ML 3ML Syringe SC SCH (11:30)
[2024-07-18] MEDS ORDERED: HydrALAZINE HCl 20 MG / ML 1ML Vial IV PRN (12:10)
[2024-07-18] MEDS ORDERED: ChlordiazePOXIDE 10 MG Cap PO PRN (16:40)
[2024-07-18] MEDS ORDERED: NS 250 ML IV PRN (16:45)
--- NOTE | 2024-07-18 17:45 | NUR ---
End of shift note. Pt was on CPAP with 8L bleed in when assumed care of the Pt. He was very vocal about wanting to eat and drink. Pt was switched to nasal cannula at 4L. Pt has been weaned to 2-3L NC and has been able to keep sats >92%. CIWA scores Q4hr 3,12,2. Pt was medicated per protocol. Mostly scoring for headache, tremor and anxiety. 1mg IV Ativan was given and seemed to make Pt overly lethargic, MD notified and orders were adjusted. MD stated that nursing can call if increased dose was needed, trying to be cautious since Pt seems to be sensitive to sedative meds. Diet was changed to ADA with CBG checks. Good urine output, BM this shift. Pt has been walking to the bathroom with 1p SBA to help manage lines/cords. Pt is able to make needs known, call light is within reach.
[2024-07-19 00:09] VITALS: BP 139/94
[2024-07-19 04:04] LABS: Hematocrit 41.2 % (37.0-53.0); Mean Corpuscular HGB 32.2 pg (26.0-34.0); Mean Corpuscular Volume 95 fL (80-100); Mean Platelet Volume 8.9 fL (9.1-12.4); NRBC ABSOLUTE 0.03 K/mm3 (0.00-0.02); NRBC Auto 0.5 /100 WBC (0.0-0.2); Platelet Count 226 K/mm3 (150-400); RDW Coefficient Variation 12.7 % (11.7-14.2); RDW Standard Deviation 43.8 fL (35.1-46.3); Red Blood Cell Count 4.35 M/mm3 (4.30-5.90); White Blood Cell Count 6.17 K/mm3 (4.00-11.30)
[2024-07-19 04:27] LABS: Bun/Creatinine Ratio 35.1 (12.0-20.0); Calcium, Blood 8.6 mg/dL (8.5-10.1); Creatinine, Blood 0.8 mg/dL (0.60-1.20); Potassium, Blood 4.9 mmol/L (3.5-5.5)
[2024-07-19 05:03] LABS: BAND PERCENT MAN 20 % (0-8); BASOPHILS PERCENT MAN 0 % (0-2); EOSINOPHILS PERCENT MAN 0 % (0-6); LYMPHOCYTES ABSOLUTE MAN 0.43 K/mm3 (0.84-5.20); LYMPHOCYTES PERCENT MAN 7 % (21-46); MONOCYTES ABSOLUTE MAN 0.12 K/mm3 (0.16-1.47); MONOCYTES PERCENT MAN 2 % (4-13); NEUTROPHILS ABSOLUTE MAN 5.55 K/mm3 (1.96-9.15); PLASMA CELL ABSOLUTE MAN 0.06 K/mm3 (0.00-0.00); PLASMA CELLS PERCENT MAN 1 % (0-0); SEG NEUTROPHILS PERCENT MAN 70 % (41-73); TOTAL CELLS COUNTED 100
[2024-07-19] MEDS ORDERED: LORazepam 2 MG/ML 1ML Injection IV PRN ×2 (05:45)
[2024-07-19] MEDS ORDERED: ChlordiazePOXIDE 25 MG Cap PO PRN ×2 (05:45)
--- NOTE | 2024-07-19 06:32 | NUR ---
NOC SHIFT SUMMARY MAUDE IS ORIENTED X3-4, VSS ON 3-5L VIA NC AND TOLERATED CPAP BRIEFLY OVERNIGHT. PLEASANT AND COOPEARTIVE, ANXIOUS AT TIMES. CIWAS ELEVATING OVERNIGHT AND INCREASED AGITATION THIS AM. RANGED 8-20S CIWA SCORES. SPOKE WITH DR. ORTEGA OVERNIGHT REGARDING CONCERNS WITH INCREASING AGITATION/ANXIETY. ORDERS RECEIVED TO INCREASE CIWA ORDERS BUT STILL MINIMUM DOSAGE DUE TO SENSITIVITY PRIOR. RECEIVED 0.5MG IV ATIVAN THIS AM AND TOLERATED WELL. BED ALARM IN PLACE DUE TO UNSTEADINESS AND IMPULSIVITY. EDUCATED ON FALL RISK AND CALL LIGHT WITHIN REACH.
[2024-07-19 08:17] VITALS: BP 148/97
[2024-07-19] MEDS ORDERED: Lisinopril 5 MG Tab PO SCH ×2 (09:00)
[2024-07-19] MEDS ORDERED: Empagliflozin 10 MG TAB PO SCH (09:00)
[2024-07-19] MEDS ORDERED: Spironolactone 12.5 MG TAB PO SCH (09:00)
[2024-07-19 09:52] VITALS: BP 134/108
[2024-07-19 11:00] VITALS: BP 125/98
[2024-07-19] MEDS ORDERED: NS 1,000 ML IV SCH (13:10)
[2024-07-19 15:10] VITALS: BP 117/82
--- NOTE | 2024-07-19 17:30 | NUR ---
SHIFT SUMMARY PT A&OX4, SP02>90% ON 3L NC. DESATS TO 70'S WHEN TAKES NC OFF. TELEMETRY SHOWS NSR, HR 70'S-90'S. VSS. PT ENDORSES HEADACHE, CIWA RANGE 6-10. MEDICATED W/ LIBRIUM X2. UP TO BATHROOM TO VOID MULTIPLE TIMES SB TO MANAGE LINES. NS INFUSING PER EMAR X1 BAG. PT DRESSED IN OWN CLOTHES. PT STATES HE IS READY TO GO HOME. EDUCATED PT ON IMPORTANCE OF STAYING ANOTHER NIGHT, RECEIVING PRECRIBED MEDICATION, 02 DEMANDS. PT AGREED TO STAY 'FOR NOW'. PT EATING DINNER CURRENTLY. CALL LIGHT IN REACH.
[2024-07-19 19:59] VITALS: BP 130/79
[2024-07-19] MEDS ORDERED: Oseltamivir Phosphate 75 MG Cap PO SCH (21:00)
--- NOTE | 2024-07-19 23:07 | NUR ---
ASSUMPTION OF CARE: PATIENT ON ASSUMPTION OF CARE APPEARED TO BE IN NO DISTRESS, HOWEVER, THORUGHT HE SHIFT AROUND 194 HE BEGAN TO START TO HAVE AUDITORY AND VISUAL HALLUCINATIONS, INCREASED TREMOR, PAROXYSMAL SWEAT, HEADACHE, ANXIETY AND ENDORSED NAUSEA DESPITE EATING AT THAT TIME. PATIENT DENIED CHEST PAIN PRESSURE OR SOB. STILL USING 2L OF O2 ESPECIALLY WHILE SLEEPING, PATIENT RESPONDED WELL TO THE 50 OF LIBRIUM HIS CLOUDED DISORIUM WAS NOTED TO SIGNIFICANTLY IMPROVED. VSS AFEBRILE. STILL INFUSING NS X 1 BAG. NO FURTHER ACUTE CONCERNS.
[2024-07-20] VITALS (79 sets, daily range): BP systolic 68–196; BP diastolic 49–122
[2024-07-20] MEDS ORDERED: DiphenhydrAMINE HCl 50 MG/ML 1ML Vial IV PRN (01:05)
[2024-07-20] MEDS ORDERED: Famotidine 10 MG/ML 2ML Vial IV ONE (01:05)
--- NOTE | 2024-07-20 01:10 | NUR ---
POSSIBLE ANGIO-EDEMA PATIENT WITH SOME RAPID INCREASED L NECK AND CHEEK SWELLING. HOSPITALIST AND RT AT BEDSIDE, NEW ORDERS PLACED. PATIENT INCREASED MONITORING, NO SIGNS OF RESPIRATORY DISTRESS. RT AWARE, PATIENT EDUCATED NO ACUTE DISTRESS. AT THIS TIME, HOLDING LIBRIUM PATIETN TO RECIEVE IV BENADRYHL.
[2024-07-20] MEDS ORDERED: EPINEPHrine HCL 11.25 MG/0.5 ML VIAL ONE (02:26)
[2024-07-20] MEDS ORDERED: MethylPREDNISolone Sod Succ 125 MG Vial ONE (02:35)
[2024-07-20] MEDS ORDERED: EPINEPHrine HCL 11.25 MG/0.5 ML VIAL INH ONE (02:40)
[2024-07-20] MEDS ORDERED: propofoL 100 ML IV ONE (02:51)
--- NOTE | 2024-07-20 02:51 | NUR ---
CRITICAL CHANGE: PATIENT HAD INCREASINGLY MORE ANXIETY GAVE .5 ATIVAN, DUE TO ANXIETY, RESTLESS, CIWA INCREASED STILL DESPITE, LIBRIUM GIVEN BY INGOT SUPERVISOR. ASSESSING PATIENT'S SWELLING HAS NOW TRAVELED TO THE BACK OF THE THROAT, HOSPITALIST INFORMED, RESEARCH COMPUTING SPECIALIST CAME TO ASSESS. BOTH HOSPITALIST AND RESIDENT AT BEDSIDE, FROM TIME OF REASSESSMENT TO WHEN THE DOCTOR'S CAME TO ASSESS WHICH WAS SHORT. PATIENT'S TONGUE STARTED TO DEVELOP ENLARGED PAPILLAE ON THE BACK OF THE TONGUE, WITH THIS NOTED FEATURE AND RATE OF SWELLING DR. JARVIS EDUCATED AND RECOMMENDED FOR INTUBATION, PATIENT STILL ALERT AND ORIENTED WAS ABLE TO AGREE WITH COMPLETE KNOWLEDGE THIS RN WAS WITH SPOKE WITH PHARMACY AT DETERIORATING CONDITION. PATIENT REQUESTED HIS MOTHER GABRIELLA ACEVEDO BE CALLED NUMBER [phone], CALLED TWICE AND NO ANSWER UNAVAILABLE TO LEAVE MESSAGE. REPORT WAS GIVEN TO Tamera COOK RN. PATIENT TRANSPORTED TO ICU 10.
[2024-07-20] MEDS ORDERED: MethylPREDNISolone Sod Succ 40 MG VIAL IV ONE (03:00)
[2024-07-20] MEDS ORDERED: propofoL 100 ML IV PRN (03:10)
[2024-07-20 03:52] LABS: Albumin, Blood 2.6 g/dL (3.4-5.0); Albumin/Globulin Ratio 0.8 (0.8-1.8); Bilirubin, Total 0.2 mg/dL (0.1-1.0); Bun/Creatinine Ratio 34.7 (12.0-20.0); Calcium, Blood 8.1 mg/dL (8.5-10.1); Creatinine, Blood 0.86 mg/dL (0.60-1.20); Globulin, Blood 3.1 g/dL (2.2-4.0); Magnesium, Blood 2.3 mg/dL (1.6-2.4); Phosphorus, Blood 3.4 mg/dL (2.5-4.9); Potassium, Blood 4.7 mmol/L (3.5-5.5); Total Protein, Blood 5.7 g/dL (6.4-8.2)
[2024-07-20] MEDS ORDERED: FentaNYL Citrate 50 MCG/ML 2 ML Injection IV PRN (04:00)
[2024-07-20] MEDS ORDERED: FentaNYL Citrate 50 MCG/ML 2 ML Injection IV ONE (04:00)
[2024-07-20] MEDS ORDERED: Midazolam HCL 50 MG in NS 40 ML IV PRN (04:30)
--- NOTE | 2024-07-20 04:40 | NUR ---
TRANSFER TO ICU PT TRANSFERED TO ICU 10 AT 0245 FROM PCU D/T ANGIO EDEMA AND NEEDING INTUBATION FOR AIRWAY PROTECTION. HE WAS A/O X4 BEFORE INTUBATION AND ABLE TO GIVE CONSENT FOR PROCEDURE. 0255 20MG ETOMADATE GIVEN 0256 60MG MADDI GIVEN 0256 INTUBATED WITH COLOR CHANGE AND BILATERAL BREATH SOUNDS 7.5 ETT AND 20CM DEPTH. 0258 2MG VERSED GIVEN FOR SEDATION PT RASS CHALLENGING TO ACHIEVE -2-0; CURRENTLY PROPOFOL INFUSING AT 60MCG/KG/MIN ALONG WITH ATIVAN AND FENTANYL PUSHES; CALL MADE TO DR JARVIS REGARDING PT PULLING AT RESTRAINTS AND FOLDING HIMSELF IN HALF; NEW ORDERS TO START VERSED GTT. VENT SETTINGS AC/VC 16/400/5/40%. HR 90-110'S. SBP 90-120. OG PLACED AND CLAMPED. GROSS INSERTED, PATENT AND DRAINING TO GRAVITY. SWELLING NOTED MOSTLY TO LT NECK AND MIGRADING UP; SOME SWELLING NOTED TO RT NECK. SEE SHIFT ASSESSMENT FOR FULL ASSESSMENT.
--- NOTE | 2024-07-20 07:01 | NUR ---
END OF SHIFT SUMMARY NO NEGATIVE ACUTE EVENTS SINCE LAST NOTE. HE CONT TO BE SEDATED WITH PROPOFOL INFUSING AT 60MCG/KG/MIN AND VERSED INFUSING AT 2MG/HR TO ACHIEVE RASS -2; EASILY INCREASES TO RASS OF +2, PRN ATIVAN AND FENTANYL AVAILABLE AND GIVEN. VENT SETTINGS AC/VC 16/400/5/40%; MODERATE AMOUNT OF THICK CLEAR SECREATIONS FROM ETT. HR 90'S. SBP 90'S WITH MAP 70'S. OG CLAMPED. GROSS IN PLACE AND DRAINING TO GRAVITY. FACIAL SWELLING THE SAME SINCE ARRIVAL TO ICU. WILL REPORT TO AM RN WHEN AVAILALBE.
[2024-07-20] MEDS ORDERED: Cetylpyridinium Chloride 1 EA MISC MT SCH (08:00)
[2024-07-20 08:46] LABS: Base Excess Venous 14.4 mmol/L; Bicarbonate Venous 36.2 mmol/L (24.0-30.0); PCO2 Venous 52.4 mmHg (38-42); pH Blood Venous 7.47 (7.34-7.37)
[2024-07-20] MEDS ORDERED: Hydrogen Peroxide 1.5 % Solution MT SCH (12:00)
[2024-07-20] MEDS ORDERED: NS 1,000 ML IV ONE (20:22)
--- NOTE | 2024-07-20 21:54 | NUR ---
ASSUMPTION OF CARE: ASSUMED CARE OF PT AT 1915. PT INTUBATED AND SEDATED ON 30 MCG/KG/MIN OF PROPOFOL AND 2 MG/HR OF VERSED. PT OPENS EYES TO VERBAL STIMULI AND FOLLOWS SOME DIRECTION. PT BECOMES INCREASINGLY AGGITATED WITH STIMULI, PROPOFOL INCREASED TO 40 MCG/KG/MIN FOR VENT COMPLIANCE AND COMFORT. VENT SETTINGS AC/VC 16/400/5/35%. LUNGS CLEAR. RR 16-20. ETCO2 30'S. CARDIAC MONTIOR IN PLACE, SR WITH HR 80'S. SBP 100'S. GROSS PATENT AND DRAINING TO GRAVITY. NO BM YET. OGT CLAMPED. BED LOW AND LOCKED. PIVS INTACT.
[2024-07-21] VITALS (40 sets, daily range): BP systolic 89–157; BP diastolic 62–114
[2024-07-21 03:28] LABS: Base Excess Venous 13.6 mmol/L; Bicarbonate Venous 35.9 mmol/L (24.0-30.0); PCO2 Venous 45.1 mmHg (38-42); pH Blood Venous 7.52 (7.34-7.37)
[2024-07-21 03:34] LABS: Hematocrit 38.5 % (37.0-53.0); Hemoglobin 12.8 g/dL (13.5-17.5); Mean Corpuscular HGB 31.8 pg (26.0-34.0); Mean Corpuscular HGB Conc 33.2 g/dL (31.5-36.5); Mean Corpuscular Volume 96 fL (80-100); Platelet Count 224 K/mm3 (150-400); RDW Coefficient Variation 13.3 % (11.7-14.2); RDW Standard Deviation 46.2 fL (35.1-46.3); Red Blood Cell Count 4.03 M/mm3 (4.30-5.90); White Blood Cell Count 7.45 K/mm3 (4.00-11.30)
[2024-07-21 03:52] LABS: Magnesium, Blood 2.6 mg/dL (1.6-2.4)
[2024-07-21 03:53] LABS: Albumin, Blood 2.7 g/dL (3.4-5.0); Albumin/Globulin Ratio 0.9 (0.8-1.8); Bilirubin, Total 0.3 mg/dL (0.1-1.0); Bun/Creatinine Ratio 32.4 (12.0-20.0); Calcium, Blood 8.2 mg/dL (8.5-10.1); Creatinine, Blood 0.83 mg/dL (0.60-1.20); Phosphorus, Blood 4.3 mg/dL (2.5-4.9); Potassium, Blood 4.2 mmol/L (3.5-5.5); Total Protein, Blood 5.7 g/dL (6.4-8.2)
[2024-07-21 04:03] LABS: BAND PERCENT MAN 9 % (0-8); BASOPHILS PERCENT MAN 0 % (0-2); EOSINOPHILS PERCENT MAN 0 % (0-6); LYMPHOCYTES ABSOLUTE MAN 0.67 K/mm3 (0.84-5.20); LYMPHOCYTES PERCENT MAN 9 % (21-46); MONOCYTES ABSOLUTE MAN 0.44 K/mm3 (0.16-1.47); MONOCYTES PERCENT MAN 6 % (4-13); NEUTROPHILS ABSOLUTE MAN 6.33 K/mm3 (1.96-9.15); SEG NEUTROPHILS PERCENT MAN 76 % (41-73); TOTAL CELLS COUNTED 100
--- NOTE | 2024-07-21 06:08 | NUR ---
SHIFT SUMMARY: PT REMAINS INTUBATED AND SEDATED. NO ACUTE CHANGES OVERNIGHT. PT VERY AGGITATED AT TIMES, ATTEMPTING TO SIT UP AND PULL HIS ET TUBE OUT. REDIRECTABLE AT TIMES, NON-REDIRECTABLE AT TIMES. NEURO REMAINS UNCHANGED. VERSED INCREASED TO 4 MG/HR WITH PROPOFOL AT 40 MCG/KG/MIN FOR VENT COMPLIANCE AND COMFORT. SEVERAL PRN MEDICATIONS GIVEN FOR VENT COMPLIANCE, AGGITATION AND COMFORT. CONTINUES TO HAVE SWELLING ON LEFT SIDE OF NECK. VENT SETTINGS UNCHANGED, SEE RT FLOWSHEET. SPO2 >92%. LUNGS CLEAR, RR 16-22. REMAINS IN SR WITH HR 70'S-80'S. PT DID HAVE AN EPISODE OF BRADYCARDIA IN THE 40'S, DID NOT SUSTAIN. SBP 90-100'S. GROSS PATENT AND DRAINING TO GRAVITY. NO BM THIS SHIFT. OGT REMAINS CLAMPED. PIVS INTACT. BED LOW AND LOCKED, RESTRAINTS IN PLACE.
[2024-07-21] MEDS ORDERED: ChlordiazePOXIDE 25 MG Cap PO PRN (11:20)
[2024-07-21] MEDS ORDERED: EPINEPHrine HCL 11.25 MG/0.5 ML VIAL INH ONE (11:35)
--- NOTE | 2024-07-21 11:40 | NUR ---
PATIENT EXTUBATED TO ME WITH RT AND DR BARRERA AT BEDSIDE
[2024-07-21] MEDS ORDERED: Piperacillin/Tazobactam Sod 4.5 GM in NS 100 ML IV SCH (14:30)
--- NOTE | 2024-07-21 17:58 | NUR ---
PATIENT EXTUBATED THIS AM @1140 PATIENT PASSED SWALOW, GOT A DINNER TRAY AND TAKED PO MEDS APPROPRIATLY PATIENT WAS A&OX4 MADE URINE THROUGH GROSS CATHETER, NO BM, NO COMPLAINTS OF PAIN, LIBRIUM GIVEN FOR ETOH WITHDRAWL
[2024-07-21] MEDS ORDERED: Metoprolol Tartrate 5 ML IV ONE (19:35)
[2024-07-21] MEDS ORDERED: Lactobacil 2-S.Thermo-Bifido 1 1 Cap PO SCH (21:00)
--- NOTE | 2024-07-21 21:33 | NUR ---
ASSUMPTION OF CARE: ASSUMED CARE OF PT AT 1915 FROM SARAH JAMES. PT ALERT AND ORIENTED ALTHOUGH YELLS OUT FREQUENTLY. APPEARS TO BE REDIRECTABLE. ON 2L NC WITH SPO2 MID 90'S. LUNGS CLEAR. FOUNDER & CEO IN PLACE, SR WITH HR 80'S. SBP 120'S. DENIES CP. ENDORSES SOB WITH ACTIVITY. RR 18-20. GROSS PATENT AND DRAINING TO GRAVITY. CIWA 12, MEDICATED PER EMAR. PIVS INTACT. TOLERATING PO INTAKE. BED LOW AND LOCKED, CALL LIGHT IN REACH.
[2024-07-22] VITALS (10 sets, daily range): BP systolic 109–137; BP diastolic 78–96
[2024-07-22 05:17] LABS: BASOPHILS ABSOLUTE AUTO 0.01 K/mm3 (0.00-0.23); BASOPHILS PERCENT AUTO 0 % (0-2); EOSINOPHILS PERCENT AUTO 0 % (0-6); Hematocrit 41.9 % (37.0-53.0); Hemoglobin 13.7 g/dL (13.5-17.5); IMMATURE GRAN ABSOLUTE AUTO 0.04 K/mm3 (0.00-0.10); IMMATURE GRAN PERCENT AUTO 1 % (0-1); LYMPHOCYTES ABSOLUTE AUTO 0.52 K/mm3 (0.84-5.20); LYMPHOCYTES PERCENT AUTO 6 % (21-46); MONOCYTES ABSOLUTE AUTO 0.28 K/mm3 (0.16-1.47); MONOCYTES PERCENT AUTO 3 % (4-13); Mean Corpuscular HGB 31.8 pg (26.0-34.0); Mean Corpuscular HGB Conc 32.7 g/dL (31.5-36.5); Mean Corpuscular Volume 97 fL (80-100); Mean Platelet Volume 8.8 fL (9.1-12.4); NEUTROPHILS ABSOLUTE AUTO 7.33 K/mm3 (1.96-9.15); NEUTROPHILS PERCENT AUTO 90 % (41-73); Platelet Count 235 K/mm3 (150-400); RDW Coefficient Variation 13.5 % (11.7-14.2); RDW Standard Deviation 47.9 fL (35.1-46.3); Red Blood Cell Count 4.31 M/mm3 (4.30-5.90); White Blood Cell Count 8.18 K/mm3 (4.00-11.30)
--- NOTE | 2024-07-22 05:29 | NUR ---
SHIFT SUMMARY: NO ACUTE EVENTS OVERNIGHT. PT ALERT AND ORIENTED. HAVING TREMORS, AUDITORY AND VISUAL HALLUCINATIONS AND YELLS OUT. PT ALSO PULLING AT HIS LINES AND CORDS. CIWA 10-15. MEDICATED WITH ATIVAN AND LIBRIUM T/O THE NIGHT. ON 2L NC WITH SPO2 MID TO HIGH 90'S. DENIES SOB. LUNGS CLEAR. CONSTRUCTION RECRUITER IN PLACE, SR WITH HR 80-90'S. SBP 120'S. DENIES CP/PRESSURE. GROSS PATENT AND DRAINING TO GRAVITY. ABLE TO AMBULATE TO COMMODE FOR A BM. POWERGLIDE PLACED THIS SHIFT TO DAPHNEY, PATENT AND SALINE LOCKED. TOLERATING PO INTAKE. BED LOW AND LOCKED.
[2024-07-22 06:29] LABS: Bun/Creatinine Ratio 43.9 (12.0-20.0); Calcium, Blood 8.1 mg/dL (8.5-10.1); Creatinine, Blood 0.82 mg/dL (0.60-1.20); Potassium, Blood 5.5 mmol/L (3.5-5.5)
--- NOTE | 2024-07-22 15:00 | NUR ---
TRANSFER TO MEDICAL REPORT CALLED, ALL QUESTIONS ANSWERED. PT TAKEN TO ROOM 341 VIA WHEELCHAIR WITH DOCKING PILOT. ALL PT BELONGINGS AND MEDS TAKEN WITH PT.
--- NOTE | 2024-07-22 16:56 | NUR ---
PT TRANSFERRED TO ROOM 341 FROM ICU 10 AT 1500. PT AMBULATED FROM WHEELCHAIR TO BED SBA, GOOD STRENGTH, MILDLY UNSTEADY. PT ORIENTED TO ROOM SET UP AND CALL LIGHT. SET BED ALARM. PT IS ALERT AND VERBAL, MOD ANXIETY. WILL ELEIL THE REMAINDER OF THE SHIFT
--- NOTE | 2024-07-22 18:26 | NUR ---
SUMMARY- PT A/O X3, MILD CONFUSION/FORGETFULNESS. PT ARRIVED TO ROOM 341 AT 1500, ABLE TO AMBULATE SHORT DISTANCE, 1 SBA. PT CIWA 8, WITH ANXIETY, HEADACHE AND TREMORS WITH ARMS EXTENDED, MEDICATED WITH LIBRIUM 25MG HELFFUL TO AID IN ANXIETY AND W/D SS. PT TOLERATING FOOD AND FLUIDS. VOIDING WITHOUT DIFFICULTY. LIGHT CLEAR YELLOW URINE, GROSS DC'D 1400. LUNGS DIM IN BASES, NO DYSPNEA. ARRIVED ON ROOM AIR FROM ICU, HAS MAINTAINED SATS 93-95% ROOM AIR. WILL SET UP CONT PULSE OX. WILL REPOET TO NOC RN
[2024-07-22] MEDS ORDERED: MethylPREDNISolone Sod Succ 40 MG VIAL IV SCH (21:00)
[2024-07-22] MEDS ORDERED: Ipratropium/Albuterol SulF 2.5-0.5MG/3 ML Amp INH SCH (21:44)
[2024-07-23 03:50] VITALS: BP 125/93
--- NOTE | 2024-07-23 05:14 | NUR ---
SHIFT SUMMARY PT ALERT ORIENTED ABLE TO VERBALIZE NEEDS USES THE URINAL AT BEDSIDE. HE REMAINS ON A CONTINUOUS PULSE OX. HE DESATTED LAST NIGHT AND REQUIRED TO BE PUT BACK ON 2L OF O2 VIA NC. REMAINS ON ZOSYN ORDERED FOR COPD EXAC. HE HAS A POWER GLIDE TO HIS RT UPPER ARM THAT IS SL. HIS CIWA LAST NIGHT WAS 8 AND HE REQUIRED 1 DOSE OF LIBRIUM WITH GOOD RESULTS. FS DONE AC AND HS WAS 98. REMAINS WITH SCROTAL EDEMA. REMAINS ON TELEMETRY AT [facility] AT A RATE OF 89. HES RESTING IN BED AT THIS TIME WITH CALL LIGHT IN REACH
[2024-07-23 06:44] LABS: BASOPHILS ABSOLUTE AUTO 0.02 K/mm3 (0.00-0.23); BASOPHILS PERCENT AUTO 0 % (0-2); EOSINOPHILS ABSOLUTE AUTO 0.01 K/mm3 (0.00-0.68); EOSINOPHILS PERCENT AUTO 0 % (0-6); Hematocrit 41.6 % (37.0-53.0); Hemoglobin 13.7 g/dL (13.5-17.5); IMMATURE GRAN ABSOLUTE AUTO 0.05 K/mm3 (0.00-0.10); IMMATURE GRAN PERCENT AUTO 1 % (0-1); LYMPHOCYTES ABSOLUTE AUTO 1.34 K/mm3 (0.84-5.20); LYMPHOCYTES PERCENT AUTO 12 % (21-46); MONOCYTES ABSOLUTE AUTO 0.37 K/mm3 (0.16-1.47); MONOCYTES PERCENT AUTO 3 % (4-13); Mean Corpuscular HGB 31.9 pg (26.0-34.0); Mean Corpuscular HGB Conc 32.9 g/dL (31.5-36.5); Mean Corpuscular Volume 97 fL (80-100); NEUTROPHILS ABSOLUTE AUTO 9.26 K/mm3 (1.96-9.15); NEUTROPHILS PERCENT AUTO 84 % (41-73); Platelet Count 184 K/mm3 (150-400); RDW Coefficient Variation 13.2 % (11.7-14.2); RDW Standard Deviation 46.5 fL (35.1-46.3); Red Blood Cell Count 4.29 M/mm3 (4.30-5.90); White Blood Cell Count 11.05 K/mm3 (4.00-11.30)
[2024-07-23 07:07] LABS: Calcium, Blood 8.6 mg/dL (8.5-10.1); Creatinine, Blood 0.78 mg/dL (0.60-1.20); Potassium, Blood 5.2 mmol/L (3.5-5.5)
[2024-07-23 08:18] VITALS: BP 125/99
--- NOTE | 2024-07-23 18:24 | NUR ---
SHIFT SUMMARY PT CONT LEVEL OF CARE WITH NO ACUTE CHANGES NOTED. PT NOTED TO BE A&OX3 WITH SOME FORGETFULNESS AND CONFUSION. PT CONT WITH PRN CIWA AND MEDICATED PER EMAR. PT WORKED WITH THERAPY THIS SHIFT. WHOM MADE PT INDEPENDENT IN ROOM. PT STATED HE WANTED TO WALK THE HERNANDEZ THIS NURSE TOLD PT THAT WAS FINE BUT HE WOULD HAVE TO WEAR A MASK HE HAD TESTED POSITIVE FOR FLU A. PT REFUSED TO WEAR MASK AND DECIDED TO STAY IN HIS ROOM.
[2024-07-23 20:12] VITALS: BP 120/82
--- NOTE | 2024-07-24 04:59 | NUR ---
SHIFT SUMMARY PT ALERT ORIENTED TO SELF AND PLACE UNSURE THE MONTH OR WHY HES HERE. HEIS ABLE TO VERBALIZE HIS NEEDS. HES BEEN VERY RESTLESS THIS SHIFT WITH AUDITORY AND VISUAL HALLUCINATIONS. HE STATED THAT HE FEELS LIKE HES GOING THROUGH WITHDRAWLS. HES BEEN VERY ANXIOUS AND IRATE. HES NOT VERY EASILY REDIRECTED AND WILL YELL OUT AT STAFF WHEN HE DOESNT GET WHAT HE WANTS RIGHT AWAY. HE HAS A POWER GLIDE TO HIS RT UPPER ARM THAT IS SL. HIS CIWAS TONITE WERE 5-18 AND HE RECEIVED ATIVAN AND LIBRIUM WITH GOOD RESULTS. REMAINS ON O2 AT 1L VIA NC SATTING AT 98%. HE REMAINS ON A CONTINUOUS PULSE OX. HE HAS BEEN GETTING UP AD ARSH IN HIS ROOM AND HE TOOK A SHOWER. REMAINS ON ZOSYN Q8HR AND TAMIFLU BID. NO C/O CHEST PAIN OR PRESSURE THIS SHIFT. VSS. FS DONE AC AND HS WAS 121. HES RESTING IN BED AT THIS TIME WITH CALL LIGHT IN REACH HE REMAINS ON TELEMETRY AT [facility] AT A RATE OF 78.
[2024-07-24 05:24] VITALS: BP 131/78
[2024-07-24 06:39] LABS: BASOPHILS PERCENT AUTO 0 % (0-2); EOSINOPHILS ABSOLUTE AUTO 0.02 K/mm3 (0.00-0.68); EOSINOPHILS PERCENT AUTO 0 % (0-6); Hematocrit 40.1 % (37.0-53.0); Hemoglobin 13.5 g/dL (13.5-17.5); IMMATURE GRAN ABSOLUTE AUTO 0.05 K/mm3 (0.00-0.10); IMMATURE GRAN PERCENT AUTO 1 % (0-1); LYMPHOCYTES ABSOLUTE AUTO 1.27 K/mm3 (0.84-5.20); LYMPHOCYTES PERCENT AUTO 14 % (21-46); MONOCYTES ABSOLUTE AUTO 0.34 K/mm3 (0.16-1.47); MONOCYTES PERCENT AUTO 4 % (4-13); Mean Corpuscular HGB 32.1 pg (26.0-34.0); Mean Corpuscular HGB Conc 33.7 g/dL (31.5-36.5); Mean Corpuscular Volume 96 fL (80-100); Mean Platelet Volume 9.2 fL (9.1-12.4); NEUTROPHILS ABSOLUTE AUTO 7.25 K/mm3 (1.96-9.15); NEUTROPHILS PERCENT AUTO 81 % (41-73); Platelet Count 207 K/mm3 (150-400); RDW Coefficient Variation 13.4 % (11.7-14.2); RDW Standard Deviation 46.8 fL (35.1-46.3); White Blood Cell Count 8.93 K/mm3 (4.00-11.30)
[2024-07-24 07:00] LABS: Albumin, Blood 2.7 g/dL (3.4-5.0); Albumin/Globulin Ratio 0.9 (0.8-1.8); Bilirubin, Total 0.3 mg/dL (0.1-1.0); Bun/Creatinine Ratio 34.8 (12.0-20.0); Calcium, Blood 8.6 mg/dL (8.5-10.1); Creatinine, Blood 0.86 mg/dL (0.60-1.20); Globulin, Blood 3.1 g/dL (2.2-4.0); Potassium, Blood 4.3 mmol/L (3.5-5.5); Total Protein, Blood 5.8 g/dL (6.4-8.2)
[2024-07-24 07:46] VITALS: BP 104/80
[2024-07-24] MEDS ORDERED: Naltrexone HCl 50 MG Tab PO SCH (10:30)
[2024-07-24] MEDS ORDERED: buPROPion HCL 150 MG TAB.SR.12H PO SCH (10:30)
[2024-07-24 16:20] VITALS: BP 113/86
--- NOTE | 2024-07-24 17:57 | NUR ---
SHIFT SUMMARY PT CONT LEVEL OF CARE WITH NO ACUTE CHANGES NOTED. PT NOTED TO BE A&OX3 WITH FORGETFULNESS NOTED. PT NOTED TO BE HAVING WITHDRAWLS WITH CIWA SCORS RANGING FROM 11-19. PT NOTED TO BE VERY IRRITABLE, ANXIOUS, ANGRY. PT NOTED TO RIP OFF TELE AND PULSE OX MONITOR AND BE UNCOMPLIANT WITH LEAVING THEM ON. RECEIVED ORDER FROM PHYSICIAN TO DC. PT ALSO NOTED TO SHUT OFF IV PUMP THIS MORNING WHEN MEDICATION WAS INITIAL STARTED AND RUNNING. PT WAS STARTED ON NALTREXONE AND WELLBURTIN THIS SHIFT TO HELP WITH WITHDRAWS. PHYSCIAN STATED PT POSSIBLE TO DC IN COUPLE OF DAYS PENDING CIWA AND PT WITHDRAW.
--- NOTE | 2024-07-24 20:30 | NUR ---
PT LEFT AMA: PT SHOWERED THEN PUT ON STREET CLOTHES AND WAS FOUND EXITING HIS ROOM STATING HE WAS "GETTING OUT OF HERE". STAFF ATTEMPTED TO ENCOURAGE PT TO STAY BUT HE WAS DETERMINED TO LEAVE TO BUY A "SWEATSHIFT AND SHOES". THIS RN CONVEYED WE COULD TRY TO FIND THESE ITEMS FOR HIM HERE IF HE WAS AGRREABLE TO STAY AND I ALERTED RN EDUCATION REPORTER (CONNER CHANCE) OF SITUATION/NEED. PT SAID HE "HAD MONEY AND DIDN'T WANT TO WAIT ONE MORE MINUTE". RN ALSO OFFERED PRN MEDICATIONS TO ASSIST W/CALMING ANXIETY/AGGITATION AND RELAYED THE POSSIBILITY OF D/C IN THE MORNING. SNACKS, DRINKS AND A WARM BLANKET WERE ADDITIONALLY OFFERED BUT PT REFUSED MEDS, ALTERNATIVES AND WAS ADAMNENT ABOUT LEAVING TONIGHT. HE WAS PROVIDED EDUCATION REGARDING AMA STATUS, EXPRESSED UNDERSTANDING AND SIGNED THE AMA FORM AFTER BEING INSTRUCTED ON RISKS WITHOUT BENEFITS. PG WAS REMOVED W/PRESSURE BANDAGE APPLIED. HE LEFT W/HIS WALLET AND ALL POSSESSIONS, ONLY HAVING THE CLOTHES ON HIM (JACKET, JEANS, BELT) AND HOSPITAL SOCKS. ADDITIONAL SOCKS WERE PROVIDED AND HE WAS EN ROUTE TO THE ER ENTRANCE TO CALL A CAB AT 2020. HE DIDN'T APPEAR TO BE IN ANY ACUTE DISTRESS UPON LEAVING. RN EDUCATION REPORTER (CONNER Tse), [place] PAINTER (MARA Palencia) AND PHYSICIAN (ANNETTE) ALERTED AT THE TIME.
[2024-07-25] MEDS ORDERED: PredniSONE 20 MG Tab PO SCH (09:00)
== END 2024-07-24 20:29 | disposition left against medical advice (07) | DRG 208 ==
LOC: ER 13:12 → MEDS 13:34 → PCU 13:34 → ICUE 13:34 → PCU 17:35 → ICUE 07-20 02:40 → MEDS 07-22 14:57
PROVIDERS: Emergency Medicine; Family Medicine; Internal Medicine Critical Care Medicine; ADMIT Internal Medicine
PROC: 3E033XZ Introduction of Vasopressor into Peripheral Vein, Percutaneous Approach (ICD-10-PCS; 2024-07-17)
PROC: 5A1935Z Respiratory Ventilation, Less than 24 Consecutive Hours (ICD-10-PCS; principal; 2024-07-20)
PROC: 0BH17EZ Insertion of Endotracheal Airway into Trachea, Via Natural or Artificial Opening (ICD-10-PCS; 2024-07-20)
DX: J10.1 Influenza due to other identified influenza virus with other respiratory manifestations (principal); J96.01 Acute respiratory failure with hypoxia; I21.A1 Myocardial infarction type 2; J44.1 Chronic obstructive pulmonary disease with (acute) exacerbation; I50.22 Chronic systolic (congestive) heart failure; Z59.00 Homelessness unspecified; E87.1 Hypo-osmolality and hyponatremia; M10.9 Gout, unspecified; M19.90 Unspecified osteoarthritis, unspecified site; I11.0 Hypertensive heart disease with heart failure; E11.9 Type 2 diabetes mellitus without complications; F17.200 Nicotine dependence, unspecified, uncomplicated; F15.10 Other stimulant abuse, uncomplicated; F10.20 Alcohol dependence, uncomplicated; J69.0 Pneumonitis due to inhalation of food and vomit; R22.1 Localized swelling, mass and lump, neck; T78.3XXA Angioneurotic edema, initial encounter; Z91.018 Allergy to other foods; Z79.899 Other long term (current) drug therapy; G47.33 Obstructive sleep apnea (adult) (pediatric)
CPT/HCPCS: 0241U; 31500; 36415; 51702; 70491; 71045; 71260; 80048; 80053; 82803; 82947; 83735; 83880; 84100; 84484; 85025; 85520; 85610; 85730; 87070; 87205; 93005; 93010; 94002; 94003; 94640; 94644; 94660; 94664; 94760; 94762; 97165; 97530; 99285-25; A9270; J0360; J0696; J1200; J1644; J1940; J2060; J2250; J2543; J2560; J2704; J2919; J3010; J3411; J7030; J7050; Q9967

== ENCOUNTER 2024-08-21 05:34 | Inpatient (IN) | payer MEDICARE ==
[2024-08-21] VITALS (9 sets, daily range): BP systolic 144–191; BP diastolic 110–140
[~2024-08-21] VITALS: Ht 160 cm; Wt 68.0 kg
[2024-08-21] MEDS ORDERED: Clindamycin 600mg in D5W 50 ML IV ONE (06:30)
[2024-08-21] MEDS ORDERED: NS 1,000 ML IV ONE (06:30)
[2024-08-21] MEDS ORDERED: Acetaminophen 500 MG Tab PO ONE (06:40)
[2024-08-21 06:56] LABS: BASOPHILS ABSOLUTE AUTO 0.09 K/mm3 (0.00-0.23); BASOPHILS PERCENT AUTO 1 % (0-2); EOSINOPHILS ABSOLUTE AUTO 0.13 K/mm3 (0.00-0.68); EOSINOPHILS PERCENT AUTO 1 % (0-6); Hematocrit 37.6 % (37.0-53.0); Hemoglobin 12.8 g/dL (13.5-17.5); IMMATURE GRAN ABSOLUTE AUTO 0.07 K/mm3 (0.00-0.10); IMMATURE GRAN PERCENT AUTO 1 % (0-1); LYMPHOCYTES ABSOLUTE AUTO 1.33 K/mm3 (0.84-5.20); LYMPHOCYTES PERCENT AUTO 9 % (21-46); MONOCYTES ABSOLUTE AUTO 0.87 K/mm3 (0.16-1.47); MONOCYTES PERCENT AUTO 6 % (4-13); Mean Corpuscular Volume 91 fL (80-100); Mean Platelet Volume 8.5 fL (9.1-12.4); NEUTROPHILS ABSOLUTE AUTO 12.45 K/mm3 (1.96-9.15); NEUTROPHILS PERCENT AUTO 83 % (41-73); Platelet Count 414 K/mm3 (150-400); RDW Standard Deviation 39.9 fL (35.1-46.3); Red Blood Cell Count 4.13 M/mm3 (4.30-5.90); White Blood Cell Count 14.94 K/mm3 (4.00-11.30)
[2024-08-21 07:17] LABS: Albumin, Blood 2.7 g/dL (3.4-5.0); Albumin/Globulin Ratio 0.6 (0.8-1.8); Bilirubin, Total 0.9 mg/dL (0.1-1.0); Bun/Creatinine Ratio 16.1 (12.0-20.0); Calcium, Blood 8.8 mg/dL (8.5-10.1); Creatinine, Blood 0.62 mg/dL (0.60-1.20); Globulin, Blood 4.8 g/dL (2.2-4.0); Phosphorus, Blood 3.4 mg/dL (2.5-4.9); Potassium, Blood 4.3 mmol/L (3.5-5.5); Total Protein, Blood 7.5 g/dL (6.4-8.2)
[2024-08-21 08:02] LABS: Influenza A, PCR NEGATIVE (NEGATIVE); Influenza B, PCR NEGATIVE (NEGATIVE); Resp Syncytial Virus, PCR NEGATIVE (NEGATIVE); SARS-Cov-2 (COVID-19) PCR, MMC NEGATIVE (NEGATIVE)
[2024-08-21] MEDS ORDERED: LORazepam 2 MG/ML 1ML Injection IV ONE (09:00)
[2024-08-21] MEDS ORDERED: Ondansetron HCl 2 MG / ML 2ML Vial IV ONE (09:05)
[2024-08-21 09:06] LABS: Source, Urine Clean Catch
[2024-08-21 09:13] LABS: Appearance, Urine Clear (Clear); Bilirubin, Urine Neg (Neg); Blood, Urine Neg (Neg); Color, Urine Yellow (P-Yellow); Glucose Qualitative, Urine Neg (Neg); Ketones, Urine 1+ (Neg); Leukocyte Esterase, Urine Neg (Neg); Nitrite, Urine Neg (Neg); Protein, Urine Neg (Neg); Specific Gravity, Urine 1.015 (1.003-1.022); Urobilinogen, Urine NORM (Normal)
[2024-08-21] MEDS ORDERED: LevoFLOXacin 500MG/D5W 100ML 100 ML IV ONE (09:15)
[2024-08-21] MEDS ORDERED: Magnesium Hydroxide Conc 10 ML UDC PO PRN (11:05)
[2024-08-21] MEDS ORDERED: FLU VACC TS2024-25(6MOS UP)/PF 45 MCG/0.5 ML SYRINGE IM SCH (11:05)
[2024-08-21 11:20] LABS: U Amphetamine Screen DETECTED; U Barbituate Screen Not Detected; U Benzodiazapine Screen DETECTED; U Buprenorphine Screen Not Detected; U Cocaine Screen Not Detected; U Methadone Screen Not Detected; U Methamphetamine Screen DETECTED; U Opiates Screen Not Detected; U Oxycodone Screen Not Detected; U Phencyclidine Screen Not Detected
[2024-08-21] MEDS ORDERED: Vancomycin HCL 1,500 MG in NS 250 ML IV ONE (11:20)
[2024-08-21] MEDS ORDERED: CefTRIAXone Sodium 1,000 MG in NS 100 ML IV SCH (12:00)
[2024-08-21] MEDS ORDERED: MethylPREDNISolone Sod Succ 125 MG Vial IV SCH (12:00)
[2024-08-21] MEDS ORDERED: LORazepam 2 MG/ML 1ML Injection IV PRN ×2 (12:35)
[2024-08-21] MEDS ORDERED: ChlordiazePOXIDE 25 MG Cap PO PRN ×2 (12:35)
--- NOTE | 2024-08-21 14:49 | NUR ---
ADMIT SUMMARY PT ARRIVED TO U 08 VIA MACK FROM THE ER. PT WAS SOILED BUT WAS ABLE TO STAND UP, GET CLEANED UP, AND CHANGED INTO A GOWN. THE PT IS 1P ASSIST W/ FWW. LEFT FOOT PAIN NOTED AND IMPAIRING GAIT. THE PT LAYED INTO BED AND VITAL SIGNS TAKEN. BP ELEVATED, BUT STABLE. ON TELE HR 120'S-130'S. PT IS ON RA AND DENIES ANY NEW SOB. PT CLAIMS HAVING CHRONIC SOB. WOUNDS ON LEFT HAND AND LEFT FOOT TAKEN. PHOTOS IN THE CHART. WHEN ASKED ABOUT ANY LIGHTERS OR DRUGS, THE PT STATES "MY FRIEND LEFT HIS SHOES IN MY MOTEL AND THERE IS A AERONAUTICS COMMISSION DIRECTOR IN THERE". WITH THE PT'S PERMISSION THIS RN WENT THROUGHT THE PT'S BELONGINGS AND FOUND A GLASS PIPE, A HAND HELD TORCH AERONAUTICS COMMISSION DIRECTOR, A NORMAL AERONAUTICS COMMISSION DIRECTOR, AND THERE WAS A CONTAINER IN THE PT SHOE. WHEN IT WAS OPENED A CLOUD OF WHITE POWDER CAME FROM THE CONTIANER, AND WHITE POWDER/CRYSTALS WERE IDENTIFIED. SECURITY WAS CALLED. WHEN THIS RN WAS TALKING TO THE CHARGE NURSE ADEEL, THE GLASS PIPE FELL ON THE GROUND AND SHATTERED. EVS AND NURSING SUPRIVISOR CALLED. SECURITY TALKED WITH THE PT AND HE CAN HAVE HIS AERONAUTICS COMMISSION DIRECTOR BACK ON D/C. PT WAS PLEASENT THROUGH THE PROCESS AND TRIED STATING THAT THERE WAS ONLY MARIJUANA IN THE CONTAINER. RN PLASTIC SURGERY EXPLAINED THAT IT DOES NOT MATTER WHO IT BELONGS TO, WE NEED TO KNOW WHAT IS IN THE CONTAINER. THE PT ADMITTED IT TO BE METH. ASSESSMENT FINISHED. PT'S RINGS WERE REMOVED D/T HAND SWELLING AND PALCED IN A SPECIMIN CUP W/ A PT LABEL. BED IN LOW. BED ALARM ON. NONSLID SOCKS ON. CALL LIGHT IN REACH.
[2024-08-21 15:23] LABS: U Cannabinoids Screen DETECTED
[2024-08-21] MEDS ORDERED: Labetalol HCL 5 MG/ML 4ML Injection (Single Dose) IV STA (15:57)
[2024-08-21] MEDS ORDERED: HYDROmorphone HCl/Pf 1MG SYR IV PRN (16:00)
[2024-08-21] MEDS ORDERED: Labetalol HCL 5 MG/ML 4ML Injection (Single Dose) IV PRN (16:00)
[2024-08-21] MEDS ORDERED: Clindamycin 900mg in D5W 50ML 50 ML IV SCH (16:01)
--- NOTE | 2024-08-21 17:26 | NUR ---
DR. JARVIS CALLED ABOUT PT'S PAIN 10/10 IN RIGHT HAND AND LEFT LEG, HYPERTENSION, AND HR 120'S-130'S. DR. JARVIS STARTED THE PT ON IV PAIN MEDICATIONS TO SEE IF IT WOULD HELP WITH BP AND HR. 1MG IV DILAUDID GIVEN. PT WITH [address]. [address] JARVIS ORDERED LABETALOL 10-20MG IV FOR SBP >120. 10 MG IV GIVEN WITH IMPROVEMENT ON BP. DR. ALBRECHT WAS CONSULTED FOR RIGHT HAND CELLULITIS AND SHE WANTS THE PT TO BE NPO AT 0000 FOR POTENTIAL SURGERY.
[2024-08-21] MEDS ORDERED: Vancomycin HCL 1,000 MG in NS 250 ML IV SCH (21:00)
[2024-08-22 04:01] VITALS: BP 107/70
[2024-08-22 04:37] LABS: Hematocrit 38.5 % (37.0-53.0); Hemoglobin 13.2 g/dL (13.5-17.5); Mean Corpuscular HGB 31.1 pg (26.0-34.0); Mean Corpuscular HGB Conc 34.3 g/dL (31.5-36.5); Mean Corpuscular Volume 91 fL (80-100); Mean Platelet Volume 8.8 fL (9.1-12.4); Platelet Count 405 K/mm3 (150-400); RDW Coefficient Variation 11.9 % (11.7-14.2); RDW Standard Deviation 39.4 fL (35.1-46.3); Red Blood Cell Count 4.25 M/mm3 (4.30-5.90); White Blood Cell Count 17.13 K/mm3 (4.00-11.30)
[2024-08-22 04:54] LABS: Bun/Creatinine Ratio 26.7 (12.0-20.0); Calcium, Blood 8.8 mg/dL (8.5-10.1); Creatinine, Blood 0.75 mg/dL (0.60-1.20); Potassium, Blood 4.7 mmol/L (3.5-5.5)
--- NOTE | 2024-08-22 05:57 | NUR ---
PT A/OX4 TO SELF, PLACE, SITUATION, AND DATE. PT VERBALIZED NEEDS AND OBEYED COMMANDS. PT ENDORSES GENERALIZED, BUT PRIMARILY LEFT FOOD AND RIGHT HAND, PAIN 7-8/10. CIWA SCORES 7-13 WITH INTERMITTENT SWEATING, NAUSEA, HEADACHE, AND ITCHING. TREATING PER EMAR. PT IS PLEASANT AT THIS TIME. BP ELEVATED AT BEGINNING OF SHIFT, BUT STABLE AT LAST VS. HR 90'S-110'S. PT DENIES CHEST PAIN/PRESSURE/SOB ON ROOM AIR, SATTING ABOVE 90%, PT DESATS WHEN SLEEPING, BUT REPOSITIONING USUALLY RESOLVES. CELLULITIS ON RIGHT HAND AND LEFT FOOT, MARKED WITH PEN TO MONITOR. ON BEDREST AT THIS TIME, UNSTEADY ON FEET, FWW WITH 1P ASSIST IF AMBULATING. PT IS CONTINENT OF URINE AND STOOL, USING BEDSIDE URINAL. NPO OF 0000 PENDING ORTHOPEDIC CONSULTATION.
[2024-08-22 07:49] VITALS: BP 116/89
--- NOTE | 2024-08-22 07:53 | NUR ---
ASSUMPTION NOTE: THIS RN TO ASSUME CARE OF PATIENT. PATIENT IS IN BED SLEEPING, EASILY AROUSABLE. DOES ANSWER QUESTIONS AND STATES HE IS THIRSTY. RN REMINDED HE IS NPO AND CANNOT HAVE ANYTHING AND WE ARE AWAITING THE DOCTORS TO ROUND FOR CLARIFYING ANSWERS ON THE PLAN MOVING FORWARD. PATIENT HAS THE CALL LIGHT WITHIN REACH AND BED IN THE LOWEST POSITION.
[2024-08-22] MEDS ORDERED: Enoxaparin 40 MG/0.4 ML SYR SC SCH (09:00)
--- NOTE | 2024-08-22 09:37 | NUR ---
MD ZURDO KAUR: MD CAME TO BEDSIDE AND PATIENT IS OKAY TO EAT AND WILL RESUME BECOMING NPO AT MIDNIGHT TONIGHT 2.9.25. PATIENT WAS GIVEN THE UPDATE, TAKEN IN SOME FOOD INTO THE ROOM BUT PATIENT IS NOT ALERT ENOUGHT OR WAKING UP FOR LONG PERIODS OF TIME TO EAT.
[2024-08-22] MEDS ORDERED: Metoprolol Succinate 25 MG TABCR PO SCH (11:00)
[2024-08-22] MEDS ORDERED: Losartan Potassium 25 MG Tab PO SCH (11:00)
[2024-08-22] MEDS ORDERED: Empagliflozin 10 MG TAB PO SCH (11:00)
[2024-08-22 11:08] VITALS: BP 142/101
[2024-08-22] MEDS ORDERED: Albuterol 2.5 MG/3 ML VIAL INH SCH (12:10)
[2024-08-22] MEDS ORDERED: Albuterol HFA200 ACT/6.7 GM INH INH PRN (12:15)
[2024-08-22 12:57] LABS: Vancomycin, Trough 22.2 ug/mL (5.0-10.0)
--- NOTE | 2024-08-22 13:14 | NUR ---
[facility] WAS RECEVIED FOR A VANCO TROUGH, THIS RN CALLED PHARAMCY NOTHING WAS NEEDED AFTER NOTIFYING THE PHARMACIST.
[2024-08-22] MEDS ORDERED: HYDROcodone 5-APAP 325 TAB PO PRN (14:40)
[2024-08-22 16:19] VITALS: BP 107/84
--- NOTE | 2024-08-22 18:17 | NUR ---
SHIFT SUMMARY: PATIENT IS ALERT AND ORIETNED X4 AND COOPERATIVE WITH HIS CARE. IS ON TELE SHOWING SINUS WITH RATE IN 90'S. SATTING >92% ON ROOM AIR, DOES DESAT OCCASIONALLY WHEN SLEEPING, RECOVERS QUICKLY WHEN PATIENT READJUSTS IN BED. WAS MEDICATED PER EMAR WITH CIWA PROTOCOL AND WAS ABLE TO SHOWER TODAY. WILL BECOME NPO AT MIDNIGHT FOR A SURGICAL INTERVENTION TOMORROW 08.23.24. PATIENT AWARE. PATIENT WAS ABLE TO REST THROUGOUT SHIFT. DID GET SOME PAIN MEDICATIONS THROUGHOUT SHIFT FOR THE CELLULITS IN THE HAND AND FOOT. PLAN WILL BE TO CONTINUE ANTIBIOTICS, GET THE SURIGCAL INTERVENTION AND AWAIT FURTHER RECCOMENDATIONS. THIS RN WILL CONTINUE TO MONITOR UNTIL MANAGER ACCOUNT MANAGEMENT RN ASSUMES CARE.
[2024-08-22 20:07] VITALS: BP 126/88
[2024-08-22] MEDS ORDERED: Vancomycin HCL 750 MG in NS 250 ML IV SCH (21:00)
[2024-08-22 23:28] VITALS: BP 132/98
[2024-08-23] VITALS (7 sets, daily range): BP systolic 123–149; BP diastolic 76–105
--- NOTE | 2024-08-23 00:22 | NUR ---
ASSUMPTION OF CARE THIS RN ASSUMED CARE OF PATIENT AT 1900. PT A&O X4. CIWA PROTOCOL IN PLACE; MEDICATING PER EMAR. BED ALARM ON FOR IMPULSIVITY AND UNSTEADY GAIT. PT PLACED ON 2L VIA NC WITH AMBULATION/SHOWER, DYSPNEA WITH EXERTION, OTHERWISE PT ON RA AT REST AND DENIES SOB. BP STABLE. SR/ST WITH HR 90-100'S. AFEBRILE. MEDICATED PER EMAR FOR PAIN IN RT HAND AND LEFT FOOT. PT NPO AT MIDNIGHT FOR PROCEDURE IN AM. USING URINAL IN BED. PT GIVEN SHOWER AT BEGINNING OF SHIFT. BED IN LOWEST POSITION AND CALL LIGHT WITHIN REACH.
--- NOTE | 2024-08-23 04:47 | NUR ---
SHIFT SUMMARY SEE PREVIOUS NOTE NEURO INTACT. MEDICATING PER EMAR FOR CIWA/WITHDRAWAL. VSS. PLACED ON 2L VIA NC FOR EXERTION. PT USING URINAL IN BED. BED ALARM FOR SAFETY. PT HAS BEEN NPO SINCE MIDNIGHT. BED IN LOWEST POSITION AND CALL LIGHT WITHIN REACH. THIS RN WILL REPORT TO ONCOMING DAYSHIFT RN.
--- NOTE | 2024-08-23 07:15 | NUR ---
INITIAL ASSESSMENT: Patient is awake but drowsy, he is alert and oriented x3, he is off on the date by one day. He states he is hearing and seeing things that are not there, he said he thought he heard someone under the bed and someone in the bathroom, CIWA is currently 13-he was medicated with 50 mg Librium. He is C/O 10/10 pain in his left foot and right hand, he is medicated with 0.5 mg Dilaudid. HRR, he is SR in the 90s, blood pressure is slightly high, will reassess. LS are DIM T/O, patient is 97% on 2L via NC, he is titrated down to 1L via NC. Patient states he normally wears a C-Pap while in the hospital due to LUCY, cont biox sticker in place. BT+. PPP. He has redness and swelling to his right hand within the demarkation, he also has some minimal swelling to his left foot and slight redness that is also within the demarkation. He denies other needs at this time. Call light in reach.
[2024-08-23 12:30] LABS: BASOPHILS ABSOLUTE AUTO 0.03 K/mm3 (0.00-0.23); BASOPHILS PERCENT AUTO 0 % (0-2); EOSINOPHILS PERCENT AUTO 0 % (0-6); Hematocrit 35.2 % (37.0-53.0); Hemoglobin 11.7 g/dL (13.5-17.5); IMMATURE GRAN ABSOLUTE AUTO 0.12 K/mm3 (0.00-0.10); IMMATURE GRAN PERCENT AUTO 1 % (0-1); LYMPHOCYTES PERCENT AUTO 3 % (21-46); MONOCYTES ABSOLUTE AUTO 0.24 K/mm3 (0.16-1.47); MONOCYTES PERCENT AUTO 1 % (4-13); Mean Corpuscular HGB 31.4 pg (26.0-34.0); Mean Corpuscular HGB Conc 33.2 g/dL (31.5-36.5); Mean Corpuscular Volume 94 fL (80-100); Mean Platelet Volume 8.5 fL (9.1-12.4); NEUTROPHILS ABSOLUTE AUTO 17.32 K/mm3 (1.96-9.15); NEUTROPHILS PERCENT AUTO 95 % (41-73); Platelet Count 419 K/mm3 (150-400); RDW Coefficient Variation 12.2 % (11.7-14.2); RDW Standard Deviation 42.6 fL (35.1-46.3); Red Blood Cell Count 3.73 M/mm3 (4.30-5.90); White Blood Cell Count 18.21 K/mm3 (4.00-11.30)
[2024-08-23] MEDS ORDERED: Lactated Ringer's 1,000 ML IV SCH (13:05)
[2024-08-23 13:25] LABS: Alanine Aminotransfer (ALT/SGP 13 U/L (12-78); Albumin, Blood 2.3 g/dL (3.4-5.0); Albumin/Globulin Ratio 0.5 (0.8-1.8); Alk Phos 72 U/L (50-136); Anion Gap 12 mmol/L (3-11); Aspartate Aminotrans (AST/SGOT 10 U/L (12-37); Bilirubin, Total 0.3 mg/dL (0.1-1.0); Blood Urea Nitrogen 34 mg/dL (8-24); Bun/Creatinine Ratio 42.3 (12.0-20.0); CO2, Blood 26 mmol/L (21-32); Calcium, Blood 8.4 mg/dL (8.5-10.1); Chloride, Blood 104 mmol/L (98-108); Globulin, Blood 4.2 g/dL (2.2-4.0); Glomerular Filtration Rate 108 (60-); Glucose, Blood 141 mg/dL (70-99); Potassium, Blood 4.7 mmol/L (3.5-5.5); Sodium, Blood 137 mmol/L (136-145); Total Protein, Blood 6.5 g/dL (6.4-8.2); Vancomycin, Trough 19.1 ug/mL (5.0-10.0)
--- NOTE | 2024-08-23 13:53 | NUR ---
PT HERE TO SDS BY OG GIRON NOTIFIED. PT ON 1LO2NC. PT ORIENTED X3. History, Chart, Medications and Allergies reviewed before start of procedure.Lungs clear T/O to Auscultation. Patient confirms NPO status and agrees with scheduled surgery. Pre-Op teaching done. Pt verbalizes understanding.
[2024-08-23] MEDS ORDERED: Vancomycin HCL 1,000 MG in NS 250 ML IV SCH (14:00)
--- NOTE | 2024-08-23 14:00 | NUR ---
PT SURGERY CANCELLED FOR TODAY, PER OR EXCEL SPECIALIST, SDS EXCEL SPECIALIST. PT TO GO BACK TO ROOM IN PCU WITH TELE IN PLACE.
--- NOTE | 2024-08-23 14:32 | NUR ---
UPDATE: Patient was taken down to day surgery around 1220, his CIWA prior to leaving was 9, he was medicated with 50mg Librium PO. The patient was brought back to his room at 1400 because he told the anesthesiologist "I am going through severe withdrawls." When patient arrived back to the room his CIWA was 9. He falls asleep when staff not talking with him and appears to be resting comfortably. Patient given a snack as surgery is not going ahead as planned due to anesthesia being concerned with his active withdrawls.
--- NOTE | 2024-08-23 18:20 | NUR ---
Summary: Patient has been oriented x3, T/O the shift. He has been lethargic at times after being medicated for withdrawl and pain. He has been medicated with [place] and Dilaudid for pain. CIWAs have been ranging from 9-13, withdrawls have been stable with PO Librium. He has been able to ambulate to the bathroom independently. HRR, he has been SR in the 90s with some intermittent episodes of hypertension. LS DIM T/O, he has been requiring 1L oxygen while asleep for his known LUCY. BT+, he had a BM this evening. He has been using the urinal independently. He has redness and swelling to his right wrist and left ankle, redness has remained in the demarkated area. He was NPO after midnight for an I&D of his right hand, when he was in Day Surgery he told ansthesia he was experiencing acute withdrawls so they sent him back to the room until his CIWAs are stable. When he arrived back to [facility] 08 his CIWA was 9, he was medicated with Librium and remained stable. Plan for NPO after midnight and possible I&D tomorrow.
[2024-08-23] MEDS ORDERED: Insulin Human Lispro 100 Units/ML 3ML Syringe SC SCH (21:00)
[2024-08-23] MEDS ORDERED: Ondansetron HCl 2 MG / ML 2ML Vial IV PRN (23:00)
[2024-08-24] VITALS (15 sets, daily range): BP systolic 117–150; BP diastolic 67–107
--- NOTE | 2024-08-24 04:33 | NUR ---
SHIFT SUMMARY. SHIFT HAS BEEN UNREMARKABLE. PT WAS AOX4 ON SHIFT ONSET ALTHOUGH MENTATION HAS SOMEWHAT FLUCTUATED AT TIMES OVERNIGHT WITH PT REMAINING ABLE TO BE REDIRECTED AND IS COOPERATIVE WITH CARE. PT NPO SINCE MIDNIGHT, AT TIMES FRUSTRATED WITH BEING UNABLE TO EAT/DRINK ANYTHING BUT HAS BEEN COOPERATIVE WITH EDUCATION ON INDICATION FOR NPO STATUS. CIWAs COMPLETED Q4 AND PRN WITH PT BEING MEDICATED ONE TIME PER CIWA PROTOCOL THUS FAR. PT HAS NOT REPORTED PAIN THIS SHIFT THUS FAR. HAS MAINTAINED ADEQUATE SATURATION ON ROOM AIR WHILE AWAKE AND 1-2 L O2 VIA NC WHILE SLEEPING. BP STABLE. HAS BEEN RUNNING SINUS THROUGHOUT SHIFT WITH RATE IN THE 70s-90s RANGE PRIMARILY. ABX ADMINISTERED ON SCHEDULE WITHOUT DIFFICULTY. BED ALARM ACTIVE FOR SAFETY, PT IMPULSIVE AT TIMES. STEADY SBA TRANSFER TO BATHROOM. BED LOCKED IN LOWEST POSITION. CALL LIGHT LEFT WITHIN REACH. CONTINUING TO MONITOR.
[2024-08-24] MEDS ORDERED: Lactobacil 2-S.Thermo-Bifido 1 1 Cap PO SCH (09:00)
[2024-08-24 09:20] LABS: BASOPHILS ABSOLUTE AUTO 0.03 K/mm3 (0.00-0.23); BASOPHILS PERCENT AUTO 0 % (0-2); EOSINOPHILS ABSOLUTE AUTO 0.02 K/mm3 (0.00-0.68); EOSINOPHILS PERCENT AUTO 0 % (0-6); Hematocrit 37.7 % (37.0-53.0); Hemoglobin 12.4 g/dL (13.5-17.5); IMMATURE GRAN ABSOLUTE AUTO 0.07 K/mm3 (0.00-0.10); IMMATURE GRAN PERCENT AUTO 1 % (0-1); LYMPHOCYTES ABSOLUTE AUTO 2.12 K/mm3 (0.84-5.20); LYMPHOCYTES PERCENT AUTO 19 % (21-46); MONOCYTES ABSOLUTE AUTO 0.58 K/mm3 (0.16-1.47); MONOCYTES PERCENT AUTO 5 % (4-13); Mean Corpuscular HGB 31.3 pg (26.0-34.0); Mean Corpuscular HGB Conc 32.9 g/dL (31.5-36.5); Mean Corpuscular Volume 95 fL (80-100); Mean Platelet Volume 8.4 fL (9.1-12.4); NEUTROPHILS ABSOLUTE AUTO 8.63 K/mm3 (1.96-9.15); NEUTROPHILS PERCENT AUTO 75 % (41-73); Platelet Count 400 K/mm3 (150-400); RDW Coefficient Variation 12.3 % (11.7-14.2); RDW Standard Deviation 42.7 fL (35.1-46.3); Red Blood Cell Count 3.96 M/mm3 (4.30-5.90); White Blood Cell Count 11.45 K/mm3 (4.00-11.30)
[2024-08-24 09:51] LABS: Bun/Creatinine Ratio 40.2 (12.0-20.0); Calcium, Blood 8.7 mg/dL (8.5-10.1); Creatinine, Blood 0.75 mg/dL (0.60-1.20)
--- NOTE | 2024-08-24 10:41 | NUR ---
AM NOTE: PATIENT SLEEPY THIS AM BUT AROUSABLE AND ALERT UPON WAKING. AGGITATED HE IS NPO FOR POSSIBLE SURGERY. ABLE TO MVOE ALL EXTREMITIES. UP WITH SBA TO BATHROOM. CIWA SCORING 2 THIS AM MOSTLY DUE TO NAUSEA. PATIENT WILL WAKE TO ANSWER QUESTIONS AND THEN QUICKLY FALLS BACK ASLEEP. BED ALARM IN PLACE PATIENT CAN BE IMPUSLIVE. TELE SHOWING SR WITH HR 90'S. SBP 120'S. DENIES CHEST PAIN/PRESSURE/PALPITATIONS. EDEMA NOTED TO RIGHT HAND AND LEFT FOOT. CELLULITITS OUTLINED WITH MARKER. ON 1-2L NASAL CANNULA WHEN SLEEPING. DENIES SOB. NO COUGH NOTED. EVEN AND UNLABORED RESPIRTAIONS. NPO AT THIS TIME. BOWEL TONES PRESENT. UP TO BATHROOM WITH SBA. DENIES ABDOMINAL PAIN. INTERMIT NAUSEA. CIWA SCORE 2 THIS AM DUE TO NAUSEA. REFUSED NAUSEA MEDICATION. BED ALARM IN PLACE PATIENT CAN BE IMPULSIVE. CALL LIGHT IN REACH. DR. GARCIA TO BEDSIDE THIS AM, THIS RN PRESENT. SURGICAL PACKET PLACED IN CHART. CT COMPLETED THIS AM.
[2024-08-24] MEDS ORDERED: Thiamine HCl 100 MG Tab PO SCH (10:45)
[2024-08-24] MEDS ORDERED: Folic Acid 1 MG TAB PO SCH (10:45)
[2024-08-24] MEDS ORDERED: Multivitamins 1 Tab PO SCH (10:45)
[2024-08-24] MEDS ORDERED: Lactated Ringer's 1,000 ML IV SCH (13:30)
[2024-08-24 13:57] LABS: Vancomycin, Trough 16.9 ug/mL (5.0-10.0)
--- NOTE | 2024-08-24 14:08 | NUR ---
DAY SURGERY IN TO BOOK RETAILER PATIENT AT 1332. PATIENT LEFT UNIT BY WHEELCHAIR.
[2024-08-24] MEDS ORDERED: propofoL 40 ML IV ONE (14:21)
[2024-08-24] MEDS ORDERED: FentaNYL Citrate 50 MCG/ML 2 ML Injection ONE (14:23)
[2024-08-24] MEDS ORDERED: Vancomycin HCl 1000 MG ADDvantage ONE (15:06)
[2024-08-24] MEDS ORDERED: Bupivacaine HCl 0.25% 30 ML Injection ONE (15:08)
[2024-08-24] MEDS ORDERED: Midazolam HCl 1MG / ML 2ML Vial ONE ×2 (15:15→15:17)
[2024-08-24] MEDS ORDERED: Magnesium Hydroxide Conc 10 ML UDC PO PRN ×2 (15:25→15:30)
[2024-08-24] MEDS ORDERED: Metoclopramide HCl 10 MG Tab PO PRN ×2 (15:25→15:35)
--- NOTE | 2024-08-24 15:25 | NUR ---
TIME OUT COMPLETED FOR NERVE BLOCK.
[2024-08-24] MEDS ORDERED: Bisacodyl 10 MG Supp PR PRN (15:30)
[2024-08-24] MEDS ORDERED: OxyCODONE HCL 5 MG TAB PO PRN ×2 (15:30)
[2024-08-24] MEDS ORDERED: FLU VACC TS2024-25(6MOS UP)/PF 45 MCG/0.5 ML SYRINGE IM ONE ×2 (15:30→15:40)
[2024-08-24] MEDS ORDERED: HYDROmorphone HCl/Pf 1MG SYR IV PRN ×2 (15:35→15:40)
[2024-08-24] MEDS ORDERED: Acetaminophen 325 MG TABLET PO PRN ×2 (15:35)
[2024-08-24] MEDS ORDERED: Ondansetron 4 MG TAB PO PRN ×2 (15:35→15:40)
[2024-08-24] MEDS ORDERED: Naloxone HCl 0.4MG / ML 1ML Vial IV PRN (15:40)
[2024-08-24] MEDS ORDERED: Ondansetron HCl 2 MG / ML 2ML Vial IV PRN ×2 (15:40)
[2024-08-24] MEDS ORDERED: NS KCl 20mEq 1,000 ML IV SCH ×2 (15:40)
--- NOTE | 2024-08-24 15:54 | NUR ---
NERVE BLOCK COMPLETED BY ANESTHESIA. PT TOLERATED WELL. PT HR AND O2 MONITORED DURING BLOCK. DURING BLOCK PT WAS PLACED ON 2LO2NC. TELE PLACED IN PACU. PT'S PHONE IN BAG WITH PT'S NAME ON IT PLACED UNDER MACK.
[2024-08-24] MEDS ORDERED: ePHEDrine Sulfate 50 MG/ML 1ML Injection ONE (16:19)
--- NOTE | 2024-08-24 17:02 | NUR ---
08/24/24 170 Candido Lemus 20GA IV PLACED IN THE LEFT WRIST BY DR. PHIPPS UPON ARRIVAL TO THE OR. CANDIDO BUCKLEY RN
[2024-08-24] MEDS ORDERED: Ondansetron HCl 2 MG / ML 2ML Vial ONE (17:03)
[2024-08-24] MEDS ORDERED: Dexamethasone Sod Phos 10 MG/ML 1ML VIAL ONE (17:03)
[2024-08-24] MEDS ORDERED: Phenylephrine HCl 10mg/ml 1 ml Vial ONE (17:04)
--- NOTE | 2024-08-24 18:15 | NUR ---
SHIFT SUMMARY: PATIENT BACK FROM SURGERY AT 1745. ALERT AND ORIENTED. COMPLAINS OF LEFT FOOT PAIN. ABLE TO STAND AND TRANSFER TO BED. POST OP VITAL SIGNS IN PROGRESS. IV FLUIDS INFUSING AT THIS TIME. PATIENT EATING DINNER. RIGHT ARM IN SLING. DRESSING C/D/I. ABLE TO MOVE HIS RIGHT HAND AND WIGGLE FINGERS. IV ABX INFUSED IN OR. CALL LIGHT IN REACH.
--- NOTE | 2024-08-24 18:51 | NUR ---
IV SALINE LOCKED, FLUIDS ON STANDBY. PATIENT TOLERATING PO INTAKE.
[2024-08-24] MEDS ORDERED: Docusate Sodium 100 MG Cap PO SCH ×2 (21:00)
[2024-08-25 03:52] LABS: BASOPHILS ABSOLUTE AUTO 0.02 K/mm3 (0.00-0.23); BASOPHILS PERCENT AUTO 0 % (0-2); EOSINOPHILS PERCENT AUTO 0 % (0-6); Hematocrit 33.4 % (37.0-53.0); Hemoglobin 10.9 g/dL (13.5-17.5); IMMATURE GRAN ABSOLUTE AUTO 0.06 K/mm3 (0.00-0.10); IMMATURE GRAN PERCENT AUTO 1 % (0-1); LYMPHOCYTES ABSOLUTE AUTO 0.76 K/mm3 (0.84-5.20); LYMPHOCYTES PERCENT AUTO 8 % (21-46); MONOCYTES ABSOLUTE AUTO 0.32 K/mm3 (0.16-1.47); MONOCYTES PERCENT AUTO 3 % (4-13); Mean Corpuscular HGB Conc 32.6 g/dL (31.5-36.5); Mean Corpuscular Volume 95 fL (80-100); Mean Platelet Volume 8.2 fL (9.1-12.4); NEUTROPHILS ABSOLUTE AUTO 8.61 K/mm3 (1.96-9.15); NEUTROPHILS PERCENT AUTO 88 % (41-73); Platelet Count 375 K/mm3 (150-400); RDW Coefficient Variation 12.4 % (11.7-14.2); RDW Standard Deviation 42.6 fL (35.1-46.3); Red Blood Cell Count 3.52 M/mm3 (4.30-5.90); White Blood Cell Count 9.77 K/mm3 (4.00-11.30)
[2024-08-25 04:13] LABS: Bun/Creatinine Ratio 43.1 (12.0-20.0); C-REACTIVE PROTEIN, EXT RANGE 3.54 mg/dL (0.000-0.300); Calcium, Blood 8.1 mg/dL (8.5-10.1); Creatinine, Blood 0.74 mg/dL (0.60-1.20); Potassium, Blood 4.3 mmol/L (3.5-5.5)
[2024-08-25 04:17] VITALS: BP 150/95
--- NOTE | 2024-08-25 04:30 | NUR ---
SHIFT SUMMARY NO ACUTE CHANGES THIS SHIFT. VSS. AXO TO BASELINE. HAS RECEIVED 1 TAB LIBRIUM WITH VS ALONG WITH PAIN MEDS, EDUCATED THAT PT WILL BE TAPERING OFF THE LIBRIUM HIS W/DRAWAL WINDOW IS CLOSING. PT STATES 10/10 PAIN GENERALLY WHEN ASKED REGARDING HIS HAND/LEG, STATES MILD RELIEF WITH PO PAIN MED REGIMEN. PT HAS BEEN EATING SNACKS T/O SHIFT, DC'D FLUIDS PER MD ORDERS R/T PO TOLERANCE. R HAND REMAINS IN SLING AND DRESSINGS POST I&D, CAP REFIL <3 SEC TO THESE DIGITS. PT VOIDING WELL. REPOSITIONING SELF. HAS NOT BEEN IMPULSIVE THIS SHIFT FOR THIS RN. BED ALARM REMAINS ON. CALL LIGHT WITHIN REACH. BED IN LOW POSITION.
[2024-08-25 07:41] VITALS: BP 151/97
[2024-08-25] MEDS ORDERED: Enoxaparin 30 MG/0.3 ML SYR SC SCH (09:00)
[2024-08-25] MEDS ORDERED: Enoxaparin 40 MG/0.4 ML SYR SC SCH (09:00)
[2024-08-25 16:34] VITALS: BP 173/109
--- NOTE | 2024-08-25 16:34 | NUR ---
PT SUMMARY; REPORT GIVEN TO LISA JAMES, PT TRANSFERRED TO 327 ALL BELONGINGS SENT WITH THE PT. NO ACUTE CHANGE FOR THE SHIFT. VITALS STABLE. PAIN MEDS GIVEN A COUPLE TIMES WITH LIBRIUM PER PRT'S REQUESTS CIWA 4-8. PT HAS BEEN COOPERATIVE WITH [facility], DR GARCIA CAME BY TO SEE PT CHANGED DRESSINGS ON RIGHT ARM, ORDER TO CHANGE DAILY WITH HYDROGEN PEROXIDE AND COVER WITH GAUZE. PT REPORTS NUMBNESS ON 1-3RD DIGITALIS ON RIGHT HAND, CIRC CHECK GOOD EVENTUALLY AT LUNCH TIME NUMBNESS WENT AWAY. PT HAS BEEN URSING THE URINAL, AMBULATING TO THE BATHROOM SBA. NO OTHER ISSUES REPORTED. IV ABO COMPLETED FOR THE SHIFT. PT ACCOMPANIED VIA WHEELCHAIR FOR TRANSPORT
[2024-08-25] MEDS ORDERED: NS 250 ML IV PRN (17:40)
[2024-08-25 19:28] VITALS: BP 146/101
[2024-08-26 02:27] VITALS: BP 142/88
--- NOTE | 2024-08-26 03:58 | NUR ---
SHIFT SUMMARY NO ACUTE EVENTS DURING THIS SHIFT. CIWA SCORES OF 8 AND 5 DURING THIS SHIFT. LIBRIUM 50MG ADMIN.AT HS. PT REPORTS PAINLEVEL 10/10 ON RIGHT ARM/WRIST. MEDICATED PER EMAR. DRESSING CHANGE COMPLETED AT HS. MINIMAL SANGUINEOUS DRAINAGE NOTED ON THE DRESSING. IV ABX'S INFUSED ORDERED. HS B. BED AT THE LOWEST POSITION, CALL LIGHT W/I REACH. PT IS A/O X3-4, ABLE TO MAKE HIS NEEDS KNOWN AND COOPERATIVE WITH CARE.
[2024-08-26 07:19] VITALS: BP 165/99
--- NOTE | 2024-08-26 10:35 | NUR ---
DRESSING TO RIGHT WRIST CLEANBSED AND CHANGED AT START OF SHIFT PER WOUND CARE ORDERS WITH SOAP AND WATER.
[2024-08-26] MEDS ORDERED: HYDROmorphone HCl/Pf 1MG SYR IV PRN (12:50)
[2024-08-26] MEDS ORDERED: Allopurinol 100 MG Tab PO SCH (13:00)
[2024-08-26] MEDS ORDERED: Colchicine 0.6 MG TAB PO SCH (13:00)
[2024-08-26 15:14] VITALS: BP 158/100
[2024-08-26 19:20] VITALS: BP 159/108
--- NOTE | 2024-08-26 19:31 | NUR ---
PATIENT EARLIER THIS AFTERNOON HAD STATED PAIN WAS 10/10 WAS REQUESTING IV DILAUDID BUT THE NEW Q6 HOUR TIME FRAME HAD NOT GONE BY. NORCO WAS NOT AVAILABLE FOR ANOTHER HOUR. DR. YEN WAS NOTIFIED AND ORDERED TO GIVE NORCO NOW PATIENT WAS UPSET AT THIS AND STATED HE WAS THINKING HE WOULD JUST LEAVE. EDUCATED PATIENT THAT IF HE LEFT HE WOULD NEED TO SIGN OUT AGAINST MEDICAL ADVICE AND WOULD NOT HAVE ANY PAIN MEDICATION BEFORE HAND. PATIENT SETTLED AND REPORT GIVEN TO JACOB FARLEY. IV DILAUDID WAS GIVEN JUST PRIOR TO SHIFT CHANGE AND PATIENT WAS STARTING TO GET DRESSED AND AGAIN PATIENT WAS EDUCATED ON IF HE WANTS TO LEAVE THAT IS UP TO HIM BUT WE WOULD NEED TO REMOVE HIS IV FIRST. PATIENT VERBALLY AGREED.
--- NOTE | 2024-08-26 23:44 | NUR ---
NOC SHIFT SUMMARY FROM [id number] PT IS A/O X3-4, REORIENTED. INDEPENDENT WITHIN THE HOSPITAL ROOM, CONTINENT/PULLUPS IN PLACE. @HS PT REPORTS 7-8/10 RIGHT ARM PAIN. MEDICATED PER EMAR. HS B. NO OTHER CONCERNS OFFERED AT THIS TIME. BED AT THE LOWEST POSITION, CALL LIGHT WITHIN REACH. PT IS ABLE TO MAKE HIS NEEDS KNOWN AND IS COOPERATIVE WITH CARE.
[2024-08-27] MEDS ORDERED: NS 250 ML IV PRN (00:15)
[2024-08-27 02:23] VITALS: BP 156/97
[2024-08-27] MEDS ORDERED: Ipratropium/Albuterol SulF 2.5-0.5MG/3 ML Amp INH PRN (06:00)
[2024-08-27 06:07] LABS: BASOPHILS ABSOLUTE AUTO 0.05 K/mm3 (0.00-0.23); BASOPHILS PERCENT AUTO 0 % (0-2); EOSINOPHILS ABSOLUTE AUTO 0.17 K/mm3 (0.00-0.68); EOSINOPHILS PERCENT AUTO 2 % (0-6); Hematocrit 36.7 % (37.0-53.0); Hemoglobin 12.1 g/dL (13.5-17.5); IMMATURE GRAN ABSOLUTE AUTO 0.15 K/mm3 (0.00-0.10); IMMATURE GRAN PERCENT AUTO 1 % (0-1); LYMPHOCYTES ABSOLUTE AUTO 1.71 K/mm3 (0.84-5.20); LYMPHOCYTES PERCENT AUTO 15 % (21-46); MONOCYTES ABSOLUTE AUTO 0.56 K/mm3 (0.16-1.47); MONOCYTES PERCENT AUTO 5 % (4-13); Mean Corpuscular HGB 31.3 pg (26.0-34.0); Mean Corpuscular Volume 95 fL (80-100); NEUTROPHILS ABSOLUTE AUTO 8.78 K/mm3 (1.96-9.15); NEUTROPHILS PERCENT AUTO 77 % (41-73); NRBC ABSOLUTE 0.05 K/mm3 (0.00-0.02); NRBC Auto 0.4 /100 WBC (0.0-0.2); RDW Coefficient Variation 12.8 % (11.7-14.2); RDW Standard Deviation 43.7 fL (35.1-46.3); Red Blood Cell Count 3.87 M/mm3 (4.30-5.90); White Blood Cell Count 11.42 K/mm3 (4.00-11.30)
[2024-08-27 06:25] LABS: Bun/Creatinine Ratio 29.2 (12.0-20.0); C-REACTIVE PROTEIN, EXT RANGE 4.14 mg/dL (0.000-0.300); Calcium, Blood 8.6 mg/dL (8.5-10.1); Creatinine, Blood 0.75 mg/dL (0.60-1.20); Potassium, Blood 4.5 mmol/L (3.5-5.5)
--- NOTE | 2024-08-27 06:27 | NUR ---
SHIFT SUMMARY ASSUMED CARE OF PT AT 0115.PT A&O X4,DENIES PAIN,DENIES NUMBNESS/TINGLING,DENIES NAUSEA,DENIES SOB,DENIES NEEDS.IV VANCOMYCIN ADMINISTERED ORDERED.PT ABLE TO VOICE NEEDS,VSS.LEFT HAND IV INTACT.CALL LIGHT AND PT'S ITEMS WITHIN REACH.WILL CONTINUE TO MONITOR.
[2024-08-27 07:24] VITALS: BP 155/104
[2024-08-27 13:43] LABS: Vancomycin, Trough 17.7 ug/mL (5.0-10.0)
[2024-08-27] MEDS ORDERED: Dose Adjust by Pharmacy XX STA (13:44)
[2024-08-27 15:19] VITALS: BP 155/106
--- NOTE | 2024-08-27 16:42 | NUR ---
THIS RN WALKED IN ON PT ON PHONE WITH THE OFFICE OF GLORIA WAITE WHO PT REPORTS IS A SOCIAL AND DISABILITY SLASHER, PT REPORTING HE IS CONFUSED WHY HE HAS TO HAVE ANOTHER I&D COMPLETED AND THAT HE BELIEVES THE FIRST SURGEON DID NOT COMPLETE THE FIRST I&D CORRECTLY AND HE WOULD LIKE A SECOND OPINION. RN EDUCATED PT REGARDING MULTIPLE I&D CAN BE NORMAL TO CLEAR INFECTION AND OFFERED TO CALL SURGEON TO COME AND SPEAK WITH PT AND ANSWER ANY QUESTIONS, PT DENIES WANT TO TALK WITH SURGEON. RN INFORMS PT IT IS HIS RIGHT TO REQUEST SECOND OPINION OR REFUSE ANY CARE. PT MENTIONS SEVERAL TIMES "I NEED A DRINK" AND THAT HE WANTS TO LEAVE THE FACILITY. RN VERBALIZES RISKS OF LEAVING HOSPITAL INCLUDING RISK FOR INFECTION SPREADING RESULTING IN LOSS OF LIMB OR IF LEFT UNTREATED, PT VERBALIZES UNDERSTANDING. RN ENTERS PT ROOM AGAIN APPROX AN HOUR LATER, PT IS IN HIS STREET CLOTHES WITH SHOES ON FLOOR, PT DENIES THAT HE IS LEAVING AND THIS RN REQUESTS IF PT DECIDES TO LEAVE AMA THAT HE SIGNS FORM. PT STATES "IF I LEAVE I WILL NOT LEAVE EASY, AND I WILL NOT SIGN". CERTIFIED NURSES' AIDE ALYSHA NOTIFIED.
--- NOTE | 2024-08-27 18:06 | NUR ---
SHIFT SUMMARY NO ACUTE CHANGES T/O SHIFT. PT REAMINS A/Ox4, NONSENSICAL AT TIMES. PT REPORTS PAIN IN RIGHT HAND AND LEFT FOOT, TREATED PER EMAR. PLAN FOR I&D AGAIN TOMORROW, ORDERS IN FOR NPO AFTER MIDNIGHT. PT NOT HAPPY ABOUT NEEDING ADDITIONAL PROCEDURE TO CLEAR INFECTION - SEE PREVIOUS NOTE. DRESSING CHANGE COMPLETED BY THIS RN X1 DURING SHIFT AND AGAIN BY SURGEON COMPLETING SURGERY TOMORROW, PER SURGEON NO DRESSING CHANGE NEEDED ON NOC SHIFT. IV CURRENTLY SALINE LOCKED, PT INDEPENDENT IN ROOM. CURRENTLY DANGLING AT BEDSIDE EATING DINNER, CALL LIGHT WITHIN REACH.
--- NOTE | 2024-08-27 18:31 | NUR ---
PT CURRENTLY TRANSPORTED TO IMAGING FOR CT SCAN WITH CONTRAST.
[2024-08-27 20:27] VITALS: BP 173/102
[2024-08-27] MEDS ORDERED: HydrALAZINE HCl 20 MG / ML 1ML Vial IV PRN (21:30)
[2024-08-27] MEDS ORDERED: LORazepam 2 MG/ML 1ML Injection IV ONE (21:30)
[2024-08-27 23:57] VITALS: BP 165/94
[2024-08-28] VITALS (14 sets, daily range): BP systolic 119–171; BP diastolic 56–109
--- NOTE | 2024-08-28 03:54 | NUR ---
SHIFT SUMMARY ADMITTED FOR CELLULITIS OF RIGHT HAND. FULL CODE. PLAN IS FOR I&D OF RIGHT HAND. HE HAS BEEN NPO ORDERED. DR. RUSS IS ORTHO CONSULT. IV ANTIB RX ARE SCHEDULED. ACHS CBG'S - LOW SS. ADA/CARDIAC DIET. A&O X4, ANXIOUS. ON RA. INDEPENDENT. PAIN MEDICATION GIVEN THIS SHIFT, SEE EMAR. CT SCAN OF RIGHT HAND DONE ON PREVIOUS SHIFT. HX: HOMELESS, POLYSUBSTANCE ABUSE, CHF, DM2.
[2024-08-28 06:15] LABS: BASOPHILS ABSOLUTE AUTO 0.04 K/mm3 (0.00-0.23); BASOPHILS PERCENT AUTO 0 % (0-2); EOSINOPHILS ABSOLUTE AUTO 0.17 K/mm3 (0.00-0.68); EOSINOPHILS PERCENT AUTO 2 % (0-6); Hematocrit 36.1 % (37.0-53.0); Hemoglobin 11.8 g/dL (13.5-17.5); IMMATURE GRAN ABSOLUTE AUTO 0.12 K/mm3 (0.00-0.10); IMMATURE GRAN PERCENT AUTO 1 % (0-1); LYMPHOCYTES ABSOLUTE AUTO 1.74 K/mm3 (0.84-5.20); LYMPHOCYTES PERCENT AUTO 19 % (21-46); MONOCYTES ABSOLUTE AUTO 0.55 K/mm3 (0.16-1.47); MONOCYTES PERCENT AUTO 6 % (4-13); Mean Corpuscular HGB 30.7 pg (26.0-34.0); Mean Corpuscular HGB Conc 32.7 g/dL (31.5-36.5); Mean Corpuscular Volume 94 fL (80-100); Mean Platelet Volume 8.1 fL (9.1-12.4); NEUTROPHILS ABSOLUTE AUTO 6.57 K/mm3 (1.96-9.15); NEUTROPHILS PERCENT AUTO 72 % (41-73); Platelet Count 360 K/mm3 (150-400); RDW Coefficient Variation 12.9 % (11.7-14.2); Red Blood Cell Count 3.84 M/mm3 (4.30-5.90); White Blood Cell Count 9.19 K/mm3 (4.00-11.30)
[2024-08-28 06:54] LABS: Bun/Creatinine Ratio 24.6 (12.0-20.0); Calcium, Blood 9.1 mg/dL (8.5-10.1); Creatinine, Blood 0.69 mg/dL (0.60-1.20); Potassium, Blood 3.8 mmol/L (3.5-5.5)
[2024-08-28] MEDS ORDERED: Lactated Ringer's 1,000 ML IV ONE (09:24)
[2024-08-28] MEDS ORDERED: propofoL 20 ML IV ONE (12:37)
[2024-08-28] MEDS ORDERED: FentaNYL Citrate 50 MCG/ML 2 ML Injection ONE ×2 (12:38→14:04)
[2024-08-28] MEDS ORDERED: Lidocaine HCl 2% 20 ML MDV ONE (12:38)
--- NOTE | 2024-08-28 12:52 | NUR ---
PT IN PACU FOR PREOP, DR RUSS CONSULTED WITH PT AT 1248, ANESTHESIA CONSULTIN NOW.
[2024-08-28] MEDS ORDERED: Midazolam HCl 1MG / ML 2ML Vial ONE (12:56)
--- NOTE | 2024-08-28 13:48 | NUR ---
08/28/24 7116 Maureen Thompson NOTED: PT HAD STITCHES TO HIS RIGHT WRIST AND THUMB THAT WERE REMOVED PRIOR TO THE START OF SURGERY NOTED: PTS SCROTUM AND PENIS ARE SWOLLEN AND RED, AWARE
[2024-08-28] MEDS ORDERED: HydrALAZINE HCl 20 MG / ML 1ML Vial IV PRN (15:45)
--- NOTE | 2024-08-28 16:52 | NUR ---
SHIFT SUMMARY NO ACUTE CHANGES, PT REMAINS A/Ox4, VSS - POST OP VITALS BEING COMPLETED. PT HAD SECOND I&D COMPLETED TODAY. ARABELLA DRAIN X2 PER BITUMINOUS PAVING MACHINE OPERATOR WITH GAUZE AND GARY WRAP IN PLACE. PT REPORTS PAIN - TREATED PER EMAR. PT INDEPENDENT IN ROOM. USES CALL LIGHT APPROPRIATELY. NO LONGER NPO AND TOLERATING INTAKE WELL. PT CURRENTLY RESTING IN HOSPITAL BED LISTENING TO MUSIC, BED IN LOWEST POSITION AND CALL LIGHT WTIHIN REACH.
[2024-08-29 02:20] VITALS: BP 178/108
--- NOTE | 2024-08-29 02:54 | NUR ---
SHIFT SUMMARY AT MIDNIGHT PT DOWNSTAIRS W/O LETTING THE MEDICAL FLOOR STAFF KNOW THAT HE WENT FOR A WALK. PT WALKED BACK TO MEDICAL FLOOR WITH A REED FIXER. ONGOING EFFORTS TO EDUCATE THE PT R/T LETTING THE STAFF KNOW IF LEAVING THE UNIT/WALKING AROUND THE UNIT. PT DID NOT VERBALIZE UNDERSTANDING. PT STATES "I WENT TO GET SNACKS FROM THE VENDING MACHINE WITH MY CREDIT CARD, I GOT SOME SNACKS". MULTIPLE REQUESTS FOR SNACKS FROM THE PANTRY WELL T/O THIS SHIFT. HS B. PAIN 9-10/10 RIGHT ARM. MEDICATED PER EMAR. PT AWAKE MOST OF THIS SHIFT. HYDRAZALINE IV ADMINISTERED AFTER MORNING VITALS, 178/108. P.101. WILL RECHECK W/I AN HR. RIGHT ARM DRESSING REMAINS C/D/I. LEFT FOOT SWOLLEN, REDDNESS NOTED. BED AT THE LOWEST POSITION, CALL LIGHT W/I REACH. PT IS ABLE TO MAKE HIS NEEDS KNOWN.
[2024-08-29 04:10] VITALS: BP 123/72
[2024-08-29 06:03] LABS: BASOPHILS ABSOLUTE AUTO 0.04 K/mm3 (0.00-0.23); BASOPHILS PERCENT AUTO 0 % (0-2); EOSINOPHILS ABSOLUTE AUTO 0.21 K/mm3 (0.00-0.68); EOSINOPHILS PERCENT AUTO 2 % (0-6); Hematocrit 34.3 % (37.0-53.0); Hemoglobin 11.3 g/dL (13.5-17.5); IMMATURE GRAN ABSOLUTE AUTO 0.08 K/mm3 (0.00-0.10); IMMATURE GRAN PERCENT AUTO 1 % (0-1); LYMPHOCYTES PERCENT AUTO 16 % (21-46); MONOCYTES ABSOLUTE AUTO 0.78 K/mm3 (0.16-1.47); MONOCYTES PERCENT AUTO 7 % (4-13); Mean Corpuscular HGB Conc 32.9 g/dL (31.5-36.5); Mean Corpuscular Volume 94 fL (80-100); Mean Platelet Volume 8.2 fL (9.1-12.4); NEUTROPHILS ABSOLUTE AUTO 7.68 K/mm3 (1.96-9.15); NEUTROPHILS PERCENT AUTO 73 % (41-73); Platelet Count 332 K/mm3 (150-400); RDW Standard Deviation 44.6 fL (35.1-46.3); Red Blood Cell Count 3.64 M/mm3 (4.30-5.90); White Blood Cell Count 10.49 K/mm3 (4.00-11.30)
[2024-08-29 06:22] LABS: Bun/Creatinine Ratio 22.8 (12.0-20.0); C-REACTIVE PROTEIN, EXT RANGE 3.09 mg/dL (0.000-0.300); Calcium, Blood 8.6 mg/dL (8.5-10.1); Creatinine, Blood 0.79 mg/dL (0.60-1.20)
[2024-08-29 07:16] VITALS: BP 147/83
[2024-08-29] MEDS ORDERED: Naproxen 500 MG Tab PO PRN (12:20)
[2024-08-29] MEDS ORDERED: HYDROmorphone HCl/Pf 1MG SYR IV PRN (13:20)
[2024-08-29 15:56] VITALS: BP 121/82
--- NOTE | 2024-08-29 16:31 | NUR ---
REPORT RECEIVED VERIFIED PT A/O X4 C/O PAIN TO RIGHT HAND AND COVERED WITH PRN MEDICATION. PT IS INDEPENDANT IN ROOM AND CAN MAKE NEEDS KNOW NOW NOTED EVENTS
--- NOTE | 2024-08-29 16:32 | NUR ---
ASSISTED TO SHOWER. PT DRESSING TO RIGHT HAND CHANGED. SITE WAS CLEAN WITH NO EVIDENCE OF INFECTION. PICTURES TAKEN AND IN CHART. 3 DRAINS PRESENT WHEN DRESSING WAS REMOVED, ONE DRAIN WAS ALL THE WAY OUT OF SITE SO I REMOVED AND DISCARDED. WOUND WAS CLEANSED WITH NS MOLD CLOSER HELPER, COVERED WITH 4X4 KERLIX AND SHEEPSWOOL AND THEN COVERED WITH AN GARY WRAP. PT WAS THEN MEDICATED FOR PAIN
[2024-08-29 19:59] VITALS: BP 161/91
[2024-08-30 04:26] VITALS: BP 153/100
--- NOTE | 2024-08-30 04:54 | NUR ---
POLYGRAPH OPERATOR SUMMARY: NO ACUTE CHANGES T/O SHIFT. NO ADVERSE SIDE EFFECTS TO IV VANCO. A&O X4. MAKES NEEDS KNOWN. INDEPENDENT WITH CARES IN ROOM. VSS. CARES CONTINUE ORDERED. CALL LIGHT IN REACH.
[2024-08-30 07:06] VITALS: BP 170/114
[2024-08-30] MEDS ORDERED: Acetaminophen650 M1 PO (13:25)
[2024-08-30] MEDS ORDERED: ALLO100 PO (13:29)
[2024-08-30] MEDS ORDERED: BISA10S PR (13:29)
[2024-08-30] MEDS ORDERED: MITIGARE0.6 MG PO (13:31)
[2024-08-30] MEDS ORDERED: DOCU100 PO (13:32)
[2024-08-30] MEDS ORDERED: HYDR1TAB94 PO (13:33)
[2024-08-30] MEDS ORDERED: JARDIANCE10 MG PO (13:33)
[2024-08-30] MEDS ORDERED: NAPR500 PO (13:34)
[2024-08-30] MEDS ORDERED: LOSA50 PO (13:34)
[2024-08-30] MEDS ORDERED: METO25ER PO (13:34)
[2024-08-30] MEDS ORDERED: LINE600 PO (13:35)
[2024-08-30] MEDS ORDERED: VISBIOME 112.51 EACH PO (13:35)
[2024-08-30 13:37] LABS: Vancomycin, Trough 17.4 ug/mL (5.0-10.0)
[2024-08-30 14:33] VITALS: BP 164/98
--- NOTE | 2024-08-30 16:20 | NUR ---
PT DISCHARGED TO HOME. PT EDUCATED AND PROVIDED WITH DISCHARGE INSTRUCTIONS. DR. RUSS AT BEDSIDE PRIOR TO DISCHARGE TO CHANGE WOUND DRESSING TO THE RIGHT ARM. DR. RUSS RECOMMEND FOLLOW-UP APPOINTMENT ON FRIDAY. PT'S MOTHER AT BEDSIDE AT TIME OF DISCHARGE.
== END 2024-08-30 16:23 | disposition home health service (06) | DRG 854 ==
LOC: ER 05:34 → PCU 11:01 → MEDS 11:01 → PCU 12:30 → MEDS 08-25 16:35
PROVIDERS: Emergency Medicine; Internal Medicine; ADMIT Internal Medicine
PROC: 5A12012 Performance of Cardiac Output, Single, Manual (ICD-10-PCS; principal; 2024-08-21)
PROC: 3E03329 Introduction of Other Anti-infective into Peripheral Vein, Percutaneous Approach (ICD-10-PCS; 2024-08-21)
PROC: 0JDJ0ZZ Extraction of Right Hand Subcutaneous Tissue and Fascia, Open Approach (ICD-10-PCS; 2024-08-24)
DX: A41.9 Sepsis, unspecified organism (principal); F10.239 Alcohol dependence with withdrawal, unspecified; L03.113 Cellulitis of right upper limb; I50.22 Chronic systolic (congestive) heart failure; L02.511 Cutaneous abscess of right hand; I42.9 Cardiomyopathy, unspecified; J44.89 Other specified chronic obstructive pulmonary disease; M10.9 Gout, unspecified; M19.90 Unspecified osteoarthritis, unspecified site; G47.33 Obstructive sleep apnea (adult) (pediatric); E11.9 Type 2 diabetes mellitus without complications; F17.210 Nicotine dependence, cigarettes, uncomplicated; F15.10 Other stimulant abuse, uncomplicated; B95.62 Methicillin resistant Staphylococcus aureus infection as the cause of diseases classified elsewhere; I11.0 Hypertensive heart disease with heart failure; Z88.8 Allergy status to other drugs, medicaments and biological substances; Z79.51 Long term (current) use of inhaled steroids; Z91.018 Allergy to other foods
CPT/HCPCS: 0241U; 36415; 71045; 73200; 73201; 80048; 80053; 80202; 80320; 81003; 82947; 83605; 83735; 84100; 84145; 85025; 85027; 85651; 86140; 87040; 87070; 87071; 87075; 87077; 87147; 87186; 87205; 94640; 94664; 94760; 94762; 96361; 96365; 96367; 96375; 97110-CO; 97165; 99285-25; A9270; J0360; J0696; J1100; J1171; J1650; J1956; J2060; J2250; J2371; J2405; J2704; J2919; J3010; J3370; J3480; J7030; J7050; J7120; Q9967

== ENCOUNTER → 2024-09-23 | Outpatient (CLI) | payer MEDICARE, OTHER ==
[~2024-09-23] MED LIST changes: +Acetaminophen650 M1 PO; +BISA10S PR; +DOCU100 PO; +LINE600 PO; +LOSA50 PO; +METO25ER PO; +MITIGARE0.6 MG PO
== END ==
LOC: LAB 17:35 → LAB SHORT 17:35
DX: L03.113 Cellulitis of right upper limb (principal)
CPT/HCPCS: 87070; 87075; 87077; 87147; 87186; 87205

== ENCOUNTER 2024-10-03 09:00 | Inpatient (IN) | payer MEDICARE, OTHER ==
[~2024-10-03] VITALS: Ht 172.7 cm; Wt 66.8 kg
[2024-10-03] VITALS (35 sets, daily range): BP systolic 98–172; BP diastolic 72–122
[2024-10-03] MEDS ORDERED: Albuterol 2.5 MG/3 ML VIAL ONE (09:25)
[2024-10-03] MEDS ORDERED: Dexamethasone Sod Phos 10 MG/ML 1ML VIAL IV ONE (09:25)
[2024-10-03] MEDS ORDERED: Albuterol 2.5 MG/3 ML VIAL INH STA (09:32)
[2024-10-03] MEDS ORDERED: Magnesium Sulf 2 GM/Water 50ML 50 ML IV SCH (09:45)
[2024-10-03 09:49] LABS: BASOPHILS ABSOLUTE AUTO 0.08 K/mm3 (0.00-0.23); BASOPHILS PERCENT AUTO 1 % (0-2); EOSINOPHILS ABSOLUTE AUTO 0.47 K/mm3 (0.00-0.68); EOSINOPHILS PERCENT AUTO 4 % (0-6); Hematocrit 45.3 % (37.0-53.0); Hemoglobin 14.1 g/dL (13.5-17.5); IMMATURE GRAN ABSOLUTE AUTO 0.03 K/mm3 (0.00-0.10); IMMATURE GRAN PERCENT AUTO 0 % (0-1); LYMPHOCYTES ABSOLUTE AUTO 1.76 K/mm3 (0.84-5.20); LYMPHOCYTES PERCENT AUTO 16 % (21-46); MONOCYTES PERCENT AUTO 7 % (4-13); Mean Corpuscular HGB 30.1 pg (26.0-34.0); Mean Corpuscular HGB Conc 31.1 g/dL (31.5-36.5); Mean Corpuscular Volume 97 fL (80-100); Mean Platelet Volume 8.4 fL (9.1-12.4); NEUTROPHILS ABSOLUTE AUTO 7.81 K/mm3 (1.96-9.15); NEUTROPHILS PERCENT AUTO 72 % (41-73); Platelet Count 405 K/mm3 (150-400); RDW Coefficient Variation 14.4 % (11.7-14.2); RDW Standard Deviation 51.3 fL (35.1-46.3); Red Blood Cell Count 4.68 M/mm3 (4.30-5.90); White Blood Cell Count 10.85 K/mm3 (4.00-11.30)
[2024-10-03 10:12] LABS: Albumin/Globulin Ratio 0.6 (0.8-1.8); Bilirubin, Total 0.2 mg/dL (0.1-1.0); Calcium, Blood 8.5 mg/dL (8.5-10.1); Creatinine, Blood 0.76 mg/dL (0.60-1.20); Globulin, Blood 5.1 g/dL (2.2-4.0); Potassium, Blood 4.4 mmol/L (3.5-5.5); Total Protein, Blood 8.1 g/dL (6.4-8.2)
[2024-10-03 10:27] LABS: Base Excess Venous 5.8 mmol/L; Bicarbonate Venous 27.5 mmol/L (24.0-30.0); PCO2 Venous 75.3 mmHg (38-42)
[2024-10-03 10:28] LABS: pH Blood Venous 7.25 (7.34-7.37)
[2024-10-03] MEDS ORDERED: Ipratropium/Albuterol SulF 2.5-0.5MG/3 ML Amp INH SCH (11:45)
[2024-10-03] MEDS ORDERED: Insulin Human Lispro 100 Units/ML 3ML Syringe SC SCH ×2 (12:30→16:30)
[2024-10-03] MEDS ORDERED: FLU VACC TS2024-25(6MOS UP)/PF 45 MCG/0.5 ML SYRINGE IM ONE ×2 (14:00→16:15)
[2024-10-03 14:43] LABS: Influenza A, PCR NEGATIVE (NEGATIVE); Influenza B, PCR NEGATIVE (NEGATIVE); Resp Syncytial Virus, PCR NEGATIVE (NEGATIVE); SARS-Cov-2 (COVID-19) PCR, MMC NEGATIVE (NEGATIVE)
[2024-10-03] MEDS ORDERED: ChlordiazePOXIDE 25 MG Cap PO PRN ×2 (14:45→14:50)
[2024-10-03] MEDS ORDERED: Acetaminophen 325 MG TABLET PO PRN (14:45)
[2024-10-03] MEDS ORDERED: OxyCODONE HCL 5 MG TAB PO PRN (14:45)
[2024-10-03] MEDS ORDERED: LORazepam 2 MG/ML 1ML Injection IV PRN (14:45)
[2024-10-03] MEDS ORDERED: Thiamine HCl 100 MG in NS 50 ML IV SCH (14:49)
[2024-10-03] MEDS ORDERED: Folic Acid 1 MG in NS 50 ML IV SCH (14:49)
[2024-10-03] MEDS ORDERED: Azithromycin 500 MG in NS 250 ML IV SCH (15:34)
[2024-10-03] MEDS ORDERED: FentaNYL Citrate 50 MCG/ML 2 ML Injection IV PRN ×2 (15:50→16:00)
[2024-10-03] MEDS ORDERED: NS 250 ML IV PRN (16:00)
[2024-10-03] MEDS ORDERED: Vancomycin HCL 1,500 MG in NS 250 ML IV ONE (16:30)
--- NOTE | 2024-10-03 18:45 | NUR ---
Summary. Pt came to ICU on bipap at approximately 1330. Pt somnolent but arousable and oriented. PG placed for additional access. Ultrasound of wound on right hand completed. VS stable throughout afternoon, no acute events. See chart for further details.
[2024-10-03 19:43] LABS: Base Excess Venous 7.9 mmol/L; Bicarbonate Venous 28.7 mmol/L (24.0-30.0); PCO2 Venous 84.9 mmHg (38-42); pH Blood Venous 7.23 (7.34-7.37)
[2024-10-03 19:47] LABS: U Amphetamine Screen Not Detected; U Barbituate Screen Not Detected; U Benzodiazapine Screen Not Detected; U Buprenorphine Screen Not Detected; U Cannabinoids Screen Not Detected; U Cocaine Screen Not Detected; U Methadone Screen Not Detected; U Methamphetamine Screen DETECTED; U Opiates Screen Not Detected; U Oxycodone Screen Not Detected; U Phencyclidine Screen Not Detected
--- NOTE | 2024-10-03 19:47 | NUR ---
DR JARVIS NOTIFIED OF PT CRITICAL LAB VALUES
--- NOTE | 2024-10-03 19:54 | NUR ---
PT AGITATED, UDS POSITIVE FOR METH. DR JARVIS NOTIFIED. ORDERS GIVEN FOR PRECEDEX
[2024-10-03] MEDS ORDERED: dexmedeTOMIDine 100 ML IV SCH (19:55)
[2024-10-03] MEDS ORDERED: MethylPREDNISolone Sod Succ 125 MG Vial IV SCH (21:00)
[2024-10-03 21:55] LABS: Bicarbonate Venous 30.9 mmol/L (24.0-30.0); PCO2 Venous 61.4 mmHg (38-42); pH Blood Venous 7.36 (7.34-7.37)
[2024-10-04] VITALS (62 sets, daily range): BP systolic 90–138; BP diastolic 54–108
--- NOTE | 2024-10-04 01:18 | NUR ---
PT ASKED FOR A BREAK FROM BIPAP. PLACED ON 4L NC. PT STATES THAT HE HAS BEEN ON AN ETOH AND METHAMPHETAMINE BINGE FOR THE LAST SEVERAL DAYS. HE IS ORIENTED TO SELF AND PLACE BUT HAS SOME CONFUSION. HE STATES THAT HE IS HOUSELESS AND HASN'T EATEN IN SEVERAL DAYS. PT HAS TOLERATED NC AND I HAVE GIVEN HIM A SANDWICH AND SOMETHING TO DRINK. I HAVE ALSO MEDICATED HIM FOR ETOH W/DRAWALS
[2024-10-04 04:28] LABS: Base Excess Venous 8.9 mmol/L; Bicarbonate Venous 29.5 mmol/L (24.0-30.0); PCO2 Venous 90.2 mmHg (38-42); pH Blood Venous 7.22 (7.34-7.37)
--- NOTE | 2024-10-04 04:34 | NUR ---
CRITICAL PH CALLED TO DR FINCH. PT PLACED BACK ON BIPAP FROM MO.
[2024-10-04 04:35] LABS: BASOPHILS PERCENT AUTO 0 % (0-2); EOSINOPHILS PERCENT AUTO 0 % (0-6); Hematocrit 39.8 % (37.0-53.0); Hemoglobin 12.7 g/dL (13.5-17.5); IMMATURE GRAN ABSOLUTE AUTO 0.01 K/mm3 (0.00-0.10); IMMATURE GRAN PERCENT AUTO 0 % (0-1); LYMPHOCYTES PERCENT AUTO 7 % (21-46); MONOCYTES ABSOLUTE AUTO 0.03 K/mm3 (0.16-1.47); MONOCYTES PERCENT AUTO 1 % (4-13); Mean Corpuscular HGB 30.8 pg (26.0-34.0); Mean Corpuscular HGB Conc 31.9 g/dL (31.5-36.5); Mean Corpuscular Volume 97 fL (80-100); Mean Platelet Volume 8.6 fL (9.1-12.4); NEUTROPHILS ABSOLUTE AUTO 4.17 K/mm3 (1.96-9.15); NEUTROPHILS PERCENT AUTO 92 % (41-73); Platelet Count 381 K/mm3 (150-400); RDW Standard Deviation 49.3 fL (35.1-46.3); Red Blood Cell Count 4.12 M/mm3 (4.30-5.90); White Blood Cell Count 4.51 K/mm3 (4.00-11.30)
[2024-10-04] MEDS ORDERED: Potassium Phosphate Dibasic 30 MM in Dextrose 5% 500 ML IV ONE (04:55)
[2024-10-04 04:58] LABS: Albumin, Blood 2.7 g/dL (3.4-5.0); Albumin/Globulin Ratio 0.6 (0.8-1.8); Bilirubin, Total 0.2 mg/dL (0.1-1.0); Bun/Creatinine Ratio 37.2 (12.0-20.0); Calcium, Blood 7.9 mg/dL (8.5-10.1); Creatinine, Blood 0.75 mg/dL (0.60-1.20); Globulin, Blood 4.3 g/dL (2.2-4.0)
[2024-10-04] MEDS ORDERED: Vancomycin HCL 1,000 MG in NS 250 ML IV SCH (05:00)
[2024-10-04] MEDS ORDERED: Dextrose 50% 50 ML Vial IV ONE (05:15)
[2024-10-04] MEDS ORDERED: Insulin Regular 100 UNIT/ML 10ML Vial IV ONE (05:15)
[2024-10-04] MEDS ORDERED: Calcium Gluconate 10% 1,000 MG in NS 50 ML IV ONE (05:15)
--- NOTE | 2024-10-04 05:18 | NUR ---
CRITICAL POTASSIUM CALLED TO DR FINCH, SEE ORDERS
--- NOTE | 2024-10-04 06:19 | NUR ---
SHIFT SUMMERY PT CONTINUES ON BIPAP TOLERATING WELL AT THIS TIME. OXYGEN SAT 94%. SR ON THE MANAGER POOL. BP WNL. AFEBRILE. PRECEDEX ON SB, PT AROUSES TO STIMULI. SEE PRIOR NOTES THIS SHIFT
--- NOTE | 2024-10-04 06:45 | NUR ---
PT HAD SOME BELONGINGS THAT ARE W/SECURITY
[2024-10-04] MEDS ORDERED: Enoxaparin 40 MG/0.4 ML SYR SC SCH (09:00)
[2024-10-04 09:25] LABS: Albumin, Blood 2.8 g/dL (3.4-5.0); Albumin/Globulin Ratio 0.6 (0.8-1.8); Bilirubin, Total 0.3 mg/dL (0.1-1.0); Calcium, Blood 8.4 mg/dL (8.5-10.1); Creatinine, Blood 0.74 mg/dL (0.60-1.20); Globulin, Blood 4.5 g/dL (2.2-4.0); Potassium, Blood 5.3 mmol/L (3.5-5.5); Total Protein, Blood 7.3 g/dL (6.4-8.2)
[2024-10-04] MEDS ORDERED: Furosemide 10 MG/ML 4ML Vial IV STA (10:57)
[2024-10-04] MEDS ORDERED: FentaNYL Citrate 50 MCG/ML 2 ML Injection IV PRN (15:45)
--- NOTE | 2024-10-04 18:11 | NUR ---
Summary. Pt rested in bed throughout shift. Most of shift spent on Bipap with precedex infusing. Pt arousable, up eating dinner this evening. Pt painful and reporting severe withdrawal symptoms, somewhat alleviated by precedex. Prn pain meds used, see EMAR. No acute events this shift, see chart for further details.
[2024-10-04 18:35] LABS: Base Excess Venous 9.8 mmol/L; Bicarbonate Venous 30.1 mmol/L (24.0-30.0); PCO2 Venous 89.5 mmHg (38-42); pH Blood Venous 7.23 (7.34-7.37)
[2024-10-05] VITALS (30 sets, daily range): BP systolic 105–152; BP diastolic 42–104
[2024-10-05] MEDS ORDERED: Insulin Human Lispro 100 Units/ML 3ML Syringe SC SCH
[2024-10-05 03:53] LABS: BASOPHILS PERCENT AUTO 0 % (0-2); EOSINOPHILS PERCENT AUTO 0 % (0-6); Hematocrit 34.4 % (37.0-53.0); Hemoglobin 10.8 g/dL (13.5-17.5); IMMATURE GRAN ABSOLUTE AUTO 0.03 K/mm3 (0.00-0.10); IMMATURE GRAN PERCENT AUTO 0 % (0-1); LYMPHOCYTES ABSOLUTE AUTO 0.31 K/mm3 (0.84-5.20); LYMPHOCYTES PERCENT AUTO 4 % (21-46); MONOCYTES ABSOLUTE AUTO 0.18 K/mm3 (0.16-1.47); MONOCYTES PERCENT AUTO 2 % (4-13); Mean Corpuscular HGB 30.4 pg (26.0-34.0); Mean Corpuscular HGB Conc 31.4 g/dL (31.5-36.5); Mean Corpuscular Volume 97 fL (80-100); NEUTROPHILS ABSOLUTE AUTO 7.93 K/mm3 (1.96-9.15); NEUTROPHILS PERCENT AUTO 94 % (41-73); Platelet Count 386 K/mm3 (150-400); RDW Standard Deviation 50.3 fL (35.1-46.3); Red Blood Cell Count 3.55 M/mm3 (4.30-5.90); White Blood Cell Count 8.45 K/mm3 (4.00-11.30)
[2024-10-05 04:23] LABS: Albumin, Blood 2.5 g/dL (3.4-5.0); Albumin/Globulin Ratio 0.7 (0.8-1.8); Bilirubin, Total 0.2 mg/dL (0.1-1.0); Bun/Creatinine Ratio 41.1 (12.0-20.0); Calcium, Blood 7.9 mg/dL (8.5-10.1); Creatinine, Blood 0.85 mg/dL (0.60-1.20); Globulin, Blood 3.7 g/dL (2.2-4.0); Potassium, Blood 6.1 mmol/L (3.5-5.5); Total Protein, Blood 6.2 g/dL (6.4-8.2)
[2024-10-05 04:27] LABS: Vancomycin, Trough 18.2 ug/mL (5.0-10.0)
[2024-10-05 05:38] LABS: Albumin, Blood 2.5 g/dL (3.4-5.0); Albumin/Globulin Ratio 0.7 (0.8-1.8); Bilirubin, Total 0.2 mg/dL (0.1-1.0); Bun/Creatinine Ratio 38.9 (12.0-20.0); Calcium, Blood 8.3 mg/dL (8.5-10.1); Creatinine, Blood 0.85 mg/dL (0.60-1.20); Globulin, Blood 3.7 g/dL (2.2-4.0); Potassium, Blood 5.1 mmol/L (3.5-5.5); Total Protein, Blood 6.2 g/dL (6.4-8.2)
--- NOTE | 2024-10-05 05:40 | NUR ---
SHIFT SUMMARY PATIENT SLEPT MOST OF NIGHT, WHEN AWAKE TAKES BIPAP OFF TO EAT. BIPAP ONLY OFF FOR AABOUT 3 HOURS TOTAL. A&O X4 WHEN AWAKE BUT WHEN SLEEPING ONLY OPENS EYES TO NAME. USES BEDSIDE URINAL. SBP 120-130'S AND HR 80-90'S. BIPAP SETTINGS @14/18/35%. WHEN BIPAP IS OFF HAS NC ON WITH O2 @4L. LEFT UPPER ARM POWERGLIDE AND L WRIST 20G PERIPHERAL. PRECEDEX RUNNING @ 0.4MCG. 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 CALL LIGHT WITHIN REACH.
--- NOTE | 2024-10-05 08:30 | NUR ---
START OF SHIFT THIS NURSE ASSUMED CARE AT APPROXIMATELY 0745. PT DENIES ANY PAIN. PT ATE BREAKFAST AND PLACED BACK ON BIPAP WITH PRECEDEX GTT. WILL CONTINUE WITH THE PLAN OF CARE.
[2024-10-05] MEDS ORDERED: Furosemide 10 MG/ML 4ML Vial IV ONE (10:37)
[2024-10-05] MEDS ORDERED: Empagliflozin 10 MG TAB PO SCH (11:00)
--- NOTE | 2024-10-05 14:25 | NUR ---
Spiritual care visit conducted. Patient is sitting up in bed and eating. He tells me about his medical problems and his personal issues. I provided therapeutic listening and prayer. Patient expressed gratitude for the prayer. I will continue to remain available to patient and family.
--- NOTE | 2024-10-05 15:28 | NUR ---
Spoke with pt's mom Chelo by phone. She states she wasn't aware pt was in the hospital. She states she helped him the last time he was here last month in August. She states she invited him to stay at her home, but he instead chose to stay in a hotel. She states her son will always be welcome in her home, but he has remained non-compliant. Attempted to speak to pt, but he is currently on bipap and sedated. Will attempt to speak with him again tomorrow regarding code status, and plan of care. manager of training, bedside RN are aware.
--- NOTE | 2024-10-05 18:05 | NUR ---
SHIFT SUMMARY PT HIGHEST CIWA 30, TREATED WITH MEDS ON EMAR. THE MOM WAS UPDATED BY PALLIATIVE CARE AND THIS NURSE. PT REMAINS ON 0.5 OF PRECEDEX. NO FURTHER COMPLAINTS OR CONCERN AT THIS TIME. WILL CONTINUE WITH THE PLAN OF CARE.
[2024-10-06] VITALS (28 sets, daily range): BP systolic 123–178; BP diastolic 84–117
--- NOTE | 2024-10-06 05:46 | NUR ---
SHIFT SUMMARY PATIETN SLEPT OFF AND ON THROUGH SHIFT. PATIENT WORE BIPAP OFF AND ON THROUGH SHIFT. PATIENT ATE ALOT OF FOOD THROUGH OUT SHIFT. A&O X3, CIWA'S 19-12 THROUGH SHIFT. SBP 130-140'S AND HR 80-90'S. BIPAP SETTING 14/18/30%. P[ATEINT HAD LEFT UPPER ARM POWERGLIDE WITH PRECEDEX 0.5 INFUSING. PATIENT WALKED TO TOILET IN ROOM TO HAVE A BOWELMENT AND USES BEDSIDE URINAL. LINENS AND GOWN WERE CHANGED. WHEN BIPAP IS NOT ON PATIENT USES 2-3L OF O2 VIA NC. CALL LIGHT WITHIN REACH.
[2024-10-06] MEDS ORDERED: Insulin Human Lispro 100 Units/ML 3ML Syringe SC SCH (07:30)
[2024-10-06] MEDS ORDERED: Metoprolol Succinate 25 MG TABCR PO SCH (09:00)
[2024-10-06] MEDS ORDERED: Empagliflozin 10 MG TAB PO SCH (09:00)
--- NOTE | 2024-10-06 09:30 | NUR ---
AM NOTE... ASSUMED CARE OF PT AT 0700, PT IS ON A PRECEDEX GTT RUNNING AT 0.6MCG/KG/HR. PT IS A&Ox4, ELIE BOB THIS AM WAS 12. PT IS ON 2.5 L NC WITH O2 SATS>90% L/S COARSE RHONCHI WITH WHEEZES T/O. BT PRESENT AND HYPERACTIVE, PT HAS HAD MULTIPLE BMs SO FAR THIS SHIFT. PT IS CALM AND RELAXED ON THE BED AND ASKS FREQUENTLY FOR ATIVAN AND PAIN MEDICATIONS AND WILL QUICKLY FALL BACK ASLEEP. PT IS ABLE TO USE THE URINAL IN THE BED AND SBA TO THE TOILET FOR BMs.
[2024-10-06] MEDS ORDERED: Thiamine HCl 100 MG Tab PO SCH (09:40)
[2024-10-06] MEDS ORDERED: Folic Acid 1 MG TAB PO SCH (09:40)
[2024-10-06] MEDS ORDERED: OxyCODONE HCL 5 MG TAB PO PRN (13:45)
[2024-10-06] MEDS ORDERED: DEXTROMETHORPHAN/BENZOCAINE 1 EACH LOZENGE MT PRN (15:35)
--- NOTE | 2024-10-06 17:10 | NUR ---
Spiritual care visit conducted. We had a lengthy visit covering everthing from his medical issues to addiction recovery to family unit complication. Patient expresses desire to live a healthier life and his need for support from family, friends and his higher power. He voices his graitude to be alive and talks about his hope not to misuse a second chance. He voices his appreciation for this buyer liaison's higher power and welcomes power. He is tearful after the prayer and displays evidence of being encouraged and of having greater peace. I will citlaly to remain available to patient and family.
--- NOTE | 2024-10-06 18:51 | NUR ---
SHIFT SUMMARY.... NO ACUTE NEGATIVE CHANGES NOTED THIS SHIFT. PT'S CIWA'S HAVE BEEN 0-24 PT WAS MEDICATED TWICE WITH PO LIBRIUM 50MG-100MG WITH GOOD EFFECTS. PT'S O2 HAS BEEN TITRATED DOWN TO 2L NC. PRECEDEX GTT HAS BEEN OFF SINCE 1230. PT HAS BEEN UP TO THE TOILET TO HAVE MULITPLE BMs T/O THIS SHIFT. BED ALARM WAS TURNED ON BECAUSE THE PT WAS GETTING UP TO THE TOILET WITHOUT STAFF ASSIST. PT HAS NOT NEEDED THE BIPAP ALL SHIFT. WILL GIVE REPORT TO ONCOMING RN.
--- NOTE | 2024-10-06 20:30 | NUR ---
REPORT GIVEN TO EDER RN, PT TAKEN TO PCU VIA WHEELCHAIR W/BELONGINGS. PT W/NO ACUTE DISTRESS NOTED. OXYGEN VIA NC.
[2024-10-06] MEDS ORDERED: HydrALAZINE HCl 20 MG / ML 1ML Vial IV PRN (21:30)
[2024-10-07] VITALS (10 sets, daily range): BP systolic 115–182; BP diastolic 69–106
[2024-10-07 04:04] LABS: BASOPHILS ABSOLUTE AUTO 0.01 K/mm3 (0.00-0.23); BASOPHILS PERCENT AUTO 0 % (0-2); EOSINOPHILS PERCENT AUTO 0 % (0-6); Hematocrit 38.6 % (37.0-53.0); Hemoglobin 11.9 g/dL (13.5-17.5); IMMATURE GRAN ABSOLUTE AUTO 0.04 K/mm3 (0.00-0.10); IMMATURE GRAN PERCENT AUTO 0 % (0-1); LYMPHOCYTES ABSOLUTE AUTO 1.82 K/mm3 (0.84-5.20); LYMPHOCYTES PERCENT AUTO 16 % (21-46); MONOCYTES ABSOLUTE AUTO 0.93 K/mm3 (0.16-1.47); MONOCYTES PERCENT AUTO 8 % (4-13); Mean Corpuscular HGB 30.1 pg (26.0-34.0); Mean Corpuscular HGB Conc 30.8 g/dL (31.5-36.5); Mean Corpuscular Volume 98 fL (80-100); Mean Platelet Volume 8.4 fL (9.1-12.4); NEUTROPHILS ABSOLUTE AUTO 8.68 K/mm3 (1.96-9.15); NEUTROPHILS PERCENT AUTO 76 % (41-73); Platelet Count 454 K/mm3 (150-400); RDW Coefficient Variation 14.4 % (11.7-14.2); RDW Standard Deviation 52.1 fL (35.1-46.3); Red Blood Cell Count 3.95 M/mm3 (4.30-5.90); White Blood Cell Count 11.48 K/mm3 (4.00-11.30)
--- NOTE | 2024-10-07 04:23 | NUR ---
SHIFT SUMMARY. SHIFT HAS BEEN MOSTLY UNREMARKABLE. PT ARRIVED ON UNIT EARLY IN SHIFT FROM ICU. HAS BEEN AOX1-3 THROUGHOUT SHIFT. CIWAs HAVE BEEN HIGH 20, MEDICATED PER CIWA PROTOCOL ORDERS. PT MOSTLY COOPERATIVE/REDIRECTABLE BUT AT TIMES VERY DISORIENTED AND DIFFICULT TO REDIRECT. BED ALARM ACTIVE FOR SAFETY PATIENT HAS BEEN VERY IMPULSIVE. PT HAS NOT HAD PAIN THROUGHOUT SHIFT OUTSIDE OF CONSISTENT HEADACHE. VITALS HAVE BEEN STABLE OUTSIDE OF PT BEING HYPERTENSIVE EARLY IN SHIFT. SPOKE WITH DR. VINES WHO ORDERED HYDRALAZINE FOR MANAGEMENT, BP BETTER SINCE. RUNNING SINUS TACH THROUGHOUT MOST OF SHIFT, RATE SETTLING IN THE 90s-110s RANGE. PT HAS BEEN ON 3-4 L O2 VIA NC THROUGHOUT MOST OF SHIFT. BIPAP AT BEDSIDE, PT HAS BEEN ABLE TO TOLERATE ONLY VERY SPORADICALLY, WEARING AT THIS TIME. BED LOCKED IN LOWEST POSITION. CALL LIGHT LEFT WITHIN REACH. CONTINUING TO MONITOR.
[2024-10-07 04:24] LABS: Bun/Creatinine Ratio 39.2 (12.0-20.0); Calcium, Blood 8.4 mg/dL (8.5-10.1); Creatinine, Blood 0.87 mg/dL (0.60-1.20); Potassium, Blood 3.7 mmol/L (3.5-5.5)
--- NOTE | 2024-10-07 11:38 | NUR ---
DURING MY ASSESSMENT WHILE TALKING WITH PATIENT ABOUT HIS DESIRE FOR MEDICATIONS, IT IS NOTED THAT HIS PUPILS ARE UNEQUAL. THE LEFT IS LARGER THAN THE RIGHT BY 3MM, THE RIGHT IS A 2 AND THE LEFT IS A 5. THEY ARE BOTH REACTIVE, THERE IS NO CHANGE IN NEURO FROM EARLIER ASSESSMENT, ONLY THE PUPILS.
--- NOTE | 2024-10-07 13:06 | NUR ---
ZACH IS INSISTENT ON GETTING IN THE SHOWER, CONTINUES TO TRY TO GET UP. RUMEN ASKED TO ASSIST, HE TRIED TO GET IN THE SHOWER WITH HIS SWEATPANTS ON, TOLD DANISHA TO LEAVE. COUGH CONTINUES, OCC SOUNDS PRODUCTIVE, DENIES NEED TO SPIT IT OUT, EVIDENCE OF SWALLOWING. PT CONTINUES WITH LARGE INGUINAL HERNIA EVIDENCED EXTERNALLY. REMAINS IMPULSIVE.
[2024-10-07 17:17] LABS: Vancomycin, Trough 14.4 ug/mL (5.0-10.0)
--- NOTE | 2024-10-07 18:18 | NUR ---
ZACH HAS SLEPT ON AND OFF FOR THE MAJORITY OF THE SHIFT, HE HAS BEEN MEDICATED X 2 WITH ROXICODONE, MEDICATED WITH LIBRIUM SEVERAL TIMES. CIWA'S FROM 12-19. HE IS MORE VOCAL, MORE IMPULSIVE, ASKS FOR MEDS, "STRONGER MEDS". MOM WAS HERE TODAY, SHE HAS CONCERNS ABOUT HIM COMING HOME WITH HER SHE HAS DONE THAT BEFORE AND HE LEAVES. SHE FEELS HELPLESS. ENCOURAGEMENT GIVEN, WILL ASK THAT DC PLANNING AND CM SPEAK WITH HER TOMORROW.
[2024-10-07] MEDS ORDERED: LORazepam 2 MG/ML 1ML Injection IV PRN (19:25)
[2024-10-08 02:49] VITALS: BP 148/86
[2024-10-08 04:34] VITALS: BP 133/92
--- NOTE | 2024-10-08 04:38 | NUR ---
SHIFT SUMMARY. NO ACUTE CHANGES THROUGHOUT SHIFT. PT MENTATION HAS FLUCTUATED BETWEEN AOX1-3, PT AT TIMES REDIRECTABLE AND THEN AT OTHER TIMES VERY DIFFICULT TO REDIRECT, NOT PARTICIPATORY WITH CARE, ETC. HAS BEEN ABLE TO REST SPORADICALLY THROUGHOUT SHIFT. CIWA SCORES HAVE FLUCTUATED ANYWHERE BETWEEN 8-19. PT HAS BEEN ABLE TO TOLERATE THE BIPAP ONLY VERY SPORADICALLY, MORE OFTEN REFUSING OR PULLING IT OFF AFTER VERY BRIEF PERIOD. OTHERWISE PT HAS MAINTAINED ADEQUATE SATURATION ON 3 L O2 VIA NC. RUNNING SINUS WITH RATE IN THE 90s-110s THROUGHOUT SHIFT. BP HAS BEEN STABLE. PT HAS BEEN VERY UNSTEADY THROUGHOUT SHIFT, VERY OFTEN IMPULSIVE, VERY RARELY USING CALL LIGHT APPROPRIATELY. CONTINENT AT TIMES AND INCONTINENT AT OTHER TIMES. BED LOCKED IN LOWEST POSITION. CALL LIGHT LEFT WITHIN REACH. CONTINUING TO MONITOR.
[2024-10-08 07:48] VITALS: BP 134/84
[2024-10-08] MEDS ORDERED: Omeprazole 20 MG CapCR PO SCH (09:00)
[2024-10-08 12:46] VITALS: BP 131/80
--- NOTE | 2024-10-08 15:58 | NUR ---
SHIFT SUMMARY PATIENT AOX3 HE IS UNSURE OF THE DATE BUT HE DOES KNOW THE YEAR. HE IS ABLE TO MAKE HIS NEEDS KNOWN AND HIS VITAL ARE STABLE. HIS OXYGEN SATS ARE IN THE 90'S ON 3L NC AND HE DID GO ON THE BIPAP BEFORE LU[facility] TODAY. HIS CIWA SCORE IS STEADY AROUND 8 AND 9 AND IS BEING MEDICATED WITH HIS PRN LIBRIUM. THE PATIENT DOES CONTINUOUSLY ASK FOR FOOD. HE IS ABLE TO GET UP WITH A ONE ASSIST.
[2024-10-08 16:24] VITALS: BP 128/81
[2024-10-08 20:25] VITALS: BP 145/93
[2024-10-09] VITALS (7 sets, daily range): BP systolic 117–143; BP diastolic 78–108
[2024-10-09 05:34] LABS: BASOPHILS ABSOLUTE AUTO 0.01 K/mm3 (0.00-0.23); BASOPHILS PERCENT AUTO 0 % (0-2); EOSINOPHILS PERCENT AUTO 0 % (0-6); Hematocrit 39.2 % (37.0-53.0); Hemoglobin 11.7 g/dL (13.5-17.5); IMMATURE GRAN ABSOLUTE AUTO 0.04 K/mm3 (0.00-0.10); IMMATURE GRAN PERCENT AUTO 0 % (0-1); LYMPHOCYTES ABSOLUTE AUTO 0.52 K/mm3 (0.84-5.20); LYMPHOCYTES PERCENT AUTO 5 % (21-46); MONOCYTES ABSOLUTE AUTO 0.19 K/mm3 (0.16-1.47); MONOCYTES PERCENT AUTO 2 % (4-13); Mean Corpuscular HGB Conc 29.8 g/dL (31.5-36.5); Mean Corpuscular Volume 101 fL (80-100); Mean Platelet Volume 8.5 fL (9.1-12.4); NEUTROPHILS ABSOLUTE AUTO 9.16 K/mm3 (1.96-9.15); NEUTROPHILS PERCENT AUTO 92 % (41-73); Platelet Count 409 K/mm3 (150-400); RDW Coefficient Variation 14.2 % (11.7-14.2); RDW Standard Deviation 52.8 fL (35.1-46.3); White Blood Cell Count 9.92 K/mm3 (4.00-11.30)
[2024-10-09 05:53] LABS: Bun/Creatinine Ratio 30.8 (12.0-20.0); Calcium, Blood 7.8 mg/dL (8.5-10.1); Creatinine, Blood 0.84 mg/dL (0.60-1.20); Potassium, Blood 4.8 mmol/L (3.5-5.5)
--- NOTE | 2024-10-09 06:27 | NUR ---
SHIFT SUMMARY PATIENT ALERT AND ORIENTED X3. MEDICATED PER EMAR FOR PAIN AND FOR ALCOHOL WITHDRAWL. CONTINUES ON 3 LITERS O2 VIA NC, VITAL SIGNS STABLE. WILL CONTINUE TO MONITOR. CALL LIGHT WITHIN REACH.
[2024-10-09] MEDS ORDERED: PredniSONE 20 MG Tab PO SCH (09:00)
[2024-10-09] MEDS ORDERED: Ipratropium/Albuterol SulF 2.5-0.5MG/3 ML Amp INH PRN (09:55)
--- NOTE | 2024-10-09 18:57 | NUR ---
SHIFT SUMMARY PATIENT AOX3 HE IS UNSURE OF THE DATE BUT HE DOES KNOW THE YEAR. HE IS ABLE TO MAKE HIS NEEDS KNOWN AND HIS VITAL ARE STABLE. HIS OXYGEN SATS ARE IN THE 90'S ON 3L NC. HIS CIWA SCORE IS STEADY AROUND 8 AND 9 AND IS BEING MEDICATED WITH HIS PRN LIBRIUM. THE PATIENT DOES CONTINUOUSLY ASK FOR FOOD. HE IS ABLE TO GET UP WITH A ONE ASSIST.
--- NOTE | 2024-10-09 19:33 | NUR ---
ASSUMPTION OF CARE UPON INITIAL ENTRY IN PT ROOM, THIS RN WOKE PT AND INTRODUCED HERSELF AND PROCEEDED TO TAKE PT'S VITALS. PT AGREEABLE. UPON FINISHING VITALS AND ASSESSMENT, PT BECAME AGGRESSIVE, CURSING AT STAFF. APPEARS DELUSIONAL, EXCLAIMING THAT STUFF WAS "DIGGING THROUGH HIS SHIT." PT HAS CONTINUED TO ESCALATE DESPITE PRIMARY RN AND SUPERVISOR SINTERING PLANT EFFORTS. SECURITY HAS BEEN CALLED, CURRENTLY AT BEDSIDE ATTEMPTING TO DIFFUSE THE SITUATION. PT IS ADAMANT THAT PEOPLE HAVE BEEN GOING THROUGH/MESSING WITH HIS STUFF. REFUSING CARE AND REFUSING STAFF PRESENCE AT THIS TIME. UPDATES SITUATION PROGRESSES.
--- NOTE | 2024-10-09 19:59 | NUR ---
UPDATE: SITUATION DE-ESCALATED. PT CURRENTLY COMFORTABLE IN BED. STIMULATION DECREASED IN ROOM. COMPLIANT WITH SOME CARES.
[2024-10-10 04:19] VITALS: BP 121/89
[2024-10-10 06:51] LABS: BASOPHILS ABSOLUTE AUTO 0.01 K/mm3 (0.00-0.23); BASOPHILS PERCENT AUTO 0 % (0-2); EOSINOPHILS ABSOLUTE AUTO 0.04 K/mm3 (0.00-0.68); EOSINOPHILS PERCENT AUTO 0 % (0-6); Hematocrit 37.8 % (37.0-53.0); Hemoglobin 11.4 g/dL (13.5-17.5); IMMATURE GRAN ABSOLUTE AUTO 0.03 K/mm3 (0.00-0.10); IMMATURE GRAN PERCENT AUTO 0 % (0-1); LYMPHOCYTES ABSOLUTE AUTO 1.97 K/mm3 (0.84-5.20); LYMPHOCYTES PERCENT AUTO 19 % (21-46); MONOCYTES ABSOLUTE AUTO 0.65 K/mm3 (0.16-1.47); MONOCYTES PERCENT AUTO 6 % (4-13); Mean Corpuscular HGB 30.2 pg (26.0-34.0); Mean Corpuscular HGB Conc 30.2 g/dL (31.5-36.5); Mean Corpuscular Volume 100 fL (80-100); Mean Platelet Volume 8.4 fL (9.1-12.4); NEUTROPHILS ABSOLUTE AUTO 7.66 K/mm3 (1.96-9.15); NEUTROPHILS PERCENT AUTO 74 % (41-73); Platelet Count 383 K/mm3 (150-400); RDW Coefficient Variation 14.4 % (11.7-14.2); Red Blood Cell Count 3.77 M/mm3 (4.30-5.90); White Blood Cell Count 10.36 K/mm3 (4.00-11.30)
[2024-10-10 07:04] LABS: Albumin, Blood 2.7 g/dL (3.4-5.0); Albumin/Globulin Ratio 0.8 (0.8-1.8); Bilirubin, Total 0.1 mg/dL (0.1-1.0); Bun/Creatinine Ratio 36.5 (12.0-20.0); Calcium, Blood 7.8 mg/dL (8.5-10.1); Creatinine, Blood 0.79 mg/dL (0.60-1.20); Globulin, Blood 3.2 g/dL (2.2-4.0); Potassium, Blood 3.8 mmol/L (3.5-5.5); Total Protein, Blood 5.9 g/dL (6.4-8.2)
[2024-10-10 09:34] VITALS: BP 142/83
[2024-10-10 13:14] LABS: Base Excess Venous 19.6 mmol/L; Bicarbonate Venous 39.7 mmol/L (24.0-30.0); PCO2 Venous 71.6 mmHg (38-42)
[2024-10-10 14:08] LABS: U Amphetamine Screen Not Detected; U Barbituate Screen Not Detected; U Benzodiazapine Screen DETECTED; U Buprenorphine Screen Not Detected; U Cannabinoids Screen Not Detected; U Cocaine Screen Not Detected; U Methadone Screen Not Detected; U Methamphetamine Screen Not Detected; U Opiates Screen Not Detected; U Oxycodone Screen Not Detected; U Phencyclidine Screen Not Detected
[2024-10-10 16:47] LABS: Vancomycin, Trough 12.6 ug/mL (5.0-10.0)
--- NOTE | 2024-10-10 17:56 | NUR ---
PT A/OX3 ORIENTED TO SELF, PLACE, AND SITUATION. PT SPO2 >95% WITH 3L NC. VSS. PT TRIALED ON RA AND DESAT TO 80S. 3L NC CONTINUED AND MAINTAINED SPO2 >95%. ANXIOUS AND FORGETS TO CALL BEFORE GETTING UP. PT REEDUCATED TO USE CALL LIGHT BEFORE GETTING OUT OF BED. BED ALARM IS ON. PT USES URINAL AT BEDSIDE. BED IS LOW AND LOCKED AND CALL LIGHT WITHIN REACH.
[2024-10-11 04:20] LABS: BASOPHILS ABSOLUTE AUTO 0.01 K/mm3 (0.00-0.23); BASOPHILS PERCENT AUTO 0 % (0-2); EOSINOPHILS ABSOLUTE AUTO 0.01 K/mm3 (0.00-0.68); EOSINOPHILS PERCENT AUTO 0 % (0-6); Hematocrit 41.9 % (37.0-53.0); Hemoglobin 12.2 g/dL (13.5-17.5); IMMATURE GRAN ABSOLUTE AUTO 0.07 K/mm3 (0.00-0.10); IMMATURE GRAN PERCENT AUTO 1 % (0-1); LYMPHOCYTES ABSOLUTE AUTO 1.41 K/mm3 (0.84-5.20); LYMPHOCYTES PERCENT AUTO 12 % (21-46); MONOCYTES PERCENT AUTO 6 % (4-13); Mean Corpuscular HGB 30.3 pg (26.0-34.0); Mean Corpuscular HGB Conc 29.1 g/dL (31.5-36.5); Mean Corpuscular Volume 104 fL (80-100); Mean Platelet Volume 8.6 fL (9.1-12.4); NEUTROPHILS ABSOLUTE AUTO 9.27 K/mm3 (1.96-9.15); NEUTROPHILS PERCENT AUTO 81 % (41-73); Platelet Count 350 K/mm3 (150-400); RDW Coefficient Variation 14.5 % (11.7-14.2); RDW Standard Deviation 55.8 fL (35.1-46.3); Red Blood Cell Count 4.03 M/mm3 (4.30-5.90); White Blood Cell Count 11.47 K/mm3 (4.00-11.30)
[2024-10-11 04:44] LABS: Albumin, Blood 2.9 g/dL (3.4-5.0); Albumin/Globulin Ratio 0.9 (0.8-1.8); Bilirubin, Total 0.2 mg/dL (0.1-1.0); Bun/Creatinine Ratio 46.7 (12.0-20.0); Creatinine, Blood 0.64 mg/dL (0.60-1.20); Globulin, Blood 3.4 g/dL (2.2-4.0); Potassium, Blood 4.5 mmol/L (3.5-5.5); Total Protein, Blood 6.3 g/dL (6.4-8.2)
--- NOTE | 2024-10-11 05:45 | NUR ---
VSS THROUGHOUT NIGHT WEARING O2, SLEPT WELL UNTIL APPROXIMATELY 0515 2 RN ATTEMPTED TO INSERT IV BECAUSE PTS IV WAS REMOVED BY PT. 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
--- NOTE | 2024-10-11 06:45 | NUR ---
PT ABLE TO CALM DOWN NEW IV ACCESS OBTAINED AND IV ABX STARTED
[2024-10-11 07:16] VITALS: BP 156/87
[2024-10-11 16:17] VITALS: BP 110/75
--- NOTE | 2024-10-11 17:49 | NUR ---
PT IS A/OX3 TO PERSON, PLACE,AND SITUATION. PT IS ANXIOUS IN BED WITH OCCASIONALLY LETHARGY AND HARD TO WAKE UP. 3L NC WITH MAINTAINED SPO2 >90%. PT DESAT TO 40S WHILE DRINKING WATER AND EATING. PT FORGETFUL TO KEEP NC ON AND REEDUCATED PT REPORTS NO CHEST PAIN BUT SOB. PT ADVISED TO TAKE DEEP BREATHS AND TAKE BREAK FROM EATING AND DRINKING. SPO2 INCREASED BACK TO 90S. RESIDENT TEAM CONSULTED AND ORDERED SPEECH THERAPY CONSULT. CHEST XRAY COMPLETED AND SHOWED DEVIATION OF TRACHEA TO THE RIGHT. ULTRASOUND SHOWED NONOCCLUSIVE VENOUS THROMBUS IN BASILIC AND CEPHALIC VEIN OF LEFT ARM. RESIDENT TEAM ORDERED FOR COMPRESSION STOCKING ON LEFT ARM. TWO IVS BLOWN AND REMOVED. ULTRASOUND GUIDED IV PLACED IN RIGHT UPPER ARM. BED IS LOW AND LOCK AND BED ALARM ON.
[2024-10-11 19:31] VITALS: BP 145/85
[2024-10-12] MEDS ORDERED: Melatonin 5 MG Tablet PO ONE (02:50)
--- NOTE | 2024-10-12 04:13 | NUR ---
PT PLEASANT AT START OF SHIFT BUT AGAIN CONTINUES TO AWAKE TOWARDS END OF SHIFT (IE [phone]) AND SO FORTH. ABLE TO EAT SNACKS AND UTILIZE CALL LIGHT APPROPRIATELY AFTER BASIC INSTRUCTION AND REQUEST FOR HIM TO DO SO. PT NOT INCONTINENT AT THIS TIME. OXY AND TYLENOL PRN ADMINISTERED DURING SHIFT PER PT STATES HE IS HAVING PAIN, CALM AND COMFORTABLE ENVIRONMENT PROVIDED, HIS NEEDS MET AT ALL TIMES. PT IS REPORTING MISSING A SILVER PHONE, LAST NIGHT HE DID HAVE A SILVER AND BLACK PHONE (2 TOTAL) HOWEVER PT AWARE THAT HOSPITAL IS NOT RESPONSIBLE FOR LOST BELONGINGS. PT STATES HIS MOTHER VISITED "YESTERDAY" (IE. 10/11) AND WHEN ASKED IF PT'S MOTHER MAYBE ACCIDENTALLY TOOK PHONE PT DENIED IT. PT IS FIXATED ON HIS SECOND PHONE WHICH HE STATES IS A GOVT. PHONE. BACKPACK EMPTIED MULTIPLE TIMES BY PT, HE SAID IT WAS OKAY FOR THIS FIELD PROFESSIONAL (HIS NURSE) TO GO THROUGH BELONGINGS WELL WHILE HE WATCHED TO SEE IF THE SILVER PHONE WAS THERE. PROFESSOR OF HISTORICAL THEOLOGY ALSO ASSISTED PT, ALONG WITH SEVERAL OTHER RNS. THROUGHOUT SHIFT WELL. PT DOES BECOME AGITATED/RESTLESS AT TIMES, RESIDENT NOTIFIED DUE TO AM SHIFT REPORTING SIMILAR BEHAVIOR TOWARDS END OF SHIFT, AND NO MEDICATIONS GIVEN DUE TO PT SLEEPING AND NO ORDERS FOR MEDICATIONS REQUESTED BY RN MEDICATIONS REQUESTED BY THIS RN INCLUDED A LOW DOSE OF ORAL HALDOL/ZYPREXA/ATTARAX (SUGGESTED BY [employer]AL[employer]OVEMENT CONSULTANT TO RESIDENT). HOWEVER MD DID PRESCRIBE 5MG PO - PT HAS DEMONSTRATED ON AND OFF SLEEPING THE PAST SEVERAL DAYS, MELATONIN NOT ADMINISTERED AT TIME OF WHEN IT WAS PRESCRIBED DUE TO HIM BEING ASLEEP. MEDICATION WAS REQUESTED FOR A X1 FOR AGGRESSION/AGITATION/RESTLESSNESS THAT PT DEMONSTRATES BEFORE HIS AGITATION ESCELATES TO AGGRESSIVE BEHAVIORS/UNSAFE BEHAVIORS (IE. YELLING/SLAMMING THINGS/DROPPING BELONGINGS/YELLING AT STAFF/ATTEMPTING TO GET OUT OF BED). QUIET ENVIRONMENT AND REDUCED STIMULI ENCOURAGED. MORE IMPORTANTLY - O2 WEANED TO 2.5L VIA NC. WILL ATTEMPT TO WEAN TO 2L TOLERATING WELL WITH O2 ABOVE 92% HANGING MAINLY IN THE 93-97% SPO2 RANGE. DENIES SOB/CP, RRR AND UNLABORED, VSS.
--- NOTE | 2024-10-12 05:06 | NUR ---
PT ABLE TO TOLERATE DECREASE TO 2L O2 NC SATTING 94-95% CURRENTLY
[2024-10-12 08:08] VITALS: BP 153/77
[2024-10-12 09:29] LABS: BASOPHILS ABSOLUTE AUTO 0.02 K/mm3 (0.00-0.23); BASOPHILS PERCENT AUTO 0 % (0-2); EOSINOPHILS ABSOLUTE AUTO 0.01 K/mm3 (0.00-0.68); EOSINOPHILS PERCENT AUTO 0 % (0-6); Hematocrit 37.6 % (37.0-53.0); Hemoglobin 10.8 g/dL (13.5-17.5); IMMATURE GRAN ABSOLUTE AUTO 0.07 K/mm3 (0.00-0.10); IMMATURE GRAN PERCENT AUTO 0 % (0-1); LYMPHOCYTES ABSOLUTE AUTO 1.05 K/mm3 (0.84-5.20); LYMPHOCYTES PERCENT AUTO 6 % (21-46); MONOCYTES ABSOLUTE AUTO 1.32 K/mm3 (0.16-1.47); MONOCYTES PERCENT AUTO 8 % (4-13); Mean Corpuscular HGB 29.7 pg (26.0-34.0); Mean Corpuscular HGB Conc 28.7 g/dL (31.5-36.5); Mean Corpuscular Volume 103 fL (80-100); Mean Platelet Volume 8.8 fL (9.1-12.4); NEUTROPHILS ABSOLUTE AUTO 15.05 K/mm3 (1.96-9.15); NEUTROPHILS PERCENT AUTO 86 % (41-73); Platelet Count 262 K/mm3 (150-400); RDW Coefficient Variation 14.2 % (11.7-14.2); RDW Standard Deviation 54.3 fL (35.1-46.3); Red Blood Cell Count 3.64 M/mm3 (4.30-5.90); White Blood Cell Count 17.52 K/mm3 (4.00-11.30)
[2024-10-12 09:48] LABS: Alanine Aminotransfer (ALT/SGP 40 U/L (12-78); Albumin, Blood 2.8 g/dL (3.4-5.0); Albumin/Globulin Ratio 0.8 (0.8-1.8); Alk Phos 79 U/L (50-136); Anion Gap Unable to Calculate mmol/L (3-11); Aspartate Aminotrans (AST/SGOT 28 U/L (12-37); Bilirubin, Total 0.4 mg/dL (0.1-1.0); Blood Urea Nitrogen 21 mg/dL (8-24); Bun/Creatinine Ratio 35.3 (12.0-20.0); Chloride, Blood 89 mmol/L (98-108); Globulin, Blood 3.4 g/dL (2.2-4.0); Glomerular Filtration Rate 118 (60-); Glucose, Blood 158 mg/dL (70-99); Potassium, Blood 4.4 mmol/L (3.5-5.5); Sodium, Blood 133 mmol/L (136-145); Total Protein, Blood 6.2 g/dL (6.4-8.2)
[2024-10-12 09:49] LABS: CO2, Blood >45 mmol/L (21-32)
--- NOTE | 2024-10-12 10:08 | NUR ---
LET DR ORTEGA KNOW OF CRITICAL CO2 GREATER THAN 45. SHE ORDERED A VBG
[2024-10-12 10:57] LABS: Base Excess Venous 26.2 mmol/L; Bicarbonate Venous 46.4 mmol/L (24.0-30.0); pH Blood Venous 7.35 (7.34-7.37)
--- NOTE | 2024-10-12 11:17 | NUR ---
VBG UPDATE UPDATED DR ORTEGA OF THE VBG WITH CO2 OF 95. SHE WANTS TO CONTINUE TO MONITOR THE PATIENT ON 3L NC SATTING 96%
[2024-10-12 11:50] VITALS: BP 106/65
[2024-10-12] MEDS ORDERED: Piperacillin/Tazobactam Sod 4.5 GM in NS 100 ML IV SCH (12:00)
[2024-10-12 12:36] VITALS: BP 112/78
--- NOTE | 2024-10-12 12:38 | NUR ---
PATIENT UPDATE CALLED DR. RANDALL ABOUT PATIENT DIFFICULT TO AROUSE BUT AROUSABLE WITH STERNAL RUB. WILL COME SEE PATIENT AT BEDSIDE
--- NOTE | 2024-10-12 12:38 | NUR ---
PATIENT UPDATE CALLED DR. ORTEGA ABOUT PATIENT DIFFICULT TO AROUSE BUT ALL VITALS STABLE. SHE IS COMING BY TO SEE THE PATIENT
[2024-10-12] MEDS ORDERED: MethylPREDNISolone Sod Succ 125 MG Vial IV SCH ×2 (12:55→21:00)
--- NOTE | 2024-10-12 13:02 | NUR ---
PATIENT STATUS UPDATEDR. DR MARTIN AT BEDSIDE ORDERED THE PATIENT ON BIPAP AND REPEAT VBG DUE TO ELEVATED CO2 AND PATIENT SOLMULENT AND DIFFICULT TO AROUSE BUT STILL AROUSABLE WITH STERNAL RUB.
[2024-10-12] MEDS ORDERED: Albuterol 2.5 MG/3 ML VIAL INH ONE (13:05)
[2024-10-12] MEDS ORDERED: Albuterol 2.5 MG/3 ML VIAL INH SCH (13:15)
[2024-10-12] MEDS ORDERED: Ipratropium/Albuterol SulF 2.5-0.5MG/3 ML Amp INH SCH (13:15)
[2024-10-12 13:28] LABS: Base Excess Venous 27.9 mmol/L; Bicarbonate Venous 49.1 mmol/L (24.0-30.0); PCO2 Venous 60.4 mmHg (38-42); pH Blood Venous 7.53 (7.34-7.37)
[2024-10-12] MEDS ORDERED: Trimethoprim/Sulfamethoxazole DS Tab PO SCH (18:00)
[2024-10-12 18:12] VITALS: BP 102/76
[2024-10-12 19:27] VITALS: BP 155/81
--- NOTE | 2024-10-12 19:29 | NUR ---
SHIFT SUMMARY THIS MORNING PATIENT WAS WEAK SLEEPY AND ORIENTED X3 ABLE TO MAKE NEEDS. HE CHOKED ON SOME FOOD THIS MORNING SO HE WAS MADE NPO UNTIL SPEECH CAN REEVAL HIM. HE BECAME MORE LETHARGIC AND SOMULENT SO THE HOSPITALIST CAME AND SEEN HIM AT BEDSIDE AND ORDERED A VBG AND PUT HIM ON BIPAP. HIS REPEAT VBG SHOWED IMPROVEMENT AND WAS ABLE TO COME OFF BIPAP. HIS O2 SATS ON THE NC ON 2-3L IS GREATER THAN 92%. AT SHIFT CHANGE HE JUST COMPLAINS THAT HE WANTS TO EAT.
[2024-10-13 00:46] VITALS: BP 104/66
[2024-10-13 04:25] VITALS: BP 125/81
--- NOTE | 2024-10-13 06:57 | NUR ---
SHIFT SUMMARY: PT IS A&OX2-3, IRRITABLE BUT COOPERATIVE WITH CARES. VSS ON 2L HFNC, BIPAP WHEN ASLEEP. SR IN THE 80'S-90'S. C/O 9/10 PAIN TO HIS LEGS AND GENERALIZED AREA. MEDICATED WITH PRN TYLENOL, AND OXYCODONE PER EMAR. PT EATING AND DRINKING CONSTANTLY AT BEGINNING OF SHIFT. X1 ASSIST TO BR. PT VOIDING ADEQUATE AMOUNTS OF YELLOW URINE. PT HAD A BM THIS SHIFT, PT FLUSHED BEFORE THIS RN VISUALIZED. TOLERATING A CONS CARB DIET WITH A ROBUST APPETITE. BED IN LOWEST POSITION, CALL LIGHT WITHIN REACH. PT DOES NOT USE THE CALL LIGHT APPROPRIATELY, BED ALARM SET FOR PT'S SAFETY. PT FREQUENTLY YELLS OUT FOR THINGS HE WANTS, REMINDING HIM FREQUENTLY ABOUT USING THE CALL LIGHT. PT RECEIVED A NEW PIV TO RUE. CONTACT PRECAUTIONS MAINTAINED.
[2024-10-13 07:44] VITALS: BP 159/102
[2024-10-13 08:20] LABS: BASOPHILS ABSOLUTE AUTO 0.01 K/mm3 (0.00-0.23); BASOPHILS PERCENT AUTO 0 % (0-2); EOSINOPHILS PERCENT AUTO 0 % (0-6); Hematocrit 33.9 % (37.0-53.0); Hemoglobin 10.3 g/dL (13.5-17.5); IMMATURE GRAN ABSOLUTE AUTO 0.05 K/mm3 (0.00-0.10); IMMATURE GRAN PERCENT AUTO 1 % (0-1); LYMPHOCYTES ABSOLUTE AUTO 0.38 K/mm3 (0.84-5.20); LYMPHOCYTES PERCENT AUTO 4 % (21-46); MONOCYTES ABSOLUTE AUTO 0.23 K/mm3 (0.16-1.47); MONOCYTES PERCENT AUTO 2 % (4-13); Mean Corpuscular HGB 29.6 pg (26.0-34.0); Mean Corpuscular HGB Conc 30.4 g/dL (31.5-36.5); NEUTROPHILS ABSOLUTE AUTO 9.76 K/mm3 (1.96-9.15); NEUTROPHILS PERCENT AUTO 94 % (41-73); Platelet Count 248 K/mm3 (150-400); RDW Coefficient Variation 14.4 % (11.7-14.2); RDW Standard Deviation 51.2 fL (35.1-46.3); Red Blood Cell Count 3.48 M/mm3 (4.30-5.90); White Blood Cell Count 10.43 K/mm3 (4.00-11.30)
[2024-10-13 08:21] LABS: Mean Corpuscular Volume 97 fL (80-100)
[2024-10-13 08:42] LABS: Albumin, Blood 2.4 g/dL (3.4-5.0); Albumin/Globulin Ratio 0.8 (0.8-1.8); Bilirubin, Total 0.2 mg/dL (0.1-1.0); Creatinine, Blood 0.72 mg/dL (0.60-1.20); Globulin, Blood 3.2 g/dL (2.2-4.0); Potassium, Blood 4.5 mmol/L (3.5-5.5); Total Protein, Blood 5.6 g/dL (6.4-8.2)
[2024-10-13 12:07] VITALS: BP 127/78
--- NOTE | 2024-10-13 18:38 | NUR ---
SHIFT SUMMARY PATIENT AOX3 ABLE TO MAKE HIS NEEDS KNOWN. HE DENIES CHEST PAIN. HE DOES HAVE SOB WITH ACTIVITY. HIS 02 SATS ARE GREATER THAN 92% ON 2-3 L NC, HE DOES DESAT TO THE LOW 80'S ON LESS THAN 2L NC. HE DID USE THE BIPAP A FEW TIMES TODAY WHEN HE TOOK NAPS. HE WAS CALM AND COOPERATIVE TODAY. HE TOLERATED ALL HIS MEALS AND HAD NO DIFFICULTY SWALLOWING. HIS FAMILY DID COME VISIT TODAY.
[2024-10-13 19:56] VITALS: BP 153/91
--- NOTE | 2024-10-13 20:47 | NUR ---
ASSUMED CARE @1900 PT RESTING IN BED. LIGHTS DIMMED. VSS. ASSESMENT COMPLETED. PROVIDED SNACKS. BED ALARM ON. SEE ASSESMENT. 2100 MEDS GIVEN. RELINQUESHED CARE TO ANNABELLA Richmond RN @2047
--- NOTE | 2024-10-14 00:45 | NUR ---
LATE ENTRY ASSUMPTION OF CARE REPORT RECIEVED FROM SIRISHA JAMES. ASSUMED CARE OF PT AROUND 2100. PT A&O X4. PT COOPERATIVE TO CARE. HR IN THE 80'S, SINUS RHYTHM, DENIES CP/PRESSURE, NUMB/TINGLING, SBP STABLE. PT DESATS OCASSIONALLY TO THE MID 70'S. RECOVERS WITH DEEP BREATHING. RT TO BEDSIDE. PT PLACED ON NC, SLEEP STUDY IN PROGRESS. TO TIRATE OXYGEN UP IF O2 FALLS BELOW 88%. PT HAS URINAL AT BEDSIDE, USES INDEPENDENTLY. CALL LIGHT IN REACH.
[2024-10-14 04:22] VITALS: BP 162/100
[2024-10-14 04:57] VITALS: BP 168/99
--- NOTE | 2024-10-14 06:35 | NUR ---
SHIFT SUMMARY PT A&O X4, IRRITABLE AT TIMES, COOPERATIVE TO CARE. HR IN THE 80'S, SINUS RHYTHM, DENIES CP/PRESSURE, NUMB/TINGLING, SBP ELEVATED IN THE 150'S. O2 >90% ON 2L VIA NC. PT OFF BIPAP T/O NIGHT FOR SLEEP STUDY. PT COMPLETED SLEEP STUDY THIS AM. HE DENIES SOB AT THIS TIME. HE HAS AN OCASSIONAL COUGH, VERY SMALL AMOUNT OF SPUTUM. BREATHING IS EVEN AND UNLABORED. PT USING URINAL AT BEDSIDE, URINATING WELL. NO ACUTE CHANGES T/O SHIFT. CALL LIGHT IN REACH. WILL REPORT TO ONCOMING RN.
[2024-10-14 07:20] VITALS: BP 157/98
[2024-10-14 11:24] LABS: BASOPHILS ABSOLUTE AUTO 0.01 K/mm3 (0.00-0.23); BASOPHILS PERCENT AUTO 0 % (0-2); EOSINOPHILS PERCENT AUTO 0 % (0-6); Hematocrit 35.7 % (37.0-53.0); Hemoglobin 11.1 g/dL (13.5-17.5); IMMATURE GRAN ABSOLUTE AUTO 0.05 K/mm3 (0.00-0.10); IMMATURE GRAN PERCENT AUTO 1 % (0-1); LYMPHOCYTES PERCENT AUTO 4 % (21-46); MONOCYTES ABSOLUTE AUTO 0.28 K/mm3 (0.16-1.47); MONOCYTES PERCENT AUTO 3 % (4-13); Mean Corpuscular HGB 30.2 pg (26.0-34.0); Mean Corpuscular HGB Conc 31.1 g/dL (31.5-36.5); Mean Corpuscular Volume 97 fL (80-100); Mean Platelet Volume 9.1 fL (9.1-12.4); NEUTROPHILS ABSOLUTE AUTO 9.57 K/mm3 (1.96-9.15); NEUTROPHILS PERCENT AUTO 93 % (41-73); Platelet Count 249 K/mm3 (150-400); RDW Coefficient Variation 14.7 % (11.7-14.2); RDW Standard Deviation 53.1 fL (35.1-46.3); Red Blood Cell Count 3.67 M/mm3 (4.30-5.90); White Blood Cell Count 10.31 K/mm3 (4.00-11.30)
[2024-10-14 11:59] LABS: Albumin, Blood 2.8 g/dL (3.4-5.0); Albumin/Globulin Ratio 0.8 (0.8-1.8); Bilirubin, Total 0.2 mg/dL (0.1-1.0); Bun/Creatinine Ratio 33.3 (12.0-20.0); Creatinine, Blood 0.75 mg/dL (0.60-1.20); Globulin, Blood 3.6 g/dL (2.2-4.0); Potassium, Blood 4.5 mmol/L (3.5-5.5); Total Protein, Blood 6.4 g/dL (6.4-8.2)
[2024-10-14 16:59] VITALS: BP 133/106
--- NOTE | 2024-10-14 18:24 | NUR ---
SHIFT SUMMARY PATIENT A0X3 ABLE TO MAKE HIS NEEDS KNOWN HE IS COOPERATIVE AND TOLERATING HIS MEALS. HIS O2 SATS ARE GREATER THAN 92% ON 2L NC. HE HAD AN EPISODE OF STOOL INCONTINENCE TODAY ON THE WAY TO THE BATHROOM. HE IS ABLE TO TOLERATE ACTIVITY WITHIN HIS ROOM WITH JUST NASAL CANNULA ON 2L. HE DID NOT USE THE BIPAP ON MY SHIFT TODAY.
[2024-10-14 19:37] VITALS: BP 125/79
[2024-10-14] MEDS ORDERED: MethylPREDNISolone Sod Succ 125 MG Vial IV SCH (21:00)
--- NOTE | 2024-10-14 23:30 | NUR ---
LATE ENTRY TRANSFER SUMMARY PT ALERT, ORIETNED TO PLACE, SELF, AND SITUATION. PT IMPULSIVE AT TIMES AND GETS OUT OF BED WITHOUT CALLING. BED ALARM ON. HR IN THE 80'S, SR. HE DENIES CP/PRESSURE, NUMB/TINGLING, SBP STABLE. O2 >90% ON 2L VIA NC, HE DENIED SOB. PT HAD URINAL AT BEDSIDE, USED INDEPENDENTLY. PT HAD ROOM AVAILABLE ON MEDICAL FLOOR. REPORT GIVEN TO BONILLA JAMES. PTS BELONGINGS GATHERED. IV S/L. PT HAD A POCKET KNIFE IN LOCKED DRAW. GIVEN TO PCT TO GIVE TO RN UPSTAIRS. PT LEFT VIA WHEELCHAIR WITH PCT.
[2024-10-15 01:00] VITALS: BP 163/97
[2024-10-15 04:18] VITALS: BP 161/95
[2024-10-15 07:30] VITALS: BP 176/104
[2024-10-15 07:57] LABS: BASOPHILS ABSOLUTE AUTO 0.01 K/mm3 (0.00-0.23); BASOPHILS PERCENT AUTO 0 % (0-2); EOSINOPHILS PERCENT AUTO 0 % (0-6); Hematocrit 39.5 % (37.0-53.0); Hemoglobin 12.2 g/dL (13.5-17.5); IMMATURE GRAN ABSOLUTE AUTO 0.05 K/mm3 (0.00-0.10); IMMATURE GRAN PERCENT AUTO 1 % (0-1); LYMPHOCYTES ABSOLUTE AUTO 1.44 K/mm3 (0.84-5.20); LYMPHOCYTES PERCENT AUTO 15 % (21-46); MONOCYTES ABSOLUTE AUTO 0.62 K/mm3 (0.16-1.47); MONOCYTES PERCENT AUTO 6 % (4-13); Mean Corpuscular HGB 30.1 pg (26.0-34.0); Mean Corpuscular HGB Conc 30.9 g/dL (31.5-36.5); Mean Corpuscular Volume 98 fL (80-100); Mean Platelet Volume 8.9 fL (9.1-12.4); NEUTROPHILS ABSOLUTE AUTO 7.77 K/mm3 (1.96-9.15); NEUTROPHILS PERCENT AUTO 79 % (41-73); Platelet Count 252 K/mm3 (150-400); RDW Coefficient Variation 14.8 % (11.7-14.2); RDW Standard Deviation 54.1 fL (35.1-46.3); Red Blood Cell Count 4.05 M/mm3 (4.30-5.90); White Blood Cell Count 9.89 K/mm3 (4.00-11.30)
--- NOTE | 2024-10-15 08:17 | NUR ---
SHIFT SUMMARY PT ARRIVED TRANSFER FROM PCU APPROX 2345. 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 CHRONIC ETOH DEPENDENCY. PLAN IS FOR PT TO RECEIVE IV STEROIDS AND ANTIBIOTICS ON 10/15/24, THEN DC 10/16/24. PT BEGAN TO DESAT ON HIS CPAP. O2 DROPPED TO 84%. CALLED RT. PT HAD O2 BLEED-IN PLACED ON HIS CPAP.
[2024-10-15 08:25] LABS: Albumin, Blood 2.9 g/dL (3.4-5.0); Albumin/Globulin Ratio 0.8 (0.8-1.8); Bilirubin, Total 0.2 mg/dL (0.1-1.0); Calcium, Blood 8.2 mg/dL (8.5-10.1); Creatinine, Blood 0.79 mg/dL (0.60-1.20); Globulin, Blood 3.8 g/dL (2.2-4.0); Total Protein, Blood 6.7 g/dL (6.4-8.2)
[2024-10-15] MEDS ORDERED: IPRAT-ALBUT 0.5-3 ML INH (15:50)
[2024-10-15] MEDS ORDERED: SULFAMETHOXAZO1 EAC1 PO (15:56)
[2024-10-15] MEDS ORDERED: VISBIOME 112.51 EACH PO (15:57)
[2024-10-15] MEDS ORDERED: ALBU90OI INH (15:59)
[2024-10-15] MEDS ORDERED: AMOCLA875 PO (16:00)
[2024-10-15] MEDS ORDERED: Prednisone10 MG PO (16:02)
--- NOTE | 2024-10-15 16:34 | NUR ---
DISCHARGE PT AOX4, COOPERATIVE, ABLE TO MAKE NEEDS KNOWN. ON 2L O2 CURRENTLY. HOME ON OXYGEN. [place]GO NOTIFIED. WAS NOT ALERTED PT HAD POWERGLIDE IN RIGHT UPPER ARM, ALSO NO INTERVENTION DOCUMENTED. POWERGLIDE DC'D BY THIS RN WITHOUT COMPLICATION. PT WHEELED TO [facility] TO AWAIT FAMILY MEMBER FOR RIDE.
== END 2024-10-15 16:15 | disposition home health service (06) | DRG 189 ==
LOC: ER 09:00 → ICUE 11:40 → PCU 11:40 → ICUE 13:38 → PCU 10-06 20:39 → MEDS 10-14 22:14
PROVIDERS: Family Medicine; Hospitalist; Internal Medicine; Student in an Organized Health Care Education/Training Program; ADMIT Hospitalist
PROC: 5A09357 Assistance with Respiratory Ventilation, Less than 24 Consecutive Hours, Continuous Positive Airway Pressure (ICD-10-PCS; principal; 2024-10-03)
PROC: 3E02340 Introduction of Influenza Vaccine into Muscle, Percutaneous Approach (ICD-10-PCS; 2024-10-03)
PROC: 5A0935A Assistance with Respiratory Ventilation, Less than 24 Consecutive Hours, High Flow/Velocity Cannula (ICD-10-PCS; 2024-10-07)
DX: J96.21 Acute and chronic respiratory failure with hypoxia (principal); J18.9 Pneumonia, unspecified organism; G92.8 Other toxic encephalopathy; J44.1 Chronic obstructive pulmonary disease with (acute) exacerbation; Z59.00 Homelessness unspecified; I50.22 Chronic systolic (congestive) heart failure; L03.113 Cellulitis of right upper limb; F10.239 Alcohol dependence with withdrawal, unspecified; E87.1 Hypo-osmolality and hyponatremia; J44.0 Chronic obstructive pulmonary disease with (acute) lower respiratory infection; F05 Delirium due to known physiological condition; I82.612 Acute embolism and thrombosis of superficial veins of left upper extremity; E87.5 Hyperkalemia; F41.9 Anxiety disorder, unspecified; J96.22 Acute and chronic respiratory failure with hypercapnia; I11.0 Hypertensive heart disease with heart failure; F10.20 Alcohol dependence, uncomplicated; I27.20 Pulmonary hypertension, unspecified; F15.90 Other stimulant use, unspecified, uncomplicated; Z86.14 Personal history of Methicillin resistant Staphylococcus aureus infection; M10.9 Gout, unspecified; M19.90 Unspecified osteoarthritis, unspecified site; E11.65 Type 2 diabetes mellitus with hyperglycemia; G47.33 Obstructive sleep apnea (adult) (pediatric); F17.210 Nicotine dependence, cigarettes, uncomplicated; Z91.018 Allergy to other foods; Z88.8 Allergy status to other drugs, medicaments and biological substances; Z99.81 Dependence on supplemental oxygen; Z79.891 Long term (current) use of opiate analgesic; Z79.899 Other long term (current) drug therapy; Z23 Encounter for immunization
CPT/HCPCS: 0241U; 36415; 71045; 71046; 71260; 76870; 76882; 80048; 80053; 80202; 82565; 82803; 82947; 83880; 84484; 85025; 86140; 87040; 90656; 92610; 93005; 93010; 93306; 93971; 94640; 94644; 94660; 94664; 94761; 94762; 96365; 96375; 97110; 97116; 97161; 99285-25; A9270; C1751; J0360; J0456; J0612; J1100; J1650; J1815; J1940; J2060; J2543; J2919; J3010; J3370; J3411; J3475; J7050; J7512; J7799; Q9967

== ENCOUNTER 2025-01-23 14:33 | Inpatient (IN) | payer MEDICARE, MEDICAID ==
[~2025-01-23] VITALS: Ht 162.6 cm; Wt 67.5 kg
[~2025-01-23 14:33] MED LIST changes: +SULFAMETHOXAZO1 EAC1 PO
[2025-01-23] MEDS ORDERED: HYDROmorphone HCl/Pf 1MG SYR IV ONE ×2 (15:30→18:10)
[2025-01-23] MEDS ORDERED: Ondansetron HCl 2 MG / ML 2ML Vial IV ONE (15:35)
[2025-01-23 16:13] LABS: BASOPHILS ABSOLUTE AUTO 0.06 K/mm3 (0.00-0.23); BASOPHILS PERCENT AUTO 0 % (0-2); EOSINOPHILS ABSOLUTE AUTO 0.00 K/mm3 (0.00-0.68); EOSINOPHILS PERCENT AUTO 0 % (0-6); Hematocrit 47.2 % (37.0-53.0); Hemoglobin 15.4 g/dL (13.5-17.5); IMMATURE GRAN ABSOLUTE AUTO 0.06 K/mm3 (0.00-0.10); IMMATURE GRAN PERCENT AUTO 0 % (0-1); LYMPHOCYTES ABSOLUTE AUTO 0.94 K/mm3 (0.84-5.20); LYMPHOCYTES PERCENT AUTO 6 % (21-46); MONOCYTES ABSOLUTE AUTO 1.02 K/mm3 (0.16-1.47); MONOCYTES PERCENT AUTO 6 % (4-13); Mean Corpuscular HGB Conc 32.6 g/dL (31.5-36.5); Mean Corpuscular Volume 93 fL (80-100); NEUTROPHILS ABSOLUTE AUTO 14.32 K/mm3 (1.96-9.15); NEUTROPHILS PERCENT AUTO 87 % (41-73); NRBC ABSOLUTE 0.00 K/mm3 (0.00-0.02); NRBC Auto 0.0 /100 WBC (0.0-0.2); Platelet Count 324 K/mm3 (150-400); RDW Coefficient Variation 17.1 % (11.7-14.2); RDW Standard Deviation 58.5 fL (35.1-46.3)
[2025-01-23] MEDS ORDERED: NS 1,000 ML IV SCH (16:20)
[2025-01-23 16:43] LABS: Alanine Aminotransfer (ALT/SGP 25.0 U/L (12-78); Albumin, Blood 2.8 g/dL (3.4-5.0); Albumin/Globulin Ratio 0.5 (0.8-1.8); Anion Gap 6.0 mmol/L (3-11); Aspartate Aminotrans (AST/SGOT 25.0 U/L (12-37); Bilirubin, Total 0.4 mg/dL (0.1-1.0); Blood Urea Nitrogen 19.0 mg/dL (8-24); CO2, Blood 26.0 mmol/L (21-32); Calcium, Blood 8.8 mg/dL (8.5-10.1); Chloride, Blood 104.0 mmol/L (98-108); Creatinine, Blood 1.12 mg/dL (0.60-1.20); Globulin, Blood 5.5 g/dL (2.2-4.0); Glucose, Blood 163.0 mg/dL (70-99); Potassium, Blood 3.9 mmol/L (3.5-5.5); Sodium, Blood 132.0 mmol/L (136-145); Total Protein, Blood 8.3 g/dL (6.4-8.2)
[2025-01-23] MEDS ORDERED: CefTRIAXone Sodium 1,000 MG in NS 100 ML IV ONE (18:10)
[2025-01-23 19:23] LABS: Source, Urine Clean Catch
[2025-01-23 19:28] LABS: Bilirubin, Urine Neg (Neg); Color, Urine Yellow (P-Yellow); Glucose Qualitative, Urine Neg (Neg); Ketones, Urine Neg (Neg); Leukocyte Esterase, Urine Neg (Neg); Protein, Urine 2+ (Neg); Specific Gravity, Urine 1.015 (1.003-1.022); Urobilinogen, Urine 1+ (Normal)
[2025-01-23 19:36] LABS: Red Blood Cells, Urine 0-2 /hpf (0-2); White Blood Cells, Urine 0-2 /hpf (0-5)
[2025-01-23] MEDS ORDERED: EpiNEPhrine 1 MG/1 ML 1ML Vial ONE (20:08)
[2025-01-23] MEDS ORDERED: Ondansetron HCl 2 MG / ML 2ML Vial IV PRN (20:10)
[2025-01-23] MEDS ORDERED: Albuterol 2.5 MG/3 ML VIAL INH PRN (20:10)
[2025-01-23] MEDS ORDERED: HYDROmorphone HCl/Pf 1MG SYR IV PRN (20:10)
[2025-01-23] MEDS ORDERED: Phenylephrine HCl 100 MCG/ML-NS 10MLSYR (1MG/10ML) ONE (20:11)
[2025-01-23] MEDS ORDERED: Rocuronium Bromide 10 MG/ML 5ML Injection IV ONE (20:15)
[2025-01-23] MEDS ORDERED: FentaNYL Citrate 50 MCG/ML 2 ML Injection ONE (20:15)
[2025-01-23] MEDS ORDERED: Midazolam HCl 1MG / ML 2ML Vial ONE (20:15)
[2025-01-23] MEDS ORDERED: Bupivacaine 0.5% HCl 5 MG/ML 30MLVIAL ONE (20:26)
[2025-01-23] MEDS ORDERED: Heparin Sodium,Porcine 5,000 UNIT/0.5 ML SDV SC SCH (21:00)
[2025-01-23] MEDS ORDERED: Sugammadex Sodium 200 MG/2ML SDV (100 MG/ML) ONE (22:51)
[2025-01-23] MEDS ORDERED: Ipratropium/Albuterol SulF 2.5-0.5MG/3 ML Amp INH SCH (23:20)
[2025-01-23 23:30] VITALS: BP 114/103
[2025-01-23 23:45] VITALS: BP 183/133
[2025-01-24] VITALS (53 sets, daily range): BP systolic 74–161; BP diastolic 60–121
[2025-01-24 01:03] LABS: pH Blood Venous 7.37 (7.34-7.37)
[2025-01-24 03:25] LABS: BASOPHILS ABSOLUTE AUTO 0.02 K/mm3 (0.00-0.23); BASOPHILS PERCENT AUTO 0 % (0-2); EOSINOPHILS ABSOLUTE AUTO 0.00 K/mm3 (0.00-0.68); EOSINOPHILS PERCENT AUTO 0 % (0-6); Hematocrit 38.0 % (37.0-53.0); Hemoglobin 12.3 g/dL (13.5-17.5); IMMATURE GRAN ABSOLUTE AUTO 0.03 K/mm3 (0.00-0.10); IMMATURE GRAN PERCENT AUTO 0 % (0-1); LYMPHOCYTES ABSOLUTE AUTO 1.14 K/mm3 (0.84-5.20); LYMPHOCYTES PERCENT AUTO 11 % (21-46); MONOCYTES ABSOLUTE AUTO 0.88 K/mm3 (0.16-1.47); MONOCYTES PERCENT AUTO 8 % (4-13); Mean Corpuscular HGB Conc 32.4 g/dL (31.5-36.5); Mean Corpuscular Volume 94 fL (80-100); NEUTROPHILS ABSOLUTE AUTO 8.64 K/mm3 (1.96-9.15); NEUTROPHILS PERCENT AUTO 81 % (41-73); NRBC ABSOLUTE 0.00 K/mm3 (0.00-0.02); NRBC Auto 0.0 /100 WBC (0.0-0.2); Platelet Count 292 K/mm3 (150-400); RDW Coefficient Variation 17.2 % (11.7-14.2); RDW Standard Deviation 59.4 fL (35.1-46.3)
[2025-01-24 04:38] LABS: Magnesium, Blood 2.1 mg/dL (1.6-2.4)
[2025-01-24 04:39] LABS: Alanine Aminotransfer (ALT/SGP 18.0 U/L (12-78); Albumin, Blood 2.0 g/dL (3.4-5.0); Albumin/Globulin Ratio 0.5 (0.8-1.8); Anion Gap 5.0 mmol/L (3-11); Aspartate Aminotrans (AST/SGOT 18.0 U/L (12-37); Bilirubin, Total 0.2 mg/dL (0.1-1.0); Blood Urea Nitrogen 19.0 mg/dL (8-24); CO2, Blood 28.0 mmol/L (21-32); Calcium, Blood 7.5 mg/dL (8.5-10.1); Chloride, Blood 108.0 mmol/L (98-108); Creatinine, Blood 1.01 mg/dL (0.60-1.20); Globulin, Blood 4.2 g/dL (2.2-4.0); Glucose, Blood 118.0 mg/dL (70-99); Potassium, Blood 3.8 mmol/L (3.5-5.5); Sodium, Blood 137.0 mmol/L (136-145)
[2025-01-24 04:53] LABS: Total Protein, Blood 6.2 g/dL (6.4-8.2)
--- NOTE | 2025-01-24 06:09 | NUR ---
SHIFT SUMMARY RECEIVED PT FROM OR AT 2308, TRANSFERRED TO ICU BED ROOM 12, PT INTUBATED AND SEDATED ON ARRIVAL, RASS -5, AT 2345 RASS +1, NODS HEAD YES/NO APPROPRIATELY AND FOLLOWS COMMANDS. PROPOFOL GTT STARTED AND TITRATED FOR RASS -2, MEDICATED WITH DILAUDID 1 MG IVP PER EMAR FOR ABD PAIN, ST 104-115 BPM, SBP STABLE WITH MAP >65, AFEBRILE, ON VENT WITH SPO2 >95%, OG PATENT AND CONNECTED TO LIS WITH NOTED BROWN BILE RETURNED, SECURED TO ETT WITH PINK TAPE, ETT PATENT AND MEASURED AT 24 CM AT [facility], SECURED WITH COMMERCIAL TUBE ZUÑIGA, GROSS PATENT AND DRAINING TO GRAVITY, NOTED X4 INCISIONS TO ABD CLOSED WITH DURABOND, INNER TUBE INSERTER, NO DRAINAGE NOTED, WELL APPROXIMATED, ABD ROUND, FIRM WITH HYPOACTIVE BOWEL SOUNDS NOTED, AMIRA WRIST RESTRAINTS PLACED AT 2327, PT MEDICATED X 3 WITH DILAUDID FOR PAIN, NO DISTRESS NOTED AT THIS TIME, SIDE RAILS UP X3, BED IN LOW POSITION
[2025-01-24] MEDS ORDERED: Albuterol 2.5 MG/3 ML VIAL INH ONE (08:25)
[2025-01-24] MEDS ORDERED: Ipratropium/Albuterol SulF 2.5-0.5MG/3 ML Amp INH ONE (08:25)
[2025-01-24] MEDS ORDERED: CefTRIAXone Sodium 1,000 MG in NS 100 ML IV SCH (09:00)
[2025-01-24] MEDS ORDERED: Folic Acid 1 MG TAB PO SCH (09:00)
[2025-01-24] MEDS ORDERED: Multivitamins 1 Tab PO SCH (09:00)
--- NOTE | 2025-01-24 09:17 | NUR ---
Cameron of Care/Extubation: Care Assumed at 0700hr. Patient intubated and sedated with Propofol gtt at 50mcg/kg/min. Patient calm/sleeping at shift change, then quickly woke to become agitated. Able to follow commands and verbal re-direct, but ETT and vent remained his primary source of agitation. VSS, and other than coughing, tolerating vent without difficulty. Call placed to Dr. Zee at approx 0730hr. Received instructions to change vent to spontaneous mode, and proceed with extubation if both this RN and RT thought it appropriate. Vent then changed to PS of 7/5. Patient continued to have some agitation and coughing, but otherwise tolerated vent well. SPO2 remained 98% or greater. Both this RN and RT Darci felt patient was good candidate for extubation. Patient extubated at 0750hr, and now on 3L/NC. No s/s of respiratory distress. Spoke with Dr. Escobar at bedside this morning. Received instructions to remove NG and Martin cath tubes today. Also wrote for clear liquid diet as tolerated.
[2025-01-24] MEDS ORDERED: Polyethylene Glycol 3350 17 gm PO PRN (10:10)
--- NOTE | 2025-01-24 10:25 | NUR ---
PT GIVEN AM MEDICATIONS WITH WATER, PT STATES I AM GOING THROUGH WITHDRAWALS. I DRINK ALL DAY LONG AND I KNOW I AM WITHDRAWING. STATES HE HAS BEEN DRINKING EVERYDAY, ALL DAY SINCE HIS DAD . SAYS THAT IS HOW HE IS COPING WITH IT. REPORTED TO JACOB MARTÍNEZ
[2025-01-24] MEDS ORDERED: Albuterol 2.5 MG/3 ML VIAL INH SCH (10:35)
[2025-01-24] MEDS ORDERED: NS 250 ML IV PRN (17:05)
--- NOTE | 2025-01-24 18:13 | NUR ---
Shift Summary: Patient tolerating spontaneous breathing trial fairly well (occasional coughing) this morning. Patient then extubated to 3L/NC at approx 0750hr. Tolerates NC well when awake, but SpO2 decreased to low 80's when sleeping. Patient then placed on CPAP with 3L bleed-in, tolerated without difficulty and effective to manage SpO2 %. Placed on clear liquid diet per Dr. Escobar, tolerating well with good PO fluid intake. C/o abd pain effectively managed with x1 prn oxycodone and ox prn IV Dilaudid. ABD remains mild distention and firm, pain within proportion. BT's active throughout. Martin cath and NG tube also removed this shift per Dr. Escobar. Patient expressed long history of ETOH abuse and withdrawal, stating he always has a whiskey drink in his hand. Patient also expressed concern that he was starting to withdrawal from ETOH. Tremor and diaphoresis noted. Call placed to Dr. Belle, orders received for prn Librium. X2 doses given with good effect.
[2025-01-25] VITALS (15 sets, daily range): BP systolic 114–146; BP diastolic 78–102
[2025-01-25 03:19] LABS: BASOPHILS ABSOLUTE AUTO 0.02 K/mm3 (0.00-0.23); BASOPHILS PERCENT AUTO 0 % (0-2); EOSINOPHILS ABSOLUTE AUTO 0.08 K/mm3 (0.00-0.68); EOSINOPHILS PERCENT AUTO 1 % (0-6); Hematocrit 38.5 % (37.0-53.0); Hemoglobin 12.2 g/dL (13.5-17.5); IMMATURE GRAN ABSOLUTE AUTO 0.04 K/mm3 (0.00-0.10); IMMATURE GRAN PERCENT AUTO 0 % (0-1); LYMPHOCYTES ABSOLUTE AUTO 1.39 K/mm3 (0.84-5.20); LYMPHOCYTES PERCENT AUTO 14 % (21-46); MONOCYTES ABSOLUTE AUTO 0.94 K/mm3 (0.16-1.47); MONOCYTES PERCENT AUTO 10 % (4-13); Mean Corpuscular HGB Conc 31.7 g/dL (31.5-36.5); Mean Corpuscular Volume 98 fL (80-100); NEUTROPHILS ABSOLUTE AUTO 7.34 K/mm3 (1.96-9.15); NEUTROPHILS PERCENT AUTO 75 % (41-73); NRBC ABSOLUTE 0.00 K/mm3 (0.00-0.02); NRBC Auto 0.0 /100 WBC (0.0-0.2); Platelet Count 339 K/mm3 (150-400); RDW Coefficient Variation 17.1 % (11.7-14.2); RDW Standard Deviation 62.7 fL (35.1-46.3)
--- NOTE | 2025-01-25 06:34 | NUR ---
End of Shift Summary Pt CIWA score of 8 on last assessment. PRN medication utilized approximately Q4hr per EMR . No compliants of pain , voding per urinal , wore Bipap from midnight ti 0440. Declines gown . No other signficant events overnight.
[2025-01-25 08:04] LABS: Anion Gap 9.0 mmol/L (3-11); Blood Urea Nitrogen 24.0 mg/dL (8-24); CO2, Blood 31.0 mmol/L (21-32); Calcium, Blood 8.1 mg/dL (8.5-10.1); Chloride, Blood 101.0 mmol/L (98-108); Creatinine, Blood 0.99 mg/dL (0.60-1.20); Glucose, Blood 77.0 mg/dL (70-99); Magnesium, Blood 2.1 mg/dL (1.6-2.4); Phosphorus, Blood 3.5 mg/dL (2.5-4.9); Potassium, Blood 4.3 mmol/L (3.5-5.5); Sodium, Blood 137.0 mmol/L (136-145)
[2025-01-25] MEDS ORDERED: Lactobacil 2-S.Thermo-Bifido 1 1 Cap PO SCH (09:00)
--- NOTE | 2025-01-25 15:45 | NUR ---
ASSUMED CARE OF PATIENT AT 1545.
[2025-01-25] MEDS ORDERED: Ipratropium/Albuterol SulF 2.5-0.5MG/3 ML Amp INH SCH ×2 (16:45→17:35)
--- NOTE | 2025-01-25 18:52 | NUR ---
PT REPORTING 5/10 CHEST PAIN, SOME ST ELEVATION NOTED ON MCL, V, AVF. CALLED TO NOTIFY DR PATEL TELEPHONE ORDER FOR STAT EKG AND STAT TROPS
[2025-01-26] VITALS (10 sets, daily range): BP systolic 116–167; BP diastolic 88–116
[2025-01-26 03:23] LABS: BASOPHILS ABSOLUTE AUTO 0.00 K/mm3 (0.00-0.23); BASOPHILS PERCENT AUTO 0 % (0-2); EOSINOPHILS ABSOLUTE AUTO 0.00 K/mm3 (0.00-0.68); EOSINOPHILS PERCENT AUTO 0 % (0-6); Hematocrit 36.3 % (37.0-53.0); Hemoglobin 11.5 g/dL (13.5-17.5); IMMATURE GRAN ABSOLUTE AUTO 0.05 K/mm3 (0.00-0.10); IMMATURE GRAN PERCENT AUTO 1 % (0-1); LYMPHOCYTES ABSOLUTE AUTO 0.58 K/mm3 (0.84-5.20); LYMPHOCYTES PERCENT AUTO 6 % (21-46); MONOCYTES ABSOLUTE AUTO 0.30 K/mm3 (0.16-1.47); MONOCYTES PERCENT AUTO 3 % (4-13); Mean Corpuscular HGB Conc 31.7 g/dL (31.5-36.5); Mean Corpuscular Volume 96 fL (80-100); NEUTROPHILS ABSOLUTE AUTO 8.24 K/mm3 (1.96-9.15); NEUTROPHILS PERCENT AUTO 90 % (41-73); NRBC ABSOLUTE 0.00 K/mm3 (0.00-0.02); NRBC Auto 0.0 /100 WBC (0.0-0.2); Platelet Count 387 K/mm3 (150-400); RDW Coefficient Variation 16.7 % (11.7-14.2); RDW Standard Deviation 59.1 fL (35.1-46.3)
[2025-01-26 03:41] LABS: Anion Gap 6.0 mmol/L (3-11); Blood Urea Nitrogen 18.0 mg/dL (8-24); CO2, Blood 34.0 mmol/L (21-32); Calcium, Blood 8.5 mg/dL (8.5-10.1); Chloride, Blood 101.0 mmol/L (98-108); Creatinine, Blood 0.75 mg/dL (0.60-1.20); Glucose, Blood 141.0 mg/dL (70-99); Potassium, Blood 4.4 mmol/L (3.5-5.5); Sodium, Blood 137.0 mmol/L (136-145)
--- NOTE | 2025-01-26 06:19 | NUR ---
SHIFT SUMMARY: NO ACUTE CHANGES T/O THE NIGHT. PT SLEEPING COMFORTABLY. PT SOMNOLENT/DROWSY AT TIMES BUT REMAINS AROUSABLE TO VERBAL AND TACTILE STIMULUS. PT ORIENTED TO SELF AND AT TIMES ORIENTED TO PLACE/TOWN. PT ABLE TO MAKE NEEDS KNOWN. HE DID HAVE INTERMITTENT EPISODES OF CONFUSION-HE WOULD WAKE UP FROM A DEEP SLEEP AND GET OUT OF BED AND ASK IF HE WAS IN "SCHOOL." PT EASILY RE-ORIENTED. CIWA 7-10. SBP STABLE 120-140S. HR 90-100S, SINUS. PT NOTED TO HAVE OCCASSIONAL EPISODES OF BRADYCARDIA, HR LOW 46, ONLY LASTING SECONDS. PT ON 3L O2 VIA NC. SATS >95%. PT WORE BIPAP MASK AT START OF SHIFT BUT WOULD NOT LEAVE MASK ON. PER DAY SHIFT RN, YESTERDAY, PT PASSED GAS AND HAD SMALL BM. PT DENIED N/V OR PAIN IN ABD. PT HAS 4 INCISION SITES THAT REMAIN INTACT, W/SCABS NOTED. NO S/SXS OF INFECTION PRESENT. PT USING URINAL INDEPENDENTLY, W/MIN ASSIST W/CORDS. PT HAS PIV IN LWRIST W/NOTHING INFUSING AT THIS TIME. THIS RN TO REPORT TO ONCOMING RN.
[2025-01-26] MEDS ORDERED: HYDROmorphone HCl/Pf 1MG SYR IV PRN (11:25)
[2025-01-26 11:56] LABS: pH Blood Venous 7.45 (7.34-7.37)
--- NOTE | 2025-01-26 18:13 | NUR ---
Summary. Pt rested throughout shift. Up to bedside commode without assistance. Oriented to self and surroudings, cannot state the date or add serial numbers. PRN etoh withdrawal meds used, see emar. Laproscopic surgery sites intact, open to air, no bleeding or oozing. Good oral intake today. VS stable, see chart for details.
[2025-01-26] MEDS ORDERED: Enoxaparin 40 MG/0.4 ML SYR SC SCH (20:00)
[2025-01-27] MEDS ORDERED: Albuterol 2.5 MG/3 ML VIAL INH PRN (00:50)
[2025-01-27 03:25] VITALS: BP 111/83
[2025-01-27 03:38] LABS: BASOPHILS ABSOLUTE AUTO 0.01 K/mm3 (0.00-0.23); BASOPHILS PERCENT AUTO 0 % (0-2); EOSINOPHILS ABSOLUTE AUTO 0.01 K/mm3 (0.00-0.68); EOSINOPHILS PERCENT AUTO 0 % (0-6); Hematocrit 38.1 % (37.0-53.0); Hemoglobin 12.2 g/dL (13.5-17.5); IMMATURE GRAN ABSOLUTE AUTO 0.08 K/mm3 (0.00-0.10); IMMATURE GRAN PERCENT AUTO 1 % (0-1); LYMPHOCYTES ABSOLUTE AUTO 1.38 K/mm3 (0.84-5.20); LYMPHOCYTES PERCENT AUTO 11 % (21-46); MONOCYTES ABSOLUTE AUTO 0.83 K/mm3 (0.16-1.47); MONOCYTES PERCENT AUTO 7 % (4-13); Mean Corpuscular HGB Conc 32.0 g/dL (31.5-36.5); Mean Corpuscular Volume 96 fL (80-100); NEUTROPHILS ABSOLUTE AUTO 10.02 K/mm3 (1.96-9.15); NEUTROPHILS PERCENT AUTO 81 % (41-73); NRBC ABSOLUTE 0.00 K/mm3 (0.00-0.02); NRBC Auto 0.0 /100 WBC (0.0-0.2); Platelet Count 417 K/mm3 (150-400); RDW Coefficient Variation 16.2 % (11.7-14.2); RDW Standard Deviation 57.8 fL (35.1-46.3)
[2025-01-27 03:55] LABS: Anion Gap 4.0 mmol/L (3-11); Blood Urea Nitrogen 27.0 mg/dL (8-24); CO2, Blood 35.0 mmol/L (21-32); Calcium, Blood 8.6 mg/dL (8.5-10.1); Chloride, Blood 101.0 mmol/L (98-108); Creatinine, Blood 0.83 mg/dL (0.60-1.20); Glucose, Blood 116.0 mg/dL (70-99); Potassium, Blood 4.5 mmol/L (3.5-5.5); Sodium, Blood 135.0 mmol/L (136-145)
--- NOTE | 2025-01-27 05:13 | NUR ---
SHIFT SUMMARY NO ACUTE EVENTS OVERNIGHT. 5MG ATIVAN/75MG LIBRIUM GIVEN OVER SHIFT FOR CIWA SCORES. CURRENTLY ASLEEP, VSS, NO ACUTE DISTRESS NOTED.
[2025-01-27 07:47] VITALS: BP 121/91
--- NOTE | 2025-01-27 08:05 | NUR ---
Pt transferred immediately after shift change to PCU 09. Report given to OFFICE [employer] CONSULTANT. Pt vital signs stable at time of transfer. All personal belongings sent with patient to new room.
[2025-01-27 11:27] VITALS: BP 127/96
[2025-01-27] MEDS ORDERED: Ipratropium/Albuterol SulF 2.5-0.5MG/3 ML Amp INH PRN (11:30)
--- NOTE | 2025-01-27 13:49 | NUR ---
MORNING SUMMARY THE PT TRANSFERED FROM ICU 12 TO PCU 09 AT ABOUT 0745. DURING THE TRANSFER THE PT WAS VERY SOMULENT AND WAS NOT WAKING UP DESPITE MOVING BEDS AND BEING TURNED. THE PT STARTED WAKING UP ABOUT 30 MIINUTES AFTER ARRIVING TO THE ROOM. HE HAS BEEN ORIENTED TO SELF, BUT HAS BEEN FORGETFUL OF PLACE, DATE, AND CURRENT EVENTS. THE PT IS EASILY AGGITATED. WHEN TRYING TO DO AN ASSESSMENT, THE PT WOKE UP MORE AND GRITTED HIS TEETH AT THIS RN AND STATED "YOUR PISSING ME OFF". CIWA'S PER PROTOCOL. MEDICATED PER EMAR. D/T PT SETTING OFF THE BED ALARM, PULLING AT LINES, AND CONFUSION A 1:1 CLINICAL SITTER WAS OBTAINED ABOUT 1045. ON TELE THE PT HAS BEEN ST 100'S. BP STABLE. HE IS REQUIRING 3-4L NC TO MAINTAIN SP02 >93%. THE PT WAS RIPPING OFF HIS LINES AND OXYGEN THIS AFTERNOON AND DESATURATED TO 50'S. HE WAS ABLE TO RECOVER ON 6L NC AND COACHING ON DEEP BREATHING. HE IS BACK ON 3L NC. HE HAS ABD INCISIONS THAT ARE SEELED WITH MEDICAL GLUE. NO SIGNS OF REDNESS OR DISCHARGE AT THE SITES. HE HAS BEEN USING THE URINAL WITH ASSIST. HIS MOM CAME TO BEDSIDE AND WAS UPDATED ON CARE. SEE NOTES FOR UPDATES.
[2025-01-27 15:21] VITALS: BP 127/91
--- NOTE | 2025-01-27 15:23 | NUR ---
DR. PATEL CAME TO THE UNIT AND WAS UPDATED ON NEED FOR 1:1 SITTER AND THAT THE PT WAS PULLING AT LINES AND DESATURATED TO THE 50'S WHEN HE PULLED OFF HIS NASAL CANNULA. DR. PATEL DISCUSSED STARTING DIURETICS. SEE NOTES FOR UPDATES.
--- NOTE | 2025-01-27 16:31 | NUR ---
NOTIFIED BY [employer] THAT STARTING @ ABOUT ~1500 PT WOULD HAVE SPORADIC DROPS IN HR FROM 90s-100s TO 40s-50s AND CONTINUED TO DO THIS FOR ABOUT [address] PATEL. NO CHANGES OTHERWISE. DR. PATEL ADDED MAG DRAW ONTO MORNING LABS.
[2025-01-27] MEDS ORDERED: Diazepam 5 MG / ML 2ML SYR IV PRN (17:50)
--- NOTE | 2025-01-27 18:10 | NUR ---
PT AWOKE @ ABOUT ~1730 VERY IMPULSIVE, RUNNING TO BATHROOM, NOT ABLE TO BE REDIRECTED. DIAPHORETIC, UNABLE TO ANSWER ANY ORIENTATION QUESTIONS, ANXIOUS, REPORTING HEADACHE, ETC. ATTEMPTED TO ADMINISTER PO ATIVAN FOR WITHDRAWAL MANAGEMENT BUT PT CHEWED AND SPIT OUT PILL. CALLED DR. PATEL WHO ORDERED IV VALIUM FOR MANAGEMENT. PT WAS COOPERATIVE WITH VALIUM ADMINISTRATION AND IS NOW RESTING IN BED. 1:[address]
[2025-01-27 19:38] VITALS: BP 129/97
--- NOTE | 2025-01-27 20:52 | NUR ---
ASSUMPTION OF CARE PT SLEEPY BUT AROUSABLE. HE ORIENTED TO NAME/ AND PLACE. HR IN THE 90'S, SR. HE DENIES CP/PRESSURE, NUMB/TINGLING SBP STABLE. O2 >90% ON 3L VIA NC. PT ATTEMPTED TO USE URINAL AT BEDSIDE, UNSTEADY ON HIS FEET. PT HAS 4 INCSIONS ON HIS ABD, HE IS POD 4 OF HERNIA REPAIR. HE DENIES ANY PAIN AT SITE. SITE CLOSED WITH GLUE NO DRAINAGE NOTED. AT START OF SHIFT PT SLEEPY WOKE UP TO COMPLETE CIWA, PT RESTING IN BED ALLOWING THIS RN AND SITTER TO ASSIT HIM. APPROX 30 MINUTES LATER PT SET BED ALARM OFF. THIS RN WALKED INTO ROOM. ATTEMPTED TO HELP PT AND HE BEGAN TO YELL AND CUSS AT STAFF STATING "GET OUT OF MY WAY", "I WANT TO SIT IN THE [place]" "BACK UP, I DONT NEED YOUR HELP". INFORMED PT THERE WAS NO PLACE TO SIT OUTSIDE AND ASKED IF HE WANTED TO LEAVE. PT STILL YELLING AND CUSSING, ANOTHER RN CAME TO ROOM. SECURITY WAS CALLED. PT CALMED DOWN A LITTLE AN AGREED TO SIT IN BED TO ALLOW US TO MEDICATE HIM OPER CIWA PROTOCOL. PT SETTLED DOWN AND SECURITY WAS NOT NEEDED BUT HELPED ASSIST PT TO BED. PT MEDICATED AND LAYED DOEN IN BED, PT NOW RESTING IN BED AT THIS TIME. 1:1 SITTER AT [facility].
[2025-01-27 23:42] VITALS: BP 143/100
[2025-01-28 03:38] VITALS: BP 146/105
[2025-01-28 04:39] LABS: BASOPHILS ABSOLUTE AUTO 0.04 K/mm3 (0.00-0.23); BASOPHILS PERCENT AUTO 0 % (0-2); EOSINOPHILS ABSOLUTE AUTO 0.05 K/mm3 (0.00-0.68); EOSINOPHILS PERCENT AUTO 1 % (0-6); Hematocrit 43.5 % (37.0-53.0); Hemoglobin 13.3 g/dL (13.5-17.5); IMMATURE GRAN ABSOLUTE AUTO 0.09 K/mm3 (0.00-0.10); IMMATURE GRAN PERCENT AUTO 1 % (0-1); LYMPHOCYTES ABSOLUTE AUTO 2.30 K/mm3 (0.84-5.20); LYMPHOCYTES PERCENT AUTO 21 % (21-46); MONOCYTES ABSOLUTE AUTO 0.68 K/mm3 (0.16-1.47); MONOCYTES PERCENT AUTO 6 % (4-13); Mean Corpuscular HGB Conc 30.6 g/dL (31.5-36.5); Mean Corpuscular Volume 98 fL (80-100); NEUTROPHILS ABSOLUTE AUTO 7.90 K/mm3 (1.96-9.15); NEUTROPHILS PERCENT AUTO 71 % (41-73); NRBC ABSOLUTE 0.00 K/mm3 (0.00-0.02); NRBC Auto 0.0 /100 WBC (0.0-0.2); Platelet Count 405 K/mm3 (150-400); RDW Coefficient Variation 16.1 % (11.7-14.2); RDW Standard Deviation 58.2 fL (35.1-46.3)
[2025-01-28 05:08] LABS: Anion Gap 7.0 mmol/L (3-11); Blood Urea Nitrogen 28.0 mg/dL (8-24); CO2, Blood 33.0 mmol/L (21-32); Calcium, Blood 8.5 mg/dL (8.5-10.1); Chloride, Blood 101.0 mmol/L (98-108); Creatinine, Blood 0.79 mg/dL (0.60-1.20); Glucose, Blood 84.0 mg/dL (70-99); Potassium, Blood 5.7 mmol/L (3.5-5.5); Sodium, Blood 135.0 mmol/L (136-145)
--- NOTE | 2025-01-28 05:12 | NUR ---
SHIFT SUMMARY PT ALERT, ORIENTED TO SELF AND PLACE. HE IS IRRITABLE/ANGRY/AGITATED AT TIMES. PT IS NOT EASILY REDIRECTABLE WHEN AGITATED. CIWAS RANGING FROM 11-18, MEDICATING PER EMAR. HR IN THE 90'S, SR. HE DENIES ANY CP/PRESSURE, NUMB/TINGLING, SBP STABLE. PT ON 3L VIA NC, O2 >92%. HE HAS SOME SOB WITH EXERTION. PT PULLS OFF NC AND DESATS QUICKLY TO THE 70'S-LOW 80'S. HES STANDING UP AT BEDSIDE USING URINAL WITH 1-2 PERSON ASSIST. PT DID HAVE AN EPISODE OF N/V T/O NIGHT, MEDICATED PER EMAR. PT RESTING IN BED AT THIS TIME. 1:1 SITTER AT BEDSIDE.
--- NOTE | 2025-01-28 06:20 | NUR ---
UPDATE PTS MORNING LABS CAME BACK, POTASSIUM OF 5.7. PT DENIES HAVING CP/PRESSURE T/O NIGHT. CALL PLACED TO RESIDENT, WANTING ORDERS FOR 5 UNITS OF REGULAR INSULIN, 2 AMP OF D50. DISCUSSED WITH SQUILGEER AND WAS DECIDED TO CALL DR PRADO TO CLARIFY. PER DR PRADO ORDER PLACED TO RECHECK POTASSIUM LEVEL IN 4 HOURS. ORDERS PLACED.
[2025-01-28 08:26] VITALS: BP 134/107
[2025-01-28 10:42] LABS: Blood Urea Nitrogen 28.0 mg/dL (8-24); Calcium, Blood 9.1 mg/dL (8.5-10.1); Chloride, Blood 94.0 mmol/L (98-108); Creatinine, Blood 0.75 mg/dL (0.60-1.20); Glucose, Blood 152.0 mg/dL (70-99); Potassium, Blood 4.3 mmol/L (3.5-5.5); Sodium, Blood 137.0 mmol/L (136-145)
[2025-01-28 10:43] LABS: Anion Gap 14.0 mmol/L (3-11); CO2, Blood 33.0 mmol/L (21-32)
[2025-01-28 12:43] VITALS: BP 131/100
--- NOTE | 2025-01-28 14:38 | NUR ---
ASSUMPTION ASSUMED CARE OF PT @0700. VSS. CIWAS REQUIRING PRN ADMINISTRATION OF PO LIBRIUM/ATIVAN SO FAR. ALTERED MENTAL STATUS CONTINUES, WILL FOLLOW SOME COMMANDS BUT HAS ACTIVELY URINATED ON FLOOR MULTIPLE TIMES AND HAS STUMBLED MULTIPLE TIMES UPON AMBULATION. USUALLY PUSHES PAST STAFF TRYING TO REDIRECT TO URINATE INTO URINAL AND INSTEAD TRIES TO GO TO BATHROOM. PT REQUIRES PLUNKETT VERBAL REDIRECTION TO NOT URINATE ON FLOOR AND INTO URINAL. REQUIRING 2-3LNC CURRENTLY. CONTNUOUS 1:1 SITTER CURRENTLY FOR SAFETY AND FALL PREVENTION.
[2025-01-28 15:14] VITALS: BP 107/76
[2025-01-28 16:19] VITALS: BP 103/73
--- NOTE | 2025-01-28 17:11 | NUR ---
SUMMARY SEE ASSUMPTION OF CARE NOTE. PT CONTINUES TO GO THROUGH ETOH WITHDRAWAL. TOLERATING IV/PO MEDS PER EMAR FOR ETOH. VSS WITH THESE MEDICATIONS. 1:[address] FOR SAFETY. PT REMAINS OBSTINATE AT TIMES BUT RESPONDS WELL TO MALE STAFF DIRECTION. DIURESING WELL. OTHERWISE, PT TOELRATING PO INTAKE WELL BUT MONITORING IN PLACE DUE TO BENZODIAZAPINE USAGE. BED ALARM ON. CALL LIGHT WITHIN REACH.
[2025-01-28 19:22] VITALS: BP 121/87
[2025-01-29 00:09] VITALS: BP 116/95
--- NOTE | 2025-01-29 02:19 | NUR ---
1:1 SITTER AT BEDSIDE. THIS RN WAS CALLED INTO ROOM. PT WAS VOMITTING, MEDICATED PER EMAR. PT THEN STARTED CUSSING/YELLING, WAS TREMULOUS, SWEATING, CIWA OF 12, MEDICATED PER EMAR. PT REQUESTING SANDWHICH AND WAS PROVIDED ONE. PT STOPPED YELLING AT THIS POINT. APPOX AN HOUR LATER PT STARTED YELLING AND CUSSING BECOMING MORE AGITATED. PT SHOVED BEDSIDE TABLE AT SITTER THIS RN ALONG WITH BROKE MAN WENT INTO ROOM TO TRY AND DESCULATE SITUATION. PT YELLING "GIVE ME THE SANDWHICH THAT I JUST HAD" SITTER AND THIS RN TRIED EXPLAINING TO PT THAT HE HAD ALREADY ATE SANDWHICH BUT PT KEPT YELLING. PT BEGIN YELLING AND CUSSING TELLING STAFF "GET THE FUCK OUT OF MY ROOM" MULTIPLE TIMES. PT ALSO TRYING TO LEAVE ROOM BUT VERY UNSTEADY ON FEET AND A FALL RISK. PT RIPPING OFF HIS NASAL CANULA. CIWA COMPLETED, MEDICATED PER EMAR. PT SATING IN THE 70'S, CPAP AT BEDSIDE AND PLACED ON PT. PT IN THE 90'S AT THIS TIME. PT RESTING IN BED. CALL LIGHT IN REACH. SITTER AT BEDSIDE.
[2025-01-29 03:53] VITALS: BP 135/97
--- NOTE | 2025-01-29 05:38 | NUR ---
SHIFT SUMMARY PT ALERT, ORIENTED TO SELF. PT AGITATED AND IMPULSIVE. CIWAS PER PROTOCOL, CIWAS RANGING FROM 8-18, MEDICATING PER EMAR. HR IN THE 90'S, SR. HE DENIES CP/PRESSURE, NUMB/TINGLING, SBP STABLE. PT ON 3-6L VIA NC. PT DID DESAT TO THE 60'S DURING THE NIGHT AND PLACED ON CPAP. PT RIPPED OF CPAP AND NOW BACK ON NC SITTING IN THE 90'S. L/S COARSE T/O. PT HAS SITTER AT BEDSIDE. PT YELLING AND CUSSING AT STAFF ALL THROUGHOUT SHIFT. PT STATING "IM LEAVING" EDUCATED PT ON RISKS OF LEAVING. PT THEN AGREED TO STAY. PT IN BED RESTING AT THIS TIME. CALL LIGHT IN REACH. 1:1 SITTER AT BEDSIDE. WILL REPORT TO ONCOMING RN.
[2025-01-29 07:31] VITALS: BP 124/88
[2025-01-29 08:19] LABS: BASOPHILS ABSOLUTE AUTO 0.03 K/mm3 (0.00-0.23); BASOPHILS PERCENT AUTO 0 % (0-2); EOSINOPHILS ABSOLUTE AUTO 0.09 K/mm3 (0.00-0.68); EOSINOPHILS PERCENT AUTO 1 % (0-6); Hematocrit 41.8 % (37.0-53.0); Hemoglobin 12.8 g/dL (13.5-17.5); IMMATURE GRAN ABSOLUTE AUTO 0.08 K/mm3 (0.00-0.10); IMMATURE GRAN PERCENT AUTO 1 % (0-1); LYMPHOCYTES ABSOLUTE AUTO 2.16 K/mm3 (0.84-5.20); LYMPHOCYTES PERCENT AUTO 20 % (21-46); MONOCYTES ABSOLUTE AUTO 0.68 K/mm3 (0.16-1.47); MONOCYTES PERCENT AUTO 6 % (4-13); Mean Corpuscular HGB Conc 30.6 g/dL (31.5-36.5); Mean Corpuscular Volume 101 fL (80-100); NEUTROPHILS ABSOLUTE AUTO 7.64 K/mm3 (1.96-9.15); NEUTROPHILS PERCENT AUTO 72 % (41-73); NRBC ABSOLUTE 0.00 K/mm3 (0.00-0.02); NRBC Auto 0.0 /100 WBC (0.0-0.2); Platelet Count 441 K/mm3 (150-400); RDW Coefficient Variation 15.7 % (11.7-14.2); RDW Standard Deviation 59.3 fL (35.1-46.3)
[2025-01-29 09:14] LABS: Blood Urea Nitrogen 34 mg/dL (8-24); Calcium, Blood 8.6 mg/dL (8.5-10.1); Chloride, Blood 92 mmol/L (98-108); Creatinine, Blood 0.88 mg/dL (0.60-1.20); Glucose, Blood 146 mg/dL (70-99); Potassium, Blood 4.1 mmol/L (3.5-5.5); Sodium, Blood 136 mmol/L (136-145)
[2025-01-29 09:15] LABS: Anion Gap Unable to Calculate mmol/L (3-11)
[2025-01-29 09:16] LABS: CO2, Blood >45 mmol/L (21-32)
[2025-01-29] MEDS ORDERED: Multivitamins 1 Tab PO SCH (10:00)
[2025-01-29 12:14] VITALS: BP 123/87
--- NOTE | 2025-01-29 13:30 | NUR ---
PT IS A&Ox2, HE IS ABLE TO MAKE NEEDS KNOWN. DOES NOT USE CALL LIGHT AND VERY IMPULSIVE. HE IS ON 2LNC (WHICH IS HIS BASELINE) W/O2 SATS > 90%. HE IS A x1 ASSIST TO USE THE URINAL. NO NEEDS OR CONCERNS NOTED @ THIS TIME. BED IN LOW POSITION, BED ALARM ON, CALL LIGHT AND PERSONAL BELONGINGS IN REACH.
--- NOTE | 2025-01-29 15:38 | NUR ---
PATIENT BED AND CHAIR EXITING MULTIPLE TIMES THROUGHOUT THE SHIFT, MAINLY FOR ELIMINATION NEEDS, REDIRECTABLE. DOES NOT ADHERE TO SAFETY CONCERNS, OVERESTIMEATES HIS ABILITIES, BED AND CHAIR ALARMED. BED LOW POSITION. CALL LIGHT IN REACH
[2025-01-29 17:02] VITALS: BP 110/78
[2025-01-29 19:36] VITALS: BP 114/80
--- NOTE | 2025-01-29 21:34 | NUR ---
ASSUMPTION OF CARE PT ALERT, ORIENTED TO NAME/ AND YEAR. NOT COOPERATIVE TO CARE. CIWAS PER PROTOCOL. PT AGITATED, CONTINUES TO YELL AND CUSS AT STAFF. HE IS IMPULSIVE AND GETS OUT OF BED WITHOUT CALLING. BED ALARM ON. HR IN THE 90'S, SINUS TACH. HE DENIES ANY CP/PRESSURE, NUMB/TINGLING, SBP STABLE. O2 >92% ON 2L VIA NC, PT DESATS WHEN HE PULLS HIS OXYGEN OFF. HE DOES GET SOB WITH EXERTION. HE IS POD 6, HERNIA REPAIR. HE HAS 4 LAP SITS WITH SKIN ADHESIVE, NO OOZING/BLEEDING/RED/SWELLING. PT SITTING IN BED AT THIS TIME. CALL LIGHT IN REACH.
[2025-01-30 00:53] VITALS: BP 129/84
[2025-01-30 04:25] VITALS: BP 152/88
--- NOTE | 2025-01-30 06:08 | NUR ---
shift summary pt alert, oriented to self and year. ciwas per protocol. pt has periods of agitation and will yell/cuss at staff. he is very impulsive gets out of bed without calling. hr in the 90's, sr. he denies cp/pressure, numb/tingling, sbp stable. o2 >92% on 2l via nc, pt on 2l at baseline. educated pt on the use of flutter valve, pt refused to use. pt c/o some abd pain t/o night, medicated per emar. pt has large loose bm this am. pt resting in bed at this time. will montior pt and report to oncoming rn.
[2025-01-30 07:43] VITALS: BP 129/89
[2025-01-30 08:21] LABS: Magnesium, Blood 2.2 mg/dL (1.6-2.4)
[2025-01-30 08:24] LABS: Albumin, Blood 2.6 g/dL (3.4-5.0); Blood Urea Nitrogen 34 mg/dL (8-24); Calcium, Blood 8.8 mg/dL (8.5-10.1); Chloride, Blood 93 mmol/L (98-108); Creatinine, Blood 0.77 mg/dL (0.60-1.20); Glucose, Blood 104 mg/dL (70-99); Phosphorus, Blood 3.0 mg/dL (2.5-4.9); Potassium, Blood 4.0 mmol/L (3.5-5.5); Sodium, Blood 137 mmol/L (136-145)
[2025-01-30 08:25] LABS: Anion Gap Unable to Calculate mmol/L (3-11)
[2025-01-30 08:26] LABS: CO2, Blood >45 mmol/L (21-32)
[2025-01-30 12:02] VITALS: BP 127/92
--- NOTE | 2025-01-30 15:13 | NUR ---
PT IS A&Ox3 AND ABLE TO MAKE NEEDS KNOWN. DOES NOT USE THE CALL LIGHT APPROPRIATELY. HE IS ON 2LNC W/O2 SATS >90%. HE IS A x1 ASSIST FOR AMBULATION. HE CONTINUES TO PULL O2 SENSOR OFF. HE HAS BEEN SHOWING SOME INAPPRORIATE BEHAVIORS TODAY. NO NEEDS OR CONCERNS NOTED @ THIS TIME. BED IN LOW POSITION, BED ALARM ON, CALL LIGHT AND PERSONAL BELONGINGS IN REACH.
[2025-01-30 16:00] VITALS: BP 113/81
[2025-01-30 21:16] VITALS: BP 96/63
--- NOTE | 2025-01-30 21:48 | NUR ---
PT AWAKE AND ALERT AT BEGINNING OF SHIFT. PT NOW VERY SOMNOLENT AND OPENS EYES TO VERBAL OR OTHER STIMULI BUT CLOSES THEM ONCE STIMULI IS WITHDRAWN, AFTER PT SIGNIFICANT OTHER HAS LEFT THE ROOM. RESP RATE WNL AT THIS TIME. PT ABLE TO ANSWER SOME QUESTIONS AFTER REPEATED ASKING AND CONSTANT STIMULI TO MAINTAIN ALERTNESS. PT REFUSES BOWEL CARE MEDS.
[2025-01-31 00:21] VITALS: BP 92/64
[2025-01-31 04:22] LABS: Blood Urea Nitrogen 32 mg/dL (8-24); Calcium, Blood 8.4 mg/dL (8.5-10.1); Chloride, Blood 91 mmol/L (98-108); Creatinine, Blood 0.85 mg/dL (0.60-1.20); Glucose, Blood 90 mg/dL (70-99); Potassium, Blood 4.1 mmol/L (3.5-5.5); Sodium, Blood 137 mmol/L (136-145)
[2025-01-31 04:24] LABS: Anion Gap Unable to Calculate mmol/L (3-11); CO2, Blood >45 mmol/L (21-32)
[2025-01-31 05:16] VITALS: BP 90/68
--- NOTE | 2025-01-31 06:36 | NUR ---
PT STABLE THROUGHOUT THE SHIFT. PT LESS SOMNOLENT TOWARD END OF SHIFT THAN BEGINNING. PT HAS GOTTEN OOB TO USE URINAL AND HAVE A BOWEL MOVEMENT. BED ALARM IN PLACE. PT IMPULSIVE. PT REMAINS ON 2L O2, WHICH IS BASELINE. SOFT BLOOD PRESSURES PERSIST, PT ASYMPTOMATIC. NO OTHER BEHAVIORS FROM PT BESIDE IMPULSIVITY. PT DID REFUSE BOWEL CARE MEDS. ABD LAP SITES CLOSED/INTACT. BOWEL TONES ACTIVE IN ALL QUADRANTS.
[2025-01-31 07:47] VITALS: BP 110/86
--- NOTE | 2025-01-31 09:08 | NUR ---
ASSUMPTION NOTE: THIS RN TO ASSUME CARE OF PATIENT. PATIENT IS AWAKE IN BED,JUST GOT DONE SHOWERING.WAS GIVEN MORNING MEDICATIONS AND COMPLAINED ABOUT ABDOMINAL PAIN AND REQUESTED PAIN MEDICATION WELL.PT AWARE POTENTIAL DISCHARGE TODAY PENDING PROVIDER ROUNDING.
[2025-01-31 10:05] LABS: pH Blood Arterial 7.37 (7.35-7.45)
--- NOTE | 2025-01-31 10:25 | NUR ---
MD ROUNDED: MD ROUNDED AND SPOKE WITH PATIENT REGARDING POSSIBLE DISCAHRGE TODAY. PATIENT STATED HE DID NOT HAVE A CPAP. MD TO LOOK AT PATIENTS CHART AND GET MORE INFORMATION PRIOR TO DISCAHRGE. MD STATED IF NOT DISCHARGING TODAY WILL BE GETTING STATUS CHANGED.
[2025-01-31 12:17] VITALS: BP 128/83
[2025-01-31 16:00] VITALS: BP 109/74
--- NOTE | 2025-01-31 16:43 | NUR ---
SHIFT SUMMARY: PATIENT IS ALERT AND ORIETNED X4 & COOPERATIVE WITH HIS CARE AT TIMES, IS IMPULSIVE WITH THE BED ALARM ON. SATTING >92% ON 2 LITERS WHICH IS HIS BASELINE. IS MEDICAL WITHOUT TELE STATUS. PATIENT WALKED TO BATHROOM SBA TO MANAGE LINES/CHORDS AND HAS MULTIPLE UNMEASURED VOIDS DUE TO NOT WANTING TO USE THE URINAL. PATIENT MOM TO BEDSIDE THROUGHOUT THE SHIFT. PATIENT TOLERATING PO INTAKE AND EDUCATED ON NOT TAKING TOO MANY FLUIDS WE ARE DIURESING. MD CHANGED ORDER FOR DIURESIS. PATIENT HAS BEEN RESTING MOST OF SHIFT AND GETTING PAIN MEDICATION FOR ABDOMINAL PAIN. PATIENT HAS CALL LIGHT WITHIN REACH, BED ALARM ON AND STATING NOTHING ELSE IS NEEDED AT THIS TIME.
[2025-01-31 20:30] VITALS: BP 121/79
--- NOTE | 2025-01-31 23:58 | NUR ---
REPORT GIVEN TO JACOB FRITZ ON MEDICAL FLOOR. PT TRANSPORTED WITH ALL BELONGINGS AND PAPERWORK BY BED TO ROOM 310.
[2025-02-01 05:24] LABS: pH Blood Arterial 7.36 (7.35-7.45)
[2025-02-01 06:13] LABS: Anion Gap 4.0 mmol/L (3-11); Blood Urea Nitrogen 32.0 mg/dL (8-24); CO2, Blood 42.0 mmol/L (21-32); Calcium, Blood 8.5 mg/dL (8.5-10.1); Chloride, Blood 91.0 mmol/L (98-108); Creatinine, Blood 0.97 mg/dL (0.60-1.20); Glucose, Blood 145.0 mg/dL (70-99); Potassium, Blood 3.6 mmol/L (3.5-5.5); Sodium, Blood 133.0 mmol/L (136-145)
--- NOTE | 2025-02-01 06:34 | NUR ---
SUMMARY RECVD FROM PACU AROUND 1AM-MORIAH. ALERT & ORIENTED, VSS. PT SD HE HAS BEEN HERE A DOZEN TIMES BUT THIS TIME HAD A HERNIA REPAIRED. HAS BEEN POST-OP FOR A WK. DENY PAIN / DISTRESS. SLEPT COMFORTABLY BUT WOKE UP EARLY , VERY LOUD AND ACTIVE. HEAR COUGHING LOUDLY BUT DENIES ANY DISTRESS. RELAYED PC02 TO DR ALONSO VIA PHONE CALL.
[2025-02-01 07:17] VITALS: BP 110/77
[2025-02-01] MEDS ORDERED: SPIR25 PO (11:12)
[2025-02-01] MEDS ORDERED: FLUT.05NI (11:12)
[2025-02-01] MEDS ORDERED: MULVITA PO (11:12)
[2025-02-01] MEDS ORDERED: FURO20 PO (11:12)
[2025-02-01] MEDS ORDERED: B-1100 M1 PO (11:13)
--- NOTE | 2025-02-01 16:13 | NUR ---
DISCHARGE NOTE PT D/C HOME. PT PROVIDED W/ VERBAL AND WRITTEN INSTRUCTIONS BY PATRICK STERLING. PT A&OX3, VSS, AMB IND, TOLERATING PO, VOIDING, AND DENIED PAIN. [facility] DELIVERED EQUIPMENT TO PT'S ROOM. BELONGINGS WERE RETURED. PT ESCOURTED OUT VIA W/C BY SANTI ROTHMAN.
[2025-02-02] MEDS ORDERED: SYMBICORT 160-4.6 GM INH (14:18)
== END 2025-02-01 16:05 | disposition home health service (06) | DRG 350 ==
LOC: ER 14:33 → ICUE 20:05 → PCU 20:05 → SURS 20:05 → EDBEDREQTM 20:09 → EDBEDREQSVC 20:09 → EDBEDREQ 20:09 → ICUE 23:10 → PCU 01-27 07:50 → MEDS 01-31 23:37
PROVIDERS: Emergency Medicine; Internal Medicine; Internal Medicine Critical Care Medicine; Nurse Practitioner Acute Care; Student in an Organized Health Care Education/Training Program; Surgery; ADMIT Internal Medicine
PROC: 8E0W4CZ Robotic Assisted Procedure of Trunk Region, Percutaneous Endoscopic Approach (ICD-10-PCS; 2025-01-23)
PROC: 0D9670Z Drainage of Stomach with Drainage Device, Via Natural or Artificial Opening (ICD-10-PCS; 2025-01-23)
PROC: 3E03329 Introduction of Other Anti-infective into Peripheral Vein, Percutaneous Approach (ICD-10-PCS; 2025-01-23)
PROC: 0YU64JZ Supplement Left Inguinal Region with Synthetic Substitute, Percutaneous Endoscopic Approach (ICD-10-PCS; principal; 2025-01-23 19:00)
PROC: 5A09357 Assistance with Respiratory Ventilation, Less than 24 Consecutive Hours, Continuous Positive Airway Pressure (ICD-10-PCS; 2025-01-28)
PROC: 4A133R1 Monitoring of Arterial Saturation, Peripheral, Percutaneous Approach (ICD-10-PCS; 2025-01-31)
DX: K40.30 Unilateral inguinal hernia, with obstruction, without gangrene, not specified as recurrent (principal); G92.8 Other toxic encephalopathy; I50.23 Acute on chronic systolic (congestive) heart failure; J18.9 Pneumonia, unspecified organism; J69.0 Pneumonitis due to inhalation of food and vomit; J96.21 Acute and chronic respiratory failure with hypoxia; J96.22 Acute and chronic respiratory failure with hypercapnia; G93.41 Metabolic encephalopathy; J44.0 Chronic obstructive pulmonary disease with (acute) lower respiratory infection; N28.0 Ischemia and infarction of kidney; F10.239 Alcohol dependence with withdrawal, unspecified; J44.1 Chronic obstructive pulmonary disease with (acute) exacerbation; E87.1 Hypo-osmolality and hyponatremia; Z59.00 Homelessness unspecified; R18.8 Other ascites; M10.9 Gout, unspecified; I11.0 Hypertensive heart disease with heart failure; G47.33 Obstructive sleep apnea (adult) (pediatric); M19.90 Unspecified osteoarthritis, unspecified site; F17.200 Nicotine dependence, unspecified, uncomplicated; F15.10 Other stimulant abuse, uncomplicated; Z99.81 Dependence on supplemental oxygen; Z88.8 Allergy status to other drugs, medicaments and biological substances; Z79.84 Long term (current) use of oral hypoglycemic drugs; Z79.52 Long term (current) use of systemic steroids; I25.2 Old myocardial infarction; Z86.73 Personal history of transient ischemic attack (TIA), and cerebral infarction without residual deficits
CPT/HCPCS: 36415; 36600; 43752; 71045; 74177; 76870; 80048; 80053; 80069; 80320; 81001; 82803; 82947; 83605; 83690; 83735; 83880; 84100; 84145; 84484; 85025; 87040; 93005; 93010; 93308; 93321; 94002; 94003; 94640; 94660; 94664; 94760; 94761; 94762; 96361-59; 96365-59; 96375-59; 96376-59; 97112; 97116; 97162; 97530; 99285-25; A9270; C1781; J0165; J0456; J0696; J1171; J1644; J1650; J1938; J2250; J2371; J2405; J2704; J3010; J3360; J7030; J7050; J7512; Q9967

== ENCOUNTER 2025-02-17 09:19 | Inpatient (IN) | payer MEDICARE, MEDICAID ==
[2025-02-17] VITALS (17 sets, daily range): BP systolic 140–195; BP diastolic 96–142
[~2025-02-17] VITALS: Ht 160 cm; Wt 64.9 kg
[~2025-02-17 09:19] MED LIST changes: +FURO20 PO; +SPIR25 PO; +SYMBICORT 160-4.6 GM INH
[2025-02-17] MEDS ORDERED: Midazolam HCl 1MG / ML 2ML Vial IV ONE ×2 (09:30→12:25)
[2025-02-17] MEDS ORDERED: Albuterol 2.5 MG/3 ML VIAL INH SCH (09:30)
[2025-02-17] MEDS ORDERED: NS 500 ML IV SCH (09:40)
[2025-02-17 09:41] LABS: BASOPHILS ABSOLUTE AUTO 0.02 K/mm3 (0.00-0.23); BASOPHILS PERCENT AUTO 0 % (0-2); EOSINOPHILS ABSOLUTE AUTO 0.00 K/mm3 (0.00-0.68); EOSINOPHILS PERCENT AUTO 0 % (0-6); Hematocrit 42.4 % (37.0-53.0); Hemoglobin 13.2 g/dL (13.5-17.5); IMMATURE GRAN ABSOLUTE AUTO 0.03 K/mm3 (0.00-0.10); IMMATURE GRAN PERCENT AUTO 0 % (0-1); LYMPHOCYTES ABSOLUTE AUTO 1.45 K/mm3 (0.84-5.20); LYMPHOCYTES PERCENT AUTO 18 % (21-46); MONOCYTES ABSOLUTE AUTO 0.60 K/mm3 (0.16-1.47); MONOCYTES PERCENT AUTO 7 % (4-13); Mean Corpuscular HGB Conc 31.1 g/dL (31.5-36.5); Mean Corpuscular Volume 101 fL (80-100); NEUTROPHILS ABSOLUTE AUTO 6.13 K/mm3 (1.96-9.15); NEUTROPHILS PERCENT AUTO 75 % (41-73); NRBC ABSOLUTE 0.00 K/mm3 (0.00-0.02); NRBC Auto 0.0 /100 WBC (0.0-0.2); Platelet Count 207 K/mm3 (150-400); RDW Coefficient Variation 16.1 % (11.7-14.2); RDW Standard Deviation 60.8 fL (35.1-46.3)
[2025-02-17 09:44] LABS: pH Blood Venous 7.24 (7.34-7.37)
[2025-02-17 09:55] LABS: Alanine Aminotransfer (ALT/SGP 30.0 U/L (12-78); Albumin, Blood 3.1 g/dL (3.4-5.0); Albumin/Globulin Ratio 0.8 (0.8-1.8); Anion Gap 6.0 mmol/L (3-11); Aspartate Aminotrans (AST/SGOT 29.0 U/L (12-37); Bilirubin, Total 0.2 mg/dL (0.1-1.0); Blood Urea Nitrogen 15.0 mg/dL (8-24); CO2, Blood 32.0 mmol/L (21-32); Calcium, Blood 8.1 mg/dL (8.5-10.1); Chloride, Blood 103.0 mmol/L (98-108); Creatinine, Blood 0.68 mg/dL (0.60-1.20); Globulin, Blood 3.7 g/dL (2.2-4.0); Glucose, Blood 160.0 mg/dL (70-99); Magnesium, Blood 2.6 mg/dL (1.6-2.4); Potassium, Blood 3.4 mmol/L (3.5-5.5); Sodium, Blood 138.0 mmol/L (136-145); Total Protein, Blood 6.8 g/dL (6.4-8.2)
[2025-02-17] MEDS ORDERED: Midazolam HCL 50 MG in NS 40 ML IV PRN (10:30)
[2025-02-17 10:39] LABS: Influenza A, PCR NEGATIVE (NEGATIVE); Influenza B, PCR NEGATIVE (NEGATIVE); Resp Syncytial Virus, PCR NEGATIVE (NEGATIVE); SARS-Cov-2 (COVID-19) PCR, MMC NEGATIVE (NEGATIVE)
[2025-02-17] MEDS ORDERED: Ipratropium/Albuterol SulF 2.5-0.5MG/3 ML Amp INH SCH (12:40)
[2025-02-17] MEDS ORDERED: Labetalol HCL 5 MG/ML 4ML Injection (Single Dose) IV PRN ×2 (12:40→18:30)
[2025-02-17] MEDS ORDERED: Albuterol 2.5 MG/3 ML VIAL INH PRN (12:40)
[2025-02-17] MEDS ORDERED: CefTRIAXone Sodium 1,000 MG in NS 100 ML IV SCH (14:00)
[2025-02-17] MEDS ORDERED: Diazepam 5 MG / ML 2ML SYR IV PRN (17:20)
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
[2025-02-17] MEDS ORDERED: NS 250 ML IV PRN (20:05)
--- NOTE | 2025-02-17 20:47 | NUR ---
BIPAP PLACED ON PT @ 06/20, 30% Rate:14 SET PREVIOUSLY BY RT
[2025-02-18] VITALS (22 sets, daily range): BP systolic 117–159; BP diastolic 88–114
[2025-02-18 03:32] LABS: BASOPHILS ABSOLUTE AUTO 0.00 K/mm3 (0.00-0.23); BASOPHILS PERCENT AUTO 0 % (0-2); EOSINOPHILS ABSOLUTE AUTO 0.00 K/mm3 (0.00-0.68); EOSINOPHILS PERCENT AUTO 0 % (0-6); Hematocrit 42.8 % (37.0-53.0); Hemoglobin 13.4 g/dL (13.5-17.5); IMMATURE GRAN ABSOLUTE AUTO 0.02 K/mm3 (0.00-0.10); IMMATURE GRAN PERCENT AUTO 0 % (0-1); LYMPHOCYTES ABSOLUTE AUTO 0.46 K/mm3 (0.84-5.20); LYMPHOCYTES PERCENT AUTO 8 % (21-46); MONOCYTES ABSOLUTE AUTO 0.12 K/mm3 (0.16-1.47); MONOCYTES PERCENT AUTO 2 % (4-13); Mean Corpuscular HGB Conc 31.3 g/dL (31.5-36.5); Mean Corpuscular Volume 100 fL (80-100); NEUTROPHILS ABSOLUTE AUTO 5.03 K/mm3 (1.96-9.15); NEUTROPHILS PERCENT AUTO 89 % (41-73); NRBC ABSOLUTE 0.00 K/mm3 (0.00-0.02); NRBC Auto 0.0 /100 WBC (0.0-0.2); Platelet Count 188 K/mm3 (150-400); RDW Coefficient Variation 15.6 % (11.7-14.2); RDW Standard Deviation 57.5 fL (35.1-46.3)
[2025-02-18 03:50] LABS: Alanine Aminotransfer (ALT/SGP 30.0 U/L (12-78); Albumin, Blood 2.7 g/dL (3.4-5.0); Albumin/Globulin Ratio 0.7 (0.8-1.8); Anion Gap 5.0 mmol/L (3-11); Aspartate Aminotrans (AST/SGOT 24.0 U/L (12-37); Bilirubin, Total 0.2 mg/dL (0.1-1.0); Blood Urea Nitrogen 23.0 mg/dL (8-24); CO2, Blood 39.0 mmol/L (21-32); Calcium, Blood 8.1 mg/dL (8.5-10.1); Chloride, Blood 96.0 mmol/L (98-108); Creatinine, Blood 0.69 mg/dL (0.60-1.20); Globulin, Blood 3.8 g/dL (2.2-4.0); Glucose, Blood 203.0 mg/dL (70-99); Magnesium, Blood 2.0 mg/dL (1.6-2.4); Potassium, Blood 4.1 mmol/L (3.5-5.5); Sodium, Blood 136.0 mmol/L (136-145); Total Protein, Blood 6.5 g/dL (6.4-8.2)
--- NOTE | 2025-02-18 05:47 | NUR ---
SHIFT SUMMARY No acute events overnight. Patient remained mostly somnolent throughout shift. Arousable to repeated verbal stimulation, occasional spontaneous wakings with anxiety and intermittent confusion otherwise AOx3 to 4. Librium given per eMAR. 100mg total this shift. VSS. Call light within reach, bed alarm armed, bed low and locked.
[2025-02-18] MEDS ORDERED: Enoxaparin 40 MG/0.4 ML SYR SC SCH (09:00)
[2025-02-18] MEDS ORDERED: Lactobacil 2-S.Thermo-Bifido 1 1 Cap PO SCH (09:00)
[2025-02-18] MEDS ORDERED: Multivitamins 1 Tab PO SCH (09:00)
[2025-02-18] MEDS ORDERED: Insulin Human Lispro 100 Units/ML 3ML Syringe SC SCH (16:30)
--- NOTE | 2025-02-18 18:34 | NUR ---
PATIENT WAS LITTLE AGITATED TODAY. CIAW HAS BEEN 14 AND BELOW. 150MG OF LIBRIUM GIVEN FOR SHIFT. 3 MG ATIVAN GIVEN FOR SHIFT. BP MEDICATION STARTED TODAY. INSULIN SLIDING SCALE LOW STARTED TODAY. INSULIN IN PT MED BOX IN ROOM. PT HAD LARGE FORMED BROWN BOWEL MOVEMENT. PT ON A REUGLAR DIET. TOLERATING HIS DIET.
--- NOTE | 2025-02-18 20:35 | NUR ---
ASSUMPTION OF CARE: ASSUMED CARE AT START OF SHIFT (1899). PT IS DOING WELL AND SLEEPING IN BED. PT IS SOMNOLENT BUT AROUSABLE TO VERBAL STIMULI, FOLLOWING COMMANDS. PT HAS HISTORY OF ETOH, CIWA SCORES HAVE BEEN 11-14. LUNG SOUNDS EQUAL WITH EXPIRATORY WHEEZES, SPO2 >95% ON 2LPM VIA NC. SINUS RYTHM WITH SBP: 120'S MAP >65 HR: 90'S. IV'S X2 IN L AND R FOREARMS. PT IS ABLE TO USE BEDSIDE URINAL AND COMMODE WITH ASSISTANCE. LINES AND CORDS PLACED OUT OF REACH, CALL LIGHT PLACED WITHIN REACH.
[2025-02-19] VITALS (10 sets, daily range): BP systolic 115–148; BP diastolic 64–103
[2025-02-19 03:39] LABS: BASOPHILS ABSOLUTE AUTO 0.00 K/mm3 (0.00-0.23); BASOPHILS PERCENT AUTO 0 % (0-2); EOSINOPHILS ABSOLUTE AUTO 0.00 K/mm3 (0.00-0.68); EOSINOPHILS PERCENT AUTO 0 % (0-6); Hematocrit 39.6 % (37.0-53.0); Hemoglobin 12.4 g/dL (13.5-17.5); IMMATURE GRAN ABSOLUTE AUTO 0.02 K/mm3 (0.00-0.10); IMMATURE GRAN PERCENT AUTO 0 % (0-1); LYMPHOCYTES ABSOLUTE AUTO 0.53 K/mm3 (0.84-5.20); LYMPHOCYTES PERCENT AUTO 6 % (21-46); MONOCYTES ABSOLUTE AUTO 0.17 K/mm3 (0.16-1.47); MONOCYTES PERCENT AUTO 2 % (4-13); Mean Corpuscular HGB Conc 31.3 g/dL (31.5-36.5); Mean Corpuscular Volume 98 fL (80-100); NEUTROPHILS ABSOLUTE AUTO 7.65 K/mm3 (1.96-9.15); NEUTROPHILS PERCENT AUTO 92 % (41-73); NRBC ABSOLUTE 0.00 K/mm3 (0.00-0.02); NRBC Auto 0.0 /100 WBC (0.0-0.2); Platelet Count 195 K/mm3 (150-400); RDW Coefficient Variation 15.2 % (11.7-14.2); RDW Standard Deviation 54.5 fL (35.1-46.3)
[2025-02-19 04:02] LABS: Alanine Aminotransfer (ALT/SGP 27.0 U/L (12-78); Albumin, Blood 2.4 g/dL (3.4-5.0); Albumin/Globulin Ratio 0.7 (0.8-1.8); Anion Gap 4.0 mmol/L (3-11); Aspartate Aminotrans (AST/SGOT 20.0 U/L (12-37); Bilirubin, Total 0.3 mg/dL (0.1-1.0); Blood Urea Nitrogen 27.0 mg/dL (8-24); CO2, Blood 41.0 mmol/L (21-32); Calcium, Blood 7.8 mg/dL (8.5-10.1); Chloride, Blood 96.0 mmol/L (98-108); Creatinine, Blood 0.8 mg/dL (0.60-1.20); Globulin, Blood 3.5 g/dL (2.2-4.0); Glucose, Blood 170.0 mg/dL (70-99); Magnesium, Blood 2.3 mg/dL (1.6-2.4); Potassium, Blood 4.7 mmol/L (3.5-5.5); Sodium, Blood 136.0 mmol/L (136-145); Total Protein, Blood 5.9 g/dL (6.4-8.2)
--- NOTE | 2025-02-19 06:13 | NUR ---
SHIFT SUMMARY: PT IS DOING WELL AND RESTING IN BED. PT WAS ABLE TO SLEEP PART OF THE NIGHT. CIWA SCORES RANGING FROM 10-13. LIBRIUM AND ATIVAN PER EMR ORDERS. ON O2 @ 2LPM VIA NC SPO2 >95%. VITAL SIGNS HAVE BEEN STABLE. LINES AND CORDS PLACED OUT OF REACH. CALL LIGHT PLACED WITHIN REACH.
--- NOTE | 2025-02-19 13:51 | NUR ---
PATIENT REQUESTING TO LEAVE AMA. REQUEST FOR PALLIATIVE CARE TO EXPLORE HOSPICE A POSIBILITY. DISCUSSED WITH PROVIDER AND WITH CARE COORDINATION. AT THIS TIME PATIENT IS STILL GOING THROUGH ETOH WITHDRAWL AND PROVIDER DOES NOT FEEL A CONVERSATION OF THIS NATURE WOULD BE APPROPRIATE AT THIS TIME. IF PATIENTS MENTATION CLEARS PC WILL FOLLOW UP
--- NOTE | 2025-02-19 14:49 | NUR ---
PT LEFT AMA AT 1445. PT ATTEMPTED TO LEAVE AMA AT 1018 THIS MORNING BUT GOT REALLY SOB SO HE SAT BACK DOWN. GAVE HIM A BREATHING TREATMENT. HE SAID HE WOULD STAY. PUT HIM BACK IN BED. HE REFUSED TO PUT ON LEADS FOR CONTINOUS HEART MONTORING, SPO2 SENSOR, BP CUFF. LEFT FOREARM 18G AND RIGHT FOREARM 20G PIVS WERE REMOVED AT 1015. PT INCRERASING AGITATION THIS AFTERNOON. PT PUT HIS CLOTHES ON, GATHERED HIS BELONGINGS AND WALKED OUT OF THE UNIT INDEPENDENTLY AT 1445. DR. JOHNSON NOTIFIED PT LEFT AMA.
== END 2025-02-19 15:01 | disposition left against medical advice (07) | DRG 291 ==
LOC: ER 09:19 → ICUE 11:18
PROVIDERS: Student in an Organized Health Care Education/Training Program; ADMIT Internal Medicine
PROC: 5A09357 Assistance with Respiratory Ventilation, Less than 24 Consecutive Hours, Continuous Positive Airway Pressure (ICD-10-PCS; principal; 2025-02-17)
DX: I11.0 Hypertensive heart disease with heart failure (principal); I50.33 Acute on chronic diastolic (congestive) heart failure; J96.21 Acute and chronic respiratory failure with hypoxia; J96.22 Acute and chronic respiratory failure with hypercapnia; J44.1 Chronic obstructive pulmonary disease with (acute) exacerbation; Z59.01 Sheltered homelessness; F10.930 Alcohol use, unspecified with withdrawal, uncomplicated; E87.6 Hypokalemia; M19.90 Unspecified osteoarthritis, unspecified site; Z53.29 Procedure and treatment not carried out because of patient's decision for other reasons; G47.33 Obstructive sleep apnea (adult) (pediatric); M10.9 Gout, unspecified; E11.9 Type 2 diabetes mellitus without complications; F17.210 Nicotine dependence, cigarettes, uncomplicated; Z88.8 Allergy status to other drugs, medicaments and biological substances; Z91.018 Allergy to other foods; Z79.84 Long term (current) use of oral hypoglycemic drugs; Z79.899 Other long term (current) drug therapy; Z79.82 Long term (current) use of aspirin; Z91.148 Patient's other noncompliance with medication regimen for other reason
CPT/HCPCS: 36415; 71045; 80053; 82803; 82947; 83735; 83880; 84484; 85025; 85379; 87637; 93005; 93010; 94640; 94644; 94660; 94664; 94762; 96374; 96375; 99285-25; A9270; J0456; J0696; J1650; J1938; J2250; J2919; J3411; J7030; J7050